=== PATIENT | male | born 1950 | race Caucasian/White ===

== ENCOUNTER 2020-04-14 12:18 | Outpatient (REF) | payer MEDICARE, SELFPAY ==
--- NOTE | 2020-04-14 12:27 | XR_ITS ---
EXAMINATION: LEFT HIP X-RAY CLINICAL INFORMATION: Pain COMPARISON: None TECHNIQUE: 2 views of the left hip FINDINGS: Bone alignment is normal. No fracture or dislocation is seen. There is mild arthritis with small osteophytes at the left hip joint. There are surgical clips that project over the left femoral neck/intertrochanteric region. There is soft tissue arterial calcification. XR/XR hip LT 1V IMPRESSION: Mild left hip arthritis. EXAMINATION: Lumbar spine x-ray CLINICAL INFORMATION: Low back pain COMPARISON: None. TECHNIQUE: 3 views of the lumbar spine FINDINGS: Bone alignment is normal. No fracture or dislocation is seen. There is multilevel degenerative disc disease and spondylosis. There is ankylosis at the L4-L5 disc space level. There is multilevel facet arthritis. There is evidence of atherosclerotic disease. IMPRESSION: Severe degenerative changes. Secondary spinal stenosis should be considered.
--- NOTE | 2020-04-14 12:27 | XR_ITS ---
EXAMINATION: LEFT HIP X-RAY CLINICAL INFORMATION: Pain COMPARISON: None TECHNIQUE: 2 views of the left hip FINDINGS: Bone alignment is normal. No fracture or dislocation is seen. There is mild arthritis with small osteophytes at the left hip joint. There are surgical clips that project over the left femoral neck/intertrochanteric region. There is soft tissue arterial calcification. XR/XR lumbar spine 2-3V IMPRESSION: Mild left hip arthritis. EXAMINATION: Lumbar spine x-ray CLINICAL INFORMATION: Low back pain COMPARISON: None. TECHNIQUE: 3 views of the lumbar spine FINDINGS: Bone alignment is normal. No fracture or dislocation is seen. There is multilevel degenerative disc disease and spondylosis. There is ankylosis at the L4-L5 disc space level. There is multilevel facet arthritis. There is evidence of atherosclerotic disease. IMPRESSION: Severe degenerative changes. Secondary spinal stenosis should be considered.
== END 2020-04-14 12:19 | disposition home or self-care (01) ==
LOC: HO.XRAY 12:18
DX: M54.5 Low back pain (principal); M25.552 Pain in left hip
CPT/HCPCS: 72100; 73501

== ENCOUNTER 2021-01-31 07:44 | Outpatient (RCR) | payer MEDICARE, SELFPAY | END 2021-02-27 14:00 | disposition home or self-care (01) | LOC: HO.WCC 07:44 | PROVIDERS: PCP Nurse Practitioner Family; Visit Provider Surgery | DX: E11.621 Type 2 diabetes mellitus with foot ulcer (principal); L97.522 Non-pressure chronic ulcer of other part of left foot with fat layer exposed; E11.40 Type 2 diabetes mellitus with diabetic neuropathy, unspecified; I10 Essential (primary) hypertension; Z79.4 Long term (current) use of insulin; Z79.899 Other long term (current) drug therapy | CPT/HCPCS: 11042 ==

== ENCOUNTER 2021-04-17 07:58 | Outpatient (RCR) | payer MEDICARE, SELFPAY ==
--- NOTE | ~2021-04-17 | XR_ITS ---
EXAMINATION: XR FOOT, LEFT CLINICAL INFORMATION: Nonhealing left great toe COMPARISON: None TECHNIQUE: AP, lateral, and oblique views of the left foot. FINDINGS: Osteopenia. Amputations of the third ray at the proximal phalanx and fifth ray at the metatarsal. Soft tissue swelling and dressing along the hallux. No underlying radiographic changes of osteomyelitis. XR/XR foot LT min 3V IMPRESSION: No radiographic evidence of osteomyelitis involving the great toe.
[2021-06-07 07:19] LABS: MANUAL DIFF FLAG NO
[2021-06-07 07:39] LABS: Estimated Average Glucose 160 mg/dL; Hemoglobin A1c % 7.2 %
[2021-06-07 07:49] LABS: Anion Gap 12 (12-20); Blood Urea Nitrogen 38 mg/dL (9-16); Calcium 9.5 mg/dL (8.4-10.2); Carbon Dioxide 21 mmol/L (22-29); Chloride 111 mmol/L (96-108); Estimated Glomerular Filt Rate 48; Glucose Random 172 mg/dL (60-115); Potassium 4.2 mmol/L (3.3-5.1); Sodium 140 mmol/L (135-145)
[2021-06-07 08:18] LABS: Erythrocyte Sedimentation Rate 11 MM/HR (0-15)
[2021-06-07 09:01] LABS: Hematocrit 44.2 % (42.0-52.0); Hemoglobin 15.1 g/dl (14.0-18.0); Imm Gran Abs Auto 0.02 X10*3/uL (0.00-0.03); Imm Gran Pct Auto 0.2 % (0.0-0.4); Lymphocytes Absolute Auto 1.4 X10*3/uL (1.2-4.9); Lymphocytes Percent Auto 16.7 % (20-40); Mean Corpuscular HGB Conc 34.2 g/dl (31.0-36.0); Mean Corpuscular Hemoglobin 30.5 pg (27.0-33.0); Mean Corpuscular Volume 89.3 fL (80.0-98.0); Mean Platelet Volume 10.4 fL (9.4-12.4); Monocytes Absolute Auto 0.6 X10*3/uL (0.1-1.2); Monocytes Percent Auto 7.2 % (2-11); Neutrophils Absolute Auto 6.1 x10*3/uL (2.0-8.3); Neutrophils Percent Auto 75.9 % (45-73); Platelet Count 141 X10*3/uL (160-400); Red Blood Count 4.95 X10*6/uL (4.60-5.80); Red Cell Distribution Width 14.4 % (11.0-16.0); White Blood Count 8.1 X10*3/uL (4.8-10.8)
== END 2021-07-04 15:10 | disposition home or self-care (01) ==
LOC: HO.WCC 07:58
PROVIDERS: PCP Nurse Practitioner Family; Visit Provider Physician Assistant
DX: E11.621 Type 2 diabetes mellitus with foot ulcer (principal); L97.522 Non-pressure chronic ulcer of other part of left foot with fat layer exposed; E11.40 Type 2 diabetes mellitus with diabetic neuropathy, unspecified; I10 Essential (primary) hypertension; I25.84 Coronary atherosclerosis due to calcified coronary lesion; I25.2 Old myocardial infarction; Z87.891 Personal history of nicotine dependence; Z86.718 Personal history of other venous thrombosis and embolism; Z95.1 Presence of aortocoronary bypass graft
CPT/HCPCS: 11042; 15275; 36415; 73630; 80048; 83036; 85025; 85652; 86140; 99212; Q4187

== ENCOUNTER 2021-10-04 07:55 | Outpatient (RCR) | payer MEDICARE, SELFPAY ==
--- NOTE | ~2021-10-04 | XR_ITS ---
EXAMINATION: XR FOOT, LEFT CLINICAL INFORMATION: Evaluate for osteomyelitis of the great toe COMPARISON: 06/07/2021 TECHNIQUE: AP, lateral, and oblique views of the left foot. FINDINGS: No cortical erosion or periosteal reaction to suggest osteomyelitis. Postsurgical changes of the 3rd toe and 5th metatarsal. Chronic deformity at the 2nd PIP joint. No acute osseous abnormality demonstrated. XR/XR foot LT min 3V IMPRESSION: No acute osseous abnormality.
--- NOTE | ~2021-10-04 | XR_ITS ---
EXAMINATION: XR FOOT, LEFT CLINICAL INFORMATION: Pain great toe. Assess for osteomyelitis. COMPARISON: Radiographs left foot 02/02/2022, 06/07/2021. TECHNIQUE: The left foot is imaged in 4 views. FINDINGS: The foot is similar to prior studies. There is no acute or healing fracture or destructive process. No periostitis. No gas tracking in soft tissues. Again, there are degenerative changes first MTP and second toe PIP joints. No erosive change. There has been prior amputation at distal shaft third toe proximal phalanx and mid shaft fifth metatarsal. There are posterior and plantar calcaneal spurs. Atherosclerotic calcifications vasculature. XR/XR foot LT min 3V IMPRESSION: 1. No acute or healing fracture or destructive process. No gas tracking in soft tissues. 2. Degenerative changes first MTP and second toe PIP joint. 3. Calcaneal spurs.
[2022-02-23 08:07] LABS: MANUAL DIFF FLAG NO
[2022-02-23 08:40] LABS: Basophils Percent Auto 0.4 % (0-2); Eosinophils Absolute Auto 0.1 X10*3/uL (0.0-0.4); Eosinophils Percent Auto 2.8 % (0-4); Hematocrit 44.4 % (42.0-52.0); Hemoglobin 14.8 g/dl (14.0-18.0); Imm Gran Abs Auto 0.02 X10*3/uL (0.00-0.03); Imm Gran Pct Auto 0.4 % (0.0-0.4); Lymphocytes Absolute Auto 1.3 X10*3/uL (1.2-4.9); Lymphocytes Percent Auto 26.4 % (20-40); Mean Corpuscular HGB Conc 33.3 g/dl (31.0-36.0); Mean Corpuscular Volume 92.9 fL (80.0-98.0); Mean Platelet Volume 10.6 fL (9.4-12.4); Monocytes Absolute Auto 0.6 X10*3/uL (0.1-1.2); Monocytes Percent Auto 11.7 % (2-11); Neutrophils Absolute Auto 2.9 x10*3/uL (2.0-8.3); Neutrophils Percent Auto 58.3 % (45-73); Platelet Count 126 X10*3/uL (160-400); Red Blood Count 4.78 X10*6/uL (4.60-5.80); Red Cell Distribution Width 13.4 % (11.0-16.0)
[2022-02-23 09:09] LABS: Estimated Average Glucose 166 mg/dL; Hemoglobin A1c % 7.4 %
[2022-02-23 09:13] LABS: Anion Gap 15 (12-20); Blood Urea Nitrogen 29 mg/dL (9-16); C Reactive Protein 0.28 mg/dL (< or = 0.50); Carbon Dioxide 27 mmol/L (22-29); Chloride 103 mmol/L (96-108); Estimated Glomerular Filt Rate 59; Glucose Random 185 mg/dL (60-115); Potassium 4.2 mmol/L (3.3-5.1); Sodium 141 mmol/L (135-145)
[2022-02-23 09:32] LABS: Erythrocyte Sedimentation Rate 7 MM/HR (0-15)
[2022-05-20 10:55] LABS: Blood Urea Nitrogen 31 mg/dL (9-16); Estimated Glomerular Filt Rate 58
== END 2022-08-01 16:00 | disposition home or self-care (01) ==
LOC: HO.WCC 07:55
PROVIDERS: Surgery; Visit Provider Physician Assistant
DX: E11.621 Type 2 diabetes mellitus with foot ulcer (principal); L97.522 Non-pressure chronic ulcer of other part of left foot with fat layer exposed; Z79.2 Long term (current) use of antibiotics; Z79.4 Long term (current) use of insulin; Z79.82 Long term (current) use of aspirin; Z79.899 Other long term (current) drug therapy
CPT/HCPCS: 11042; 15275; 29445; 36415; 73630; 80048; 82565; 83036; 84134; 84520; 85025; 85652; 86140; 87071; 87077; 87186; 87205; 97597; 99212; 99213; Q4187

== ENCOUNTER 2022-05-20 09:47 | Outpatient (REF) | payer MEDICARE, SELFPAY ==
--- NOTE | ~2022-05-20 | CT_ITS ---
EXAMINATION: CT LEFT FOOT WITH CONTRAST. CLINICAL INFORMATION: Diabetes with foot ulcer. Clinical history provided for the prior x-ray, pain great toe, assess for osteomyelitis COMPARISON: X-ray 04/20/2022 TECHNIQUE: Axial imaging. Sagittal coronal reconstructions. 85 cc Omnipaque [id number]. FINDINGS: There is soft tissue swelling of the first toe, with findings suggestive of subcutaneous edema, more prominently in the plantar/medial aspect of the toe. There appears be subtle skin irregularity in the distal toe, suggestive of ulceration. No loculated or drainable fluid collection is seen. No definite erosive or destructive process is identified in the first toe. No periostitis is evident. Chronic appearing ossification medial to the first IP joint. Mild first MTP and IP joint arthritis. There is hallux sesamoid arthritis. Prior amputation at the level of the distal shaft of the third proximal phalanx and the mid shaft fifth metatarsal. No osteolysis or destructive process otherwise identified. There is subcutaneous edema in the ankle and dorsal aspect of the foot.. Limited evaluation of the tendons. No appreciable significant tenosynovitis is seen. Achilles tendon grossly appears intact. CT/CT foot LT w IV con IMPRESSION: 1. Soft tissue swelling and subcutaneous edema of the first toe. No loculated drainable fluid collections evident by CT. 2. No erosive changes or destructive process is identified in the first toe. Early changes of osteomyelitis may not be evident by CT. MRI evaluation is more sensitive, and can be obtained as clinically warranted. 3. Postsurgical changes and arthritis as detailed above. 4. Additional findings and details as above.
[2022-05-20] MEDS: iohexoL 350 MG/ML 100 ML INFUS..BTL IV (12:10)
== END 2022-05-20 09:48 | disposition home or self-care (01) ==
LOC: HO.CT 09:47
PROVIDERS: PCP Nurse Practitioner Family; Visit Provider Physician Assistant
DX: E11.621 Type 2 diabetes mellitus with foot ulcer (principal); L97.522 Non-pressure chronic ulcer of other part of left foot with fat layer exposed
CPT/HCPCS: 73701; Q9967

== ENCOUNTER 2022-06-19 11:49 | Outpatient (REF) | payer MEDICARE, SELFPAY ==
[2022-06-19 13:45] LABS: Hematocrit 44.6 % (42.0-52.0); Hemoglobin 14.7 g/dl (14.0-18.0); Mean Corpuscular Hemoglobin 30.1 pg (27.0-33.0); Mean Corpuscular Volume 91.4 fL (80.0-98.0); Mean Platelet Volume 10.7 fL (9.4-12.4); Platelet Count 145 X10*3/uL (160-400); Red Blood Count 4.88 X10*6/uL (4.60-5.80); Red Cell Distribution Width 12.9 % (11.0-16.0); White Blood Count 5.2 X10*3/uL (4.8-10.8)
[2022-06-19 14:40] LABS: Anion Gap 14 (12-20); Blood Urea Nitrogen 33 mg/dL (9-16); Carbon Dioxide 26 mmol/L (22-29); Chloride 105 mmol/L (96-108); Estimated Glomerular Filt Rate 56; Potassium 4.5 mmol/L (3.3-5.1); Sodium 140 mmol/L (135-145)
== END 2022-06-19 11:50 | disposition home or self-care (01) ==
LOC: HO.LAB 11:49
PROVIDERS: PCP Nurse Practitioner Family; Visit Provider Nurse Practitioner Adult Health
DX: I73.9 Peripheral vascular disease, unspecified (principal)
CPT/HCPCS: 36415; 80051; 82565; 84520; 85027; 85610

== ENCOUNTER 2022-09-18 07:48 | Outpatient (RCR) | payer MEDICARE, SELFPAY | END 2023-05-12 17:00 | disposition home or self-care (01) | LOC: HO.WCC 07:48 | PROVIDERS: PCP Nurse Practitioner Family; Visit Provider Surgery | DX: E11.621 Type 2 diabetes mellitus with foot ulcer (principal); L97.412 Non-pressure chronic ulcer of right heel and midfoot with fat layer exposed; E11.51 Type 2 diabetes mellitus with diabetic peripheral angiopathy without gangrene; E11.40 Type 2 diabetes mellitus with diabetic neuropathy, unspecified; E11.620 Type 2 diabetes mellitus with diabetic dermatitis; I25.2 Old myocardial infarction; I12.9 Hypertensive chronic kidney disease with stage 1 through stage 4 chronic kidney disease, or unspecified chronic kidney disease; N18.9 Chronic kidney disease, unspecified; Z95.1 Presence of aortocoronary bypass graft; Z86.718 Personal history of other venous thrombosis and embolism; Z87.891 Personal history of nicotine dependence; Z89.422 Acquired absence of other left toe(s) | CPT/HCPCS: 11042; 87070; 87073; 87077; 87186; 87205; 97597; 99212; 99213 ==

== ENCOUNTER → 2022-11-25 09:25 | Outpatient (BNVA) | payer MEDICARE, SELFPAY | PROVIDERS: PCP Nurse Practitioner Family; Visit Provider Internal Medicine | DX: M48.00 Spinal stenosis, site unspecified (principal) | CPT/HCPCS: 99202 ==

== ENCOUNTER 2023-08-04 09:36 | Outpatient (RCR) | payer MEDICARE, SELFPAY | END 2023-09-08 11:59 | disposition home or self-care (01) | LOC: HO.WCC 09:36 | PROVIDERS: PCP Nurse Practitioner Family; Visit Provider Physician Assistant | DX: E11.621 Type 2 diabetes mellitus with foot ulcer (principal); L97.522 Non-pressure chronic ulcer of other part of left foot with fat layer exposed; E11.51 Type 2 diabetes mellitus with diabetic peripheral angiopathy without gangrene; E11.40 Type 2 diabetes mellitus with diabetic neuropathy, unspecified; L84 Corns and callosities; I10 Essential (primary) hypertension; I25.2 Old myocardial infarction; Z95.1 Presence of aortocoronary bypass graft; Z89.422 Acquired absence of other left toe(s); Z87.891 Personal history of nicotine dependence; Z86.718 Personal history of other venous thrombosis and embolism | CPT/HCPCS: 11042; 99212 ==

== ENCOUNTER 2024-03-08 06:37 | Outpatient (REF) | payer SELFPAY ==
[2024-03-08 06:14] LABS: MANUAL DIFF FLAG NO
[2024-03-08 07:02] LABS: Basophils Percent Auto 0.4 % (0-2); Eosinophils Absolute Auto 0.3 X10*3/uL (0.0-0.4); Hematocrit 32.7 % (42.0-52.0); Hemoglobin 10.2 g/dl (14.0-18.0); Imm Gran Abs Auto 0.03 X10*3/uL (0.00-0.03); Imm Gran Pct Auto 0.4 % (0.0-0.4); Lymphocytes Percent Auto 28.8 % (20-40); Mean Corpuscular HGB Conc 31.2 g/dl (31.0-36.0); Mean Corpuscular Hemoglobin 28.6 pg (27.0-33.0); Mean Corpuscular Volume 91.6 fL (80.0-98.0); Mean Platelet Volume 9.8 fL (9.4-12.4); Monocytes Absolute Auto 0.6 X10*3/uL (0.1-1.2); Monocytes Percent Auto 9.4 % (2-11); Neutrophils Absolute Auto 3.8 x10*3/uL (2.0-8.3); Platelet Count 210 X10*3/uL (160-400); Red Blood Count 3.57 X10*6/uL (4.60-5.80); Red Cell Distribution Width 15.1 % (11.0-16.0); White Blood Count 6.8 X10*3/uL (4.8-10.8)
[2024-03-08 07:34] LABS: Anion Gap 9 (12-20); Blood Urea Nitrogen 29 mg/dL (9-16); Calcium 8.5 mg/dL (8.4-10.2); Carbon Dioxide 28 mmol/L (22-29); Chloride 107 mmol/L (96-108); Estimated Glomerular Filt Rate > 60; Glucose Random 131 mg/dL (60-115); Potassium 4.3 mmol/L (3.3-5.1); Sodium 140 mmol/L (135-145)
== END 2024-03-08 06:38 | disposition home or self-care (01) ==
LOC: HO.MMNH2L 06:37
PROVIDERS: Visit Provider Hospitalist
DX: M62.59 Muscle wasting and atrophy, not elsewhere classified, multiple sites (principal)
CPT/HCPCS: 36415; 80048; 80197; 85025

== ENCOUNTER 2024-03-18 05:49 | Outpatient (REF) | payer MEDICARE, SELFPAY ==
[2024-03-19 21:44] LABS: Tacrolimus Prograf 3.8 mcg/L
== END 2024-03-18 05:50 | disposition home or self-care (01) ==
LOC: HO.MMNH2L 05:49
PROVIDERS: Visit Provider Hospitalist
DX: M62.59 Muscle wasting and atrophy, not elsewhere classified, multiple sites (principal); E11.40 Type 2 diabetes mellitus with diabetic neuropathy, unspecified; Z79.899 Other long term (current) drug therapy
CPT/HCPCS: 36415; 80197

== ENCOUNTER 2024-03-22 06:21 | Outpatient (REF) | payer MEDICARE, SELFPAY ==
[2024-03-22 06:03] LABS: MANUAL DIFF FLAG NO
[2024-03-22 07:00] LABS: Basophils Percent Auto 0.3 % (0-2); Eosinophils Absolute Auto 0.3 X10*3/uL (0.0-0.4); Eosinophils Percent Auto 5.5 % (0-4); Hematocrit 32.7 % (42.0-52.0); Imm Gran Abs Auto 0.02 X10*3/uL (0.00-0.03); Imm Gran Pct Auto 0.3 % (0.0-0.4); Lymphocytes Absolute Auto 1.6 X10*3/uL (1.2-4.9); Lymphocytes Percent Auto 25.3 % (20-40); Mean Corpuscular HGB Conc 30.6 g/dl (31.0-36.0); Mean Corpuscular Hemoglobin 28.2 pg (27.0-33.0); Mean Corpuscular Volume 92.1 fL (80.0-98.0); Mean Platelet Volume 10.3 fL (9.4-12.4); Monocytes Absolute Auto 0.7 X10*3/uL (0.1-1.2); Monocytes Percent Auto 10.6 % (2-11); Neutrophils Absolute Auto 3.6 x10*3/uL (2.0-8.3); Platelet Count 175 X10*3/uL (160-400); Red Blood Count 3.55 X10*6/uL (4.60-5.80); Red Cell Distribution Width 15.5 % (11.0-16.0); White Blood Count 6.2 X10*3/uL (4.8-10.8)
[2024-03-22 07:21] LABS: Anion Gap 11 (12-20); Blood Urea Nitrogen 32 mg/dL (9-16); Calcium 8.3 mg/dL (8.4-10.2); Carbon Dioxide 24 mmol/L (22-29); Chloride 109 mmol/L (96-108); Estimated Glomerular Filt Rate > 60; Glucose Random 127 mg/dL (60-115); Potassium 3.8 mmol/L (3.3-5.1); Sodium 140 mmol/L (135-145)
== END 2024-03-22 06:22 | disposition home or self-care (01) ==
LOC: HO.MMNH2L 06:21
PROVIDERS: Visit Provider Hospitalist
DX: M62.59 Muscle wasting and atrophy, not elsewhere classified, multiple sites (principal)
CPT/HCPCS: 36415; 80048; 80197; 85025

== ENCOUNTER 2024-03-29 06:19 | Outpatient (REF) | payer MEDICARE, SELFPAY ==
[2024-03-29 06:04] LABS: MANUAL DIFF FLAG NO
[2024-03-29 07:03] LABS: Basophils Percent Auto 0.4 % (0-2); Eosinophils Absolute Auto 0.4 X10*3/uL (0.0-0.4); Eosinophils Percent Auto 7.6 % (0-4); Hematocrit 32.9 % (42.0-52.0); Hemoglobin 10.3 g/dl (14.0-18.0); Imm Gran Abs Auto 0.01 X10*3/uL (0.00-0.03); Imm Gran Pct Auto 0.2 % (0.0-0.4); Lymphocytes Absolute Auto 1.5 X10*3/uL (1.2-4.9); Lymphocytes Percent Auto 25.5 % (20-40); Mean Corpuscular HGB Conc 31.3 g/dl (31.0-36.0); Mean Corpuscular Hemoglobin 28.2 pg (27.0-33.0); Mean Corpuscular Volume 90.1 fL (80.0-98.0); Mean Platelet Volume 10.2 fL (9.4-12.4); Monocytes Absolute Auto 0.6 X10*3/uL (0.1-1.2); Neutrophils Absolute Auto 3.2 x10*3/uL (2.0-8.3); Neutrophils Percent Auto 56.3 % (45-73); Platelet Count 173 X10*3/uL (160-400); Red Blood Count 3.65 X10*6/uL (4.60-5.80); Red Cell Distribution Width 15.4 % (11.0-16.0); White Blood Count 5.7 X10*3/uL (4.8-10.8)
[2024-03-29 07:17] LABS: Anion Gap 11 (12-20); Blood Urea Nitrogen 30 mg/dL (9-16); Calcium 8.4 mg/dL (8.4-10.2); Carbon Dioxide 24 mmol/L (22-29); Chloride 106 mmol/L (96-108); Estimated Glomerular Filt Rate > 60; Glucose Random 116 mg/dL (60-115); Potassium 3.8 mmol/L (3.3-5.1); Sodium 137 mmol/L (135-145)
[2024-03-30 17:59] LABS: Tacrolimus Prograf 3.5 mcg/L
== END 2024-03-29 06:20 | disposition home or self-care (01) ==
LOC: HO.MMNH2L 06:19
PROVIDERS: Visit Provider Hospitalist
DX: M62.59 Muscle wasting and atrophy, not elsewhere classified, multiple sites (principal)
CPT/HCPCS: 36415; 80048; 80197; 85025

== ENCOUNTER 2024-04-05 06:18 | Outpatient (REF) | payer MEDICARE, SELFPAY ==
[2024-04-05 06:02] LABS: MANUAL DIFF FLAG NO
[2024-04-05 07:01] LABS: Estimated Average Glucose 137 mg/dL; Hemoglobin A1C 127.4639 umol/L; Hemoglobin A1c % 6.4 % (<6.0); Total Hemoglobin (HGBA1C) 2722.9203 umol/L
[2024-04-05 07:11] LABS: Basophils Percent Auto 0.5 % (0-2); Eosinophils Absolute Auto 0.4 X10*3/uL (0.0-0.4); Eosinophils Percent Auto 7.4 % (0-4); Hematocrit 33.6 % (42.0-52.0); Hemoglobin 10.7 g/dl (14.0-18.0); Imm Gran Abs Auto 0.02 X10*3/uL (0.00-0.03); Imm Gran Pct Auto 0.4 % (0.0-0.4); Lymphocytes Absolute Auto 1.6 X10*3/uL (1.2-4.9); Lymphocytes Percent Auto 28.4 % (20-40); Mean Corpuscular HGB Conc 31.8 g/dl (31.0-36.0); Mean Corpuscular Hemoglobin 28.5 pg (27.0-33.0); Mean Corpuscular Volume 89.4 fL (80.0-98.0); Mean Platelet Volume 10.2 fL (9.4-12.4); Monocytes Absolute Auto 0.7 X10*3/uL (0.1-1.2); Monocytes Percent Auto 11.6 % (2-11); Neutrophils Percent Auto 51.7 % (45-73); Platelet Count 170 X10*3/uL (160-400); Red Blood Count 3.76 X10*6/uL (4.60-5.80); Red Cell Distribution Width 15.5 % (11.0-16.0); White Blood Count 5.7 X10*3/uL (4.8-10.8)
[2024-04-05 08:14] LABS: Anion Gap 11 (12-20); Blood Urea Nitrogen 30 mg/dL (9-16); Calcium 8.4 mg/dL (8.4-10.2); Carbon Dioxide 26 mmol/L (22-29); Chloride 104 mmol/L (96-108); Estimated Glomerular Filt Rate > 60; Glucose Random 165 mg/dL (60-115); Potassium 4.1 mmol/L (3.3-5.1); Sodium 137 mmol/L (135-145)
[2024-04-06 16:48] LABS: Tacrolimus Prograf 4.4 mcg/L
== END 2024-04-05 06:19 | disposition home or self-care (01) ==
LOC: HO.MMNH2L 06:18
PROVIDERS: Nurse Practitioner; Visit Provider Hospitalist
DX: M62.59 Muscle wasting and atrophy, not elsewhere classified, multiple sites (principal); E11.9 Type 2 diabetes mellitus without complications
CPT/HCPCS: 36415; 80048; 80197; 83036; 85025

== ENCOUNTER 2024-04-12 06:10 | Outpatient (REF) | payer MEDICARE, SELFPAY ==
[2024-04-12 05:50] LABS: MANUAL DIFF FLAG NO
[2024-04-12 06:35] LABS: Basophils Percent Auto 0.3 % (0-2); Eosinophils Absolute Auto 0.4 X10*3/uL (0.0-0.4); Eosinophils Percent Auto 6.3 % (0-4); Hematocrit 33.9 % (42.0-52.0); Hemoglobin 10.9 g/dl (14.0-18.0); Imm Gran Abs Auto 0.02 X10*3/uL (0.00-0.03); Imm Gran Pct Auto 0.3 % (0.0-0.4); Lymphocytes Absolute Auto 1.8 X10*3/uL (1.2-4.9); Mean Corpuscular HGB Conc 32.2 g/dl (31.0-36.0); Mean Corpuscular Hemoglobin 28.7 pg (27.0-33.0); Mean Corpuscular Volume 89.2 fL (80.0-98.0); Mean Platelet Volume 9.9 fL (9.4-12.4); Monocytes Absolute Auto 0.7 X10*3/uL (0.1-1.2); Monocytes Percent Auto 11.6 % (2-11); Neutrophils Absolute Auto 3.2 x10*3/uL (2.0-8.3); Neutrophils Percent Auto 52.5 % (45-73); Platelet Count 162 X10*3/uL (160-400); Red Cell Distribution Width 15.6 % (11.0-16.0); White Blood Count 6.1 X10*3/uL (4.8-10.8)
[2024-04-12 07:00] LABS: Anion Gap 11 (12-20); Blood Urea Nitrogen 29 mg/dL (9-16); Calcium 8.4 mg/dL (8.4-10.2); Carbon Dioxide 26 mmol/L (22-29); Chloride 106 mmol/L (96-108); Estimated Glomerular Filt Rate > 60; Glucose Random 123 mg/dL (60-115); Potassium 3.9 mmol/L (3.3-5.1); Sodium 139 mmol/L (135-145)
== END 2024-04-12 06:11 | disposition home or self-care (01) ==
LOC: HO.MMNH2L 06:10
DX: E11.40 Type 2 diabetes mellitus with diabetic neuropathy, unspecified (principal); Z94.0 Kidney transplant status; I10 Essential (primary) hypertension
CPT/HCPCS: 36415; 80048; 85025

== ENCOUNTER 2024-04-19 05:47 | Outpatient (REF) | payer MEDICARE, SELFPAY ==
[2024-04-19 05:39] LABS: MANUAL DIFF FLAG NO
[2024-04-19 06:27] LABS: Anion Gap 14 (12-20); Blood Urea Nitrogen 35 mg/dL (9-16); Calcium 8.5 mg/dL (8.4-10.2); Carbon Dioxide 23 mmol/L (22-29); Chloride 106 mmol/L (96-108); Estimated Glomerular Filt Rate > 60; Glucose Random 201 mg/dL (60-115); Potassium 3.9 mmol/L (3.3-5.1); Sodium 139 mmol/L (135-145)
[2024-04-19 07:02] LABS: Basophils Percent Auto 0.2 % (0-2); Eosinophils Absolute Auto 0.3 X10*3/uL (0.0-0.4); Eosinophils Percent Auto 4.6 % (0-4); Hematocrit 33.3 % (42.0-52.0); Hemoglobin 10.4 g/dl (14.0-18.0); Imm Gran Abs Auto 0.01 X10*3/uL (0.00-0.03); Imm Gran Pct Auto 0.2 % (0.0-0.4); Lymphocytes Absolute Auto 1.4 X10*3/uL (1.2-4.9); Mean Corpuscular HGB Conc 31.2 g/dl (31.0-36.0); Mean Corpuscular Hemoglobin 28.2 pg (27.0-33.0); Mean Corpuscular Volume 90.2 fL (80.0-98.0); Mean Platelet Volume 10.6 fL (9.4-12.4); Monocytes Absolute Auto 0.6 X10*3/uL (0.1-1.2); Monocytes Percent Auto 11.2 % (2-11); Neutrophils Absolute Auto 3.4 x10*3/uL (2.0-8.3); Neutrophils Percent Auto 59.8 % (45-73); Platelet Count 150 X10*3/uL (160-400); Red Blood Count 3.69 X10*6/uL (4.60-5.80); Red Cell Distribution Width 15.7 % (11.0-16.0); White Blood Count 5.7 X10*3/uL (4.8-10.8)
[2024-04-20 21:43] LABS: Tacrolimus Prograf 3.3 mcg/L
== END 2024-04-19 05:48 | disposition home or self-care (01) ==
LOC: HO.MMNH2L 05:47
PROVIDERS: Visit Provider Nurse Practitioner
DX: E11.40 Type 2 diabetes mellitus with diabetic neuropathy, unspecified (principal); Z79.4 Long term (current) use of insulin; I10 Essential (primary) hypertension
CPT/HCPCS: 36415; 80048; 80197; 85025

== ENCOUNTER 2024-04-26 05:45 | Outpatient (REF) | payer MEDICARE, SELFPAY ==
[2024-04-26 05:42] LABS: MANUAL DIFF FLAG NO
[2024-04-26 06:15] LABS: Basophils Percent Auto 0.4 % (0-2); Eosinophils Absolute Auto 0.4 X10*3/uL (0.0-0.4); Eosinophils Percent Auto 6.7 % (0-4); Hematocrit 32.9 % (42.0-52.0); Hemoglobin 10.4 g/dl (14.0-18.0); Imm Gran Abs Auto 0.02 X10*3/uL (0.00-0.03); Imm Gran Pct Auto 0.4 % (0.0-0.4); Lymphocytes Absolute Auto 1.5 X10*3/uL (1.2-4.9); Lymphocytes Percent Auto 27.1 % (20-40); Mean Corpuscular HGB Conc 31.6 g/dl (31.0-36.0); Mean Corpuscular Hemoglobin 27.8 pg (27.0-33.0); Mean Platelet Volume 10.5 fL (9.4-12.4); Monocytes Absolute Auto 0.5 X10*3/uL (0.1-1.2); Monocytes Percent Auto 8.3 % (2-11); Neutrophils Absolute Auto 3.2 x10*3/uL (2.0-8.3); Neutrophils Percent Auto 57.1 % (45-73); Platelet Count 159 X10*3/uL (160-400); Red Blood Count 3.74 X10*6/uL (4.60-5.80); Red Cell Distribution Width 15.9 % (11.0-16.0); White Blood Count 5.5 X10*3/uL (4.8-10.8)
[2024-04-26 06:53] LABS: Anion Gap 13 (12-20); Blood Urea Nitrogen 38 mg/dL (9-16); Calcium 8.2 mg/dL (8.4-10.2); Carbon Dioxide 24 mmol/L (22-29); Chloride 103 mmol/L (96-108); Estimated Glomerular Filt Rate > 60; Glucose Random 169 mg/dL (60-115); Sodium 136 mmol/L (135-145)
[2024-05-10 08:57] LABS: Tacrolimus Prograf 2.0 (L)
== END 2024-04-26 05:46 | disposition home or self-care (01) ==
LOC: HO.MMNH2L 05:45
DX: E11.40 Type 2 diabetes mellitus with diabetic neuropathy, unspecified (principal); Z94.0 Kidney transplant status; I10 Essential (primary) hypertension
CPT/HCPCS: 36415; 80048; 80197; 85025

== ENCOUNTER 2024-05-03 06:29 | Outpatient (REF) | payer MEDICARE, SELFPAY ==
[2024-05-03 06:19] LABS: MANUAL DIFF FLAG NO
[2024-05-03 06:32] LABS: Basophils Percent Auto 0.2 % (0-2); Eosinophils Absolute Auto 0.3 X10*3/uL (0.0-0.4); Eosinophils Percent Auto 5.6 % (0-4); Hematocrit 32.4 % (42.0-52.0); Hemoglobin 10.4 g/dl (14.0-18.0); Imm Gran Abs Auto 0.02 X10*3/uL (0.00-0.03); Imm Gran Pct Auto 0.4 % (0.0-0.4); Lymphocytes Absolute Auto 1.2 X10*3/uL (1.2-4.9); Lymphocytes Percent Auto 22.3 % (20-40); Mean Corpuscular HGB Conc 32.1 g/dl (31.0-36.0); Mean Corpuscular Hemoglobin 28.2 pg (27.0-33.0); Mean Corpuscular Volume 87.8 fL (80.0-98.0); Mean Platelet Volume 10.3 fL (9.4-12.4); Monocytes Absolute Auto 0.5 X10*3/uL (0.1-1.2); Monocytes Percent Auto 8.3 % (2-11); Neutrophils Absolute Auto 3.5 x10*3/uL (2.0-8.3); Neutrophils Percent Auto 63.2 % (45-73); Platelet Count 152 X10*3/uL (160-400); Red Blood Count 3.69 X10*6/uL (4.60-5.80); Red Cell Distribution Width 16.1 % (11.0-16.0); White Blood Count 5.6 X10*3/uL (4.8-10.8)
[2024-05-03 06:46] LABS: Anion Gap 11 (12-20); Blood Urea Nitrogen 34 mg/dL (9-16); Calcium 8.2 mg/dL (8.4-10.2); Carbon Dioxide 25 mmol/L (22-29); Chloride 105 mmol/L (96-108); Estimated Glomerular Filt Rate > 60; Glucose Random 205 mg/dL (60-115); Potassium 3.9 mmol/L (3.3-5.1); Sodium 137 mmol/L (135-145)
[2024-05-04 20:48] LABS: Tacrolimus Prograf 2.2 mcg/L
== END 2024-05-03 06:30 | disposition home or self-care (01) ==
LOC: HO.MMNH2L 06:29
PROVIDERS: Visit Provider Nurse Practitioner
DX: E11.40 Type 2 diabetes mellitus with diabetic neuropathy, unspecified (principal); Z94.0 Kidney transplant status; I10 Essential (primary) hypertension
CPT/HCPCS: 36415; 80048; 80197; 85025

== ENCOUNTER 2024-05-10 05:57 | Outpatient (REF) | payer MEDICARE, SELFPAY ==
[2024-05-10 05:46] LABS: MANUAL DIFF FLAG NO
[2024-05-10 06:14] LABS: Basophils Percent Auto 0.4 % (0-2); Eosinophils Absolute Auto 0.4 X10*3/uL (0.0-0.4); Eosinophils Percent Auto 7.8 % (0-4); Hematocrit 35.6 % (42.0-52.0); Hemoglobin 11.3 g/dl (14.0-18.0); Imm Gran Abs Auto 0.02 X10*3/uL (0.00-0.03); Imm Gran Pct Auto 0.4 % (0.0-0.4); Lymphocytes Absolute Auto 1.5 X10*3/uL (1.2-4.9); Lymphocytes Percent Auto 26.7 % (20-40); Mean Corpuscular HGB Conc 31.7 g/dl (31.0-36.0); Mean Corpuscular Hemoglobin 28.1 pg (27.0-33.0); Mean Corpuscular Volume 88.6 fL (80.0-98.0); Monocytes Absolute Auto 0.6 X10*3/uL (0.1-1.2); Monocytes Percent Auto 10.4 % (2-11); Neutrophils Percent Auto 54.3 % (45-73); Platelet Count 145 X10*3/uL (160-400); Red Blood Count 4.02 X10*6/uL (4.60-5.80); Red Cell Distribution Width 15.9 % (11.0-16.0); White Blood Count 5.5 X10*3/uL (4.8-10.8)
[2024-05-10 06:51] LABS: Anion Gap 13 (12-20); Blood Urea Nitrogen 36 mg/dL (9-16); Calcium 8.6 mg/dL (8.4-10.2); Carbon Dioxide 24 mmol/L (22-29); Chloride 105 mmol/L (96-108); Estimated Glomerular Filt Rate > 60; Glucose Random 144 mg/dL (60-115); Potassium 3.7 mmol/L (3.3-5.1); Sodium 138 mmol/L (135-145)
[2024-05-12 01:18] LABS: Tacrolimus Prograf 3.6 mcg/L
--- OUTSIDE RECORDS SUMMARY | 2024-05-12 12:20 | XMS_ITS ---
[facility] Organization [facility] Address [address] [place] [address] Care Team Providers Care Lead Manufacturing Engineer Name Role Phone Brittney Tiffanie HAWKINS Primary Care Provider Unavail able George Chopra Unavailable [phone] Allergies No Known Allergies REASON FOR VISIT Painful nail(s) aggrevated by shoes and causing difficulty standing/walking., Open sore, Ulcer(s) Medications Medication SIG (Take, Route, Frequency, Duration) Notes Start Date End Date Status Extra Depth Diabetic Shoes with 3 Pair Custom heat-molded multi-density innersoles for 1 year Dx: 09/01/2023 Active Omeprazole 20 MG as directed Orally Once a day Not-Taking Night Splint AFO - L1930 as directed Active Eliquis twice a day Active Aspir-81 Active Furosemide 40 MG 1 tablet Orally Once a day for 30 day(s) Not-Taking Losartan Potassium 50 MG 1 tablet Orally Once a day for 30 day(s) Not-Taking NIFEdipine Not-Takin g Amiodarone HCl Not-T aking Xarelto Not-Taking Lantus 100 UNIT/ML as directed Subcutaneous once a day 26 Units at bed time Active Tacrolimus 1 MG as directed Orally Twice a day 1.5 in AM 1 in PM Active Extra Depth Orthopedic Shoes (1 Pair) with Customized Heat Molded Multidensity Innersoles (3 Pair) as directed Dx: IDDM/Polyneuropathy (E10.42), Hammertoe Foot Deformity (M20.41,M20.42), Preulcerative Skin Lesion(s) (L85.1) Active Cipro 750 MG 1 tablet Orally qd for 30 days Not-Taking Jardiance 25 MG 1 tablet Orally Once a day Not-Taking Atorvastatin Calcium 80 MG 1 tablet Orally Once a day Active Carvedilol 6.25 MG 1 tablet with food Orally Twice a day for 30 day(s) Active Gabapentin 300 MG 1 capsule Orally Three a day Active HumaLOG 100 UNIT/ML as directed Subcutaneous three time daily Active Problems Problem Type SNOMED Code ICD Code Onset Dates Problem Status W/U Status Risk Notes Problem Non-pressure chronic ulcer of other part of left foot limited to breakdown of skin (L97.521) Active confirmed Vital Signs Height 5ft 11in in 09/01/2023 Weight 244 lbs 09/01/2023 BMI 34.03 kg/m2 09/01/2023 Blood pressure systolic 120 mm Hg 09/01/19 24 Blood pressure diastolic 80 mm Hg 024 Encounters Encounter Location Date Provider Diagnosis [facility] [address] [address] 09/01/2023 George Chopra Type 1 diabetes mellitus with diabetic polyneuropathy E10.42 ; Pain in right toe(s) M79.674 ; Tinea unguium B35.1 ; Pain in left toe(s) M79.675 ; Non-pressure chronic ulcer of other part of left foot with fat layer exposed L97.522 ; Other hammer toe(s) (acquired), left foot M20.42 ; Other hammer toe(s) (acquired), right foot M20.41 ; Primary osteoarthritis, left ankle and foot M19.072 ; Hallux valgus (acquired), left foot M20.12 ; Hallux rigidus, right foot M20.21 ; Hallux rigidus, left foot M20.22 and Non-pressure chronic ulcer of other part of left foot limited to breakdown of skin L97.521 Assessments Encounter Date Diagnosis (ICD Code) Assessment Notes Treatment Notes Treatment Clinical Notes Section Notes 09/01/2023 Type 1 diabetes mellitus with diabetic polyneuropathy (ICD-10 - E10.42) 09/01/2023 Pain in right toe(s) (ICD-10 - M79.674) 09/01/2023 Tinea unguium (ICD-10 - B35.1) 09/01/2023 Pain in left toe(s) (ICD-10 - M79.675) 09/01/2023 Non-pressure chronic ulcer of other part of left foot with fat layer exposed (ICD-10 - L97.522) 09/01/2023 Other hammer toe(s) (acquired), left foot (ICD-10 - M20.42) 09/01/2023 Other hammer toe(s) (acquired), right foot (ICD-10 - M20.41) 09/01/2023 Primary osteoarthritis, left ankle and foot (ICD-10 - M19.072) 09/01/2023 Hallux valgus (acquired), left foot (ICD-10 - M20.12) 09/01/2023 Hallux rigidus, right foot (ICD-10 - M20.21) 09/01/2023 Hallux rigidus, left foot (ICD-10 - M20.22) 09/01/2023 Non-pressure chronic ulcer of other part of left foot limited to breakdown of skin (ICD-10 - L97.521) Plan Of Treatment Medication Medication Name Sig Start Date Stop Date Notes Extra Depth Diabetic Shoes w ith 3 Pair Custom heat-molded multi-density innersoles for 1 year Dx: 09/01/2023 Night Splint AFO - L1930 as directed Next Appt Details Follow Up: 6 Months, Reason: Procedure Notes * Category Sub-Category Detail Notes Debride Nail 6-10 Nail debridement Nail debridem ent performed extensively to reduce/remove overall nail length and girth, subungual debris, and necrotic tissue, by manual and electrical means with use of a nail nipper and/or dremel, to more viable healthy nail plate or bed tissue 6-10. Silver nitrate used for any petechial bleeding as necessary. Patient chooses, no pharmaceutical tx (85080) Debride skin< 25 sq cm Open wound Open woun d selective debridement of fibrin, devitilized epidermis and/or dermis, exudate, using sterile sharp dissection, without use of anesthesia, with/without topical applications, wound assessment and instructions for ongoing care, Wound Care, The patient was instructed on importance of proper wound care consisting of pressure reduction, maintainance of moist wound environment, and regular debridement of devitilized tissue , The patient is to cleanse the wound with warm soapy water/peroxide/saline or betadine BID based on product availability , The patient is to apply Antibiotic Oint. to the wound and cover with a DSD , The patient was instructed to change dressings according to orders or PRN saturation, leaks, The patient was instructed to monitor and report any signs or symptoms of infection or any untoward reactions (05514) Keratoma Treatment Parring or Cutting o f Benign Hyperkeratotic Lesion(s) 85587 (2-4 Lesions) - The Benign hyperkeratotic lesions, as described above were pared, and/or cut utilizing a sterile #15 blade, tissue nippers, and/or dremel Progress Notes * JOHANNA Aries EDOB:[birth year] (72 yo M)Acc No.[id number]:09/01/2023 Progress Note Patient:?Aries Rosario Provider:?George Chopra DPM :1950???Age:72 Y???Sex:Male Suresh e:09/01/2023 Address:[address] [place], [place] [id number] Pcp:SHRUTHI Vicente Subjective: * Chief Complaints: * ???Painful nail(s) aggrevate d by shoes and causing difficulty standing/walking.Open soreUlcer(s) * HPI: ???Skin problems:?Nature:?Ulcer.?Location:?Bottom, Forefoot, Left , 1st.?Duration:?several weeks--six.?Course:?improved.?Aggravated by:?standing, walking.?Treatments:?pt tx at [facility] every other week and dressing changes qod with ; pt going to pending sale to [facility].?Heel pain:?Location:?Proximal plantar aspect of Heel, RIGHT.?Onset/Cause:?unknown, denies trauma.?Course:?resolved.?At Risk footcare:?Pt States Last PCP Visit:?Date?07/03/2023 ???Painful Nails:?Pt States Last PCP Visit:?Date:?06/04/2021 * ROS:?General/Constitutional:?Nausea?denies.?Vomiting?denies.?Hunger Thirst?denies.?Loss appetite?denies.?Chills?denies.?Fatigue?denies.?Fever?denies.?Night Sweats?denies.?Unexplained weight loss?denies.?Unexplained weight gain?denies.?HEENTM:?Dentures?admits.?Dizziness?denies.?Glasses/contacts?denies.?Retinopathy?de nies.?Blurred/double vision?denies.?TMJ?denies.?Discharge/drainage?denies.?Implants?denies.?Sore throat?denies.?Dental implants?denies.?Hard of hearing ?denies.?Difficulty chewing/swallowing/speaking?denies.?Nose bleeds?denies.?Sore mouth?denies.?Respiratory:?On Oxygen?denies.?Pneumonia/pleurisy?denies.?Bronchitis?denies.?Emphysema?denies.?C oughing?denies.?Cough blood?denies.?Shortness of breath?denies.?Wheezing?denies.?Cardiovascular:?Pacemaker?denies.?MVP?denies.?WPW?denies.?CHF?denies.?Heart attack?denies.?Septal defect?denies.?Rapid beat?denies.?Chest pain ?denies.?Atrial Fib.?denies.?Murmur/Palpitations?denies.?Gastrointestinal:?Hemorrhoids?denies.?Stomach/Abdominal pain?denies.?Dark blood stool?denies.?Irritable bowel ?denies.?Constipation?denies.?Diarrhea?denies.?Hematology:?Swelling?denies.?Clots?denies.?Varicose Veins?denies.?Bruising?denies.?Bleeding problem?denies.?Genitourinary:?Blood urine?denies.?Frequent/Painfu/urination/bladder control?denies.?Kidney stones?denies.?Infection (UTI)?denies.?Nephropathy?admits.?sex trans dis (STD)?denies.?Prostate?denies.?Musculoskeletal:?Hammertoes?admits.?Bunions?denies.?Back Pain?denies.?Muscle Cramps/ Resting?denies.?Muscle cramps / walking?denies.?Generalized aches and pains?admits.?Weakness?denies.?Integ.:?Jose?denies.?Scars?denies.?Corns/calluses?denies.?Ingrown nails?denies.?Painful nails?denies.?Open Sores?denies.?Rashes?denies.?Neurologic:?Difficulty sleeping?denies.?Brain disorder?denies.?Numbness?denies.?Balance trouble?denies.?Confusion?denies.?Fainting/blackouts?denies.?Tingling?denies.?Tr emors?denies.? * Medical History:? * Surgical History:?kidney tra nsplant 05/02/17mputation Quadrupal Bipass Surgery 02/16/21 * Hospitalization/Major Diagno stic Procedure:?[facility]-Quadrupal Bipass Surgery blood clolt 03/16/21[facility]- blood clot 01/2023 Back infection 01/2023 * Medications:?TakingNight Spl int AFO - L1930 as directed Eliquis , Notes: twice a dayAspir-81 Atorvastatin Calcium 80 MG Tablet 1 tablet Orally Once a dayCarvedilol 6.25 MG Tablet 1 tablet with food Orally Twice a dayGabapentin 300 MG Capsule 1 capsule Orally Three a dayHumaLOG 100 UNIT/ML Solution as directed Subcutaneous three time dailyLantus 100 UNIT/ML Solution as directed Subcutaneous once a day, Notes: 26 Units at bed timeTacrolimus 1 MG Capsule as directed Orally Twice a day, Notes: 1.5 in AM 1 in PMExtra Depth Orthopedic Shoes (1 Pair) with Customized Heat Molded Multidensity Innersoles (3 Pair) as directed Dx: IDDM/Polyneuropathy (E10.42), Hammertoe Foot Deformity (M20.41,M20.42), Preulcerative Skin Lesion(s) (L85.1)Taking Night Splint AFO - L1930 as directed Taking Eliquis , Notes: twice a dayTaking Aspir-81 Taking Atorvastatin Calcium 80 MG Tablet 1 tablet Orally Once a dayTaking Carvedilol 6.25 MG Tablet 1 tablet with food Orally Twice a dayTaking Gabapentin 300 MG Capsule 1 capsule Orally Three a dayTaking HumaLOG 100 UNIT/ML Solution as directed Subcutaneous three time dailyTaking Lantus 100 UNIT/ML Solution as directed Subcutaneous once a day, Notes: 26 Units at bed timeTaking Tacrolimus 1 MG Capsule as directed Orally Twice a day, Notes: 1.5 in AM 1 in PMTaking Extra Depth Orthopedic Shoes (1 Pair) with Customized Heat Molded Multidensity Innersoles (3 Pair) as directed Dx: IDDM/Polyneuropathy (E10.42), Hammertoe Foot Deformity (M20.41,M20.42), Preulcerative Skin Lesion(s) (L85.1)Not-Taking/PRNCipro 750 MG Tablet 1 tablet Orally qdJardiance 25 MG Tablet 1 tablet Orally Once a dayAmiodarone HCl Xarelto Furosemide 40 MG Tablet 1 tablet Orally Once a dayLosartan Potassium 50 MG Tablet 1 tablet Orally Once a dayNIFEdipine Omeprazole 20 MG Capsule Delayed Release as directed Orally Once a dayMedication List reviewed and reconciled with the patientNot-Taking/PRN Cipro 750 MG Tablet 1 tablet Orally qdNot-Taking/PRN Jardiance 25 MG Tablet 1 tablet Orally Once a dayNot-Taking/PRN Amiodarone HCl Not- Taking/PRN Xarelto Not-Taking/PRN Furosemide 40 MG Tablet 1 tablet Orally Once a dayNot-Taking/PRN Losartan Potassium 50 MG Tablet 1 tablet Orally Once a dayNot-Taking/PRN NIFEdipine Not-Taking/PRN Omeprazole 20 MG Capsule Delayed Release as directed Orally Once a dayMedication List reviewed and reconciled with the patient * Allergies:?N.K.D.A.yes[Aller gies Verified] Objective: * Vitals:?Ht: 5ft 11in, Wt:244 , BMI:34.03, Shoe size:11-12, BP:120/80 mm Hg, BS:152. * ???Past Orders: ???Lab:HEMOGLOBIN A1C (GLYCO HEMOGLOBIN) (Order Date - 09/01/2023) (Collection Date - 07/30/2023) ? Value Reference Range ?HEMOGLOBIN A1C (HH) 7.1 * Examination: ???Ophthalmology Referral: ?DIABETES EYE EXAM?Neurological: ?SENSORY:? Neurological exam demonstrates, reduced vibration sensation.?Vascular: ?DP PULSES:?0/4. B/L.?PT PULSES:?0/4. B/L.?EDEMA:? 1/4, B/L, Feet, Ankle(s), Leg(s).?Nails: ?NAILS are:?Elongated, overgrown, dystrophic, lytic, greater than 3mm thick, discolored and friable with crumbly malodorous subungual debris, with dull to no pain on palpation due to neuropathy, 1-5 Right foot, TA, T1, T3.?Dermatologic: ?SKIN FINDINGS:?Skin exam reveals keratotic lesion(s) located at, Plantar, IPJ, TA, T5, SUB MTH (s), 1, B/L , Heel(s), B/L , SUB MTH (s), 5, Left .?ULCER:? LOCATION--plantar ta ipj, SIZE, 1mm X 1mm X 1mm, BASE, fibrogranular, RIM, hyperkeratotic, UNDERMINING, absent, TRACKING, Full thickness breakdown of skin,NECROTIC TISSUE, loosely-adherent,yellow slough DRAINAGE, serous, mild, MALODOR, absent, CALOR, absent, ERYTHEMA, absent, PAIN ON PALPATION, absent.?General Examination: ?GENERAL APPEARANCE:?Reveals a pleasant, alert, well nourished, well developed, well hydrated individual, who demonstrates proper attention to hygene/body habitus, and is in no acute distress.?ORIENTED:?person, place, and time.?FOOT EXAM:?Orthopedic: ?MUSCLE STRENGTH:?5/5 all groups in a symmetrical fashion , B/L.?BUNION:? Limited 1st MPJ Dorsal ROM, Limited 1st MPJ Plantar ROM, B/L--left more limited rom than rt.?DIGITAL DEFORMITIES:? Digital contracture, PIPJ, 2-5 right and t1, t3, incompl-reducable with WB, or to push-up test, no over, nor underlapping, Amputation T2, t3 and t4 .? Assessment: * Assessment: 1.?Type 1 diabetes mellitus with diabetic polyneuropathy - E10.42?2.?Pain in right toe(s) - M79.674?3.?Pain in left toe(s) - M79.675?4.?Tinea unguium - B35.1 (Primary)?5.?Non-pressure chronic ulcer of other part of left foot with fat layer exposed - L97.522?6.?Other hammer toe(s) (acquired), left foot - M20.42?7.?Other hammer toe(s) (acquired), right foot - M20.41?8.?Primary osteoarthritis, left ankle and foot - M19.072?9.?Hallux valgus (acquired), left foot - M20.12?10.?Hallux rigidus, right foot - M20.21?11.?Hallux rigidus, left foot - M20.22?12.?Non- pressure chronic ulcer of other part of left foot limited to breakdown of skin - L97.521? Plan: * Treatment: 2.?Others? Start Night Splint AFO - L1930, as directed, Dx Plantar Fasciitis.?? * Procedures:?Debride Nail 6-10:?Nail debridement?Nail debridement performed extensively to reduce/remove overall nail length and girth, subungual debris, and necrotic tissue, by manual and electrical means with use of a nail nipper and/or dremel, to more viable healthy nail plate or bed tissue 6-10. Silver nitrate used for any petechial bleeding as necessary. Patient chooses, no pharmaceutical tx (86184).?Debride skin< 25 sq cm:?Open wound?Open wound selective debridement of fibrin, devitilized epidermis and/or dermis, exudate, using sterile sharp dissection, without use of anesthesia, with/without topical applications, wound assessment and instructions for ongoing care, Wound Care, The patient was instructed on importance of proper wound care consisting of pressure reduction, maintainance of moist wound environment, and regular debridement of devitilized tissue , The patient is to cleanse the wound with warm soapy water/peroxide/saline or betadine BID based on product availability , The patient is to apply Antibiotic Oint. to the wound and cover with a DSD , The patient was instructed to change dressings according to orders or PRN saturation, leaks, The patient was instructed to monitor and report any signs or symptoms of infection or any untoward reactions (74185).?Keratoma Treatment:?Parring or Cutting of Benign Hyperkeratotic Lesion(s)?22345 (2-4 Lesions) - The Benign hyperkeratotic lesions, as described above were pared, and/or cut utilizing a sterile #15 blade, tissue nippers, and/or dremel.? * Procedure Codes:?13887 DEBRI DE NAIL, 6 OR MORE, Modifiers: XS 55384 ACTIVE WOUND CARE/20 CM OR <60661 TRIM SKIN LESIONS, 2 TO 4, Modifiers: XS * Preventive Medicine:? ??Counseling:?Discussion:?-13: Office or other outpatient visit for the evaluation and management of an established patient, which required a medically appropriate history and/or examination and LOW level of DECISION MAKING for: 1 STABLE ACUTE UNCOMPLICATED PROBLEM, 2 OR MORE MINOR PROBLEMS, OR 1 STABLE CHRONIC PROBLEM, THAT POSE(S) A LOW RISK FOR MORBIDITY/MORTALITY. The visit on the day of the encounter encompassed interpreting the data and educating the patient as to the nature of their condition, treatment options available according to their individual PMH, meds, allergies, and overall health/living conditions, as well as any potential risks or complications that may occur from a failure to adhere to, and participate in, the recommended course of therapy. The discussion included a complete verbal, and/or written explanation of the examination results, any x-rays taken, the proposed diagnosis, and outline of the treatment plan. A schedule for future care needs was also explained. The patient verbalized an understanding of the instructions at this time and agreed to be an active participant in their treatment. If the patient should think of any questions or concerns after the visit, I have encouraged the patient to call the office.?Shoe Gear Counseling:?SHOE Rx - The patient was counseled in great detail on their muscoloskeletal foot and toe deformities which coincided with the dermatological presentations visualized on exam. We discussed how their deformities put the integrity of their feet at risk for potential pedal complications which makes the accomidative diabetic shoes and cutomizable inserts medically necessary. We discussed the different shoe and insert treatment types and options, as well as the important advantages for adhering to regularly wearing these accomidative devices daily. The patient was made aware of the fact that a failure to abide by these recommedations may be deleterious to their foot health as they are able to prevent many pedal complications such as skin irritation, skin ulceration, infection, and even loss of toe/foot/leg/or life. Time was also spent with the patient dispensing and discussing proper diabetic footcare techniques including daily skin moisturization, daily foot inspection for any interruption in skin integrity including open lesions, or sign of infection such as redness/malodor/drainage/swelling. Also discussed and recommended were procedures regarding daily shoe inspection for the presence of internal foreign bodies as well as any visualized irregular shoe or insert wear. Patient questions re: shoes, inserts, and self foot inspections were answered to their satisfaction as the patient verbally confirmed a full understanding of the above information. A Rx for Extra Depth Orthopedic Shoes with 3 pair of custom heat-molded inserts was dispensed.? * Follow Up:?6 Months * Images: * Sign off status: Completed true * Provider:Missy Chopra DPM Date:? 024 Generated for Jennifer calderón/Dia/Marquise on:?05/12/2024 12:20 PM EST History and Physical Notes * HPI (History of Present Illness) Category Sub-Category Detail Notes Category Not es Heel pain Location: Proximal plantar aspect of H eel, RIGHT Onset/Cause: unknown, denies trastorm francis Course: resolved Painful Nails Pt States Last PCP Visit: Date:: 06/04/2021 Skin problems Nature: Ulcer Location: Bottom, Forefoot, Le ft , 1st Duration: several weeks--six Course: improved Aggravated by: standing, walking Treatments: pt tx at [facility] every other week and dressing changes qod with ; pt going to pending sale to [facility] At Risk footcare Pt States Last PCP Visit: Date: 4 Examination Category Sub-Category Detail Notes Category Not es Neurological SENSORY: Neurological exa m demonstrates, reduced vibration sensation Dermatologic SKIN FINDINGS: Skin exam reveal s keratotic lesion(s) located at, Plantar, IPJ, TA, T5, SUB MTH (s), 1, B/L , Heel(s), B/L , SUB MTH (s), 5, Left ULCER: LOCATION--plantar ta ipj, SIZE, 1mm X 1mm X 1mm, BASE, fibrogranular, RIM, hyperkeratotic, UNDERMINING, absent, TRACKING, Full thickness breakdown of skin,NECROTIC TISSUE, loosely- adherent,yellow slough DRAINAGE, serous, mild, MALODOR, absent, CALOR, absent, ERYTHEMA, absent, PAIN ON PALPATION, absent Orthopedic BUNION: Limited 1st MPJ Dorsal ROM, Limited 1st MPJ Plantar ROM, B/L--left more limited rom than rt DIGITAL DEFORMITIES: Digital contracture , PIPJ, 2-5 right and t1, t3, incompl- reducable with WB, or to push-up test, no over, nor underlapping, Amputation T2, t3 and t4 MUSCLE STRENGTH: 5/5 all groups in a symmetrical fashion , B/L General Examination GENERAL APPEARANCE: Reveals a pleasant, alert, well nourished, well developed, well hydrated individual, who demonstrates proper attention to hygene/body habitus, and is in no acute distress FOOT EXAM: Lower Extremity Neurological Exa m performed:: Yes Visual exam of foot performed:: Yes Date: 09/01/2023 Sensory testing performed:: sensations d iminished Pedal pulse taking performed:: absent ORIENTED: person, place, and t arpita Ophthalmology Referral DIABETES EYE EXAM Diabetic Reti nopathy Screening:: No 2018 Vascular DP PULSES(B): 0/4. B/L PT PULSES(B): 0/4. B/L EDEMA(C): 1/4, B/L, Feet, Ankl e(s), Leg(s) Nails NAILS are: Elongated, overg rown, dystrophic, lytic, greater than 3mm thick, discolored and friable with crumbly malodorous subungual debris, with dull to no pain on palpation due to neuropathy, 1-5 Right foot, TA, T1, T3
--- OUTSIDE RECORDS SUMMARY | 2024-05-12 12:20 | XMS_ITS ---
Author Organization [facility] Address [address] [place] [address] Care Team Providers Care Medical Practitioners Name Role Phone Brittney Tiffanie HAWKINS Primary Care Provider Unavail George Thrasher Unavailable [phone] REASON FOR VISIT cx appt 03/03 Encounters Encounter Location Date Provider Diagnosis [facility] [address] [place] [address] 02/27/2024 George Chopra Plan Of Treatment No Information Progress Notes * Aries ROSARIO EDOB:[birth year] (73 yo M)Acc No.[id number]:02/27/2024 Patient:?Aries Rosario :1950???Age:73 Y???Sex:Male [address] [place], [address] * true * Date:? Generated for Printi ng/Famoniqueg/eTransmitting on:?05/12/2024 12:20 PM EST
--- OUTSIDE RECORDS SUMMARY | 2024-05-12 12:20 | XMS_ITS | Patient Health Record ---
[facility] Address [address] [place] [address] Care Team Providers Care [employer] Jointer Name Role Phone Brittney Tiffanie HAWKINS Primary Care Provider Unavail able Nav George Unavailable [phone] Allergies No Known Allergies Results Component Value Reference Range Notes HEMOGLOBIN A1C (GLYCOHEMOGLO BIN) Reviewed date:09/01/2023 01:52:49 PM Interpretation: Performing Lab: Notes/Report: HEMOGLOBIN A1C (HH) 7.1 Reason For Referral No Information Medications Medication SIG (Take, Route, Frequency, Duration) Notes Start Date End Date Status Atorvastatin Calcium 80 MG 1 tablet Orally Once a day Active Furosemide 40 MG 1 tablet Orally Once a day for 30 day(s) Not-Taking Carvedilol 6.25 MG 1 tablet with food Orally Twice a day for 30 day(s) Active Losartan Potassium 50 MG 1 tablet Orally Once a day for 30 day(s) Not-Taking Gabapentin 300 MG 1 capsule Orally Three a day Active NIFEdipine Not-Takin g HumaLOG 100 UNIT/ML as directed Subcutaneous three time daily Active Omeprazole 20 MG as directed Orally Once a day Not-Taking Night Splint AFO - L1930 as directed Active Lantus 100 UNIT/ML as directed Subcutaneous once a day 26 Units at bed time Active Extra Depth Diabetic Shoes with 3 Pair Custom heat-molded multi-density innersoles for 1 year Dx: Active Tacrolimus 1 MG as directed Orally Twice a day 1.5 in AM 1 in PM Active Extra Depth Orthopedic Shoes (1 Pair) with Customized Heat Molded Multidensity Innersoles (3 Pair) as directed Dx: IDDM/Polyneuropathy (E10.42), Natashae Foot Deformity (M20.41,M20.42), Preulcerative Skin Lesion(s) (L85.1) Active Cipro 750 MG 1 tablet Orally qd for 30 days Not-Taking Jardiance 25 MG 1 tablet Orally Once a day Not-Taking Eliquis twice a day Active Amiodarone HCl Not-T aking Aspir-81 Active Xarelto Not-Taking Immunizations Vaccine Route Administration Date Status Comme nts COVID-19 Pfizer BioNTech Vaccine Unknown 03/15/2021 Administered 1st 08/16/2020 2nd 09/03/2020 Influenza Unknown 01/31/2021 Administered Social History Tobacco Use: Social History Observation Description Date Details (start date - stop date) Former Smoker NA - NA Tobacco Use/Smoking Question Answer Notes Are you a: former smoker Additional Findings: Tobacco Non-User Current no n-smoker Alcohol Screen Question Answer Notes Did you have a drink containing alcohol in the p ast year? Yes Points 0 Interpretation Negative Tobacco use other than smoking: Question Answer Notes Are you an other tobacco user? No Problems Problem Type SNOMED Code ICD Code Onset Dates Problem Status W/U Status Risk Notes Problem Chronic ulcer of foot (351516083) Non-pressure chronic ulcer of other part of left foot with fat layer exposed (L97.522) Active confirmed Problem Localized, primary osteoarthritis of the ankle and/or foot (027875732) Primary osteoarthritis, left ankle and foot (M19.072) Active confirmed Problem Acquired hallux rigidus (2153108) Hallux rigidus, left foot (M20.22) Active confirmed Problem Non-pressure chronic ulcer of other part of left foot limited to breakdown of skin (L97.521) Active confirmed Problem Acquired hallux valgus (12754142) Hallux valgus (acquired), left foot (M20.12) Active confirmed Problem Acquired hammer toe of right foot (3830257656398048 ) Other hammer toe(s) (acquired), right foot (M20.41) Active confirmed Problem Acquired hammer toe of left foot (9679039189135869 ) Other hammer toe(s) (acquired), left foot (M20.42) Active confirmed Problem Polyneuropathy due to type 2 diabetes mellitus (679821834) Type 2 diabetes mellitus with diabetic polyneuropathy (E11.42) Active confirmed Problem Polyneuropathy due to diabetes mellitus type I (033750321) Type 1 diabetes mellitus with diabetic polyneuropathy (E10.42) Active confirmed Problem Acquired hallux rigidus (5948715) Hallux rigidus, right foot (M20.21) Active confirmed Vital Signs Blood pressure diastolic 80 mm Hg 09/01/2023 Height 5ft 11in in 09/01/2023 Blood pressure systolic 120 mm Hg 09/01/2023 Weight 244 lbs 09/01/2023 BMI 34.03 kg/m2 09/01/2023 Encounters Encounter Location Date Provider Diagnosis [address] [address] 09/01/2023 George Chopra Type 1 diabetes mellitus [...] foot limited to breakdown of skin L97.[address] [address] 02/27/2024 George Chopra Assessments Encounter Date Diagnosis (ICD Code) Assessment Notes Treatment Notes Treatment Clinical Notes Section Notes 09/01/2023 Type 1 diabetes mellitus with diabetic polyneuropathy (ICD-10 - E10.42) 09/01/2023 Pain in right toe(s) (ICD-10 - M79.674) 09/01/2023 Pain in left toe(s) (ICD-10 - M79.675) 09/01/2023 Tinea unguium (ICD-10 - B35.1) 09/01/2023 Non-pressure chronic ulcer of other part [...] skin (ICD-10 - L97.521) Plan Of Treatment Pending Test Test Name Order Date X ray : Foot, left 3V 01/25/2021 X ray : Foot, left 3V 09/20/2021 59346-[id number] SKIN/TISSUE 09/20/2021 97663-FBSFLVF SKIN/TISSUE 03/29/2021 54712-WEXSSWI SKIN/TISSUE 10/01/2021 45961-YZDRUMH SKIN/TISSUE 12/10/2021 73481-BOFPDXJ SKIN/TISSUE 09/09/2022 71653-SHSNMSZ SKIN/TISSUE 01/25/2021 27592-YRQN SKIN LESIONS, OVER 4 03/29/20 21 84365-CGNJ SKIN LESIONS, OVER 4 09/21/19 22 85523-EVMZ SKIN LESIONS, 2 TO 4 09/10/19 23 Insurance Providers Payer Name Payer Address Payer Phone Subscriber Number Group Number Insured Name Patient Relationship to Insured Coverage Start Date Coverage End Date Medicare National [employer] [address] [place] [address] [id number] Aries Rosario Self - patient is the insured [employer] [address] [place] [address] [id number] Aries Rosario Self - patient is the insured Medical (General) History Medical History History ICD Code High blood pressure Kidney disease Neuropathy Measles Mumps Chicken pox Transfusions type II diabetes Surgical History Surgery Date(Month/Year) kidney transplant 05/02/17 amputation Quadrupal Bipass Surgery 02/16/21 Hospitalization History Reason Date(Month/Year) [facility]-Quadrupal Bipass Surgery blood clolt 03/16/21 [facility]- blood clot 01/2023 Back infection 01/2023
--- OUTSIDE RECORDS SUMMARY | 2024-05-12 12:20 | XMS_ITS ---
Author Organization [facility] Address [address] [place] [address] Care Team Providers Care [employer] Hand Name Role Phone Brittney Tiffanie HAWKINS Primary Care Provider Unavail George Thrasher Unavailable [phone] REASON FOR VISIT Painful nail(s) aggrevated by shoes and causing difficulty standing/walking., Open sore, Ulcer(s) Medications Medication SIG (Take, Route, Frequency, Duration) Notes Start Date End Date Status Night Splint AFO - L1930 as directed Active Extra Depth Diabetic Shoes with 3 Pair Custom heat-molded multi-density innersoles for 1 year Dx: Active Encounters Encounter Location Date Provider Diagnosis [facility] [address] [place] [address] 03/03/2024 George Chopra Type 1 diabetes mellitus with [...] Treatment Notes Treatment Clinical Notes Section Notes 03/03/2024 Type 1 diabetes mellitus with diabetic polyneuropathy (ICD-10 - E10.42) 03/03/2024 Pain in right toe(s) (ICD-10 - M79.674) 03/03/2024 Tinea unguium (ICD-10 - B35.1) 03/03/2024 Pain in left toe(s) (ICD-10 - M79.675) 03/03/2024 Non-pressure chronic ulcer of other part of left foot with fat layer exposed (ICD-10 - L97.522) 03/03/2024 Other hammer toe(s) (acquired), left foot (ICD-10 - M20.42) 03/03/2024 Other hammer toe(s) (acquired), right foot (ICD-10 - M20.41) 03/03/2024 Primary osteoarthritis, left ankle and foot (ICD-10 - M19.072) 03/03/2024 Hallux valgus (acquired), left foot (ICD-10 - M20.12) 03/03/2024 Hallux rigidus, right foot (ICD-10 - M20.21) 03/03/2024 Hallux rigidus, left foot (ICD-10 - M20.22) 03/03/2024 Non-pressure chronic ulcer of other part of left foot limited to breakdown of skin (ICD-10 - L97.521) Plan Of Treatment Medication Medication Name Sig Start Date Stop Date Notes Night Splint AFO - L1930 as directed Extra Depth Diabetic Shoes w ith 3 Pair Custom heat-molded multi-density innersoles for 1 year Dx: Next Appt Details Follow Up: 6 Months, [...] as necessary. Patient chooses, no pharmaceutical tx (49944) Debride skin< 25 sq cm Open wound [...] symptoms of infection or any untoward reactions (23455) Keratoma Treatment Parring or Cutting o f Benign Hyperkeratotic Lesion(s) 51631 (2-4 Lesions) - The Benign hyperkeratotic lesions, as described above were pared, and/or cut utilizing a sterile #15 blade, tissue nippers, and/or dremel Progress Notes * Aries ROSARIO EDOB:[birth year] (73 yo M)Acc No.[id number]:03/03/2024 Progress Note Patient:?SENAITAries HECK E Provider:?George Chopra DPM :1950???Age:73 Y???Sex:Male Suresh e:03/03/2024 Address:[address] [place], [place] [id number] Pcp:SHRUTHI Vicente Subjective: * Chief Complaints: * ???1. Painful nail(s) aggrev ated by shoes and causing difficulty standing/walking.. 2. Open sore. 3. Ulcer(s). * HPI: ???Skin problems:?Nature:?Ulcer.?Location:?Bottom, Forefoot, Left , 1st.?Duration:?several weeks--six.?Course:?improved.?Aggravated by:?standing, walking.?Treatments:?pt tx at [facility] wd ctr every other week and dressing changes qod with ; pt going to [facility].?Heel pain:?Location:?Proximal plantar aspect of Heel, RIGHT.?Onset/Cause:?unknown, denies [...] sleeping?denies.?Brain disorder?denies.?Numbness?denies.?Balance trouble?denies.?Confusion?denies.?Fainting/blackouts?denies.?Tingling?denies.?Tr emors?denies.? * Medical History:? Objective: * Vitals:? * Examination: ???Ophthalmology Referral: ?DIABETES EYE EXAM?Neurological: ?SENSORY:? Neurological exam demonstrates, reduced vibration sensation.?Vascular: ?DP PULSES(B):?0/4. B/L.?PT PULSES(B):?0/4. B/L.?EDEMA(C):? 1/4, B/L, Feet, Ankle(s), Leg(s).?Nails: ?NAILS are:?Elongated, [...] 1 diabetes mellitus with diabetic polyneuropathy - E10.42???2.?Pain in right toe(s) - M79.674???3.?Tinea unguium - B35.1 (Primary)???4.?Pain in left toe(s) - M79.675???5.?Non-pressure chronic ulcer of other part of left foot with fat layer exposed - L97.522???6.?Other hammer toe(s) (acquired), left foot - M20.42???7.?Other hammer toe(s) (acquired), right foot - M20.41???8.?Primary osteoarthritis, left ankle and foot - M19.072???9.?Hallux valgus (acquired), left foot - M20.12???10.?Hallux rigidus, right foot - M20.21???11.?Hallux rigidus, left foot - M20.22???12.?Non-pressure chronic ulcer of other part of left foot limited to breakdown of skin - L97.521??? Plan: * Treatment: 2.?Others? Start Night Splint [...] as necessary. Patient chooses, no pharmaceutical tx (61379).?Debride skin< 25 sq cm:?Open wound?Open wound selective [...] symptoms of infection or any untoward reactions (78762).?Keratoma Treatment:?Parring or Cutting of Benign Hyperkeratotic Lesion(s)?72769 (2-4 Lesions) - The Benign hyperkeratotic lesions, as described above were pared, and/or cut utilizing a sterile #15 blade, tissue nippers, and/or dremel.? * Procedure Codes:?84121 DEBRI DE NAIL, 6 OR MORE, Modifiers: XS , 88536 ACTIVE WOUND CARE/20 CM OR <, 59211 TRIM SKIN LESIONS, 2 TO 4, Modifiers: XS * Follow Up:?6 Months * Images: * The named appointment provid er may or may not be the originator of this progress note, and it is not deemed complete until electronically signed by the appointment provider. Sign off status: Pending * Provider:Missy Chopra DPM Date:? 024 Generated for Jennifer calderón/Dia/Savannahitting on:?05/12/2024 12:19 PM EST History and Physical Notes * HPI (History of Present Illness) Category Sub-Category Detail Notes Category Not es Heel pain Location: Proximal plantar aspect of H eel, RIGHT Onset/Cause: unknown, denies aspen francis Course: resolved Painful Nails Pt States Last PCP Visit: Date:: 06/04/2021 Skin problems Nature: Ulcer Location: Bottom, Forefoot, Le ft , 1st Duration: several weeks--six Course: improved Aggravated by: standing, walking Treatments: pt tx at [facility] wd ctr every other week and dressing changes qod with ; pt going to [facility] Pt States Last PCP [...]
--- OUTSIDE RECORDS SUMMARY | 2024-05-12 12:21 | XMS_ITS | Continuity of Care Document ---
Author Organization [facility] Address [address] [place] [id number]- Support Name Relationship Address Phone CECILIA SPENCER Personal Relationship Unknown Lola vailable SAVARD, RODGER Personal Relationship Unknown Unav ailable SAVARD, CECILIA Personal Relationship Unknown Lola vailable SAVARD, CECILIA Personal Relationship Unknown Lola vailable SAVARD, CECILIA Personal Relationship Unknown Lola vailable SAVARD, CECILIA Personal Relationship Unknown Lola vailable SAVARD, CECILIA Personal Relationship Unknown Lola vailable SAVARD, CECILIA Personal Relationship Unknown Lola vailable SAVARD, CECILIA Personal Relationship Unknown Lola vailable SAVARD, CECILIA spouse Unknown Unavailable SAVARD, CECILIA Personal Relationship Unknown Lola vailable SAVARD, CECILIA Personal Relationship Unknown Lola vailable SAVARD, CECILIA Personal Relationship Unknown Lola vailable SAVARD, RODGER Personal Relationship Unknown Unav ailable SAVARD, CECILIA Personal Relationship Unknown Lola vailable SAVARD, CECILIA Personal Relationship Unknown Lola vailable SAVARD, CECILIA Personal Relationship Unknown Lola vailable SAVARD, CECILIA Personal Relationship Unknown Lola vailable SAVARD, CECILIA Personal Relationship Unknown Lola vailable SAVARD, CECILIA Personal Relationship Unknown Lola vailable SAVARD, RODGER Personal Relationship Unknown Unav ailable SAVARD, RODGER Personal Relationship Unknown Unav ailable SAVARD, CECILIA Personal Relationship Unknown Lola vailable SAVARD, CECILIA Personal Relationship Unknown Lola vailable SAVARD, MARIA GUADALUPE child Unknown Unavailable SAVARD, CECILIA Personal Relationship Unknown Lola vailable SAVARD, CECILIA Personal Relationship Unknown Lola vailable SAVARD, CECILIA Personal Relationship Unknown Lola vailable SAVARD, CECILIA Personal Relationship Unknown Lola vailable Care Team Providers Care Film Composer Name Role Phone Brittney Tiffanie ESCAMILLA Primary Care Physician [phone] Encounter [facility] [id number] Date(s): 03/26/24 - 05/01/24 Wound Care [address] [place], [place] [address] Attending Physician: Jose Krause MD Admitting Physician: Jose Krause MD Referring Physician: Tiffanie Lugo NP Encounter Type: Pre-OutPatient One Time Allergies, Adverse Reactions, Alerts No Known Allergies Immunizations Given and Recorded Vaccine Date Status Refusal Reason influenza virus vaccine, inactivated 1 03/24/23 Gi naheed influenza virus vaccine, inactivated 05/01/22 Give n influenza virus vaccine, inactivated 05/18/21 Give n influenza virus vaccine, inactivated 04/09/19 Give n influenza virus vaccine, inactivated 2 01/14/14 Gi naheed tetanus-diphtheria toxoids (Td) 02/14/23 Given pneumococcal 20-valent conjugate vaccine 3 12/10/22 Given [id number] 12y+ bivalent booster vax 05/01/22 Given pneumococcal 13-valent vaccine 01/30/22 Given SARS-CoV-2 (COVID-19) mRNA BNT-162b2 vac 03/14/21 Given SARS-CoV-2 (COVID-19) mRNA BNT-162b2 vac 09/06/20 Recorded SARS-CoV-2 (COVID-19) mRNA BNT-162b2 vac 08/16/20 Recorded pneumococcal 23-valent vaccine 4 01/14/14 Given 1Result Comment: [id number] 2Admin Note: Dialysis 3Result Comment: [id number] 4Admin Note: Dialysis Medications acetaminophen 325 mg oral tablet 650 mg, 2, tablet, By Mouth, Every 8 hours, PRN, NTE 3G/24hrs, Refills 0, Maintenance, as needed for pain, 12/09/23 9:55:00 AM EDT, Partial fill upon patient request if the prescription is for a schedule II opioid drug. Start Date: 12/09/23 Status: Ordered Repeat number: 1 albuterol 0.083% inhalation solution 3 mL = 2.5 mg, Neb, Every 6 hours, PRN Wheezing/Shortness of Breath, 0 Refills, Maintenance, 01/14/24 7:34:00 AM EDT, Partial fill upon patient request if the prescription is for a schedule II opioid drug. Start Date: 01/14/24 Status: Ordered Repeat number: 1 amitriptyline 25 mg oral tablet 25 mg, 1, tablet, By Mouth, Daily at bedtime, # 90 tablet, Refills 1, Tot. Refills 1, Maintenance, 09/20/23 7:37:00 AM EDT, Route to Pharmacy Electronically, [id number], 180, cm, 07/30/23 9:29:00 EST, Height, 111, kg, 03/04/23 6:09:00 EDT, Dry Weight Start Date: 09/20/23 Stop Date: 03/18/24 Status: Ordered Quantity: 90.0 Unit: tablet Repeat number: 2 atorvastatin 80 mg oral tablet 1 tablet = 80 mg, By Mouth, Daily at bedtime, # 90 tablet, 1 Refills, Maintenance, 07/30/23 9:48:00 AM EST, Tablet, [facility] #[id number], 180, cm, 07/30/23 9:29:00 EST, Height, 111, kg, 03/04/23 6:09:00 EDT, Dry Weight Start Date: 07/30/23 Status: Ordered Quantity: 90.0 Unit: tablet Repeat number: 2 cefalexin cefalexin, 500 mg, By Mouth, 4 times a day, # 12 each, Refills 0, Tot. Refills 0, Maintenance, 01/16/24 10:54:00 AM EDT, Supply Start Date: 01/16/24 Stop Date: 01/19/24 Status: Ordered Quantity: 12.0 Unit: each Repeat number: 1 Fleet Enema Rectally, Once, 0 Refills, Maintenance, 01/14/24 7:29:00 AM EDT, Partial fill upon patient request if the prescription is for a schedule II opioid drug. Start Date: 01/14/24 Status: Ordered Repeat number: 1 Fleet Enema 133 mL, Rectally, Daily, PRN as needed for constipation, 0 Refills, Maintenance, 01/14/24 7:29:00 AMEDT, Partial fill upon patient request if the prescription is for a schedule II opioid drug. Start Date: 01/14/24 Status: Ordered Repeat number: 1 gabapentin 300 mg oral capsule 300 mg, 1, capsule, By Mouth, Every 12 hours, Refills 0, Maintenance, 12/09/23 10:02:00 AM EDT, Partial fill upon patient request if the prescription is for a schedule II opioid drug. Start Date: 12/09/23 Status: Ordered Repeat number: 1 insulin lispro 100 u/ml subcutaneous injection = 5 units, Subcutaneous Injection, 3 times a day before meals, 0 Refills, Maintenance, 12/09/23 10:05:00 AM EDT, Solution, Partial fill upon patient request if the prescription is for a schedule II opioid drug. Start Date: 12/09/23 Status: Ordered Repeat number: 1 lactobacillus acidophilus oral capsule 1 capsule, By Mouth, 2 times a day, 0 Refills, Maintenance, 12/09/23 10:07:00 AM EDT, Partial fill upon patient request if the prescription is for a schedule II opioid drug. Start Date: 12/09/23 Status: Ordered Repeat number: 1 Lantus Solostar Pen 100 units/mL subcutaneous solution = 42 units, Subcutaneous Injection, Daily at bedtime, 0 Refills, Maintenance, 12/09/23 10:04:00 AM EDT, Solution, Partial fill upon patient request if the prescription is for a schedule II opioid drug. Start Date: 12/09/23 Status: Ordered Repeat number: 1 lidocaine 4% patch apply, Topically, Daily, do not leave patch on for more than 12 hours at a time, 0 Refills, Maintenance, 12/09/23 10:06:00 AM EDT, Partial fill upon patient request if the prescription is for a schedule II opioid drug. Start Date: 12/09/23 Status: Ordered Repeat number: 1 meclizine 25 mg oral tablet 1 tablet = 25 mg, By Mouth, Every 12 hours, PRN as needed for dizziness, 0 Refills, Maintenance, 01/14/24 7:38:00 AM EDT, Partial fill upon patient request if the prescription is for a schedule II opioid drug. Start Date: 01/14/24 Status: Ordered Repeat number: 1 melatonin 3 mg oral tablet 1 tablet = 3 mg, By Mouth, Daily at bedtime, 0 Refills, Maintenance, 12/09/23 10:07:00 AM EDT, Partial fill upon patient request if the prescription is for a schedule II opioid drug. Start Date: 12/09/23 Status: Ordered Repeat number: 1 midodrine 2.5 mg oral tablet 2.5 mg, 1, tablet, By Mouth, Daily, if SBP >110 hold medication, Refills 0, Maintenance, :38:00 AM EDT, Partial fill upon patient request if the prescription is for a schedule II opioid drug. Start Date: 01/14/24 Status: Ordered Repeat number: 1 Mucinex 600 mg oral tablet, extended release 1 tablet = 600 mg, By Mouth, Every 12 hours, PRN Cough and Congestion, 0 Refills, Maintenance, 01/14/24 7:39:00 AM EDT, Partial fill upon patient request if the prescription is for a schedule II opioid drug. Start Date: 01/14/24 Status: Ordered Repeat number: 1 Multivitamin With Minerals 1 tablet, By Mouth, Daily, 0 Refills, Maintenance, 12/09/23 10:09:00 AM EDT, Partial fill upon patient request if the prescription is for a schedule II opioid drug. Start Date: 12/09/23 Status: Ordered Repeat number: 1 tacrolimus 1 mg oral capsule 1 capsule = 1 mg, By Mouth, Daily, start from tomorrow, # 180 capsule, 0 Refills, Maintenance, 08/16/21 1:34:00 PM EDT, Capsule, Partial fill upon patient request if the prescription is for a scheduleII opioid drug. Start Date: 08/16/21 Status: Ordered Quantity: 180.0 Unit: capsule Repeat number: 1 tiZANidine 4 mg oral capsule 2 capsule = 8 mg, By Mouth, Daily at bedtime, PRN muscle spasm, 0 Refills, Maintenance, 01/14/24 7:40:00 AM EDT, Partial fill upon patient request if the prescription is for a schedule II opioid drug. Start Date: 01/14/24 Status: Ordered Repeat number: 1 Vitamin C 500 mg oral tablet 1 tablet = 500 mg, By Mouth, Daily, 0 Refills, Maintenance, 12/09/23 9:56:00 AM EDT, Tablet, Partial fill upon patient request if the prescription is for a schedule II opioid drug. Start Date: 12/09/23 Status: Ordered Repeat number: 1 Problem List Condition Confirmation Course Effective Dates Status Health Status Informant Anemia of chronic disease Confirmed Active Anemia of chronic kidney failure Confirmed Active Arteriovenous fistula of left upper extremity Confirmed Active Carpal tunnel syndrome, left Confirmed Active Cervical myelopathy Confirmed Active Chronic kidney disease, stage 3a 1 Confirmed Active C. difficile colitis Confirmed Active Coronary artery disease Confirmed Active CAD (coronary artery disease) Confirmed Active Deep vein thrombosis (DVT) of distal vein of left lower extremity Confirmed Active Dermoid cyst of neck Confirmed Active ESRD (end stage renal disease) Confirmed Active Chronic GERD Confirmed Active S/P CABG (coronary artery bypass graft) Confirmed Active History of DVT of lower extremity Confirmed Active Status post -donor kidney transplantation Confirmed Active Hyperlipidemia Confirmed Active HLD (hyperlipidemia) Confirmed Active Secondary hyperparathyroidism of renal origin Confirmed Active Hypertension Confirmed Active HTN (hypertension) Confirmed Active Immunosuppression Confirmed Active 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 Active Lumbar back pain with radiculopathy affecting left lower extremity Confirmed Active Other microscopic hematuria Confirmed Active Obstructive sleep apnea Confirmed Active MARIANA (obstructive sleep apnea) Confirmed Active Peripheral neuropathy Confirmed Active Elevated ferritin Confirmed Active Urinary retention Confirmed Active Severe obesity (BMI 35.0-39.9) with comorbidity Confirmed Active Spinal stenosis of lumbar region Confirmed Active Hepatic steatosis Confirmed Active Left trigger finger Confirmed Active Diabetes mellitus type 2, controlled Confirmed Active Hernandez catheter in place Confirmed Active Chronic indwelling Hernandez catheter Confirmed Active 1Per chart review meeting GFR criteria Social History Social History Type Response Smoking Status Former smoker; Tobac co user in household: No; Number of years: 10; Stopped at age: 44; entered on: 02/07/17 Sex Sex Representation Male (finding) Implantable Device List Procedure Provider Procedure Date Device Type Site Discectomy and Fusion Anterior Cervical Armani Crespo MD 11/04/23 Unknown Cervical Sp ine Device Identifier Serial Number Lot or Batch Number Manufacturing Date Expiration Date Distinct Identification Code MRI Safety Implantable Status Assigning Authority Unknown [id number] Unknown Unknown 08/10/26 Unknown Unknown Active Unknown Patient Care team information Care Team Personnel Name: Orly Rose RN Position: [facility] RN Member Role: Primary Care Nurse Name: Elif Ravi RN Position: [facility] AMB Nurse Member Role: Primary Care Nurse Name: Lata GREGG, Willam Salcido Position: [facility] Renal MD Member Role: Lifetime Consulting Physician Address: [address] [place] [address] [address] [facility] [place] [address]- Telecom: Name: Francisca Zee Position: [facility] Outreach Member Role: Lifetime Consulting Physician Name: Michelle Hutchinson RN Position: [facility] RN Member Role: Primary Care Nurse Name: Shirley Cope RN Position: [facility] RN Member Role: Primary Care Nurse Name: Abigail Snowden RN Position: [facility] RN Member Role: Primary Care Nurse Name: Nely Nolan RN Position: [facility] RN Supv Member Role: Primary Care Nurse Name: Claire Hernandez Position: [facility] RN Member Role: Primary Care Nurse Name: Tiffanie Lugo NP Position: [facility] PCO Associate Professional Member Role: PCP Address: [address] [place] [address]- [place] Telecom: Name: Dorothea Krishna NP Position: [facility] Associate Professional Member Role: Primary Care Nurse Name: Valerie Harrison RN Position: [facility] RN Member Role: Primary Care Nurse Name: Jake Yates MD Position: [facility] Renal MD Member Role: Lifetime Consulting Physician Address: [address] [place] [address] [address] [facility] [place] [address]- [place] Telecom: Name: Letty Benavidez RN Position: [facility] RN Member Role: Primary Care Nurse Name: May Doss RN Position: [facility] Parcel Post Officer Member Role: Primary Care Nurse Name: Reny Oliva RN Position: [facility] AMB Nurse Member Role: Primary Care Nurse Name: Joshua Li MD Position: [facility] Renal MD Member Role: Lifetime Consulting Physician Address: [address] [facility] [address] [facility] [place] [address]- [place] Telecom: Name: Domingo Prince RN Position: [facility] RN Member Role: Primary Care Nurse Name: Karla Chairez RN Position: [facility] SN RN Member Role: Primary Care Nurse Name: Lee Sifuentes RN Position: [facility] RN Member Role: Primary Care Nurse Name: Kira Garces NP Position: [facility] Associate Professional Member Role: Lifetime Consulting Provider Address: [address] [facility] [address] [facility] [place] [address]- [place] Telecom: Name: Lilliam Marquez RN Position: [facility] ED RN W/OE and Tasks Member Role: Primary Care Nurse Name: Laurita Dos Santos RN Position: [facility] RN Member Role: Primary Care Nurse Name: Milan Hammond DO Position: [facility] Renal MD Member Role: Lifetime Consulting Physician Address: [address] [facility] [place] [address]- Telecom: Name: Heydi Childress RN Position: [facility] RN Member Role: Primary Care Nurse Name: Emerita Fuentes RN Position: [facility] RN Member Role: Primary Care Nurse Name: Claire Augustine LPN Position: [facility] RN Member Role: Primary Care Nurse Name: Chloé Davalos RN Position: [facility] RN Member Role: Primary Care Nurse Name: Julienne Pino Position: [facility] RN Member Role: Primary Care Nurse Name: Cecy Smalls RN Position: [facility] RN Member Role: Primary Care Nurse Name: Mejia Trotter MD Position: [facility] Renal MD Member Role: Lifetime Consulting Physician Address: [address] [facility] [address] [facility] [place], [place] [address] Telecom: Name: Yuan Sung MD Position: [facility] Renal MD Member Role: Lifetime Consulting Physician Address: [address] [facility] [place], [place] [address] Telecom: Name: Micheal Wharton RN Position: [facility] RN Member Role: Primary Care Nurse Name: Loli Lincoln RN Position: [facility] RN Member Role: Primary Care Nurse Name: Norma Azevedo Position: [facility] AMB [place] Member Role: Primary Care Nurse Name: Harman Medina MD Position: [facility] Renal MD Member Role: Lifetime Consulting Physician Address: [address] [facility] [place], [place] [address] Telecom: Name: Henna Brandon RN Position: [facility] Hospital Parcel Post Officer Member Role: Primary Care Nurse Name: Alexandrea Simpson RN Position: [facility] RN Member Role: Primary Care Nurse Name: Lilliam Cortes RN Position: [facility] RN Member Role: Primary Care Nurse Name: Radha Negron RN Position: [facility] RN Member Role: Primary Care Nurse Name: Floresita Soto RN Position: [facility] Onco RN Member Role: Primary Care Nurse Care Team Related Persons Name: MARIA GUADALUPE SPENCER Name: CECILIA SPENCER Insurance Providers Guarantor name: RODGER SAPPUMANG [email or web address] Plan Information #: 1 Payer: MEDICARE PART B OUTPT Member Number: [id number] Policy Number: NA Group Number: NA Health Plan Information #: 2 Payer: MEDEX Member Number: [id number] Policy Number: NA Group Number: NA
--- OUTSIDE RECORDS SUMMARY | 2024-05-12 12:21 | XMS_ITS ---
Author Name [facility] Organization Unknown Problems Problem Status Onset Date Problem Type Date of Resoluti on Source Complication of transplanted kidney, unspecified complication active [facility]
--- OUTSIDE RECORDS SUMMARY | 2024-05-12 12:21 | XMS_ITS | Data Portability ---
Author Organization [facility], Main Office Address [address] [place] [address] Care Team Providers Care Sales And Marketing Representative Name Role Phone MELISSA ROWLAND 2ND FLOOR OTHER [phone] PRABHAKAR DAMICO Primary Care Provider Assessment No assessment recorded. Plan of Treatment Reminders Order Date Submit Date Provider Last Modified By Organization Details Last Modified Time Details Appointments None record ed. Lab None record ed. Referral None record ed. Procedures None record ed. Surgeries None record ed. Imaging None record ed. Medication Orders None record ed. Patient TargetsNo targets recorded. Patient InstructionsNo instructions recorded. Reason for Referral None Reported. Problems Name Problem SNOMED Code Status Onset Date Resolution Date Notes Provider Name and Address Organization Details Recorded Time Osteomyelitis 30347620 Active 2022 IRENE SKINNER NP [address] , [address], [place], [address], [facility] 3 12:54:43 Type 2 diabetes mellitus 00781780 Active 2022 IRENE SKINNER NP [address], [address], [place], [address], [facility] [address] 3 13:02:35 Essential hypertension 78475116 Active 2022 IRENE SKINNER NP [address], [address], [place], [address], [facility] [address] 3 13:03:00 Hyperlipidemia 53852406 Active 2022 IRENE SKINNER NP [address], [address], [place], [address], [facility] [address] 3 13:03:12 History of renal transplant 093624178 Active 2022 IRENE SKINNER NP [address], [address], [place], [address], [facility] 3 13:03:24 Asthenia 90650628 Active 2022 IRENE SKINNER NP [address], [address], [place], [address], [facility] 3 13:03:41 Insomnia 643686914 Active 2022 IRENE SKINNER NP [address], [address], [place], [address], [facility] 3 13:21:26 Spinal stenosis of lumbar region 98705955 Active 2022 Yanique Verdin MD [address], [address], [place], [address], [facility] 3 15:00:42 Chronic constipation 453757988 Active 2022 Yanique Verdin MD [address] [facility], [address], [place], [address], [facility] 3 15:14:15 Coronary arterioscleros is 12240733 Active 2022 Yanique Verdin MD [address] [facility], [address], [place], [address], [facility] 3 15:14:18 Deep venous thrombosis 242341786 Active 2022 IRENE SKINNER NP [address] [facility], [address], [place], [address], [facility] 3 14:34:30 Acute urticaria 861888435 Active 2022 IRENE SKINNER NP [address] [facility], [address], [place], [address], [facility] 3 14:05:35 Problem Notes None recorded. Medical Equipment None Reported. Allergies No known drug allergies Medications Name Sig Start Date Stop Date Status Note LastModified by Organization Details LastModified Time tramadol 50 mg tablet Take 2 tablets every 8 hours by oral route. 023 active Not Available Not Available Not Avai lable oxycodone 5 mg tablet Take 2 tablets every 6 hours by oral route as needed. 023 active Not Available Not Available Not Avai lable oxycodone 10 mg tablet Take 1 tablet every 4 hours by oral route. 023 active Not Available Not Available Not Avai lable Vitals Date Recorded Body height Heart rate Respiratory rate Body temperature Oxygen saturation Oxygen saturation in Arterial blood by Pulse oximetry Systolic blood pressure Diastolic blood pressure Provider Name and Address Organization Details Last Updated DateTime 3 180.34 cm 78 /min 16 /min 97.2 [degF] 98 % 98 % 130 mm[Hg] 72 mm[Hg] IRENE SKINNER NP [address] [facility], [address], [place], [address], [facility] 3 14:03:34 Date Recorded Body height Heart rate Respiratory rate Body temperature Oxygen saturation Oxygen saturation in Arterial blood by Pulse oximetry Systolic blood pressure Diastolic blood pressure Provider Name and Address Organization Details Last Updated DateTime 3 180.34 cm 75 /min 16 /min 97.3 [degF] 96 % 96 % 132 mm[Hg] 76 mm[Hg] IRENE SKINNER NP [address] [facility], [address], [place], [address], [facility] 3 12:50:47 Date Recorded Body height Heart rate Respiratory rate Body temperature Oxygen saturation Oxygen saturation in Arterial blood by Pulse oximetry Systolic blood pressure Diastolic blood pressure Provider Name and Address Organization Details Last Updated DateTime 3 180.34 cm 77 /min 16 /min 97.8 [degF] 96 % 96 % 130 mm[Hg] 74 mm[Hg] IRENE SKINNER NP [address] , [address], [place], [address], [facility] 3 12:16:34 Date Recorded Body height Heart rate Respiratory rate Body temperature Oxygen saturation Oxygen saturation in Arterial blood by Pulse oximetry Systolic blood pressure Diastolic blood pressure Provider Name and Address Organization Details Last Updated DateTime 3 180.34 cm 67 /min 16 /min 97.6 [degF] 98 % 98 % 135 mm[Hg] 74 mm[Hg] IRENE SKINNER NP [address] , [address], [place], [address], [facility] 3 11:38:28 Date Recorded Body height Heart rate Respiratory rate Body temperature Oxygen saturation Oxygen saturation in Arterial blood by Pulse oximetry Systolic blood pressure Diastolic blood pressure Provider Name and Address Organization Details Last Updated DateTime 3 180.34 cm 72 /min 16 /min 98 [degF] 97 % 97 % 132 mm[Hg] 68 mm[Hg] IRENE SKINNER NP [address] [facility], [address], [place], [address], [facility] [address] 3 11:00:29 Social History Question Answer Notes LastModified by Organizat ion Details LastModified Time Tobacco Smoking Status Former Smoker IRENE SKINNER NP [address] [facility], [address], [place], [address], [facility] [address] 01/08/2023 12:57:22 Do You Have An Advance Directive? Yes Information not available 01/08/2023 What Is Your Level Of Alcohol Consumption? None Information not available 01/08/2023 What Is Your Code Status? DNR Information not available 01/08/2023 Where Do You Live? SingleLevelHouse Lives At Home With With 5 Entry Steps Information not available 01/09/2023 Legal Guardian? No Informati on not available 01/09/2023 Do You Have A Medical Power Of Superintendent Construction? Yes Not Invoked Information not available 01/09/2023 What Was The Date Of Your Most Recent Tobacco Screening? 01/09/2023 Information not available 01/09/2023 Do You Have An Out Of Hospital DNR? Yes Information not available 01/09/2023 What Is Your Relationship Status? Information not available 01/09/2023 Do You Use Any Illicit Or Recreational Drugs? No Information not available 01/08/2023 Has Tobacco Cessation Counseling Been Provided? No N/a As Pt No Longer Smokes Information not available 01/09/2023 Do You Or Have You Ever Used Any Other Forms Of Tobacco Or Nicotine? No Information not available 01/09/2023 Sex: Unknown Functional Status None recorded. Mental Status None recorded. Family History Nothing Reported Notes:Mother (): Kaylyn chinchilla mellitus type 2; Skin cancer Father (): Stroke Sister: Hyperthyroidism Sister: Hyperthyroidism Daughter: Pseudotumor cerebri Medical History No medical history recorded. Immunizations Vaccine Type Date Status Note Provider Nam e and Address Organization Details Recorded Time Pneumococcal conjugate PCV20, polysaccharide [id number] conjugate, adjuvant, PF 3 completed Tisha Lopez [facility] 01/14/2023 12:34:16 SARS-COV-2 (COVID-19) vaccine, UNSPECIFIED 2 completed Tisha [facility] 01/14/2023 12:34:40 SARS-COV-2 (COVID-19) vaccine, UNSPECIFIED 1 completed Tisha [facility] 01/14/2023 12:34:55 SARS-COV-2 (COVID-19) vaccine, UNSPECIFIED 1 completed Tisha [facility] 01/14/2023 12:35:06 SARS-COV-2 (COVID-19) vaccine, UNSPECIFIED 1 completed Tisha [facility] 01/14/2023 12:35:15 influenza, unspecified formulation 2 completed Tisha [facility] 01/14/2023 12:35:39 pneumococcal polysaccharide PPV23 4 completed Tisha [facility] 01/14/2023 12:36:12 Influenza, adjuvanted, quadrivalent, PF 3 completed Conchita Arias [facility] 10/17/2023 10:37:00 Td (adult), 5 Lf tetanus toxoid, preservative free, adsorbed 3 completed Conchita Arias [facility] 10/17/2023 10:37:17 Past Encounters Encounter ID Performer Location Encounter Start Date Encounter Closed Date Diagnosis/Indication Diagnosis SNOMED-CT Code Diagnosis ICD10 Code [id number] FRANCINE HOPKINS [address] [place] [address] 01/08/2023 11:23:17 01/14/2023 15:37:27 Osteomyelitis 03704934 M86.9 Type 2 kaylyn betes mellitus 77208008 E11.22 Hyperlipidemia 97886402 E78.5 Essential hypertension 67877327 I10 History of renal transplant 814602696 Z48.22 Asthenia 57826466 R53.1 Insomnia 320246004 G47.0 0 [id number] Yanique Verdin MD [address] [address] 01/09/2023 13:16:08 01/14/2023 15:47:55 Osteomyelitis 90304914 M46.26 M46.46 Type 2 kaylyn betes mellitus 95561757 E11.22 Hyperlipidemia 08154863 E78.49 Essential hypertension 66768312 I10 History of renal transplant 851550452 Z48.22 Asthenia 07406248 R53.1 Insomnia 627355964 G47.0 0 Anemia 014250489 D64.89 Spinal iraida nosis of lumbar region 05180509 M48.061 Coronary arteriosclerosis 33048885 I25.10 Chronic constipation 236 014222 K59.09 Pain of left thigh 72407 15565 32085 M79.652 [id number] IRENE SKINNER NP [address] [address] 01/10/2023 13:37:56 01/14/2023 15:59:12 Osteomyelitis 77378502 M46.26 M46.46 Spinal iraida nosis of lumbar region 93182987 M48.061 [id number] IRENE SKINNER NP [address] [address] 01/13/2023 14:27:28 01/16/2023 11:46:26 Deep venous thrombosis 266673032 I82.409 Osteomyelitis 60334740 M 46.26 M46.46 [id number] IRENE SKINNER NP [address] [address] 01/15/2023 13:41:20 01/22/2023 08:29:11 Deep venous thrombosis 305275213 I82.409 Osteomyelitis 05824261 M 46.26 M46.46 Spinal iraida nosis of lumbar region 81950168 M48.061 [id number] IRENE SKINNER NP [address] [address] 01/17/2023 13:29:33 01/22/2023 13:29:10 Osteomyelitis 07875946 M46.26 M46.46 Acute urticaria 36677089 9 L50.9 [id number] [facility] [address] [place] [address] [place] [address] 01/27/2023 12:42:15 01/29/2023 14:03:06 Osteomyelitis 31572249 M46.26 M46.46 Spinal iraida nosis of lumbar region 49812335 M48.061 Acute urticaria 38103504 9 L50.9 [id number] IRENE SKINNER, FRANCINE [address] [place] [address] 01/29/2023 10:04:40 01/31/2023 16:01:18 Osteomyelitis 37683632 M46.26 M46.46 [id number] IRENE SKINNER, FRANCINE [address] [address] 02/05/2023 11:24:24 02/07/2023 16:01:50 Spinal stenosis of lumbar region 23266465 M48.061 Osteomyelitis 85538704 M 46.26 M46.46 [id number] IRENE SKINNER, FRANCINE [address] [address] 02/12/2023 10:06:53 02/14/2023 11:50:02 Osteomyelitis 92177196 M46.26 M46.46 Type 2 kaylyn betes mellitus 15555512 E11.22 Hyperlipidemia 03527347 E78.5 Essential hypertension 44001123 I10 History of renal transplant 606099750 Z48.22 Asthenia 97902787 R53.1 Insomnia 094880883 G47.0 0 Health Concerns Section Related Observation LastModified by Organization Detai ls LastModified Time None Recorded Concern Status LastModified by Organization Details LastModified Time None Recorded Advance Directives Directive Y: Payers Encounter Date Sequence Insurance Name Policy Number Policy Garcia Covered Member ID Garcia Member ID Guarantor Name 01/17/2023 1 [place] [employer] Aries Rosario [id number] 7 Aries Rosario 01/17/2023 2 [place] [id number] Aries Rosario [id number] Aries Savard 01/27/2023 1 [place] [employer] [place] Ariesfatmata Reidard [id number] 7 Aries Savard 01/27/2023 2 [place] [id number] Aries Savard [id number] Aries Savard 01/29/2023 1 [place] [employer] Aries E Savard [id number] 7 Aries Savard 01/29/2023 2 [place] [id number] Aries Savard [id number] Aries Savard 02/05/2023 1 [place] [employer] Ariesfatmata Reidard [id number] 7 Aries Savard 02/05/2023 2 [place] [id number] Aries Reidard [id number] Aries Savard 02/12/2023 1 [place] [employer] Aries Reidard [id number] 7 Aries Savard 02/12/2023 2 [place] [id number] Aries Rosario [id number] Aries Rosario Notes Date Note Type Note Provider Name and Address Organization Details Recorded Time 01/17/2023 text/html seen today for acute rounding visit, CAOx3 lying in bed, lungs clear, vanco trough 29.8 will hold today, decrease dose to 500 mg for the weekend and recheck trough friday, pt asymptomatic of vanco tox.Of note he has a rash on his back, ordered prednisone burst and benedryl IRENE SKINNER, FRANCINE [address] [facility], [address], [place], [address], [facility] [address] 01/17/2023 14:08:35 01/27/2023 text/html seen today for acute rounding visit- CAOx3 oob independent in room, lungs clear, rash resolved, tolerating his abx tx IRENE SKINNER NP [address] [facility], [address], [place], [address], [facility] 01/27/2023 12:53:30 01/29/2023 text/html seen today for 3 0 day routine rounding visit-72 yom admitted to for rehab and iv abx therapy, after presenting to the hospital 12/30 with lower back pain about 2 months ago. CAOx3 ambulating with PT and walker, tolerating the increased activity, trough 20.2 rec'd wrong dose of vanco yesterday, ordered another trough for 01/30 and holding todays dose, asymptomatic IRENE SKINNER, TEXTILE SCRAP SALVAGER [address] [facility], [address], [place], [address], [facility] [address] 01/29/2023 12:20:39 02/05/2023 text/html seen today for acute rounding visit, CAOx3 sitting up in wheelchair, ambulates with walker, tolerating abx therapy, schwartz right chest ok IRENE SKINNER, TEXTILE SCRAP SALVAGER [address] [facility], [address], [place], [address], [facility] [address] 02/05/2023 11:41:11 02/12/2023 text/html seen today for discharge summary-72 yom admitted to for rehab and iv abx therapy, after presenting to the hospital 12/30 with lower back pain about 2 months ago. CAOx3 ambulating with PT and walker, tolerating the increased activity, and abx treatment, schwartz intact, eating and drinking well, will decrease the oxycodone again and start his tramadol, nursing to arrange the removal of the schwartz IRENE SKINNER, TEXTILE SCRAP SALVAGER [address] [facility], [address], [place], [address], [facility] [address] 02/12/2023 11:05:55
--- OUTSIDE RECORDS SUMMARY | 2024-05-12 12:21 | XMS_ITS | Continuity of Care Document ---
Author Organization [facility] Address [address] [place] [address]- Support Name Relationship Address Phone JOHANNA, CECILIA Personal Relationship Unknown Lola vailable SAVARD, [...] Unknown Lola vailable Care Team Providers Care Geek Squad Agent Name Role Phone Tiffanie Lugo NP Primary Care Physician Encounter [facility] [id number] Date(s): 03/31/24 - 04/30/24 [facility] [address] [place] [address] [place] Attending Physician: Krishna Alexander Admitting Physician: Krishna Alexander Referring Physician: Krishna Alexander Encounter Type: Triage Allergies, Adverse Reactions, Alerts No Known Allergies [...] pneumococcal 20-valent conjugate vaccine 3 12/10/22 Given [id number] 12y+ bivalent booster vax 05/01/22 Given pneumococcal 13-valent vaccine 01/30/22 Given SARS-CoV-2 (COVID-19) mRNA BNT-162b2 vac 03/14/21 Given SARS-CoV-2 (COVID-19) mRNA BNT-162b2 vac 09/06/20 Recorded SARS-CoV-2 (COVID-19) mRNA BNT-162b2 vac 08/16/20 Recorded pneumococcal 23-valent vaccine 4 01/14/14 Given 1Result Comment: [id number] 2Admin Note: Dialysis 3Result Comment: [id number] 4Admin Note: Dialysis Medications acetaminophen 325 mg [...] 7:37:00 AM EDT, Route to Pharmacy Electronically, [id number], 180, cm, 07/30/23 9:29:00 EST, Height, 111, kg, 03/04/23 6:09:00 EDT, Dry Weight Start Date: 09/20/23 Stop Date: 03/18/24 Status: Ordered Quantity: 90.0 Unit: tablet Repeat number: 2 atorvastatin 80 mg oral tablet 1 tablet = 80 mg, By Mouth, Daily at bedtime, # 90 tablet, 1 Refills, Maintenance, 07/30/23 9:48:00 AM EST, Tablet, [id number], 180, cm, 07/30/23 9:29:00 EST, Height, 111, [...] MRI Safety Implantable Status Assigning Authority Unknown [id number] Unknown Unknown 08/10/26 Unknown Unknown Active Unknown Patient Care team information Care Team Personnel Name: Orly Rose RN Position: [facility] RN Member Role: Primary Care Nurse Name: Elif Ravi RN Position: [facility] AMB Nurse Member Role: Primary Care Nurse Name: Willam Guido MD Position: [facility] Renal MD Member Role: Lifetime Consulting Physician Address: [address] [place] [address] [address] [facility] [address]- Telecom: Name: Francisca Zee Position: [facility] Outreach Member Role: Lifetime Consulting Physician Name: Michelle Hutchinson RN Position: [facility] RN Member Role: Primary Care Nurse Name: Shirley Cope RN Position: [facility] RN Member Role: Primary Care Nurse Name: Abigail Snowden RN Position: [facility] RN Member Role: Primary Care Nurse Name: Nely Nolan RN Position: [facility] RN Supv Member Role: Primary Care Nurse Name: Claire Hernandez Position: [facility] RN Member Role: Primary Care Nurse Name: Tiffanie Lugo NP Position: [facility] PCO Associate Professional Member Role: PCP Address: [address] [place] [address]- [place] Telecom: Name: Dorothea Krishna NP Position: [facility] Associate Professional Member Role: Primary Care Nurse Name: Valerie Harrison RN Position: [facility] RN Member Role: Primary Care Nurse Name: Jake Yates MD Position: [facility] Renal MD Member Role: Lifetime Consulting Physician Address: [address] [place] [address] [address] [facility] [address]- [place] Telecom: Name: Letty Benavidez RN Position: [facility] RN Member Role: Primary Care Nurse Name: May Doss RN Position: [facility] Screw Machine Operator Member Role: Primary Care Nurse Name: Reny Oliva RN Position: [facility] AMB Nurse Member Role: Primary Care Nurse Name: Joshua Li MD Position: [facility] Renal MD Member Role: Lifetime Consulting Physician Address: [address] [facility] [address] [facility] [address] [facility] [place] [address]- [place] Telecom: Name: Domingo Prince RN Position: [facility] RN Member Role: Primary Care Nurse Name: Karla Chairez RN Position: [facility] SN RN Member Role: Primary Care Nurse Name: Lee Sifuentes RN Position: [facility] RN Member Role: Primary Care Nurse Name: Kira Garces NP Position: [facility] Associate Professional Member Role: Lifetime Consulting Provider Address: [address] [facility] [place] [address]- [place] Telecom: Name: Lilliam Marquez RN Position: [facility] ED RN W/OE and Tasks Member Role: Primary Care Nurse Name: Laurita Dso Santos RN Position: [facility] RN Member Role: Primary Care Nurse Name: Milan Hammond DO Position: [facility] Renal MD Member Role: Lifetime Consulting Physician Address: [address] [facility] [place], [place] [address] Telecom: Name: Heydi Childress RN Position: [facility] RN Member Role: Primary Care Nurse Name: Emerita Fuentes RN Position: [facility] RN Member Role: Primary Care Nurse Name: Claire Augustine LPN Position: [facility] RN Member Role: Primary Care Nurse Name: Chloé Davalos RN Position: [facility] RN Member Role: Primary Care Nurse Name: Julienne Pino Position: [facility] RN Member Role: Primary Care Nurse Name: Cecy Smalls RN Position: [facility] RN Member Role: Primary Care Nurse Name: Mejia Trotter MD Position: [facility] Renal MD Member Role: Lifetime Consulting Physician Address: [address] [facility] [place], [place] [address] Telecom: Name: Yuan Sung MD Position: [facility] Renal MD Member Role: Lifetime Consulting Physician Address: [address] [facility] [place], [place] [address] Telecom: Name: Micheal Wharton RN Position: [facility] RN Member Role: Primary Care Nurse Name: Loli Lincoln RN Position: [facility] RN Member Role: Primary Care Nurse Name: Norma Azevedo Position: [facility] AMB [place] Member Role: Primary Care Nurse Name: Harman Medina MD Position: [facility] Renal MD Member Role: Lifetime Consulting Physician Address: [address] [facility] [address] Telecom: Name: Henna Brandon RN Position: [facility] Hospital Screw Machine Operator Member Role: Primary Care Nurse Name: Alexandrea Simpson RN Position: [facility] RN Member Role: Primary Care Nurse Name: Lilliam Cortes RN Position: [facility] RN Member Role: Primary Care Nurse Name: Radha Negron RN Position: [facility] RN Member Role: Primary Care Nurse Name: Floresita Soto RN Position: [facility] Onco RN Member Role: Primary Care Nurse Care Team Related Persons Name: MARIA GUADALUPE SPENCER Name: CECILIA SPENCER Insurance Providers Guarantor name: RODGER SPENCER [employer] Plan Information #: 1 Payer: MEDICARE PART B OUTPT Member Number: NA Policy Number: NA Group Number: NA Health Plan Information #: 2 Payer: MEDEX Member Number: NA Policy Number: NA Group Number: NA
--- OUTSIDE RECORDS SUMMARY | 2024-05-12 12:21 | XMS_ITS | Continuity of Care Document ---
Author Organization [facility] Address [address] [place] [address]- Support Name Relationship Address Phone JOHANNA, CECILIA [...] Unknown Lola vailable Care Team Providers Care Locker Operator Name Role Phone Tiffanie Lugo NP Primary Care Physician [phone] [facility] [id number] Date(s): 09/20/23 - 04/30/24 [facility] [address] [place] [address]- [place] Attending Physician: Kevin Sanchez MD Admitting Physician: Kevin Sanchez MD Referring Physician: Tiffanie Lugo NP Encounter [...] pneumococcal 20-valent conjugate vaccine 3 12/10/22 Given [id number] 12y+ bivalent booster vax 05/01/22 Given pneumococcal 13-valent vaccine 01/30/22 Given SARS-CoV-2 (COVID-19) mRNA BNT-162b2 vac 03/14/21 Given SARS-CoV-2 (COVID-19) mRNA BNT-162b2 vac 09/06/20 Recorded SARS-CoV-2 (COVID-19) mRNA BNT-162b2 vac 08/16/20 Recorded pneumococcal 23-valent vaccine 4 01/14/14 Given 1Result Comment: [id number] 2Admin Note: Dialysis 3Result Comment: [id number] 4Admin Note: Dialysis Medications acetaminophen 325 mg [...] 7:37:00 AM EDT, Route to Pharmacy Electronically, [id number], 180, cm, 07/30/23 9:29:00 EST, Height, 111, kg, 03/04/23 6:09:00 EDT, Dry Weight Start Date: 09/20/23 Stop Date: 03/18/24 Status: Ordered Quantity: 90.0 Unit: tablet Repeat number: 2 atorvastatin 80 mg oral tablet 1 tablet = 80 mg, By Mouth, Daily at bedtime, # 90 tablet, 1 Refills, Maintenance, 07/30/23 9:48:00 AM EST, Tablet, [facility] #[id number], 180, cm, 07/30/23 9:29:00 EST, Height, 111, [...] MRI Safety Implantable Status Assigning Authority Unknown [id number] Unknown Unknown 08/10/26 Unknown Unknown Active Unknown Patient Care team information Care Team Personnel Name: Orly Rose RN Position: [facility] RN Member Role: Primary Care Nurse Name: Elif Ravi RN Position: [facility] AMB Nurse Member Role: Primary Care Nurse Name: Willam Guido MD Position: [facility] Renal MD Member Role: Lifetime Consulting Physician Address: [address] [place] [address] [address] [facility] [address]- Telecom: Name: Francisca Zee Position: [facility] Outreach Member Role: Lifetime Consulting Physician Name: Michelle Hutchinson RN Position: [facility] RN Member Role: Primary Care Nurse Name: Shirley Cope RN Position: [facility] RN Member Role: Primary Care Nurse Name: Abigail Snowden RN Position: [facility] RN Member Role: Primary Care Nurse Name: Nely Nolan RN Position: [facility] RN Supv Member Role: Primary Care Nurse Name: Claire Hernandez Position: [facility] RN Member Role: Primary Care Nurse Name: Tiffanie Lugo NP Position: [facility] PCO Associate Professional Member Role: PCP Address: [address] [place] [address]- [place] Telecom: Name: Dorothea Krishna NP Position: [facility] Associate Professional Member Role: Primary Care Nurse Name: Valerie Harrison RN Position: [facility] RN Member Role: Primary Care Nurse Name: Jake Yates MD Position: [facility] Renal MD Member Role: Lifetime Consulting Physician Address: [address] [place] [address] [address] [place] [address]- [place] Telecom: Name: Letty Benavidez RN Position: [facility] RN Member Role: Primary Care Nurse Name: May Doss RN Position: [facility] Lawn Specialist Member Role: Primary Care Nurse Name: Reny Oliva RN Position: [facility] AMB Nurse Member Role: Primary Care Nurse Name: Joshua Li MD Position: [facility] Renal MD Member Role: Lifetime Consulting Physician Address: [address] [facility] [address] [facility] [address]- [place] Telecom: Name: Domingo Prince RN Position: [facility] RN Member Role: Primary Care Nurse Name: Karla Chairez RN Position: [facility] SN RN Member Role: Primary Care Nurse Name: Lee Sifuentes RN Position: [facility] RN Member Role: Primary Care Nurse Name: Kira Garces NP Position: [facility] Associate Professional Member Role: Lifetime Consulting Provider Address: [address] [facility] [place] [place] [address]- [place] Telecom: Name: Lilliam Marquez RN Position: [facility] ED RN W/OE and Tasks Member Role: Primary Care Nurse Name: Laurita Dos Santos RN Position: [facility] RN Member Role: Primary Care Nurse Name: Milan Hammond DO Position: [facility] Renal MD Member Role: Lifetime Consulting Physician Address: [address] [facility] [place] [address]- Telecom: Name: Heydi Childress RN Position: [facility] RN Member Role: Primary Care Nurse Name: Emerita Fuentes RN Position: S RN Member Role: Primary Care Nurse Name: Claire Augustine LPN Position: S RN Member Role: Primary Care Nurse Name: Chloé Davalos RN Position: [facility] RN Member Role: Primary Care Nurse Name: Julienne Pino Position: [facility] RN Member Role: Primary Care Nurse Name: Cecy Smalls RN Position: [facility] RN Member Role: Primary Care Nurse Name: Mejia Trotter MD Position: [facility] Renal MD Member Role: Lifetime Consulting Physician Address: [address] [facility] [address] [facility] [place], [place] [address] Telecom: Name: Yuan Sung MD Position: [facility] Renal MD Member Role: Lifetime Consulting Physician Address: [address] [facility] [address] [facility] [place], [place] [address] Telecom: Name: Micheal Wharton RN Position: [facility] RN Member Role: Primary Care Nurse Name: Loli Lincoln RN Position: [facility] RN Member Role: Primary Care Nurse Name: Norma Azevedo Position: [facility] AMB [place] Member Role: Primary Care Nurse Name: Harman Medina MD Position: [facility] Renal MD Member Role: Lifetime Consulting Physician Address: [address] [facility] [address] [facility] [address] Telecom: Name: Henna Brandon RN Position: [facility] Hospital Lawn Specialist Member Role: Primary Care Nurse Name: Alexandrea Simpson RN Position: [facility] RN Member Role: Primary Care Nurse Name: Lilliam Cortes RN Position: [facility] RN Member Role: Primary Care Nurse Name: Radha Negron RN Position: [facility] RN Member Role: Primary Care Nurse Name: Floresita Soto RN Position: [facility] Onco RN Member Role: Primary Care Nurse Care Team Related Persons Name: MARIA GUADALUPE SPENCER Name: CECILIA SPENCER Insurance Providers Guarantor name: RODGER JOHANNA Health Plan Information #: 2 Payer: MEDEX Member Number: [id number] Policy Number: NA Group Number: CARLOS Health Plan Information #: 1 Payer: MEDICARE PART B OUTPT Member Number: [id number] Policy Number: NA Group Number: NA
--- OUTSIDE RECORDS SUMMARY | 2024-05-12 12:21 | XMS_ITS | Continuity of Care Document ---
Author Organization [facility] Address [address] [place] [address]- Support Name Relationship Address Phone CECILIA SPENCER [...] Unknown Lola vailable Care Team Providers Care Screen Cleaner Name Role Phone Brittney Tiffanie ESCAMILLA Primary Care Physician [id number] Date(s): 01/14/24 - 05/01/24 [facility] [place] [id number] Attending Physician: Armani Bello DO Admitting Physician: Armani Bello DO Referring Physician: Goldie Lugo NP Encounter Type: Pre-OutPatient One Time [...] pneumococcal 20-valent conjugate vaccine 3 12/10/22 Given [id number] 12y+ bivalent booster vax 05/01/22 Given pneumococcal 13-valent vaccine 01/30/22 Given SARS-CoV-2 (COVID-19) mRNA BNT-162b2 vac 03/14/21 Given SARS-CoV-2 (COVID-19) mRNA BNT-162b2 vac 09/06/20 Recorded SARS-CoV-2 (COVID-19) mRNA BNT-162b2 vac 08/16/20 Recorded pneumococcal 23-valent vaccine 4 01/14/14 Given 1Result Comment: [id number] 2Admin Note: Dialysis 3Result Comment: [id number] 4Admin Note: Dialysis Medications acetaminophen 325 mg [...] 7:37:00 AM EDT, Route to Pharmacy Electronically, [id number], 180, cm, 07/30/23 9:29:00 EST, Height, 111, kg, 03/04/23 6:09:00 EDT, Dry Weight Start Date: 09/20/23 Stop Date: 03/18/24 Status: Ordered Quantity: 90.0 Unit: tablet Repeat number: 2 atorvastatin 80 mg oral tablet 1 tablet = 80 mg, By Mouth, Daily at bedtime, # 90 tablet, 1 Refills, Maintenance, 07/30/23 9:48:00 AM EST, Tablet, [facility][id number], 180, cm, 07/30/23 9:29:00 EST, Height, 111, [...] MRI Safety Implantable Status Assigning Authority Unknown [id number] Unknown Unknown 08/10/26 Unknown Unknown Active Unknown Patient Care team information Care Team Personnel Name: Orly Rose RN Position: [facility] RN Member Role: Primary Care Nurse Name: Elif Ravi RN Position: [facility] AMB Nurse Member Role: Primary Care Nurse Name: Lata GREGG, Willam Salcido Position: [facility] Renal MD Member Role: Lifetime Consulting Physician Address: [address] [place] [address] [address] [place] [address]- Telecom: Name: Francisca Zee Position: [facility] Outreach Member Role: Lifetime Consulting Physician Name: Michelle Hutchinson RN Position: [facility] RN Member Role: Primary Care Nurse Name: Shirley Cope RN Position: [facility] RN Member Role: Primary Care Nurse Name: Abigail Snowden RN Position: [facility] RN Member Role: Primary Care Nurse Name: Nely Nolan RN Position: [facility] RN Supv Member Role: Primary Care Nurse Name: Claire Hernandez Position: [facility] RN Member Role: Primary Care Nurse Name: Tiffanie Lugo NP Position: [facility] PCO Associate Professional Member Role: PCP Address: [address] [place] [address]- [place] Telecom: Name: Tomi ESCAMILLA, Dorothea Smith Position: [facility] Associate Professional Member Role: Primary Care Nurse Name: Valerie Harrison RN Position: [facility] RN Member Role: Primary Care Nurse Name: Jake Yates MD Position: [facility] Renal MD Member Role: Lifetime Consulting Physician Address: [address] [place] [address] [address] [place] [address]- [place] Telecom: Name: Letty Benavidez RN Position: [facility] RN Member Role: Primary Care Nurse Name: May Doss RN Position: [facility] Hospital Parasitologist Member Role: Primary Care Nurse Name: Reny Oliva RN Position: [facility] AMB Nurse Member Role: Primary Care Nurse Name: Joshua Li MD Position: [facility] Renal MD Member Role: Lifetime Consulting Physician Address: [address] [facility] [address] [facility] [place] [address]- [place] Telecom: Name: Domingo Prince RN Position: [facility] RN Member Role: Primary Care Nurse Name: Karla Chairez RN Position: [facility] SN RN Member Role: Primary Care Nurse Name: Lee Sifuentes RN Position: [facility] RN Member Role: Primary Care Nurse Name: Kira Garces NP Position: [facility] Associate Professional Member Role: Lifetime Consulting Provider Address: [address] [facility] [address] [facility] [place] [address]- [place] Telecom: Name: Lilliam Marquez RN Position: [facility] ED RN W/OE and Tasks Member Role: Primary Care Nurse Name: Laurita Dos Santos RN Position: [facility] RN Member Role: Primary Care Nurse Name: Milan Hammond DO Position: [facility] Renal MD Member Role: Lifetime Consulting Physician Address: [address] [facility] [place] [address]- [place] Telecom: Name: Heydi Childress RN Position: [facility] RN Member Role: Primary Care Nurse Name: Emerita Fuentes RN Position: [facility] RN Member Role: Primary Care Nurse Name: Claire Augustine LPN Position: [facility] RN Member Role: Primary Care Nurse Name: Chloé Davalos RN Position: [facility] RN Member Role: Primary Care Nurse Name: Julienne Pino Position: [facility] RN Member Role: Primary Care Nurse Name: Cecy Smalls RN Position: [facility] RN Member Role: Primary Care Nurse Name: Mejia Trotter MD Position: [facility] Renal MD Member Role: Lifetime Consulting Physician Address: [address] [facility] [place], [place] [address] Telecom: Name: Yuan Sung MD Position: [facility] Renal MD Member Role: Lifetime Consulting Physician Address: [address] [facility] [place], [place] [address] Telecom: Name: Micheal Wharton RN Position: [facility] RN Member Role: Primary Care Nurse Name: Loli Lincoln RN Position: [facility] RN Member Role: Primary Care Nurse Name: Norma Azevedo Position: [facility] AMB [place] Member Role: Primary Care Nurse Name: Harman Medina MD Position: [facility] Renal MD Member Role: Lifetime Consulting Physician Address: [address] [facility] [place] [address]- Telecom: Name: Henna Brandon RN Position: [facility] Hospital Parasitologist Member Role: Primary Care Nurse Name: Alexandrea Simpson RN Position: [facility] RN Member Role: Primary Care Nurse Name: Lilliam Cortes RN Position: [facility] RN Member Role: Primary Care Nurse Name: Radha Negron RN Position: [facility] RN Member Role: Primary Care Nurse Name: Floresita Soto RN Position: [facility] Onco RN Member Role: Primary Care Nurse Care Team Related Persons Name: MARIA GUADALUPE SPENCER Name: CECILIA SPENCER Insurance Providers Guarantor name: RODGER [email or web address] Plan Information #: 2 Payer: MEDEX Member Number: [id number] Policy Number: NA Group Number: NA Health Plan Information #: 1 Payer: MEDICARE PART B OUTPT Member Number: [id number] Policy Number: NA Group Number: NA
== END 2024-05-10 05:58 | disposition home or self-care (01) ==
LOC: HO.MMNH2L 05:57
PROVIDERS: Visit Provider Nurse Practitioner
DX: E11.40 Type 2 diabetes mellitus with diabetic neuropathy, unspecified (principal); Z94.0 Kidney transplant status; I10 Essential (primary) hypertension
CPT/HCPCS: 36415; 80048; 80197; 85025

== ENCOUNTER 2024-05-17 06:19 | Outpatient (REF) | payer MEDICARE, SELFPAY ==
[2024-05-17 05:42] LABS: MANUAL DIFF FLAG NO
[2024-05-17 06:19] LABS: Basophils Percent Auto 0.3 % (0-2); Eosinophils Absolute Auto 0.4 X10*3/uL (0.0-0.4); Eosinophils Percent Auto 5.8 % (0-4); Hematocrit 33.8 % (42.0-52.0); Hemoglobin 10.7 g/dl (14.0-18.0); Imm Gran Abs Auto 0.01 X10*3/uL (0.00-0.03); Imm Gran Pct Auto 0.2 % (0.0-0.4); Lymphocytes Absolute Auto 1.7 X10*3/uL (1.2-4.9); Lymphocytes Percent Auto 26.4 % (20-40); Mean Corpuscular HGB Conc 31.7 g/dl (31.0-36.0); Mean Corpuscular Volume 88.5 fL (80.0-98.0); Monocytes Absolute Auto 0.6 X10*3/uL (0.1-1.2); Monocytes Percent Auto 9.1 % (2-11); Neutrophils Absolute Auto 3.6 x10*3/uL (2.0-8.3); Neutrophils Percent Auto 58.2 % (45-73); Platelet Count 145 X10*3/uL (160-400); Red Blood Count 3.82 X10*6/uL (4.60-5.80); Red Cell Distribution Width 16.4 % (11.0-16.0); White Blood Count 6.2 X10*3/uL (4.8-10.8)
[2024-05-17 06:30] LABS: Anion Gap 13 (12-20); Blood Urea Nitrogen 29 mg/dL (9-16); Carbon Dioxide 24 mmol/L (22-29); Chloride 107 mmol/L (96-108); Estimated Glomerular Filt Rate > 60; Glucose Random 120 mg/dL (60-115); Potassium 3.7 mmol/L (3.3-5.1); Sodium 140 mmol/L (135-145)
[2024-05-18 19:38] LABS: Tacrolimus Prograf 2.3 mcg/L
== END 2024-05-17 06:20 | disposition home or self-care (01) ==
LOC: HO.MMNH2L 06:19
PROVIDERS: Visit Provider Nurse Practitioner
DX: E11.40 Type 2 diabetes mellitus with diabetic neuropathy, unspecified (principal); Z94.0 Kidney transplant status; I10 Essential (primary) hypertension
CPT/HCPCS: 36415; 80048; 80197; 85025

== ENCOUNTER 2024-05-24 07:03 | Outpatient (REF) | payer MEDICARE, SELFPAY ==
[2024-05-24 06:17] LABS: MANUAL DIFF FLAG NO
[2024-05-24 06:49] LABS: Basophils Percent Auto 0.4 % (0-2); Eosinophils Absolute Auto 0.5 X10*3/uL (0.0-0.4); Eosinophils Percent Auto 7.2 % (0-4); Hematocrit 38.4 % (42.0-52.0); Hemoglobin 11.9 g/dl (14.0-18.0); Imm Gran Abs Auto 0.02 X10*3/uL (0.00-0.03); Imm Gran Pct Auto 0.3 % (0.0-0.4); Lymphocytes Absolute Auto 1.9 X10*3/uL (1.2-4.9); Lymphocytes Percent Auto 27.8 % (20-40); Mean Corpuscular Hemoglobin 27.8 pg (27.0-33.0); Mean Corpuscular Volume 89.7 fL (80.0-98.0); Mean Platelet Volume 10.3 fL (9.4-12.4); Monocytes Absolute Auto 0.7 X10*3/uL (0.1-1.2); Monocytes Percent Auto 9.4 % (2-11); Neutrophils Absolute Auto 3.8 x10*3/uL (2.0-8.3); Neutrophils Percent Auto 54.9 % (45-73); Platelet Count 167 X10*3/uL (160-400); Red Blood Count 4.28 X10*6/uL (4.60-5.80); Red Cell Distribution Width 16.4 % (11.0-16.0)
--- OUTSIDE RECORDS SUMMARY | 2024-05-24 07:05 | XMS_ITS | Data Portability ---
Author Organization [facility], Main Office Address [address], [address] [place] [address] Care Team Providers Care Press Cutter Name Role Phone MELISSA ROWLAND 2ND FLOOR OTHER [phone] PRABHAKAR DAMICO Primary Care Provider [phone] Assessment No assessment recorded. Plan of Treatment [...] and Address Organization Details Recorded Time Osteomyelitis 36347195 Active 2022 IRENE SKINNER NP [address] , [address], [place], [address], [facility] 3 12:54:43 Type 2 diabetes mellitus 94195566 Active 2022 IRENE SKINNER NP [address], [address], [place], [address], [facility] [employer] 3 13:02:35 Essential hypertension 24154676 Active 2022 IRENE SKINNER NP [address], [address], [place], [address], [facility] [facility] 3 13:03:00 Hyperlipidemia 93699254 Active 2022 IRENE SKINNER NP [address], [address], [place], [address], [facility] [facility] 3 13:03:12 History of renal transplant 291228006 Active 2022 IRENE SKINNER NP [address], [address], [place], [address], [facility] 3 13:03:24 Asthenia 02202749 Active 2022 IRENE SKINNER NP [address], [address], [place], [address], [facility] 3 13:03:41 Insomnia 620018370 Active 2022 IRENE SKINNER NP [address], [address], [place], [address], [facility] 3 13:21:26 Spinal stenosis of lumbar region 18838714 Active 2022 Yanique Verdin MD [address], [address], [place], [address], [facility] 3 15:00:42 Chronic constipation 541673137 Active 2022 Yanique Verdin MD [address] [facility], [address], [place], [address], [facility] 3 15:14:15 Coronary arterioscleros is 84823680 Active 2022 Yanique Verdin MD [address] [facility], [address], [place], [address], [facility] 3 15:14:18 Deep venous thrombosis 332845605 Active 2022 IRENE SKINNER NP [address] [facility], [address], [place], [address], [facility] 3 14:34:30 Acute urticaria 342524143 Active 2022 IRENE SKINNER NP [address] [facility], [address], [place], [address], [facility] 3 14:05:35 Problem Notes None recorded. Medical [...] mm[Hg] 72 mm[Hg] IRENE SKINNER NP [address] [facility], [address], [place], [address], [facility] 3 14:03:34 Date Recorded Body height Heart rate Respiratory rate Body temperature Oxygen saturation Oxygen saturation in Arterial blood by Pulse oximetry Systolic blood pressure Diastolic blood pressure Provider Name and Address Organization Details Last Updated DateTime 3 180.34 cm 75 /min 16 /min 97.3 [degF] 96 % 96 % 132 mm[Hg] 76 mm[Hg] IRENE SKINNER NP [address] [facility], [address], [place], [address], [facility] 3 12:50:47 Date Recorded Body height Heart rate Respiratory rate Body temperature Oxygen saturation Oxygen saturation in Arterial blood by Pulse oximetry Systolic blood pressure Diastolic blood pressure Provider Name and Address Organization Details Last Updated DateTime 3 180.34 cm 77 /min 16 /min 97.8 [degF] 96 % 96 % 130 mm[Hg] 74 mm[Hg] IRENE SKINNER NP [address] , [address], [place], [address], [facility] 3 12:16:34 Date Recorded Body height Heart rate Respiratory rate Body temperature Oxygen saturation Oxygen saturation in Arterial blood by Pulse oximetry Systolic blood pressure Diastolic blood pressure Provider Name and Address Organization Details Last Updated DateTime 3 180.34 cm 67 /min 16 /min 97.6 [degF] 98 % 98 % 135 mm[Hg] 74 mm[Hg] IRENE SKINNER NP [address] , [address], [place], [address], [facility] 3 11:38:28 Date Recorded Body height Heart rate Respiratory rate Body temperature Oxygen saturation Oxygen saturation in Arterial blood by Pulse oximetry Systolic blood pressure Diastolic blood pressure Provider Name and Address Organization Details Last Updated DateTime 3 180.34 cm 72 /min 16 /min 98 [degF] 97 % 97 % 132 mm[Hg] 68 mm[Hg] IRENE SKINNER NP [address] [facility], [address], [place], [address], [facility] 3 11:00:29 Social History Question Answer Notes LastModified by Organizat ion Details LastModified Time Tobacco Smoking Status Former Smoker IRENE SKINNER NP [address] [facility], [address], [place], [address], [facility] [employer] 01/08/2023 12:57:22 Do You Have An Advance [...] Do You Have A Medical Power Of [employer] Dashboard Developer? Yes Not Invoked Information not available 01/09/2023 [...] Details Recorded Time Pneumococcal conjugate PCV20, polysaccharide NBM528 conjugate, adjuvant, PF 3 completed Tisha Lopez [facility] 01/14/2023 12:34:16 SARS-COV-2 (COVID-19) vaccine, UNSPECIFIED 2 completed Tisha [facility] 01/14/2023 12:34:40 SARS-COV-2 (COVID-19) vaccine, UNSPECIFIED 1 completed Tisha [facility] 01/14/2023 12:34:55 SARS-COV-2 (COVID-19) vaccine, UNSPECIFIED 1 completed Tisha [facility] 01/14/2023 12:35:06 SARS-COV-2 (COVID-19) vaccine, UNSPECIFIED 1 completed Tisha [facility] 01/14/2023 12:35:15 influenza, unspecified formulation 2 completed Tisha [facility] 01/14/2023 12:35:39 pneumococcal polysaccharide PPV23 4 completed Tisha [facility] 01/14/2023 12:36:12 Influenza, adjuvanted, quadrivalent, PF 3 completed Conchita Arias [facility] 10/17/2023 10:37:00 Td (adult), 5 Lf tetanus toxoid, preservative free, adsorbed 3 completed Conchita Arias [facility] 10/17/2023 10:37:17 Past Encounters Encounter ID Performer Location Encounter Start Date Encounter Closed Date Diagnosis/Indication Diagnosis SNOMED-CT Code Diagnosis ICD10 Code [id number] FRANCINE HOPKINS [address] [place] [address] 01/08/2023 11:23:17 01/14/2023 15:37:27 Osteomyelitis 67175215 M86.9 Type 2 kaylyn betes mellitus 65476211 E11.22 Hyperlipidemia 20035658 E78.5 Essential hypertension 54808169 I10 History of renal transplant 372836321 Z48.22 Asthenia 67885567 R53.1 Insomnia 470452077 G47.0 0 [id number] Yanique Verdin MD [address] [address] 01/09/2023 13:16:08 01/14/2023 15:47:55 Osteomyelitis 91202936 M46.26 M46.46 Type 2 kaylyn betes mellitus 35213651 E11.22 Hyperlipidemia 26182634 E78.49 Essential hypertension 49611550 I10 History of renal transplant 256636369 Z48.22 Asthenia 87034894 R53.1 Insomnia 864061593 G47.0 0 Anemia 128522738 D64.89 Spinal iraida nosis of lumbar region 48482260 M48.061 Coronary arteriosclerosis 08282816 I25.10 Chronic constipation 236 752942 K59.09 Pain of left thigh 98725 57166 29282 M79.652 [id number] IRENE SKINNER NP [address] [address] 01/10/2023 13:37:56 01/14/2023 15:59:12 Osteomyelitis 38482751 M46.26 M46.46 Spinal iraida nosis of lumbar region 83309158 M48.061 [id number] IRENE SKINNER NP [address] [address] 01/13/2023 14:27:28 01/16/2023 11:46:26 Deep venous thrombosis 153039314 I82.409 Osteomyelitis 35197718 M 46.26 M46.46 [id number] IRENE SKINNER NP [address] [address] 01/15/2023 13:41:20 01/22/2023 08:29:11 Deep venous thrombosis 437626195 I82.409 Osteomyelitis 87459262 M 46.26 M46.46 Spinal iraida nosis of lumbar region 67275370 M48.061 [id number] IRENE SKINNER NP [address] [address] 01/17/2023 13:29:33 01/22/2023 13:29:10 Osteomyelitis 80648704 M46.26 M46.46 Acute urticaria 40679006 9 L50.9 [id number] IRENE SKINNER, FRANCINE [facility] [address] [place] [address] [place] [address] 01/27/2023 12:42:15 01/29/2023 14:03:06 Osteomyelitis 86366582 M46.26 M46.46 Spinal iraida nosis of lumbar region 90215595 M48.061 Acute urticaria 76705548 9 L50.9 [id number] IRENE SKINNER, FRANCINE [address] [place] [address] 01/29/2023 10:04:40 01/31/2023 16:01:18 Osteomyelitis 92622909 M46.26 M46.46 [id number] IRENE SKINNER, FRANCINE [address] [address] 02/05/2023 11:24:24 02/07/2023 16:01:50 Spinal stenosis of lumbar region 33272360 M48.061 Osteomyelitis 97341506 M 46.26 M46.46 [id number] IRENE SKINNER, FRANCINE [address] [address] 02/12/2023 10:06:53 02/14/2023 11:50:02 Osteomyelitis 66729095 M46.26 M46.46 Type 2 kaylyn betes mellitus 34997420 E11.22 Hyperlipidemia 94799485 E78.5 Essential hypertension 19874017 I10 History of renal transplant 479348077 Z48.22 Asthenia 28676243 R53.1 Insomnia 814040622 G47.0 0 Health Concerns Section Related Observation LastModified by Organization Detai ls LastModified Time None Recorded Concern Status LastModified by Organization Details LastModified Time None Recorded Advance Directives Directive Y: Payers Encounter Date Sequence Insurance Name Policy Number Policy Garcia Covered Member ID Garcia Member ID Guarantor Name 01/17/2023 1 [place] [employer] Aries Rosario [id number] Aries Rosario 01/17/2023 2 [place] [id number] Aries Rosario [id number] Aries Savard 01/27/2023 1 [place] [place] Ariesfatmata Reidard [id number] Aries Savard 01/27/2023 2 [place] [id number] Aries Savard [id number] Aries Savard 01/29/2023 1 [place] [employer] [place] Aries E Savard [id number] Aries Savard 01/29/2023 2 [place] [id number] Aries Savard [id number] Aries Savard 02/05/2023 1 [place] [employer] [place] Ariesfatmata Reidard [id number] Aries Savard 02/05/2023 2 [place] [id number] Aries Reidard [id number] Aries Savard 02/12/2023 1 [place] [place] Aries Reidard [id number] Aries Savard 02/12/2023 2 [place] [id number] Aries Rosario [id number] Aries Rosario Notes Date Note Type [...] burst and benedryl IRENE SKINNER, FRANCINE [address] [facility], [address], [place], [address], [facility] [employer] 01/17/2023 14:08:35 01/27/2023 text/html seen today for acute rounding visit- CAOx3 oob independent in room, lungs clear, rash resolved, tolerating his abx tx IRENE SKINNER NP [address] [facility], [address], [place], [address], [facility] 01/27/2023 12:53:30 01/29/2023 text/html seen today [...] and holding todays dose, asymptomatic IRENE SKINNER, RESPIRATORY TECHNICIAN [address] [facility], [address], [place], [address], [facility] [employer] 01/29/2023 12:20:39 02/05/2023 text/html seen today for acute rounding visit, CAOx3 sitting up in wheelchair, ambulates with walker, tolerating abx therapy, schwartz right chest ok IRENE SKINNER, RESPIRATORY TECHNICIAN [address] [facility], [address], [place], [address], [facility] [employer] 02/05/2023 11:41:11 02/12/2023 text/html seen today for [...] the removal of the schwartz IRENE SKINNER, RESPIRATORY TECHNICIAN [address] [facility], [address], [place], [address], [facility] [employer] 02/12/2023 11:05:55
[2024-05-24 07:18] LABS: Anion Gap 12 (12-20); Blood Urea Nitrogen 33 mg/dL (9-16); Calcium 8.5 mg/dL (8.4-10.2); Carbon Dioxide 25 mmol/L (22-29); Chloride 107 mmol/L (96-108); Estimated Glomerular Filt Rate > 60; Glucose Random 83 mg/dL (60-115); Potassium 4.2 mmol/L (3.3-5.1); Sodium 140 mmol/L (135-145)
[2024-05-25 08:49] LABS: Tacrolimus Prograf 3.2 mcg/L
== END 2024-05-24 07:04 | disposition home or self-care (01) ==
LOC: HO.MMNH2L 07:03
PROVIDERS: Visit Provider Nurse Practitioner
DX: E11.40 Type 2 diabetes mellitus with diabetic neuropathy, unspecified (principal); I10 Essential (primary) hypertension; Z94.0 Kidney transplant status; Z79.899 Other long term (current) drug therapy
CPT/HCPCS: 36415; 80048; 80197; 85025

== ENCOUNTER 2024-05-31 06:41 | Outpatient (REF) | payer MEDICARE, SELFPAY ==
[2024-05-31 06:04] LABS: MANUAL DIFF FLAG NO
[2024-05-31 06:16] LABS: Basophils Percent Auto 0.3 % (0-2); Eosinophils Absolute Auto 0.4 X10*3/uL (0.0-0.4); Eosinophils Percent Auto 5.5 % (0-4); Hematocrit 35.7 % (42.0-52.0); Hemoglobin 11.6 g/dl (14.0-18.0); Imm Gran Abs Auto 0.01 X10*3/uL (0.00-0.03); Imm Gran Pct Auto 0.2 % (0.0-0.4); Lymphocytes Absolute Auto 1.8 X10*3/uL (1.2-4.9); Lymphocytes Percent Auto 28.5 % (20-40); Mean Corpuscular HGB Conc 32.5 g/dl (31.0-36.0); Mean Corpuscular Hemoglobin 28.7 pg (27.0-33.0); Mean Corpuscular Volume 88.4 fL (80.0-98.0); Mean Platelet Volume 10.1 fL (9.4-12.4); Monocytes Absolute Auto 0.6 X10*3/uL (0.1-1.2); Monocytes Percent Auto 9.8 % (2-11); Neutrophils Absolute Auto 3.5 x10*3/uL (2.0-8.3); Neutrophils Percent Auto 55.7 % (45-73); Platelet Count 140 X10*3/uL (160-400); Red Blood Count 4.04 X10*6/uL (4.60-5.80); Red Cell Distribution Width 16.5 % (11.0-16.0); White Blood Count 6.3 X10*3/uL (4.8-10.8)
[2024-05-31 06:28] LABS: Anion Gap 11 (12-20); Blood Urea Nitrogen 35 mg/dL (9-16); Calcium 8.4 mg/dL (8.4-10.2); Carbon Dioxide 24 mmol/L (22-29); Chloride 110 mmol/L (96-108); Estimated Glomerular Filt Rate > 60; Glucose Random 119 mg/dL (60-115); Potassium 3.8 mmol/L (3.3-5.1); Sodium 141 mmol/L (135-145)
[2024-06-01 13:18] LABS: Tacrolimus Prograf 3.5 mcg/L
== END 2024-05-31 06:42 | disposition home or self-care (01) ==
LOC: HO.MMNH2L 06:41
PROVIDERS: Visit Provider Nurse Practitioner
DX: E11.40 Type 2 diabetes mellitus with diabetic neuropathy, unspecified (principal); I10 Essential (primary) hypertension; Z94.0 Kidney transplant status; Z79.899 Other long term (current) drug therapy
CPT/HCPCS: 36415; 80048; 80197; 85025

== ENCOUNTER 2024-06-07 06:08 | Outpatient (REF) | payer MEDICARE, SELFPAY ==
[2024-06-07 06:06] LABS: MANUAL DIFF FLAG NO
--- OUTSIDE RECORDS SUMMARY | 2024-06-07 06:13 | XMS_ITS ---
Author Organization [facility] Address [address] [place] [address] Care Team Providers Care Stack Matcher Name Role Phone Brittney Tiffanie HAWKINS Primary Care Provider Unavail George Thrasher Unavailable [phone] REASON FOR VISIT cx appt 03/03 Encounters Encounter Location Date Provider Diagnosis [facility] [address] [place] [address] 02/27/2024 George Chopra Plan Of Treatment No Information Progress Notes * Aries ROSARIO EDOB:[birth year] (73 yo M)Acc No.[id number]:02/27/2024 Patient:?Aries Rosario :1950???Age:73 Y???Sex:Male [address] [facility] [facility] [place], [address] * true * Date:? Generated for Printi ng/Famoniqueg/eTransmitting on:?06/07/2024 06:12 AM EST
--- OUTSIDE RECORDS SUMMARY | 2024-06-07 06:13 | XMS_ITS | Data Portability ---
Author Organization [facility], Main Office Address [address] [place] [address] Care Team Providers Care Ice Cream Freezer Helper Name Role Phone MELISSA ROWLAND 2ND FLOOR OTHER PRABHAKAR DAMICO Primary Care Provider [phone] Assessment No assessment recorded. Plan of Treatment [...] and Address Organization Details Recorded Time Osteomyelitis 57185027 Active 2022 IRENE SKINNER NP [address] , [address], [place], [address], [facility] 3 12:54:43 Type 2 diabetes mellitus 58154244 Active 2022 IRENE SKINNER NP [address], [address], [place], [address], [facility] 3 13:02:35 Essential hypertension 52574213 Active 2022 IRENE SKINNER NP [address], [address], [place], [address], [facility] [employer] [facility] 3 13:03:00 Hyperlipidemia 94712934 Active 2022 IRENE SKINNER NP [address], [address], [place], [address], [facility] [employer] [facility] 3 13:03:12 History of renal transplant 726753736 Active 2022 IRENE SKINNER NP [address], [address], [place], [address], [facility] 3 13:03:24 Asthenia 90552073 Active 2022 IRENE SKINNER NP [address], [address], [place], [address], [facility] 3 13:03:41 Insomnia 695575593 Active 2022 IRENE SKINNER NP [address], [address], [place], [address], [facility] 3 13:21:26 Spinal stenosis of lumbar region 34952293 Active 2022 Yanique Verdin MD [address], [address], [place], [address], [facility] 3 15:00:42 Chronic constipation 395717374 Active 2022 Yanique Verdin MD [address] [facility], [address], [place], [address], [facility] 3 15:14:15 Coronary arterioscleros is 91218158 Active 2022 Yanique Verdin MD [address] [facility] [address], [address], [place], [address], [facility] 3 15:14:18 Deep venous thrombosis 332730208 Active 2022 IRENE SKINNER NP [address] [facility], [address], [place], [address], [facility] 3 14:34:30 Acute urticaria 866833351 Active 2022 IRENE SKINNER NP [address] [facility] [address], [address], [place], [address], [facility] 3 14:05:35 Problem Notes None recorded. Medical [...] mm[Hg] 72 mm[Hg] IRENE SKINNER NP [address] [facility], [address], [place], [address], [facility] 3 14:03:34 Date Recorded Body height Heart rate Respiratory rate Body temperature Oxygen saturation Oxygen saturation in Arterial blood by Pulse oximetry Systolic blood pressure Diastolic blood pressure Provider Name and Address Organization Details Last Updated DateTime 3 180.34 cm 75 /min 16 /min 97.3 [degF] 96 % 96 % 132 mm[Hg] 76 mm[Hg] IRENE SKINNER NP [address] [facility], [address], [place], [address], [facility] 3 12:50:47 Date Recorded Body height Heart rate Respiratory rate Body temperature Oxygen saturation Oxygen saturation in Arterial blood by Pulse oximetry Systolic blood pressure Diastolic blood pressure Provider Name and Address Organization Details Last Updated DateTime 3 180.34 cm 77 /min 16 /min 97.8 [degF] 96 % 96 % 130 mm[Hg] 74 mm[Hg] IRENE SKINNER NP [address] , [address], [place], [address], [facility] 3 12:16:34 Date Recorded Body height Heart rate Respiratory rate Body temperature Oxygen saturation Oxygen saturation in Arterial blood by Pulse oximetry Systolic blood pressure Diastolic blood pressure Provider Name and Address Organization Details Last Updated DateTime 3 180.34 cm 67 /min 16 /min 97.6 [degF] 98 % 98 % 135 mm[Hg] 74 mm[Hg] IRENE SKINNER NP [address] , [address], [place], [address], [facility] 3 11:38:28 Date Recorded Body height Heart rate Respiratory rate Body temperature Oxygen saturation Oxygen saturation in Arterial blood by Pulse oximetry Systolic blood pressure Diastolic blood pressure Provider Name and Address Organization Details Last Updated DateTime 3 180.34 cm 72 /min 16 /min 98 [degF] 97 % 97 % 132 mm[Hg] 68 mm[Hg] IRENE SKINNER NP [address] [facility], [address], [place], [address], [facility] 3 11:00:29 Social History Question Answer Notes LastModified by Organizat ion Details LastModified Time Tobacco Smoking Status Former Smoker IRENE SKINNER NP [address] [facility], [address], [place], [address], [facility] 01/08/2023 12:57:22 Do You Have An Advance [...] 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 Not Invoked Information not available 01/09/2023 [...] Details Recorded Time Pneumococcal conjugate PCV20, polysaccharide BLU116 conjugate, adjuvant, PF 3 completed Tisha Lopez [facility] 01/14/2023 12:34:16 SARS-COV-2 (COVID-19) vaccine, UNSPECIFIED 2 completed Tishaisidra Lopez [facility] 01/14/2023 12:34:40 SARS-COV-2 (COVID-19) vaccine, UNSPECIFIED 1 completed [facility] 01/14/2023 12:34:55 SARS-COV-2 (COVID-19) vaccine, UNSPECIFIED 1 completed [facility] 01/14/2023 12:35:06 SARS-COV-2 (COVID-19) vaccine, UNSPECIFIED 1 completed [facility] 01/14/2023 12:35:15 influenza, unspecified formulation 2 completed [facility] 01/14/2023 12:35:39 pneumococcal polysaccharide PPV23 4 completed Tisha Lopez [facility] 01/14/2023 12:36:12 Influenza, adjuvanted, quadrivalent, PF 3 completed Conchita Arias [facility] 10/17/2023 10:37:00 Td (adult), 5 Lf tetanus toxoid, preservative free, adsorbed 3 completed Conchita Arias [facility] 10/17/2023 10:37:17 Past Encounters Encounter ID Performer Location Encounter Start Date Encounter Closed Date Diagnosis/Indication Diagnosis SNOMED-CT Code Diagnosis ICD10 Code Diagnosis Note [id number] FRANCINE HOPKINS [address] [facility] VANNA SEGOVIA [address] 01/08/2023 11:23:17 01/14/2023 15:37:27 Osteomyelitis 28065128 M86.9 oxycodone 10 mg q4hr prnvanco 1000 mg increased to 1250 mg iv daily to 02/12roceph in 2 gm iv daily to 02/12gabape ntin 300 mg tidf/u with ID 02/07 Type 2 kaylyn betes mellitus 48786221 E11.22 glargine 28 units hslispro sliding scale tidmonitor glucose Hyperlipidemia 24808256 E78.5 atorvastat in 80 mg daily Essential hypertension 48960161 I10 coreg 6.25 mg bidmonitor bp History of renal transplant 898253558 Z48.22 tacrolimus 1gm bidmonitor labs Asthenia 20074934 R53.1 PT OT eval and treatfall precaution sfrequent safety checks Insomnia 926404345 G47.0 0 amitriptyl ine 25 mg [id number] MD MELISSA Mondragon [address] [place] [address] 01/09/2023 13:16:08 01/14/2023 15:47:55 Osteomyelitis 81209070 M46.26 M46.46 Continue ceftriaxon e 2 gms IV qd and vanco titrated to troughs of 10-15, until ontin ue gabapentin 300 mg TID, lidoderm patch qd, oxycodone 10 mg q 4 hrs prn.Monito r CBC, CMP, ESR and CRP weekly with labs to ID (Dr. Rasmussen, fax # [phone])F/U with ID on 02/07 as planned. Type 2 kaylyn betes mellitus 42478256 E11.22 Fair control since here. Last HgA1C 7.0 in 07/2022.Con tinue Lantus 28 units qhs and SSIMonitor fingerstic ks TID and HgA1C as outpt. Hyperlipidemia 60347440 E78.49 Good in ont inue atorvastat in 80 mg qd and ASA 81 mg qd.Monitor labs as outpt. Essential hypertension 09392760 I10 SBP high or borderline since here, likely due to pain, won't make any changes for now.Contin ue carvedilol 6.25 mg BID.Monito r BP and labs. History of renal transplant 156623786 Z48.22 With good renal function.C ontinue tacrolimus 1 gm BIDMonitor labsF/U with renal as planned. Asthenia 81242477 R53.1 Very deconditio tasneem.Needs PT/OT for strengthen ing, balance, gait training, safety and function.C ontinue fall precaution s.Monitor for safety. Insomnia 552572437 G47.0 0 Continue amitriptyl ine 25 mg qhsMonitor sleep patterns Anemia 746813063 D64.89 Multifacto rial, stable.Mon itor labs Spinal iraida nosis of lumbar region 65000462 M48.061 Long standing issue, not surgical candidate per neurosurg. Continue PT/OT as above.Pain management as above for now.Transi tion back to tramadol as acute pain from discitis improves. Coronary arteriosclerosis 84824720 I25.10 No recent sxs.Contin ue meds as above.Caroline tor sxs and f/u with cardio as planned. Chronic constipation 236 493484 K59.09 Continue miralax 17 gmd TID.Monito r bowel function. Pain of left thigh 61724 [address]348 54061 M79.652 No clear etiology, could be c/w dermatomal distributi on of L2-3, but should r/o DVT as pt has been immobile.W ill get doppler U/S [id number] FRANCINE HOPKINS [address] [place] [address] [place] [address] 01/10/2023 13:37:56 01/14/2023 15:59:12 Osteomyelitis 30028561 M46.26 M46.46 Continue ceftriaxon e 2 gms IV qdvanco titrated to troughs of 10-15, until 02/12gabape ntin 300 mg TID,lidode rm patch qd,oxycodo ne 10 mg q 4 hrs prn.Monito r CBC, CMP, ESR and CRP weekly with labs to ID (Dr. Rasmussen, fax # [phone]) F/U with ID on 02/07 as planned. Spinal iraida nosis of lumbar region 23729957 M48.061 Long standing issue, not surgical candidate per neurosurg. Continue PT/OT as above. Pain management as above for now. Transition back to tramadol as acute pain from discitis improves. [id number] IRENE GRIPPIN, JEWEL OLIVING MACHINE OPERATOR [address] [address] 01/13/2023 14:27:28 01/16/2023 11:46:26 Deep venous thrombosis 320801974 I82.409 eliquis 10 mg bid to 01/20 then 5 mg bidmonitor cms to left leg Osteomyelitis 89830424 M 46.26 M46.46 Continue ceftriaxon e 2 gms IV qdvanco titrated to troughs of 10-15, until 02/12gabape ntin 300 mg TID,lidode rm patch qd,oxycodo ne 10 mg q 4 hrs prn.Monito r CBC, CMP, ESR and CRP weekly with labs to ID (Dr. Rasmussen, fax # ) F/U with ID on 02/07 as planned. [id number] IRENE SKINNER NP [address] [address] 01/15/2023 13:41:20 01/22/2023 08:29:11 Deep venous thrombosis 492299624 I82.409 eliquis 10 mg bid to 01/20 then 5 mg bidmonitor cms to left leg Osteomyelitis 09321924 M 46.26 M46.46 Continue ceftriaxon e 2 gms IV qdvanco titrated to troughs of 10-15, until 02/12gabape ntin 300 mg TID,lidode rm patch qd,oxycodo ne 10 mg q 4 hrs scheduledM onitor CBC, CMP, ESR and CRP weekly with labs to ID (Dr. Rasmussen, fax # ) F/U with ID on 02/07 as planned. Spinal iraida nosis of lumbar region 50544146 M48.061 Long standing issue, not surgical candidate per neurosurg. Continue PT/OT as above. Pain management as above for now. Transition back to tramadol as acute pain from discitis improves. [id number] IRENE SKINNER NP [address] [place] [address] 01/17/2023 13:29:33 01/22/2023 13:29:10 Osteomyelitis 06078740 M46.26 M46.46 Continue ceftriaxon e 2 gms IV qdvanco titrated to troughs of 10-15, until 02/12vanco decreased to 500 mggabapent in 300 mg TID,lidode rm patch qd,oxycodo ne 10 mg q 4 hrs scheduledM onitor CBC, CMP, ESR and CRP weekly with labs to ID (Dr. Rasmussen, fax # ) F/U with ID on 02/07 as planned. Acute urticaria 34413405 9 L50.9 benedryl 25 mg q6hr prnprednis one burst with taper [id number] IRENE SKINNER NP [address] [address] 01/27/2023 12:42:15 01/29/2023 14:03:06 Osteomyelitis 61305837 M46.26 M46.46 Continue ceftriaxon e 2 gms IV qdvanco titrated to troughs of 10-15, until 02/12vanco decreased to 500 mggabapent in 300 mg TID,lidode rm patch qd,oxycodo ne 10 mg q 4 hrs scheduledM onitor CBC, CMP, ESR and CRP weekly with labs to ID (Dr. Rasmussen, fax # ) F/U with ID on 02/07 as planned. Spinal iraida nosis of lumbar region 71838477 M48.061 Long standing issue, not surgical candidate per neurosurg. Continue PT/OT as above. Pain management as above for now. Transition back to tramadol as acute pain from discitis improves. Acute urticaria 79039340 9 L50.9 resolvedbe nedryl 25 mg q6hr prnprednis one burst with taper [id number] IRENE SKINNER NP [address] [address] 01/29/2023 10:04:40 01/31/2023 16:01:18 Osteomyelitis 78897920 M46.26 M46.46 Continue ceftriaxon e 2 gms IV qdvanco titrated to troughs of 10-15, until 02/12vanco decreased to 500 mgtrough 01/30gabape ntin 300 mg TID,lidode rm patch qd,oxycodo ne 10 mg q 4 hrs scheduledM onitor CBC, CMP, ESR and CRP weekly with labs to ID (Dr. Rasmussen, fax # [phone]) F/U with ID on 02/07 as planned. [id number] IRENE SKINNER NP [address] [address] 02/05/2023 11:24:24 02/07/2023 16:01:50 Spinal stenosis of lumbar region 49692424 M48.061 Long standing issue, not surgical candidate per neurosurg. Continue PT/OT as above.Pain management as above for now.Transi tion back to tramadol as acute pain from discitis improves. Osteomyelitis 62531114 M 46.26 M46.46 Continue ceftriaxon e 2 gms IV qdvanco titrated to troughs of 10-15, until 02/12vanco decreased to 500 mgtrough 01/30gabape ntin 300 mg TID,lidode rm patch qd,oxycodo ne 10 mg q 4 hrs scheduledM onitor CBC, CMP, ESR and CRP weekly with labs to ID (Dr. Rasmussen, fax # [phone]) F/U with ID on 02/07 as planned. [id number] IRENE SKINNER NP [address] [address] 02/12/2023 10:06:53 02/14/2023 11:50:02 Osteomyelitis 64188110 M46.26 M46.46 Continue ceftriaxon e 2 gms IV qd to 02/13vanco titrated to troughs of 10-15, until 02/12vanco decreased to 500 mgtrough 01/30gabape ntin 300 mg TID,lidode rm patch qd,oxycodo ne 10 mg q 4 hrs scheduled- decreased to q12 hrtramadol 100 mg tidMonitor CBC, CMP, ESR and CRP weekly with labs to ID (Dr. Rasmussen, fax # )F/U with ID on 02/07 as planned.AR RANGE TO HAVE SCHWARTZ REMOVED Type 2 kaylyn betes mellitus 40752069 E11.22 glargine 28 units hslispro sliding scale tidmonitor glucose Hyperlipidemia 25734637 E78.5 atorvastat in 80 mg daily Essential hypertension 90554320 I10 coreg 6.25 mg bidmonitor bp History of renal transplant 560727697 Z48.22 tacrolimus 1gm bidmonitor labs Asthenia 13377195 R53.1 PT OT eval and treatfall precaution sfrequent safety checks Insomnia 477493495 G47.0 0 amitriptyl ine 25 mg hs Health Concerns Section Related Observation LastModified by Organization Detai ls LastModified Time None Recorded Concern Status LastModified by Organization Details LastModified Time None Recorded Advance Directives Directive Y: Payers Encounter Date Sequence Insurance Name Policy Number Policy Garcia Covered Member ID Garcia Member ID Guarantor Name 01/17/2023 1 [place] Aries E Savard [id number] Aries Savard 01/17/2023 2 [place] [id number] Aries Savard [id number] Aries Savard 01/27/2023 1 [place] Aries E Savard [id number] Aries Savard 01/27/2023 2 [place] [id number] Aries Savard [id number] Aries Savard 01/29/2023 1 [place] Aries E Savard [id number] Aries Savard 01/29/2023 2 [place] [id number] Aries Savard [id number] Aries Savard 02/05/2023 1 [place] Aries E Savard [id number] 7 Aries Savard 02/05/2023 2 [place] [id number] Aries Savard [id number] Aries Savard 02/12/2023 1 [place] Aries E Savard [id number] 7 Aries Savard 02/12/2023 2 [place] [id number] Aries Rosario [id number] Aries Rosario Notes Date Note Type [...] burst and benedryl IRENE SKINNER, FRANCINE [address] [facility], [address], [place], [address], [facility] 01/17/2023 14:08:35 01/27/2023 text/html seen today for acute rounding visit- CAOx3 oob independent in room, lungs clear, rash resolved, tolerating his abx tx IRENE SKINNER NP [address] [facility], [address], [place], [address], [facility] 01/27/2023 12:53:30 01/29/2023 text/html seen today for [...] 01/30 and holding todays dose, asymptomatic IRENE SKINNER NP [address] [facility], [address], [place], [address], [facility] 01/29/2023 12:20:39 02/05/2023 text/html seen today for acute rounding visit, CAOx3 sitting up in wheelchair, ambulates with walker, tolerating abx therapy, schwartz right chest ok IRENE SKINNER NP [address] [facility], [address], [place], [address], [facility] 02/05/2023 11:41:11 02/12/2023 text/html seen today for [...] the removal of the schwartz IRENE SKINNER, FRANCINE [address] [facility], [address], [place], [address], [facility] 02/12/2023 11:05:55
--- OUTSIDE RECORDS SUMMARY | 2024-06-07 06:13 | XMS_ITS | Patient Health Record ---
Author Organization [facility] Address [address] [facility] [place] [address] Care Team Providers Care Home Manager Name Role Phone Brittney Tiffanie HAWKINS Primary Care Provider Unavail able Nav George Unavailable [phone] Allergies No Known Allergies Results Component Value [...] Risk Notes Problem Chronic ulcer of foot (443565131) Non-pressure chronic ulcer of other part of left foot with fat layer exposed (L97.522) Active confirmed Problem Localized, primary osteoarthritis of the ankle and/or foot (166303804) Primary osteoarthritis, left ankle and foot (M19.072) Active confirmed Problem Acquired hallux rigidus (9487835) Hallux rigidus, left foot (M20.22) Active confirmed Problem Non-pressure chronic ulcer of other part of left foot limited to breakdown of skin (L97.521) Active confirmed Problem Acquired hallux valgus (05297473) Hallux valgus (acquired), left foot (M20.12) Active confirmed Problem Acquired hammer toe of right foot (8994033499513874 ) Other hammer toe(s) (acquired), right foot (M20.41) Active confirmed Problem Acquired hammer toe of left foot (7677830001105232 ) Other hammer toe(s) (acquired), left foot (M20.42) Active confirmed Problem Polyneuropathy due to type 2 diabetes mellitus (035557872) Type 2 diabetes mellitus with diabetic polyneuropathy (E11.42) Active confirmed Problem Polyneuropathy due to diabetes mellitus type I (560767536) Type 1 diabetes mellitus with diabetic polyneuropathy (E10.42) Active confirmed Problem Acquired hallux rigidus (2473551) Hallux rigidus, right foot (M20.21) Active confirmed Vital Signs Blood pressure diastolic 80 mm Hg 09/01/2023 Height 5ft 11in in 09/01/2023 Blood pressure systolic 120 mm Hg 09/01/2023 Weight 244 lbs 09/01/2023 BMI 34.03 kg/m2 09/01/2023 Encounters Encounter Location Date Provider Diagnosis [address] [address] 09/01/2023 George Chopra Type 1 diabetes mellitus [...] limited to breakdown of skin L97.[address] [address] 02/27/2024 George Chopra Assessments Encounter Date Diagnosis [...] X ray : Foot, left 3V 09/20/2021 31823-HCRGHIE SKIN/TISSUE 09/20/2021 90683-ODCBCHQ SKIN/TISSUE 03/29/2021 [id number]-FJCAZYF SKIN/TISSUE 10/01/2021 84883-TIVSMUC SKIN/TISSUE 12/10/2021 [id number]-LPKBPSY SKIN/TISSUE 09/09/2022 [id number]-IIUSMBN SKIN/TISSUE 01/25/2021 43688-CSVQ SKIN LESIONS, OVER 4 03/29/20 21 27477-EDHO SKIN LESIONS, OVER 4 09/21/19 22 65233-YWFN SKIN LESIONS, 2 TO 4 09/10/19 23 Insurance Providers Payer Name Payer Address Payer Phone Subscriber Number Group Number Insured Name Patient Relationship to Insured Coverage Start Date Coverage End Date Medicare National Govt Sv[employer] [address] [place] [address] [id number] Aries Rosario Self - patient is the insured [employer] [address] [place] [address] [phone] [id number] Aries Rosario Self - patient is the [...]
--- OUTSIDE RECORDS SUMMARY | 2024-06-07 06:13 | XMS_ITS ---
Author Organization [facility] Address [address] [place] [address] Care Team Providers Care Sales Market Leader Name Role Phone Brittney Tiffanie HAWKINS Primary Care Provider Unavail able Nav George Unavailable [phone] Allergies No Known Allergies REASON FOR VISIT [...] 024 Encounters Encounter Location Date Provider Diagnosis [facility] [address] [address] 09/01/2023 George Chopra Type 1 diabetes mellitus [...] as necessary. Patient chooses, no pharmaceutical tx (21121) Debride skin< 25 sq cm Open wound [...] symptoms of infection or any untoward reactions (10524) Keratoma Treatment Parring or Cutting o f Benign Hyperkeratotic Lesion(s) 80687 (2-4 Lesions) - The Benign hyperkeratotic lesions, as described above were pared, and/or cut utilizing a sterile #15 blade, tissue nippers, and/or dremel Progress Notes * JOHANNA Aries EDOB:[birth year] (72 yo M)Acc No.[id number]:09/01/2023 Progress Note Patient:?Aries Rosario Provider:?George Chopra DPM :1950???Age:72 Y???Sex:Male Suresh e:09/01/2023 Address:[address] [place] [address] Pcp:SHRUTHI Vicente Subjective: * Chief Complaints: * ???Painful nail(s) aggrevate d by shoes and causing difficulty standing/walking.Open soreUlcer(s) * HPI: ???Skin problems:?Nature:?Ulcer.?Location:?Bottom, Forefoot, Left , 1st.?Duration:?several weeks--six.?Course:?improved.?Aggravated by:?standing, walking.?Treatments:?pt tx at [facility] every other week and dressing changes qod with ; pt going to [facility].?Heel pain:?Location:?Proximal plantar aspect of Heel, RIGHT.?Onset/Cause:?unknown, denies [...] as necessary. Patient chooses, no pharmaceutical tx (85674).?Debride skin< 25 sq cm:?Open wound?Open wound selective [...] symptoms of infection or any untoward reactions (09396).?Keratoma Treatment:?Parring or Cutting of Benign Hyperkeratotic Lesion(s)?03646 (2-4 Lesions) - The Benign hyperkeratotic lesions, as described above were pared, and/or cut utilizing a sterile #15 blade, tissue nippers, and/or dremel.? * Procedure Codes:?08543 DEBRI DE NAIL, 6 OR MORE, Modifiers: XS 85937 ACTIVE WOUND CARE/20 CM OR <82992 TRIM SKIN LESIONS, 2 TO 4, Modifiers: [...] DPM Date:? 024 Generated for Jennifer calderón/Dia/Marquise on:?06/07/2024 06:13 AM EST History and Physical Notes * HPI [...] by: standing, walking Treatments: pt tx at [facility] every other week and dressing changes qod with ; pt going to [facility] Pt States Last PCP [...] Reti nopathy Screening:: No 2018 Vascular DP PULSES (B): 0/4. B/L PT PULSES (B): 0/4. B/L EDEMA (C): 1/4, B/L, Feet, Ankl e(s), Leg(s) Nails NAILS are: Elongated, overg rown, dystrophic, lytic, greater than 3mm thick, discolored and friable with crumbly malodorous subungual debris, with dull to no pain on palpation due to neuropathy, 1-5 Right foot, TA, T1, T3
--- OUTSIDE RECORDS SUMMARY | 2024-06-07 06:13 | XMS_ITS ---
Author Organization [facility] Address [address] [place] [address] Care Team Providers Care Creative Guru Name Role Phone Brittney Tiffanie HAWKINS Primary Care Provider Unavail George Thrasher Unavailable [phone] REASON FOR VISIT Painful nail(s) aggrevated by shoes and causing difficulty standing/walking., Open sore, Ulcer(s) Medications Medication SIG (Take, Route, Frequency, Duration) Notes Start Date End Date Status Night Splint AFO - L1930 as directed Active Extra Depth Diabetic Shoes with 3 Pair Custom heat-molded multi-density innersoles for 1 year Dx: Active Encounters Encounter Location Date Provider Diagnosis [facility] [address] [place] [address] 03/03/2024 George Chopra Type 1 diabetes mellitus [...] as necessary. Patient chooses, no pharmaceutical tx (21816) Debride skin< 25 sq cm Open wound [...] symptoms of infection or any untoward reactions (72596) Keratoma Treatment Parring or Cutting o f Benign Hyperkeratotic Lesion(s) 07147 (2-4 Lesions) - The Benign hyperkeratotic lesions, as described above were pared, and/or cut utilizing a sterile #15 blade, tissue nippers, and/or dremel Progress Notes * Aries ROSARIO EDOB:[birth year] (73 yo M)Acc No.[id number]:03/03/2024 Progress Note Patient:?SENAITAries HECK E Provider:?George Chopra DPM :1950???Age:73 Y???Sex:Male Suresh e:03/03/2024 Address:[address] [place], [place] [id number] Pcp:SHRUTHI Vicente Subjective: * Chief Complaints: * ???1. Painful nail(s) aggrev ated by shoes and causing difficulty standing/walking.. 2. Open sore. 3. Ulcer(s). * HPI: ???Skin problems:?Nature:?Ulcer.?Location:?Bottom, Forefoot, Left , 1st.?Duration:?several weeks--six.?Course:?improved.?Aggravated by:?standing, walking.?Treatments:?pt tx at [facility] wd ctr every other week and dressing changes qod with ; pt going to [facility].?Heel pain:?Location:?Proximal plantar aspect of Heel, RIGHT.?Onset/Cause:?unknown, denies [...] Neurological exam demonstrates, reduced vibration sensation.?Vascular: ?DP PULSES (B):?0/4. B/L.?PT PULSES (B):?0/4. B/L.?EDEMA (C):? 1/4, B/L, Feet, Ankle(s), Leg(s).?Nails: ?NAILS are:?Elongated, [...] as necessary. Patient chooses, no pharmaceutical tx (05413).?Debride skin< 25 sq cm:?Open wound?Open wound selective [...] symptoms of infection or any untoward reactions (33465).?Keratoma Treatment:?Parring or Cutting of Benign Hyperkeratotic Lesion(s)?64929 (2-4 Lesions) - The Benign hyperkeratotic lesions, as described above were pared, and/or cut utilizing a sterile #15 blade, tissue nippers, and/or dremel.? * Procedure Codes:?24107 DEBRI DE NAIL, 6 OR MORE, Modifiers: XS , 38640 ACTIVE WOUND CARE/20 CM OR <, 58467 TRIM SKIN LESIONS, 2 TO 4, Modifiers: XS * Follow Up:?6 Months * Images: * The named appointment provid er may or may not be the originator of this progress note, and it is not deemed complete until electronically signed by the appointment provider. Sign off status: Pending * Provider:Missy Cohpra DPM Date:? 024 Generated for Jennifer calderón/Dia/Savannahitting on:?06/07/2024 06:12 AM EST History and Physical Notes * [...] by: standing, walking Treatments: pt tx at [facility] wd ctr every other week and dressing changes qod with ; pt going to [facility] At Risk footcare Pt States Last PCP [...]
--- OUTSIDE RECORDS SUMMARY | 2024-06-07 06:14 | XMS_ITS | Continuity of Care Document ---
Author Organization [facility] Address [address] [place] [address]- Support Name Relationship Address Phone CECILIA SPENCER [...] Unknown Lola vailable Care Team Providers Care Time Study Technician Name Role Phone Brittney Tiffanie ESCAMILLA [id number] Date[facility]/30[facility] - 06/05/24 W[facility] [address] [place], [place] [address] Attending Physician: Corey Monteiro MD Admitting Physician: Corey Monteiro MD Referring Physician: Tiffanie uLgo NP Encounter Type: Pre-OutPatient One Time Allergies, [...] pneumococcal 20-valent conjugate vaccine 3 12/10/22 Given [id number] 12y+ bivalent booster vax 05/01/22 Given pneumococcal 13-valent vaccine 01/30/22 Given SARS-CoV-2 (COVID-19) mRNA BNT-162b2 vac 03/14/21 Given SARS-CoV-2 (COVID-19) mRNA BNT-162b2 vac 09/06/20 Recorded SARS-CoV-2 (COVID-19) mRNA BNT-162b2 vac 08/16/20 Recorded pneumococcal 23-valent vaccine 4 01/14/14 Given 1Result Comment: [id number] 2Admin Note: Dialysis 3Result Comment: [id number] 4Admin Note: Dialysis Medications acetaminophen 325 mg [...] 7:37:00 AM EDT, Route to Pharmacy Electronically, [id number], 180, cm, 07/30/23 9:29:00 EST, Height, 111, kg, 03/04/23 6:09:00 EDT, Dry Weight Start Date: 09/20/23 Stop Date: 03/18/24 Status: Ordered Quantity: 90.0 Unit: tablet Repeat number: 2 atorvastatin 80 mg oral tablet 1 tablet = 80 mg, By Mouth, Daily at bedtime, # 90 tablet, 1 Refills, Maintenance, 07/30/23 9:48:00 AM EST, Tablet, [id number], 180, cm, 07/30/23 9:29:00 EST, Height, 111, [...] MRI Safety Implantable Status Assigning Authority Unknown [id number] Unknown Unknown 08/10/26 Unknown Unknown Active Unknown Patient Care team information Care Team Personnel Name: Orly Rose RN Position: [facility] RN Member Role: Primary Care Nurse Name: Radha Sanchez CNM Position: Reference Physician Member Role: Primary Care Nurse Address: [address] [place] [address]- Telecom: Name: Elif Ravi RN Position: [facility] ROBERT Nurse Member Role: Primary Care Nurse Name: Lata GREGG, Willam Salcido Position: [facility] Renal MD Member Role: Lifetime Consulting Physician Address: [address] [place] [address] [address] [place] [address]- [place] Telecom: Name: Francisca Zee Position: [facility] Outreach Member Role: Lifetime Consulting Physician Name: Michelle Hutchinson RN Position: [facility] RN Member Role: Primary Care Nurse Name: Shirley Cope RN Position: [facility] RN Member Role: Primary Care Nurse Name: Nely Nolan RN Position: [facility] RN Supv Member Role: Primary Care Nurse Name: Claire Hernandez Position: [facility] RN Member Role: Primary Care Nurse Name: Tiffanie Lugo NP Position: [facility] PCO Associate Professional Member Role: PCP Address: [address] [place] [address]- [place] Telecom: Name: Dorothea Krishna NP Position: [facility] Associate Professional Member Role: Primary Care Nurse Name: Valerie Harrison RN Position: [facility] RN Member Role: Primary Care Nurse Name: Jake Yates MD Position: [facility] Renal MD Member Role: Lifetime Consulting Physician Address: [address] [place] [address] [address] [place] [address]- [place] Telecom: Name: Letty Benavidez RN Position: [facility] RN Member Role: Primary Care Nurse Name: May Doss RN Position: [facility] Spar Machine Operator Helper Member Role: Primary Care Nurse Name: Reny Oliva RN Position: [facility] AMB Nurse Member Role: Primary Care Nurse Name: Joshua Li MD Position: [facility] Renal MD Member Role: Lifetime Consulting Physician Address: [address] [facility] [place] [address]- [place] Telecom: Name: Domingo Prince RN Position: [facility] RN Member Role: Primary Care Nurse Name: Karla Chairez RN Position: [facility] SN RN Member Role: Primary Care Nurse Name: Lee Sifuentes RN Position: [facility] RN Member Role: Primary Care Nurse Name: Kira Garces NP Position: [facility] Associate Professional Member Role: Lifetime Consulting Provider Address: [address] [facility] [place] [address]- [place] Telecom: Name: Lilliam Marquez RN Position: [facility] ED RN W/OE and Tasks Member Role: Primary Care Nurse Name: Laurita Dos Santos RN Position: [facility] RN Member Role: Primary Care Nurse Name: Milan Hammond DO Position: [facility] Renal MD Member Role: Lifetime Consulting Physician Address: [address] [facility] [place], [place] [address] Telecom: Name: Heydi Childress RN Position: [facility] RN Member Role: Primary Care Nurse Name: Emerita Fuentes RN Position: [facility] RN Member Role: Primary Care Nurse Name: Claire Augustine LPN Position: [facility] RN Member Role: Primary Care Nurse Name: Chloé Davalos RN Position: [facility] RN Member Role: Primary Care Nurse Name: Julienne Pino Position: [facility] RN Member Role: Primary Care Nurse Name: Cecy Smalls RN Position: [facility] RN Member Role: Primary Care Nurse Name: Mejia Trotter MD Position: [facility] Outreach Member Role: Lifetime Consulting Physician Address: [address] [facility] [place] [address]- Telecom: Name: Yuan Sung MD Position: [facility] Renal MD Member Role: Lifetime Consulting Physician Address: [address] [facility] [place], [place] [address] Telecom: Name: Micheal Wharton RN Position: [facility] RN Member Role: Primary Care Nurse Name: Loli Lincoln RN Position: [facility] RN Member Role: Primary Care Nurse Name: Norma Azevedo Position: [facility] AMB [place] Member Role: Primary Care Nurse Name: Harman Medina MD Position: [facility] Renal MD Member Role: Lifetime Consulting Physician Address: [address] [facility] [address] Telecom: Name: Henna Brandon RN Position: [facility] Hospital Spar Machine Operator Helper Member Role: Primary Care Nurse Name: Alexandrea Simpson RN Position: [facility] RN Member Role: Primary Care Nurse Name: Lilliam Cortes RN Position: [facility] RN Member Role: Primary Care Nurse Name: Radha Negron RN Position: [facility] RN Member Role: Primary Care Nurse Name: Brittany NGUYEN, Floresita Sosa Position: [facility] Onco RN Member Role: Primary Care Nurse Care Team Related Persons Name: MARIA GUADALUPE SPENCER Name: CECILIA SPENCER Insurance Providers Guarantor name: RODGER SAPPUMANG [employer] Information #: 1 Payer: MEDICARE PART B OUTPT Member Number: [id number] Policy Number: NA Group Number: NA Health Plan Information #: 2 Payer: MEDEX Member Number: [id number] Policy Number: NA Group Number: NA
[2024-06-07 06:33] LABS: Basophils Percent Auto 0.2 % (0-2); Eosinophils Absolute Auto 0.3 X10*3/uL (0.0-0.4); Eosinophils Percent Auto 5.6 % (0-4); Hematocrit 37.6 % (42.0-52.0); Hemoglobin 12.3 g/dl (14.0-18.0); Imm Gran Abs Auto 0.02 X10*3/uL (0.00-0.03); Imm Gran Pct Auto 0.3 % (0.0-0.4); Lymphocytes Absolute Auto 1.7 X10*3/uL (1.2-4.9); Lymphocytes Percent Auto 28.6 % (20-40); Mean Corpuscular HGB Conc 32.7 g/dl (31.0-36.0); Mean Corpuscular Hemoglobin 28.7 pg (27.0-33.0); Mean Corpuscular Volume 87.6 fL (80.0-98.0); Mean Platelet Volume 10.1 fL (9.4-12.4); Monocytes Absolute Auto 0.6 X10*3/uL (0.1-1.2); Monocytes Percent Auto 10.9 % (2-11); Neutrophils Absolute Auto 3.2 x10*3/uL (2.0-8.3); Neutrophils Percent Auto 54.4 % (45-73); Platelet Count 126 X10*3/uL (160-400); Red Blood Count 4.29 X10*6/uL (4.60-5.80); Red Cell Distribution Width 16.8 % (11.0-16.0); White Blood Count 5.9 X10*3/uL (4.8-10.8)
[2024-06-07 07:01] LABS: Anion Gap 11 (12-20); Blood Urea Nitrogen 38 mg/dL (9-16); Calcium 8.5 mg/dL (8.4-10.2); Carbon Dioxide 23 mmol/L (22-29); Chloride 111 mmol/L (96-108); Estimated Glomerular Filt Rate > 60; Glucose Random 81 mg/dL (60-115); Sodium 141 mmol/L (135-145)
[2024-06-15 09:00] LABS: Tacrolimus Prograf 3.9
== END 2024-06-07 06:09 | disposition home or self-care (01) ==
LOC: HO.MMNH2L 06:08
PROVIDERS: Visit Provider Nurse Practitioner
DX: E11.40 Type 2 diabetes mellitus with diabetic neuropathy, unspecified (principal); Z94.0 Kidney transplant status; I10 Essential (primary) hypertension
CPT/HCPCS: 36415; 80048; 80197; 85025

== ENCOUNTER 2024-06-21 05:58 | Outpatient (REF) | payer MEDICARE, SELFPAY ==
--- OUTSIDE RECORDS SUMMARY | 2024-06-21 06:02 | XMS_ITS | Data Portability ---
Author Organization [facility], Main Office Address [address] [place] [address] Care Team Providers Care Bark Tanner Name Role Phone MELISSA ROWLAND 2ND FLOOR OTHER [phone] PRABHAKAR DAMICO Primary Care Provider [phone] Assessment No assessment recorded. Plan of Treatment [...] and Address Organization Details Recorded Time Osteomyelitis 63390954 Active 2022 IRENE SKINNER NP [address] , [address], [place], [address], [facility] 3 12:54:43 Type 2 diabetes mellitus 44495785 Active 2022 IRENE SKINNER NP [address], [address], [place], [address], [facility] [employer] 3 13:02:35 Essential hypertension 72267317 Active 2022 IRENE SKINNER NP [address], [address], [place], [address], [facility] [employer] 3 13:03:00 Hyperlipidemia 01988058 Active 2022 IRENE SKINNER NP [address], [address], [place], [address], [facility] [employer] 3 13:03:12 History of renal transplant 593297545 Active 2022 IRENE SKINNER NP [address], [address], [place], [address], [facility] 3 13:03:24 Asthenia 05147417 Active 2022 IRENE SKINNER NP [address], [address], [place], [address], [facility] 3 13:03:41 Insomnia 661126869 Active 2022 IRENE SKINNER NP [address], [place], [address], [facility] 3 13:21:26 Spinal stenosis of lumbar region 81569722 Active 2022 Yanique Verdin MD [address], [address], [place], [address], [facility] 3 15:00:42 Chronic constipation 900368667 Active 2022 Yanique Verdin MD [address] [facility], [address], [place], [address], [facility] 3 15:14:15 Coronary arterioscleros is 36749218 Active 2022 Yanique Verdin MD [address] [facility], [address], [place], [address], [facility] 3 15:14:18 Deep venous thrombosis 115403110 Active 2022 IRENE SKINNER NP [address] [facility], [address], [place], [address], [facility] 3 14:34:30 Acute urticaria 425129648 Active 2022 IRENE SKINNER NP [address] [facility], [address], [place], [address], [facility] 3 14:05:35 Problem Notes None recorded. Medical [...] mm[Hg] 72 mm[Hg] IRENE SKINNER NP [address] [facility], [address], [place], [address], [facility] 3 14:03:34 Date Recorded Body height Heart rate Respiratory rate Body temperature Oxygen saturation Oxygen saturation in Arterial blood by Pulse oximetry Systolic blood pressure Diastolic blood pressure Provider Name and Address Organization Details Last Updated DateTime 3 180.34 cm 75 /min 16 /min 97.3 [degF] 96 % 96 % 132 mm[Hg] 76 mm[Hg] IRENE SKINNER NP [address] [facility], [address], [place], [address], [facility] 3 12:50:47 Date Recorded Body height Heart rate Respiratory rate Body temperature Oxygen saturation Oxygen saturation in Arterial blood by Pulse oximetry Systolic blood pressure Diastolic blood pressure Provider Name and Address Organization Details Last Updated DateTime 3 180.34 cm 77 /min 16 /min 97.8 [degF] 96 % 96 % 130 mm[Hg] 74 mm[Hg] IRENE SKINNER NP [address] , [address], [place], [address], [facility] 3 12:16:34 Date Recorded Body height Heart rate Respiratory rate Body temperature Oxygen saturation Oxygen saturation in Arterial blood by Pulse oximetry Systolic blood pressure Diastolic blood pressure Provider Name and Address Organization Details Last Updated DateTime 3 180.34 cm 67 /min 16 /min 97.6 [degF] 98 % 98 % 135 mm[Hg] 74 mm[Hg] IRENE SKINNER NP [address] , [address], [place], [address], [facility] 3 11:38:28 Date Recorded Body height Heart rate Respiratory rate Body temperature Oxygen saturation Oxygen saturation in Arterial blood by Pulse oximetry Systolic blood pressure Diastolic blood pressure Provider Name and Address Organization Details Last Updated DateTime 3 180.34 cm 72 /min 16 /min 98 [degF] 97 % 97 % 132 mm[Hg] 68 mm[Hg] IRENE SKINNER NP [address] [facility], [address], [place], [address], [employer] [facility] 3 11:00:29 Social History Question Answer Notes LastModified by Organizat ion Details LastModified Time Tobacco Smoking Status Former Smoker IRENE SKINNER NP [address] [facility], [address], [place], [address], [facility] [employer] 01/08/2023 12:57:22 Do You Have An Advance [...] Do You Have A Medical Power Of Anesthesiologist Assistant Certified? Yes Not Invoked Information not available 01/09/2023 [...] recorded. Family History Nothing Reported Notes:Mother (): Sam chinchilla mellitus type 2; Skin cancer Father (): Stroke Sister: Hyperthyroidism Sister: Hyperthyroidism Daughter: Pseudotumor cerebri Medical History No medical history recorded. Immunizations Vaccine Type Date Status Note Provider Nam e and Address Organization Details Recorded Time Pneumococcal conjugate PCV20, polysaccharide [id number] conjugate, adjuvant, PF 3 completed Tisha Lopez [facility] 01/14/2023 12:34:16 SARS-COV-2 (COVID-19) vaccine, UNSPECIFIED 2 completed Tishaisidra Lopez [facility] 01/14/2023 12:34:40 SARS-COV-2 (COVID-19) vaccine, UNSPECIFIED 1 completed Tisha [facility] [place] 01/14/2023 12:34:55 SARS-COV-2 (COVID-19) vaccine, UNSPECIFIED 1 completed Tisha [facility] 01/14/2023 12:35:06 SARS-COV-2 (COVID-19) vaccine, UNSPECIFIED 1 completed Tisha [facility] 01/14/2023 12:35:15 influenza, unspecified formulation 2 completed Tisha [facility] 01/14/2023 12:35:39 pneumococcal polysaccharide PPV23 4 completed Tisha Lopez [facility] 01/14/2023 12:36:12 Influenza, adjuvanted, quadrivalent, PF 3 completed Conchita Arias [facility] 10/17/2023 10:37:00 Td (adult), 5 Lf tetanus toxoid, preservative free, adsorbed 3 completed Conchita Arias [facility] 10/17/2023 10:37:17 Past Encounters Encounter ID Performer Location Encounter Start Date Encounter Closed Date Diagnosis/Indication Diagnosis SNOMED-CT Code Diagnosis ICD10 Code Diagnosis Note [id number] FRANCINE HOPKINS [address] [facility] [place] [address] 01/08/2023 11:23:17 01/14/2023 15:37:27 Osteomyelitis 79193331 M86.9 oxycodone 10 mg q4hr prnvanco 1000 mg increased to 1250 mg iv daily to 02/12roceph in 2 gm iv daily to 02/12gabape ntin 300 mg tidf/u with ID 02/07 Type 2 sam betes mellitus 54201657 E11.22 glargine 28 units hslispro sliding scale tidmonitor glucose Hyperlipidemia 87492222 E78.5 atorvastat in 80 mg daily Essential hypertension 33212783 I10 coreg 6.25 mg bidmonitor bp History of renal transplant 858429824 Z48.22 tacrolimus 1gm bidmonitor labs Asthenia 29206400 R53.1 PT OT eval and treatfall precaution sfrequent safety checks Insomnia 067642896 G47.0 0 amitriptyl ine 25 mg [id number] MD MELISSA Mondragon [address] [place] [address] 01/09/2023 13:16:08 01/14/2023 15:47:55 Osteomyelitis 33011359 M46.26 M46.46 Continue ceftriaxon e 2 gms IV qd and vanco titrated to troughs of 10-15, until ontin ue gabapentin 300 mg TID, lidoderm patch qd, oxycodone 10 mg q 4 hrs prn.Monito r CBC, CMP, ESR and CRP weekly with labs to ID (Dr. Rasmussen, fax # )F/U with ID on 02/07 as planned. Type 2 sam betes mellitus 20959232 E11.22 Fair control since here. Last HgA1C 7.0 in 07/2022.Con tinue Lantus 28 units qhs and SSIMonitor fingerstic ks TID and HgA1C as outpt. Hyperlipidemia 97308930 E78.49 Good in ont inue atorvastat in 80 mg qd and ASA 81 mg qd.Monitor labs as outpt. Essential hypertension 59173177 I10 SBP high or borderline since here, likely due to pain, won't make any changes for now.Contin ue carvedilol 6.25 mg BID.Monito r BP and labs. History of renal transplant 318646445 Z48.22 With good renal function.C ontinue tacrolimus 1 gm BIDMonitor labsF/U with renal as planned. Asthenia 90238248 R53.1 Very deconditio tasneem.Needs PT/OT for strengthen ing, balance, gait training, safety and function.C ontinue fall precaution s.Monitor for safety. Insomnia 616320921 G47.0 0 Continue amitriptyl ine 25 mg qhsMonitor sleep patterns Anemia 308560095 D64.89 Multifacto rial, stable.Mon itor labs Spinal iraida nosis of lumbar region 74162021 M48.061 Long standing issue, not surgical candidate per neurosurg. Continue PT/OT as above.Pain management as above for now.Transi tion back to tramadol as acute pain from discitis improves. Coronary arteriosclerosis 71594531 I25.10 No recent sxs.Contin ue meds as above.Carolnie tor sxs and f/u with cardio as planned. Chronic constipation 236 872263 K59.09 Continue miralax 17 gmd TID.Monito r bowel function. Pain of left thigh 93585 15057 80606 M79.652 No clear etiology, could be c/w dermatomal distributi on of L2-3, but should r/o DVT as pt has been immobile.W ill get doppler U/S [id number] FRANCINE HOPKINS [address] [place] [address] [place] [address] 01/10/2023 13:37:56 01/14/2023 15:59:12 Osteomyelitis 31765601 M46.26 M46.46 Continue ceftriaxon e 2 gms IV qdvanco titrated to troughs of 10-15, until 02/12gabape ntin 300 mg TID,lidode rm patch qd,oxycodo ne 10 mg q 4 hrs prn.Monito r CBC, CMP, ESR and CRP weekly with labs to ID (Dr. Rasmussen, fax # ) F/U with ID on 02/07 as planned. Spinal iraida nosis of lumbar region 48907319 M48.061 Long standing issue, not surgical candidate per neurosurg. Continue PT/OT as above. Pain management as above for now. Transition back to tramadol as acute pain from discitis improves. [id number] IRENE GRIPPIN, PACKAGING MACHINE OPERATOR [address] [address] 01/13/2023 14:27:28 01/16/2023 11:46:26 Deep venous thrombosis 513116094 I82.409 eliquis 10 mg bid to 01/20 then 5 mg bidmonitor cms to left leg Osteomyelitis 54397366 M 46.26 M46.46 Continue ceftriaxon e 2 gms IV qdvanco titrated to troughs of 10-15, until 02/12gabape ntin 300 mg TID,lidode rm patch qd,oxycodo ne 10 mg q 4 hrs prn.Monito r CBC, CMP, ESR and CRP weekly with labs to ID (Dr. Rasmussen, fax # [phone]) F/U with ID on 02/07 as planned. [id number] IRENE SKINNER NP [address] [address] 01/15/2023 13:41:20 01/22/2023 08:29:11 Deep venous thrombosis 274586279 I82.409 eliquis 10 mg bid to 01/20 then 5 mg bidmonitor cms to left leg Osteomyelitis 50519631 M 46.26 M46.46 Continue ceftriaxon e 2 gms IV qdvanco titrated to troughs of 10-15, until 02/12gabape ntin 300 mg TID,lidode rm patch qd,oxycodo ne 10 mg q 4 hrs scheduledM onitor CBC, CMP, ESR and CRP weekly with labs to ID (Dr. Rasmussen, fax # ) F/U with ID on 02/07 as planned. Spinal iraida nosis of lumbar region 54646101 M48.061 Long standing issue, not surgical candidate per neurosurg. Continue PT/OT as above. Pain management as above for now. Transition back to tramadol as acute pain from discitis improves. [id number] IREEN SKINNER NP [address] [place] [address] 01/17/2023 13:29:33 01/22/2023 13:29:10 Osteomyelitis 96618668 M46.26 M46.46 Continue ceftriaxon e 2 gms IV qdvanco titrated to troughs of 10-15, until 02/12vanco decreased to 500 mggabapent in 300 mg TID,lidode rm patch qd,oxycodo ne 10 mg q 4 hrs scheduledM onitor CBC, CMP, ESR and CRP weekly with labs to ID (Dr. Rasmussen, fax # ) F/U with ID on 02/07 as planned. Acute urticaria 05939137 9 L50.9 benedryl 25 mg q6hr prnprednis one burst with taper [id number] IRENE SKINNER NP [address] [address] 01/27/2023 12:42:15 01/29/2023 14:03:06 Osteomyelitis 47211086 M46.26 M46.46 Continue ceftriaxon e 2 gms IV qdvanco titrated to troughs of 10-15, until 02/12vanco decreased to 500 mggabapent in 300 mg TID,lidode rm patch qd,oxycodo ne 10 mg q 4 hrs scheduledM onitor CBC, CMP, ESR and CRP weekly with labs to ID (Dr. Rasmussen, fax # ) F/U with ID on 02/07 as planned. Spinal iraida nosis of lumbar region 04076328 M48.061 Long standing issue, not surgical candidate per neurosurg. Continue PT/OT as above. Pain management as above for now. Transition back to tramadol as acute pain from discitis improves. Acute urticaria 71607092 9 L50.9 resolvedbe nedryl 25 mg q6hr prnprednis one burst with taper [id number] IRENE SKINNER NP [address] [address] 01/29/2023 10:04:40 01/31/2023 16:01:18 Osteomyelitis 53218506 M46.26 M46.46 Continue ceftriaxon e 2 gms IV qdvanco titrated to troughs of 10-15, until 02/12vanco decreased to 500 mgtrough 01/30gabape ntin 300 mg TID,lidode rm patch qd,oxycodo ne 10 mg q 4 hrs scheduledM onitor CBC, CMP, ESR and CRP weekly with labs to ID (Dr. Rasmussen, fax # [phone]) F/U with ID on 02/07 as planned. [id number] IRENE SKINNER NP [address] [address] 02/05/2023 11:24:24 02/07/2023 16:01:50 Spinal stenosis of lumbar region 23278542 M48.061 Long standing issue, not surgical candidate per neurosurg. Continue PT/OT as above.Pain management as above for now.Transi tion back to tramadol as acute pain from discitis improves. Osteomyelitis 43408150 M 46.26 M46.46 Continue ceftriaxon e 2 gms IV qdvanco titrated to troughs of 10-15, until 02/12vanco decreased to 500 mgtrough 01/30gabape ntin 300 mg TID,lidode rm patch qd,oxycodo ne 10 mg q 4 hrs scheduledM onitor CBC, CMP, ESR and CRP weekly with labs to ID (Dr. Rasmussen, fax # ) F/U with ID on 02/07 as planned. [id number] IRENE SKINNER NP [address] [address] 02/12/2023 10:06:53 02/14/2023 11:50:02 Osteomyelitis 20490256 M46.26 M46.46 Continue ceftriaxon e 2 gms [...] RANGE TO HAVE SCHWARTZ REMOVED Type 2 sam betes mellitus 50052964 E11.22 glargine 28 units hslispro sliding scale tidmonitor glucose Hyperlipidemia 69682691 E78.5 atorvastat in 80 mg daily Essential hypertension 94286428 I10 coreg 6.25 mg bidmonitor bp History of renal transplant 984713558 Z48.22 tacrolimus 1gm bidmonitor labs Asthenia 13419649 R53.1 PT OT eval and treatfall precaution sfrequent safety checks Insomnia 564272240 G47.0 0 amitriptyl ine 25 mg hs Health Concerns Section Related Observation LastModified by Organization Detai ls LastModified Time None Recorded Concern Status LastModified by Organization Details LastModified Time None Recorded Advance Directives Directive Y: Payers Encounter Date Sequence Insurance Name Policy Number Policy Garcia Covered Member ID Garcia Member ID Guarantor Name 01/17/2023 1 [place] Aries E Savard [id number] Aries Savard 01/17/2023 2 [place] [id number] Aries Savard [id number] Aries Savard 01/27/2023 1 [place] Aries E Savard [id number] Aries Savard 01/27/2023 2 [place] [id number] Aries Savard [id number] Aries Savard 01/29/2023 1 [place] Aries E Savard [id number] 7 Aries Savard 01/29/2023 2 [place] [id number] Aries Savard [id number] Aries Savard 02/05/2023 1 [place] Aries E Savard [id number] 7 Aries Savard 02/05/2023 2 [place] [id number] Aries Savard [id number] Aries Savard 02/12/2023 1 [place] Aries E Savard [id number] Aries Savard 02/12/2023 2 [place] [id number] Aries Rosario [id number] Aries Rosario Notes Date Note Type [...] burst and benedryl IRENE SKINNER, FRANCINE [address] [facility], [address], [place], [address], [facility] 01/17/2023 14:08:35 01/27/2023 text/html seen today for acute rounding visit- CAOx3 oob independent in room, lungs clear, rash resolved, tolerating his abx tx IRENE SKINNER NP [address] [facility], [address], [place], [address], [facility] 01/27/2023 12:53:30 01/29/2023 text/html seen today for [...] todays dose, asymptomatic IRENE SKINNER NP [address] [facility], [address], [place], [address], [facility] 01/29/2023 12:20:39 02/05/2023 text/html seen today for acute rounding visit, CAOx3 sitting up in wheelchair, ambulates with walker, tolerating abx therapy, schwartz right chest ok IRENE SKINNER NP [address] [facility], [address], [place], [address], [facility] 02/05/2023 11:41:11 02/12/2023 text/html seen today [...] of the schwartz IRENE SKINNER, FRANCINE [address] [facility], [address], [place], [address], [facility] 02/12/2023 11:05:55
[2024-06-21 06:21] LABS: MANUAL DIFF FLAG NO
[2024-06-21 06:57] LABS: Basophils Percent Auto 0.2 % (0-2); Eosinophils Absolute Auto 0.3 X10*3/uL (0.0-0.4); Eosinophils Percent Auto 5.3 % (0-4); Hematocrit 36.8 % (42.0-52.0); Hemoglobin 11.7 g/dl (14.0-18.0); Imm Gran Abs Auto 0.01 X10*3/uL (0.00-0.03); Imm Gran Pct Auto 0.2 % (0.0-0.4); Lymphocytes Absolute Auto 1.7 X10*3/uL (1.2-4.9); Mean Corpuscular HGB Conc 31.8 g/dl (31.0-36.0); Mean Corpuscular Hemoglobin 28.7 pg (27.0-33.0); Mean Corpuscular Volume 90.2 fL (80.0-98.0); Mean Platelet Volume 10.3 fL (9.4-12.4); Monocytes Absolute Auto 0.6 X10*3/uL (0.1-1.2); Monocytes Percent Auto 10.2 % (2-11); Neutrophils Percent Auto 53.1 % (45-73); Platelet Count 125 X10*3/uL (160-400); Red Blood Count 4.08 X10*6/uL (4.60-5.80); Red Cell Distribution Width 16.3 % (11.0-16.0); White Blood Count 5.6 X10*3/uL (4.8-10.8)
[2024-06-21 07:02] LABS: Estimated Average Glucose 143 mg/dL; Hemoglobin A1C 145.9602 umol/L; Hemoglobin A1c % 6.6 % (<6.0); Total Hemoglobin (HGBA1C) 3017.8813 umol/L
[2024-06-21 07:10] LABS: Anion Gap 10 (12-20); Blood Urea Nitrogen 39 mg/dL (9-16); Calcium 8.1 mg/dL (8.4-10.2); Carbon Dioxide 24 mmol/L (22-29); Chloride 109 mmol/L (96-108); Estimated Glomerular Filt Rate > 60; Glucose Random 197 mg/dL (60-115); Potassium 4.2 mmol/L (3.3-5.1); Sodium 139 mmol/L (135-145)
[2024-06-22 10:09] LABS: Tacrolimus Prograf 2.8 mcg/L
== END 2024-06-21 05:59 | disposition home or self-care (01) ==
LOC: HO.MMNH2L 05:58
PROVIDERS: Visit Provider Nurse Practitioner
DX: E11.40 Type 2 diabetes mellitus with diabetic neuropathy, unspecified (principal); Z94.0 Kidney transplant status; I10 Essential (primary) hypertension
CPT/HCPCS: 36415; 80048; 80197; 83036; 85025

== ENCOUNTER 2024-06-28 06:19 | Outpatient (REF) | payer MEDICARE, SELFPAY ==
[2024-06-28 06:04] LABS: MANUAL DIFF FLAG NO
--- OUTSIDE RECORDS SUMMARY | 2024-06-28 06:29 | XMS_ITS | Clinical Summary ---
Author Organization [facility] Address [address] [facility] [address] [place] [address] Phone Care Team Providers Care Real Estate Agency Principal Name Role Phone Tiffanie Lugo FRANCINE Primary Care Provider Allergies No known active allergies Medications Acetaminophen (Tylenol) 325 MG capsule Take 1 capsule by mouth 3 (three) times a day Active aspirin (ST MICHELL) 81 MG EC tablet Take 1 tablet by mouth 1 (one) time each day Active carvedilol (COREG) 6.25 MG tablet Take 1 tablet by mouth 2 (two) times a day Active insulin lispro (HumaLOG) 100 UNIT/ML injection 7 Active Lantus 100 UNIT/ML injection INJECT 22 UNITS UNDER THE SKIN EVERY NIGHT 10 mL 1 Active OneTouch Delica Lancets 33G misc USE TO TEST BLOOD SUGAR TWICE DAILY 1 Active BD Pen Needle Pilar 2nd Gen 32G X 4 MM misc 1 Active B-D UF III MINI PEN NEEDLES 31G X 5 MM misc 1 Active atorvastatin (LIPITOR) 80 MG tablet Take 80 mg by mouth 1 (one) time each day Take one tab once a day. 1 Active Insulin Syringe-Needle U-100 (B-D INSULIN SYRINGE 1CC/25GX1 ) 25G X 1 1 ML misc See Instructions, # 100 each, Refills 5, Tot. Refills 5, Maintenance, use with insulin tid before meals, 08/30/20 12:55:00 EDT, Compound, 180, cm, 08/30/20 10:13:00 EDT, Height, 121, kg, 04/08/19 14:22:00 EST, Dry Weight 1 Active glucose blood test strip one touch verio test strips, See Instructions, # 200 each, Refills 11, Tot. Refills 11, Maintenance, for use w/glucometer for 3X day testing for DM Type 2 E11.9, 09/18/20 12:35:00 EDT, ICD 10- E11.65, Compound, 180, cm, 08/30/20 10:13:00 EDT, Height,... 1 Active Insulin Pen Needle (Pen [place] 1/2 ) 29G X 12MM misc See Instructions, # 200 each, Refills 11, Tot. Refills 11, Maintenance, use as instructed QID for DM 2 E11.9, 01/17/21 12:53:00 EDT, Supply, 180, cm, 01/15/21 7:03:00 EDT, Height, 121, kg, 04/08/19 14:22:00 EST, Dry Weight 1 Active gabapentin (NEURONTIN) 300 MG capsule TAKE 1 CAPSULE BY MOUTH THREE TIMES DAILY. REPLACES LYRICA 3 Active traMADol (ULTRAM) 50 MG tablet Take 50 mg by mouth in the morning and 50 mg at noon and 50 mg in the evening and 50 mg before bedtime. Pt takes it twice a day 50 mg AM 50 mg PM. Active apixaban (Eliquis) 5 MG tablet Take 5 mg by mouth in the morning and 5 mg in the evening. 3 Active tacrolimus (Prograf) 0.5 MG capsuleIndicati ons:Kidney transplant status Take 1 capsule (0.5 mg total) by mouth 1 (one) time each day in the morning Take one 0.5 mg capsule in the morning along with one 1 mg capsule for a total morning dose of 1.5 mg 90 capsule 3 4 09/09/19 25 Active tacrolimus (PROGRAF) 1 MG capsuleIndicati ons:Kidney replaced by transplant Take 1 capsule (1 mg total) by mouth in the morning and 1 capsule (1 mg total) in the evening. 180 capsule 3 4 10/03/19 25 Active Active Problems Problem Noted Date Diagnosed Date Arteriovenous fistula of left upper extremity Chronic kidney disease, stage 2 (mild) 3 Spinal stenosis 04/23/2022 Personal history of diabetic foot ulcer 04/23/20 22 Right carotid artery stenosis 01/30/2022 Patient encounter status 01/29/2022 Anemia of chronic disease 09/11/2021 Dermoid cyst of neck 09/11/2021 Gastroesophageal reflux disease 09/11/2021 Hip pain 09/11/2021 History of coronary artery bypass grafting 09/11 Insomnia 09/11/2021 Pain of knee region 09/11/2021 Lumbar radiculopathy 09/11/2021 Microscopic hematuria 09/11/2021 Numbness of finger 09/11/2021 Obese class I 09/11/2021 Protein level - finding 09/11/2021 Severe obesity 09/11/2021 Type 2 diabetes mellitus 08/15/2021 Chronic kidney disease stage 3 07/13/2020 Edema of lower extremity 07/13/2020 Hypertensive disorder 07/13/2020 Kidney replaced by transplant 07/13/2020 Poisoning by antineoplastic and immunosuppressiv e drugs 07/13/2020 Sleep apnea 07/13/2020 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 [address] [address] Yuan Sung MD from Last 3 Months Immunizations Name Administration Dates Next Due Influenza TIV (IM) 03/16/2018,04/08/2016 Influenza, Unspecified 05/01/2022,01/14/2014 PPD Test 09/01/2017,08/25/2017 Pfizer SARS-COV-2 03/14/2021,09/06/2020,08/17/19 21 Pneumococcal Conjugate 13-Valent 01/30/2022 Pneumococcal Polysaccharide 12/10/2022, 8,01/14/2014 SARS-CoV-2, Unspecified 05/01/2022 Td, Unspecified 02/14/2023 Family History Medical History Relation Comments Diabetes Father Diabetes Mother Relation Status Comments Father Mother Social History Tobacco Use Types Packs/Day Years Used Date Smoking Tobacco: Former Cigarettes Q uit: 06/02/1979 Smokeless Tobacco: Never Tobacco Cessation:Counseling Given: Not Answered Alcohol Use Standard Drinks/Week Comments Yes 0 (1 standard drink = 0.6 oz pure alcohol) Alcoholic Drinks/day: Occasional social drink Education Answer Date Recorded What is the highest level of school you have completed or the highest degree you have received? 12th grade 08/29/2020 Sex and Gender Information Value Date Recorded Sex Assigned at Not on file Legal Sex Male 5:12 PM EST Gender Identity Not on file Sexual Orientation Not on file Occupation Industry Job Start Date Job End Date retired Not on file Not on file Not on file Last Filed Vital Signs Vital Sign Reading Time Taken Comments Blood Pressure 136/62 06/16/2023 9:56 AM EST Pulse 65 06/16/2023 9:56 AM EST Temperature - - Respiratory Rate 16 05/20/2017 12:00 PM EST Oxygen Saturation 95% 06/16/2023 9:56 AM EST Inhaled Oxygen Concentration - - Weight 111 kg (244 lb) 03/19/2023 3:36 PM EDT Height 180.3 cm (5' 11 ) 03/19/2023 3:36 PM EDT Body Mass Index 34.03 03/19/2023 3:36 PM EDT Plan of Treatment Health Maintenance Due Date Last Done Comments Diabetes: Ophthalmology Exam 07/03/2020 Diabetes: Pedal Pulse Checked 07/03/2020 Diabetes: Sensory Foot Exam 07/03/2020 Diabetes: Visual Foot Exam 07/03/2020 Colonoscopy (Post-Transplant Patient) 07/13/2020 Diabetes: Hemoglobin A1C 10/31/2022 023, 04/16/2022, 04/12/2020 Influenza Vaccine (#1) 2024 3, 05/01/2022, 03/16/2018, Additional history exists Pneumococcal Vaccine: 65+ Years Completed 12/10/2022, 01/30/2022, 03/16/2018, Additional history exists Hepatitis B Vaccine Aged Out No longe r eligible based on patient's age to complete this topic Procedures Procedure Name Priority Date/Time Associated Diagnosis Comments TACROLIMUS LEVEL (EXTERNAL RESULT ENTRY) Routine 06/07/2024 HEMOGLOBIN A1C Routine 07/31/2022 8:10 AM EST Kidney replaced by transplant Hypertensive disorder Mixed hyperlipidemia Anemia of chronic disease from Last 3 Months or Most Recently Relevant to Health Maintenance Results * Tacrolimus Level (06/07/2024) Tacrolimus Lvl 3.9 Blood (Blood, Venous) 06/07/2024 [facility] Provider LAB BLOOD ORDERABLES [place] Result * (ABNORMAL) Hemoglobin A1c (07/31/2022 8:10 AM EST) Hemoglobin A1C 7.0(H) (4.0-5.6) % [facility] Comment: MONITORING: In known diabetic patients, hemoglobin A1c targets should be discussed with health care provider. DIAGNOSTIC USE: ??The [place] Diabetes Association (ADA) and the World Health Organization (WHO) recommend the use of HbA1c to diagnose diabetes using a threshold of 6.5%. Patients who have an HbA1c between 5.7% and 6.4% are considered at increased risk for developing diabetes in the future. CAUTION: Falsely low HbA1c results may be observed in patients with hemolytic anemia, homozygous forms of abnormal hemoglobin (e.g. SS, CC, SC), , recent blood loss or hemoglobin F greater than 7%. Fructosamine may be used as an alternate test in these cases. REFERENCE: ADA: Standards of Medical Care in Diabetes 2020, The Journal of Clinical and Applied Research and Education Volume 43, Supplement 1 Testing performed or reported by [facility], a Service of [facility], [address] [place] [id number] Dona Bliss MD, Supervisor Spinning [facility]# [id number] Blood (Blood, Venous) 07/31/2022 8:10 AM EST 07/31/2022 8:20 AM EST Amanda Holly MD LAB BLOOD ORDERABLES Final Resu lt [facility] from Last 3 Months or Most Recently Relevant to Health Maintenance Insurance MEDICARE [facility] MEDICARE [facility] Care Teams Real Estate Agency Principal Relationship Specialty Start Date End Date Tiffanie Lugo NP [address] [place] [phone] PCP - General Nurse Practitioner 03/19/23
--- OUTSIDE RECORDS SUMMARY | 2024-06-28 06:29 | XMS_ITS ---
Author Organization [facility] Address [address] [place] [address] Care Team Providers Care Sales Support Coordinator Name Role Phone Brittney Tiffanie HAWKINS Primary Care Provider Unavail George Thrasher Unavailable [phone] REASON FOR VISIT Painful nail(s) aggrevated by shoes and causing difficulty standing/walking., Open sore, Ulcer(s) Medications Medication SIG (Take, Route, Frequency, Duration) Notes Start Date End Date Status Night Splint AFO - L1930 as directed Active Extra Depth Diabetic Shoes with 3 Pair Custom heat-molded multi-density innersoles for 1 year Dx: Active Encounters Encounter Location Date Provider Diagnosis [facility] [address] [place] [address] 03/03/2024 George Chopra Type 1 diabetes mellitus [...] as necessary. Patient chooses, no pharmaceutical tx (75657) Debride skin< 25 sq cm Open wound [...] symptoms of infection or any untoward reactions (18032) Keratoma Treatment Parring or Cutting o f Benign Hyperkeratotic Lesion(s) 86642 (2-4 Lesions) - The Benign hyperkeratotic lesions, as described above were pared, and/or cut utilizing a sterile #15 blade, tissue nippers, and/or dremel Progress Notes * Aries ROSARIO EDOB:[birth year] (73 yo M)Acc No.[id number]:03/03/2024 Progress Note Patient:?SENAITAries HECK E Provider:?George Chopra DPM :1950???Age:73 Y???Sex:Male Suresh e:03/03/2024 Address:[address] [place], [place] [id number] Pcp:SHRUTHI Vicente Subjective: * Chief Complaints: * ???1. Painful nail(s) aggrev ated by shoes and causing difficulty standing/walking.. 2. Open sore. 3. Ulcer(s). * HPI: ???Skin problems:?Nature:?Ulcer.?Location:?Bottom, Forefoot, Left , 1st.?Duration:?several weeks--six.?Course:?improved.?Aggravated by:?standing, walking.?Treatments:?pt tx at [facility] wd ctr every other week [...] as necessary. Patient chooses, no pharmaceutical tx (16350).?Debride skin< 25 sq cm:?Open wound?Open wound selective [...] symptoms of infection or any untoward reactions (74556).?Keratoma Treatment:?Parring or Cutting of Benign Hyperkeratotic Lesion(s)?52635 (2-4 Lesions) - The Benign hyperkeratotic lesions, as described above were pared, and/or cut utilizing a sterile #15 blade, tissue nippers, and/or dremel.? * Procedure Codes:?80304 DEBRI DE NAIL, 6 OR MORE, Modifiers: XS , 99919 ACTIVE WOUND CARE/20 CM OR <, 90815 TRIM SKIN LESIONS, 2 TO 4, Modifiers: XS * Follow Up:?6 Months * Images: * The named appointment provid er may or may not be the originator of this progress note, and it is not deemed complete until electronically signed by the appointment provider. Sign off status: Pending * Provider:Missy Chopra DPM Date:? 024 Generated for Jennifer calderón/Dia/Savannahitting on:?06/28/2024 06:29 AM EST History and Physical Notes * [...] by: standing, walking Treatments: pt tx at [facility] wd ctr every other week [...]
--- OUTSIDE RECORDS SUMMARY | 2024-06-28 06:29 | XMS_ITS | Encounter Summary ---
Author Organization [facility] Address [address] [facility] [address] [place] [address] Phone Care Team Providers Care Supervisor Customer Services Name Role Phone Tiffanie Lugo SWITCHBOARD CLERK Primary Care Provider [phone] Encounter Details Date Type Department Care Team (Late st Contact Info) Description 04/22/2023 Office Communication [facility] [address] [place] [address] [place] [address] Harman Medina MD [address] [facility] [address] [place] [address] Social History Tobacco Use Types Packs/Day Years Used Date Smoking Tobacco: Former Cigarettes Q uit: 06/02/1979 Smokeless Tobacco: Never Alcohol Use Standard Drinks/Week Comments Yes 0 [...] file Not on file Not on file documented as of this encounter Miscellaneous Notes * Telephone Encounter - Anu Erazo - 04/22/2023 3:[address] Todd is our transplant fellow for the month of June. We are required to fill her schedule. I have slid the patient over to Dr. Villegas's schedule the same day and same time. * Telephone Encounter - Harman Medina MD - 04/22/2023 3:01 PM EST Why does PT have f/u with fellow Tessa Todd (DAMARIS) and not with BOZENANE doc--he can see Dr Trejo or me instead documented in this encounter Plan of Treatment Not on file documented as of this encounter Visit Diagnoses Not on filedocumented in this encounter Care Teams Supervisor Customer Services Relationship Specialty Start Date End Date Tiffanie Lugo NP [address] [place] [phone] PCP - General Nurse Practitioner 03/19/23 documented as of this encounter
--- OUTSIDE RECORDS SUMMARY | 2024-06-28 06:29 | XMS_ITS | Encounter Summary ---
Author Organization [facility] Address [address] [place] [address] Phone Care Team Providers Care Stopping Builder Name Role Phone Tiffanie Lugo NP Primary Care Provider [phone] Encounter Details Date Type Department Care Team (Late st Contact Info) Description 11/24/2023 Documentation Only [facility], [address] [place] [address] [place]mie [place], [place] [address] [place] [address] Social History Tobacco Use Types Packs/Day Years [...] on file documented as of this encounter Plan of Treatment Not on file documented as of this encounter Visit Diagnoses Not on filedocumented in this encounter Care Teams Stopping Builder Relationship Specialty Start Date End Date Tiffanie Lugo NP [address] [place] [phone] PCP - General Nurse Practitioner 03/19/23 documented as of this encounter
--- OUTSIDE RECORDS SUMMARY | 2024-06-28 06:30 | XMS_ITS ---
[facility] Address [address] [place] [address] Care Team Providers Care Hand Slitter Name Role Phone Brittney Tiffanie HAWKINS Primary Care Provider Unavail able Nav George Unavailable [phone] Allergies No Known Allergies REASON FOR VISIT [...] 024 Encounters Encounter Location Date Provider Diagnosis [facility] [address] [address] 09/01/2023 George Chopra Type 1 diabetes mellitus [...] as necessary. Patient chooses, no pharmaceutical tx (58227) Debride skin< 25 sq cm Open wound [...] symptoms of infection or any untoward reactions (51972) Keratoma Treatment Parring or Cutting o f Benign Hyperkeratotic Lesion(s) 66903 (2-4 Lesions) - The Benign hyperkeratotic lesions, as described above were pared, and/or cut utilizing a sterile #15 blade, tissue nippers, and/or dremel Progress Notes * JOHANNA Raies EDOB:[birth year] (72 yo M)Acc No.[id number]:09/01/2023 Progress Note Patient:?Aries Rosario Provider:?George Chopra DPM :1950???Age:72 Y???Sex:Male Suresh e:09/01/2023 Address:[address] [place], [place] [id number] Pcp:SHRUTHI Vicente Subjective: * Chief Complaints: * ???Painful nail(s) aggrevate d by shoes and causing difficulty standing/walking.Open soreUlcer(s) * HPI: ???Skin problems:?Nature:?Ulcer.?Location:?Bottom, Forefoot, Left , 1st.?Duration:?several weeks--six.?Course:?improved.?Aggravated by:?standing, walking.?Treatments:?pt tx at [facility] every other week and dressing changes qod with ; pt going to [facility].?Heel pain:?Location:?Proximal plantar aspect of Heel, RIGHT.?Onset/Cause:?unknown, denies [...] as necessary. Patient chooses, no pharmaceutical tx (30822).?Debride skin< 25 sq cm:?Open wound?Open wound selective [...] symptoms of infection or any untoward reactions (39311).?Keratoma Treatment:?Parring or Cutting of Benign Hyperkeratotic Lesion(s)?12587 (2-4 Lesions) - The Benign hyperkeratotic lesions, as described above were pared, and/or cut utilizing a sterile #15 blade, tissue nippers, and/or dremel.? * Procedure Codes:?20998 DEBRI DE NAIL, 6 OR MORE, Modifiers: XS 93047 ACTIVE WOUND CARE/20 CM OR <32088 TRIM SKIN LESIONS, 2 TO 4, Modifiers: [...] DPM Date:? 024 Generated for Jennifer calderón/Dia/Marquise on:?06/28/2024 06:30 AM EST History and Physical Notes * [...] by: standing, walking Treatments: pt tx at [facility] wd [facility] every other week and dressing changes qod with ; [facility] Pt States Last PCP [...]
--- OUTSIDE RECORDS SUMMARY | 2024-06-28 06:30 | XMS_ITS | Encounter Summary ---
Author Organization [facility] Address [address] [place] [address] Phone Care Team Providers Care Strip Machine Operator Name Role Phone Unavailable Primary Care Provider Unavailabl e Encounter Details Date Type Department Care Team (Late st Contact Info) Description 11/07/2016 Office Visit [facility] [address] [place] [address] ProviderHerber MD [address] [place] [address] Social History Tobacco Use Types Packs/Day Years Used Date Smoking Tobacco: Never Assessed Sex and Gender Information Value Date Recorded Sex Assigned at Not on file Gender Identity Not on file Sexual Orientation Not on file documented as of this encounter Plan of Treatment Not on file documented as of this encounter Visit Diagnoses Not on filedocumented in this encounter
--- OUTSIDE RECORDS SUMMARY | 2024-06-28 06:30 | XMS_ITS | Clinical Summary ---
Author Organization [facility] Address [address] [place] [address] Phone Care Team Providers Care Bi Developer Name Role Phone Unavailable Primary Care Provider Unavailabl e Medications Medication Sig Dispensed Refills Start Date End Date Status allopurinol (ZYLOPRIM) 100 MG tablet 1 tab(s) once a day mg 11/07/2016 Active aspirin EC 81 MG EC tablet 1 tab(s) once a day mg 11/07/2016 Active carvedilol (COREG) 3.125 MG tablet 1 tab(s) 2 times a day mg 11/07/2016 Active gabapentin (Neurontin) 100 MG capsule 2 cap(s) 2 times a day mg 11/07/2016 Active amLODIPine (Norvasc) 10 MG tablet 1 tab(s) once a day mg 11/07/2016 Active omeprazole (PriLOSEC) [address] capsule 1 cap(s) once a day mg 11/07/2016 Active sevelamer carbonate (Renvela) 800 MG tablet 1 tab(s) 3 times a day (with meals) mg 11/07/2016 Active simvastatin (ZOCOR) 40 MG tablet 1 tab(s) once a day (at bedtime) mg 11/07/2016 Active Cholecalciferol ([employer] Vitamin D3) 10 MCG (400 UNIT) capsule 1 cap(s) once a day 11/07/2016 Active atorvastatin (LIPITOR) 20 MG tablet 1 tab(s) once a day mg 11/07/2016 Active Active Problems Problem Noted Date Diagnosed Date End stage renal disease 11/07/2016 Immunizations Name Administration Dates Next Due Influenza TIV (IM) 04/08/2016 Social History Tobacco Use Types Packs/Day Years Used Date Smoking Tobacco: Never Assessed Sex and Gender Information Value Date Recorded Sex Assigned at Not on file Gender Identity Not on file Sexual Orientation Not on file Last Filed Vital Signs Vital Sign Reading Time Taken Comments Blood Pressure 148/76 11/07/2016 10:42 AM MDT Pulse 65 11/07/2016 10:42 AM MDT Temperature - - Respiratory Rate - - Oxygen Saturation - - Inhaled Oxygen Concentration - - Weight 124 kg (273 lb) 11/07/2016 10:42 AM MDT Height 195.6 cm (6' 5 ) 11/07/2016 10:42 AM MDT Body Mass Index 32.37 11/07/2016 10:42 AM MDT Plan of Treatment Not on file
--- OUTSIDE RECORDS SUMMARY | 2024-06-28 06:30 | XMS_ITS ---
Author Organization [facility] Address [address] [place] [address] Care Team Providers Care Automobile Detailer Name Role Phone Unavailable Unavailable Unavailable Allergies, Adverse Reactions, Alerts This patient has no known allergies or adverse reactions. Problems This patient has no known problems.
--- OUTSIDE RECORDS SUMMARY | 2024-06-28 06:30 | XMS_ITS | Clinical Summary ---
Author Organization [facility] Address [address] [place] [address] Care Team Providers Care Towing Pilot Name Role Phone Pcp, No Primary Care Provider Unavailabl e Social History Tobacco Use Types Packs/Day Years Used Date Smoking Tobacco: Never Assessed Sex and Gender Information Value Date Recorded Sex Assigned at Not on file Gender Identity Not on file Sexual Orientation Not on file Plan of Treatment Health Maintenance Due Date Last Done Comments Hepatitis C Virus Screening 1950 DTaP/Tdap/Td Vaccines (1 - Tdap) 1968 Colonoscopy 1994 Pneumococcal Vaccines 50+ (1 of 1 - PCV) 10/24/1999 Zoster (Shingles) Vaccine (1 of 2) 10/24/1999 RSV Vaccine 60 years and older and Patients (1 - Risk 60-74 years 1-dose series) 2009 Influenza Vaccine 01/01/2024 05/18/2021, , 03/16/2018, Additional history exists COVID-19 Vaccine (2023- season) 2024 03/14/2021, 09/06/2020, 08/16/2020 Hepatitis B Vaccines Aged Out No long er eligible based on patient's age to complete this topic Care Teams Towing Pilot Relationship Specialty Start Date End Date Pcp, No [address] [place] [address] PCP - General 02/13/22
--- OUTSIDE RECORDS SUMMARY | 2024-06-28 06:30 | XMS_ITS | Data Portability ---
Author Organization [facility], Main Office Address [address] [facility] [place] [address] Care Team Providers Care Intelligence Specialist Name Role Phone MELISSA ROWLAND 2ND FLOOR OTHER PRABHAKAR DAMICO Primary Care Provider [phone] Assessment No assessment recorded. Plan of Treatment [...] and Address Organization Details Recorded Time Osteomyelitis 12483179 Active 2022 IRENE SKINNER NP [address] , [address], [place], [address], [facility] [employer] [facility] 3 12:54:43 Type 2 diabetes mellitus 18078921 Active 2022 IRENE SKINNER NP [address], [address], [place], [address], [facility] [employer] [facility] 3 13:02:35 Essential hypertension 63595292 Active 2022 IRENE SKINNER NP [address], [address], [place], [address], [facility] [employer] [facility] 3 13:03:00 Hyperlipidemia 34108328 Active 2022 IRENE SKINNER NP [address], [address], [place], [address], [facility] [employer] [facility] 3 13:03:12 History of renal transplant 438685374 Active 2022 IRENE SKINNER NP [address], [address], [place], [address], [facility] 3 13:03:24 Asthenia 55109581 Active 2022 IRENE SKINNER NP [address], [address], [place], [address], [facility] 3 13:03:41 Insomnia 044191245 Active 2022 IRENE SKINNER NP [address], [place], [address], [facility] 3 13:21:26 Spinal stenosis of lumbar region 21040459 Active 2022 Yanique Verdin MD [address], [address], [place], [address], [facility] 3 15:00:42 Chronic constipation 452232947 Active 2022 Yanique Verdin MD [address] [facility], [address], [place], [address], [facility] 3 15:14:15 Coronary arterioscleros is 24834474 Active 2022 Yanique Verdin MD [address] [facility], [address], [place], [address], [facility] 3 15:14:18 Deep venous thrombosis 537412522 Active 2022 IRENE SKINNER NP [address] [facility], [address], [place], [address], [facility] 3 14:34:30 Acute urticaria 438055869 Active 2022 IRENE SKINNER NP [address] [facility], [address], [place], [address], [facility] 3 14:05:35 Problem Notes None recorded. Medical [...] mm[Hg] 72 mm[Hg] IRENE SKINNER NP [address] [facility], [address], [place], [address], [facility] 3 14:03:34 Date Recorded Body height Heart rate Respiratory rate Body temperature Oxygen saturation Oxygen saturation in Arterial blood by Pulse oximetry Systolic blood pressure Diastolic blood pressure Provider Name and Address Organization Details Last Updated DateTime 3 180.34 cm 75 /min 16 /min 97.3 [degF] 96 % 96 % 132 mm[Hg] 76 mm[Hg] IRENE SKINNER NP [address] [facility], [address], [place], [address], [facility] 3 12:50:47 Date Recorded Body height Heart rate Respiratory rate Body temperature Oxygen saturation Oxygen saturation in Arterial blood by Pulse oximetry Systolic blood pressure Diastolic blood pressure Provider Name and Address Organization Details Last Updated DateTime 3 180.34 cm 77 /min 16 /min 97.8 [degF] 96 % 96 % 130 mm[Hg] 74 mm[Hg] IRENE SKINNER NP [address] , [address], [place], [address], [facility] 3 12:16:34 Date Recorded Body height Heart rate Respiratory rate Body temperature Oxygen saturation Oxygen saturation in Arterial blood by Pulse oximetry Systolic blood pressure Diastolic blood pressure Provider Name and Address Organization Details Last Updated DateTime 3 180.34 cm 67 /min 16 /min 97.6 [degF] 98 % 98 % 135 mm[Hg] 74 mm[Hg] IRENE SKINNER NP [address] , [address], [place], [address], [facility] 3 11:38:28 Date Recorded Body height Heart rate Respiratory rate Body temperature Oxygen saturation Oxygen saturation in Arterial blood by Pulse oximetry Systolic blood pressure Diastolic blood pressure Provider Name and Address Organization Details Last Updated DateTime 3 180.34 cm 72 /min 16 /min 98 [degF] 97 % 97 % 132 mm[Hg] 68 mm[Hg] IRENE SKINNER NP [address] [facility], [address], [place], [address], [facility] 3 11:00:29 Social History Question Answer Notes LastModified by Organizat ion Details LastModified Time Tobacco Smoking Status Former Smoker IRENE SKINNER NP [address] [facility], [address], [place], [address], [facility] [employer] [facility] 01/08/2023 12:57:22 Do You Have An Advance [...] Do You Have A Medical Power Of Chilling Hood Operator? Yes Not Invoked Information not available 01/09/2023 [...] Details Recorded Time Pneumococcal conjugate PCV20, polysaccharide JJC825 conjugate, adjuvant, PF 3 completed Tisha [facility] 01/14/2023 12:34:16 SARS-COV-2 (COVID-19) vaccine, UNSPECIFIED 2 completed Tishaisidra [facility] 01/14/2023 12:34:40 SARS-COV-2 (COVID-19) vaccine, UNSPECIFIED 1 completed Tisha [facility] 01/14/2023 12:34:55 SARS-COV-2 (COVID-19) vaccine, UNSPECIFIED 1 completed Tisha [facility] 01/14/2023 12:35:06 SARS-COV-2 (COVID-19) vaccine, UNSPECIFIED 1 completed Tisha [facility] 01/14/2023 12:35:15 influenza, unspecified formulation 2 completed Tisha [facility] 01/14/2023 12:35:39 pneumococcal polysaccharide PPV23 4 completed Tisha [facility] 01/14/2023 12:36:12 Influenza, adjuvanted, quadrivalent, PF 3 completed Conchita [facility] 10/17/2023 10:37:00 Td (adult), 5 Lf tetanus toxoid, preservative free, adsorbed 3 completed Conchita [facility] 10/17/2023 10:37:17 Past Encounters Encounter ID Performer Location Encounter Start Date Encounter Closed Date Diagnosis/Indication Diagnosis SNOMED-CT Code Diagnosis ICD10 Code Diagnosis Note [id number] FRANCINE HOPKINS [address] [facility] [place] [address] 01/08/2023 11:23:17 01/14/2023 15:37:27 Osteomyelitis 11489923 M86.9 oxycodone 10 mg q4hr prnvanco 1000 mg increased to 1250 mg iv daily to 02/12roceph in 2 gm iv daily to 02/12gabape ntin 300 mg tidf/u with ID 02/07 Type 2 sam betes mellitus 85035115 E11.22 glargine 28 units hslispro sliding scale tidmonitor glucose Hyperlipidemia 72583815 E78.5 atorvastat in 80 mg daily Essential hypertension 35572929 I10 coreg 6.25 mg bidmonitor bp History of renal transplant 948274615 Z48.22 tacrolimus 1gm bidmonitor labs Asthenia 40097477 R53.1 PT OT eval and treatfall precaution sfrequent safety checks Insomnia 935193847 G47.0 0 amitriptyl ine 25 mg [id number] MD MELISSA Mondragon [address] [place] [address] 01/09/2023 13:16:08 01/14/2023 15:47:55 Osteomyelitis 23928457 M46.26 M46.46 Continue ceftriaxon e 2 gms IV qd and vanco titrated to troughs of 10-15, until ontin ue gabapentin 300 mg TID, lidoderm patch qd, oxycodone 10 mg q 4 hrs prn.Monito r CBC, CMP, ESR and CRP weekly with labs to ID (Dr. Rasmussen, fax # [phone])F/U with ID on 02/07 as planned. Type 2 sam betes mellitus 45709879 E11.22 Fair control since here. Last HgA1C 7.0 in 07/2022.Con tinue Lantus 28 units qhs and SSIMonitor fingerstic ks TID and HgA1C as outpt. Hyperlipidemia 37409195 E78.49 Good in ont inue atorvastat in 80 mg qd and ASA 81 mg qd.Monitor labs as outpt. Essential hypertension 10826192 I10 SBP high or borderline since here, likely due to pain, won't make any changes for now.Contin ue carvedilol 6.25 mg BID.Monito r BP and labs. History of renal transplant 939935472 Z48.22 With good renal function.C ontinue tacrolimus 1 gm BIDMonitor labsF/U with renal as planned. Asthenia 21028727 R53.1 Very deconditio tasneem.Needs PT/OT for strengthen ing, balance, gait training, safety and function.C ontinue fall precaution s.Monitor for safety. Insomnia 189208179 G47.0 0 Continue amitriptyl ine 25 mg qhsMonitor sleep patterns Anemia 350980683 D64.89 Multifacto rial, stable.Mon itor labs Spinal iraida nosis of lumbar region 89073151 M48.061 Long standing issue, not surgical candidate per neurosurg. Continue PT/OT as above.Pain management as above for now.Transi tion back to tramadol as acute pain from discitis improves. Coronary arteriosclerosis 87446189 I25.10 No recent sxs.Contin ue meds as above.Caroline tor sxs and f/u with cardio as planned. Chronic constipation 236 970873 K59.09 Continue miralax 17 gmd TID.Monito r bowel function. Pain of left thigh 71328 16726 35840 M79.652 No clear etiology, could be c/w dermatomal distributi on of L2-3, but should r/o DVT as pt has been immobile.W ill get doppler U/S [id number] FRANCINE HOPKINS [address] [place] [address] [place] [address] 01/10/2023 13:37:56 01/14/2023 15:59:12 Osteomyelitis 16104436 M46.26 M46.46 Continue ceftriaxon e 2 gms IV qdvanco titrated to troughs of 10-15, until 02/12gabape ntin 300 mg TID,lidode rm patch qd,oxycodo ne 10 mg q 4 hrs prn.Monito r CBC, CMP, ESR and CRP weekly with labs to ID (Dr. Rasmussen, fax # [phone]) F/U with ID on 02/07 as planned. Spinal iraida nosis of lumbar region 85577513 M48.061 Long standing issue, not surgical candidate per neurosurg. Continue PT/OT as above. Pain management as above for now. Transition back to tramadol as acute pain from discitis improves. [id number] IRENE GRIPPIN, SOLDERING INSPECTOR [address] [address] 01/13/2023 14:27:28 01/16/2023 11:46:26 Deep venous thrombosis 225515483 I82.409 eliquis 10 mg bid to 01/20 then 5 mg bidmonitor cms to left leg Osteomyelitis 59088432 M 46.26 M46.46 Continue ceftriaxon e 2 gms IV qdvanco titrated to troughs of 10-15, until 02/12gabape ntin 300 mg TID,lidode rm patch qd,oxycodo ne 10 mg q 4 hrs prn.Monito r CBC, CMP, ESR and CRP weekly with labs to ID (Dr. Rasmussen, fax # ) F/U with ID on 02/07 as planned. [id number] IRENE SKINNER NP [address] [address] 01/15/2023 13:41:20 01/22/2023 08:29:11 Deep venous thrombosis 341741882 I82.409 eliquis 10 mg bid to 01/20 then 5 mg bidmonitor cms to left leg Osteomyelitis 12764188 M 46.26 M46.46 Continue ceftriaxon e 2 gms IV qdvanco titrated to troughs of 10-15, until 02/12gabape ntin 300 mg TID,lidode rm patch qd,oxycodo ne 10 mg q 4 hrs scheduledM onitor CBC, CMP, ESR and CRP weekly with labs to ID (Dr. Rasmussen, fax # ) F/U with ID on 02/07 as planned. Spinal iraida nosis of lumbar region 32033435 M48.061 Long standing issue, not surgical candidate per neurosurg. Continue PT/OT as above. Pain management as above for now. Transition back to tramadol as acute pain from discitis improves. [id number] IRENE SKINNER NP [address] [place] [address] 01/17/2023 13:29:33 01/22/2023 13:29:10 Osteomyelitis 08557185 M46.26 M46.46 Continue ceftriaxon e 2 gms IV qdvanco titrated to troughs of 10-15, until 02/12vanco decreased to 500 mggabapent in 300 mg TID,lidode rm patch qd,oxycodo ne 10 mg q 4 hrs scheduledM onitor CBC, CMP, ESR and CRP weekly with labs to ID (Dr. Rasmussen, fax # ) F/U with ID on 02/07 as planned. Acute urticaria 03302510 9 L50.9 benedryl 25 mg q6hr prnprednis one burst with taper [id number] IRENE SKINNER NP [address] [address] 01/27/2023 12:42:15 01/29/2023 14:03:06 Osteomyelitis 75992941 M46.26 M46.46 Continue ceftriaxon e 2 gms IV qdvanco titrated to troughs of 10-15, until 02/12vanco decreased to 500 mggabapent in 300 mg TID,lidode rm patch qd,oxycodo ne 10 mg q 4 hrs scheduledM onitor CBC, CMP, ESR and CRP weekly with labs to ID (Dr. Rasmussen, fax # [phone]) F/U with ID on 02/07 as planned. Spinal iraida nosis of lumbar region 01468369 M48.061 Long standing issue, not surgical candidate per neurosurg. Continue PT/OT as above. Pain management as above for now. Transition back to tramadol as acute pain from discitis improves. Acute urticaria 49971366 9 L50.9 resolvedbe nedryl 25 mg q6hr prnprednis one burst with taper [id number] IRENE SKINNER NP [address] [address] 01/29/2023 10:04:40 01/31/2023 16:01:18 Osteomyelitis 62930977 M46.26 M46.46 Continue ceftriaxon e 2 gms IV qdvanco titrated to troughs of 10-15, until 02/12vanco decreased to 500 mgtrough 01/30gabape ntin 300 mg TID,lidode rm patch qd,oxycodo ne 10 mg q 4 hrs scheduledM onitor CBC, CMP, ESR and CRP weekly with labs to ID (Dr. Rasmussen, fax # ) F/U with ID on 02/07 as planned. [id number] IRENE SKINNER NP [address] [address] 02/05/2023 11:24:24 02/07/2023 16:01:50 Spinal stenosis of lumbar region 48607250 M48.061 Long standing issue, not surgical candidate per neurosurg. Continue PT/OT as above.Pain management as above for now.Transi tion back to tramadol as acute pain from discitis improves. Osteomyelitis 99440826 M 46.26 M46.46 Continue ceftriaxon e 2 gms IV qdvanco titrated to troughs of 10-15, until 02/12vanco decreased to 500 mgtrough 01/30gabape ntin 300 mg TID,lidode rm patch qd,oxycodo ne 10 mg q 4 hrs scheduledM onitor CBC, CMP, ESR and CRP weekly with labs to ID (Dr. Rasmussen, fax # [phone]) F/U with ID on 02/07 as planned. [id number] IRENE SKINNER NP [address] [address] 02/12/2023 10:06:53 02/14/2023 11:50:02 Osteomyelitis 54038861 M46.26 M46.46 Continue ceftriaxon e 2 gms IV qd to 02/13vanco titrated to troughs of 10-15, until 02/12vanco decreased to 500 mgtrough 01/30gabape ntin 300 mg TID,lidode rm patch qd,oxycodo ne 10 mg q 4 hrs scheduled- decreased to q12 hrtramadol 100 mg tidMonitor CBC, CMP, ESR and CRP weekly with labs to ID (Dr. Rasmussen, fax # [phone])F/U with ID on 02/07 as planned.AR RANGE TO HAVE SCHWARTZ REMOVED Type 2 sam betes mellitus 96831877 E11.22 glargine 28 units hslispro sliding scale tidmonitor glucose Hyperlipidemia 64644289 E78.5 atorvastat in 80 mg daily Essential hypertension 91850849 I10 coreg 6.25 mg bidmonitor bp History of renal transplant 474773828 Z48.22 tacrolimus 1gm bidmonitor labs Asthenia 37871845 R53.1 PT OT eval and treatfall precaution sfrequent safety checks Insomnia 921292852 G47.0 0 amitriptyl ine 25 mg hs Health Concerns Section Related Observation LastModified by Organization Detai ls LastModified Time None Recorded Concern Status LastModified by Organization Details LastModified Time None Recorded Advance Directives Directive Y: Payers Encounter Date Sequence Insurance Name Policy Number Policy Garcia Covered Member ID Garcia Member ID Guarantor Name 01/17/2023 1 [place] Aries E Savard [id number] Aries Savard 01/17/2023 2 [place] [id number] Aries Savard [id number] Aries Savard 01/27/2023 1 [place] Aries E Savard [id number] Aries Savard 01/27/2023 2 [place] [id number] Aries Savard [id number] Aries Savard 01/29/2023 1 [place] Aries E Savard [id number] Aries Savard 01/29/2023 2 [place] [id number] Aries Savard [id number] Aries Savard 02/05/2023 1 [place] Aries E Savard [id number] 7 Aries Savard 02/05/2023 2 [place] [id number] Aries Savard [id number] Aries Savard 02/12/2023 1 [place] Aries E Savard [id number] 7 Aries Savard 02/12/2023 2 [place] [id number] Aries Rosario [id number] Aries Rosario Notes Date Note Type [...] burst and benedryl IRENE SKINNER, FRANCINE [address] [facility], [address], [place], [address], [facility] 01/17/2023 14:08:35 01/27/2023 text/html seen today for acute rounding visit- CAOx3 oob independent in room, lungs clear, rash resolved, tolerating his abx tx IRENE SKINNER NP [address] [facility], [address], [place], [address], [facility] 01/27/2023 12:53:30 01/29/2023 text/html seen today for [...] todays dose, asymptomatic IRENE SKINNER NP [address] [facility], [address], [place], [address], [facility] 01/29/2023 12:20:39 02/05/2023 text/html seen today for acute rounding visit, CAOx3 sitting up in wheelchair, ambulates with walker, tolerating abx therapy, schwartz right chest ok IRENE SKINNER NP [address] [facility], [address], [place], [address], [facility] 02/05/2023 11:41:11 02/12/2023 text/html seen today [...] of the schwartz IRENE SKINNER, FRANCINE [address] [facility], [address], [place], [address], [facility] 02/12/2023 11:05:55
--- OUTSIDE RECORDS SUMMARY | 2024-06-28 06:31 | XMS_ITS | Patient Health Record ---
Author Organization [facility] Address [address] [facility] [place] [address] Care Team Providers Care Lpn Cma Name Role Phone Brittney Tiffanie HAWKINS Primary Care Provider Unavail able Nav George Unavailable [phone] Allergies No Known Allergies Results Component Value [...] Risk Notes Problem Chronic ulcer of foot (611122177) Non-pressure chronic ulcer of other part of left foot with fat layer exposed (L97.522) Active confirmed Problem Localized, primary osteoarthritis of the ankle and/or foot (789206365) Primary osteoarthritis, left ankle and foot (M19.072) Active confirmed Problem Acquired hallux rigidus (2429671) Hallux rigidus, left foot (M20.22) Active confirmed Problem Non-pressure chronic ulcer of other part of left foot limited to breakdown of skin (L97.521) Active confirmed Problem Acquired hallux valgus (89164663) Hallux valgus (acquired), left foot (M20.12) Active confirmed Problem Acquired hammer toe of right foot (7715184803862699 ) Other hammer toe(s) (acquired), right foot (M20.41) Active confirmed Problem Acquired hammer toe of left foot (9964293887341682 ) Other hammer toe(s) (acquired), left foot (M20.42) Active confirmed Problem Polyneuropathy due to type 2 diabetes mellitus (862836819) Type 2 diabetes mellitus with diabetic polyneuropathy (E11.42) Active confirmed Problem Polyneuropathy due to diabetes mellitus type I (709114043) Type 1 diabetes mellitus with diabetic polyneuropathy (E10.42) Active confirmed Problem Acquired hallux rigidus (3524892) Hallux rigidus, right foot (M20.21) Active confirmed Vital Signs Blood pressure diastolic 80 mm Hg 09/01/2023 Height 5ft 11in in 09/01/2023 Blood pressure systolic 120 mm Hg 09/01/2023 Weight 244 lbs 09/01/2023 BMI 34.03 kg/m2 09/01/2023 Encounters Encounter Location Date Provider Diagnosis [address] [address] 09/01/2023 George Chopra Type 1 diabetes mellitus [...] foot limited to breakdown of skin L97.[address] [address] 02/27/2024 George Chopra Assessments Encounter Date Diagnosis [...] X ray : Foot, left 3V 09/20/2021 71802-[id number] SKIN/TISSUE 09/20/2021 04378-OZSXOCR SKIN/TISSUE 03/29/2021 19198-DWAJBUO SKIN/TISSUE 10/01/2021 78731-UKTNIWC SKIN/TISSUE 12/10/2021 16379-QISWBQE SKIN/TISSUE 09/09/2022 35215-VNNNIQO SKIN/TISSUE 01/25/2021 00397-KTXR SKIN LESIONS, OVER 4 03/29/20 21 55820-PJPC SKIN LESIONS, OVER 4 09/21/19 22 34915-UIKU SKIN LESIONS, 2 TO 4 09/10/19 23 Insurance Providers Payer Name Payer Address Payer Phone Subscriber Number Group Number Insured Name Patient Relationship to Insured Coverage Start Date Coverage End Date Medicare National Govt Sv[employer] [address] [place] [address] [id number] Aries Rosario Self - patient is the insured [employer] [address] [place] [address] [id number] Aries Rosario Self - patient is the [...]
--- OUTSIDE RECORDS SUMMARY | 2024-06-28 06:31 | XMS_ITS ---
Author Organization [facility] Address [address] [place] [address] Care Team Providers Care Bead Cutter Name Role Phone Brittney Tiffanie HAWKINS Primary Care Provider Unavail George Thrasher Unavailable [phone] REASON FOR VISIT cx appt 03/03 Encounters Encounter Location Date Provider Diagnosis [facility] [address] [place] [address] 02/27/2024 George Chopra Plan Of Treatment No Information Progress Notes * Aries ROSARIO EDOB:[birth year] (73 yo M)Acc No.[id number]:02/27/2024 Patient:?Aries Rosario :1950???Age:73 Y???Sex:Male [address] [place], [address] * true * Date:? Generated for Printi ng/Famoniqueg/eTransmitting on:?06/28/2024 06:30 AM EST
[2024-06-28 07:09] LABS: Basophils Percent Auto 0.2 % (0-2); Eosinophils Absolute Auto 0.2 X10*3/uL (0.0-0.4); Eosinophils Percent Auto 3.3 % (0-4); Hematocrit 37.7 % (42.0-52.0); Imm Gran Abs Auto 0.01 X10*3/uL (0.00-0.03); Imm Gran Pct Auto 0.2 % (0.0-0.4); Lymphocytes Absolute Auto 1.8 X10*3/uL (1.2-4.9); Lymphocytes Percent Auto 30.7 % (20-40); Mean Corpuscular HGB Conc 31.8 g/dl (31.0-36.0); Mean Corpuscular Hemoglobin 28.4 pg (27.0-33.0); Mean Corpuscular Volume 89.3 fL (80.0-98.0); Mean Platelet Volume 10.2 fL (9.4-12.4); Monocytes Absolute Auto 0.6 X10*3/uL (0.1-1.2); Monocytes Percent Auto 9.7 % (2-11); Neutrophils Absolute Auto 3.3 x10*3/uL (2.0-8.3); Neutrophils Percent Auto 55.9 % (45-73); Platelet Count 128 X10*3/uL (160-400); Red Blood Count 4.22 X10*6/uL (4.60-5.80); Red Cell Distribution Width 16.2 % (11.0-16.0); White Blood Count 5.8 X10*3/uL (4.8-10.8)
[2024-06-28 07:22] LABS: Anion Gap 12 (12-20); Blood Urea Nitrogen 28 mg/dL (9-16); Calcium 8.5 mg/dL (8.4-10.2); Carbon Dioxide 24 mmol/L (22-29); Chloride 110 mmol/L (96-108); Estimated Glomerular Filt Rate > 60; Glucose Random 144 mg/dL (60-115); Potassium 3.9 mmol/L (3.3-5.1); Sodium 142 mmol/L (135-145)
[2024-06-29 08:03] LABS: Tacrolimus Prograf 3.7 mcg/L
== END 2024-06-28 06:20 | disposition home or self-care (01) ==
LOC: HO.MMNH2L 06:19
PROVIDERS: Visit Provider Nurse Practitioner
DX: E11.40 Type 2 diabetes mellitus with diabetic neuropathy, unspecified (principal); Z94.0 Kidney transplant status; I10 Essential (primary) hypertension
CPT/HCPCS: 36415; 80048; 80197; 85025

== ENCOUNTER 2024-07-08 05:29 | Outpatient (REF) | payer MEDICARE, SELFPAY ==
--- OUTSIDE RECORDS SUMMARY | 2024-07-08 05:32 | XMS_ITS | Clinical Summary ---
Author Organization [facility] Address [address] [place] [address] Phone Care Team Providers Care Electronics Teacher Name Role Phone Unavailable Primary Care Provider [...]
--- OUTSIDE RECORDS SUMMARY | 2024-07-08 05:32 | XMS_ITS | Encounter Summary ---
Author Organization [facility] Address [address] [place] [address] Phone Care Team Providers Care Tennis Director Name Role Phone Tiffanie Lugo FRANCINE Primary Care Provider [phone] Encounter Details Date Type Department Care Team (Late st Contact Info) Description 11/24/2023 Documentation Only [facility], [address] [place] [address] Kimmie [place], [place] [address] [place] [address] Social History Tobacco Use Types [...] as of this encounter Plan of Treatment Upcoming Encounters Date Type Department Care Team (Late st Contact Info) Description 08/31/2024 3:30 PM EDT Office Visit [facility] [address] [address] Harman Medina MD [address] [address] documented as of this encounter Visit Diagnoses Not on filedocumented in this encounter Care Teams Tennis Director Relationship Specialty Start Date End Date Tiffanie Lugo NP [address] [place] [address] PCP - General Nurse Practitioner 03/19/23 documented as of this encounter
--- OUTSIDE RECORDS SUMMARY | 2024-07-08 05:32 | XMS_ITS | Encounter Summary ---
Author Organization [facility] Address [address] [facility] [address] [facility] [address] [place] [address] Phone Care Team Providers Care Relationship Manager Name Role Phone Tiffanie Lugo STAFFING PROGRAM MANAGER Primary Care Provider [phone] Encounter Details Date Type Department Care Team (Late st Contact Info) Description 04/22/2023 Office Communication [facility] [address] [place] [address] Harman Medina MD [address] [facility] [address] [place] [address] Social History Tobacco Use Types [...] fellow Tessa Todd (DAMARIS) and not with RT[facility] doc--he can see Dr Trejo or me instead documented in this encounter Plan of Treatment Upcoming Encounters Date Type Department Care Team (Late st Contact Info) Description 08/31/2024 3:30 PM EDT [facility] [address] [address] Harman Medina MD [address] [address] documented as of this encounter Visit Diagnoses Not on filedocumented in this encounter Care Teams Relationship Manager Relationship Specialty Start Date End Date Tiffanie Lugo NP [address] [place] [phone] PCP - General Nurse Practitioner 03/19/23 documented as of this encounter
--- OUTSIDE RECORDS SUMMARY | 2024-07-08 05:32 | XMS_ITS | Encounter Summary ---
Author Organization [facility] Address [address] [place] [phone] Phone Care Team Providers Care Living Specialist Name Role Phone Unavailable Primary Care Provider Unavailabl e Encounter Details Date Type Department Care Team (Late st Contact Info) Description 11/07/2016 Office Visit [facility] [address] [place] [id number] ProviderHerber MD [address] [place] [id number] Social History Tobacco Use Types Packs/Day [...]
--- OUTSIDE RECORDS SUMMARY | 2024-07-08 05:32 | XMS_ITS | Clinical Summary ---
Author Organization [facility] Address [address] [place] [id number] Care Team Providers Care Chip Crusher Operator Name Role Phone Pcp, No Primary Care [...] age to complete this topic Care Teams Chip Crusher Operator Relationship Specialty Start Date End Date Pcp, No [address] [place] [address] PCP - General 02/13/22
--- OUTSIDE RECORDS SUMMARY | 2024-07-08 05:32 | XMS_ITS | Continuity of Care Document ---
Author Organization [facility] ter Address [address] [place] [address]- Support Name Relationship Address Phone JOHANNA, CECILIA [...] Unknown Lola vailable Care Team Providers Care [employer] Coordinator Name Role Phone Tiffanie Lugo NP Primary Care Physician [id number] Date(s): 07/03/24 - 07/05/[address] [address]- Encounter Diagnosis Left shoulder pain(Final) - 07/03/24 Hematuria(Final) - 07/03/24 Chronic indwelling Zimmerman catheter(Final) - 07/03/24 Discharge Disposition: A-Transfer SNF Attending Physician: Jacqui Orta MD Admitting Physician: Dylan Hall MD Referring Physician: Not on Staff, Referring MD Encounter Type: Disch IP Allergies, Adverse Reactions, Alerts No Known Allergies [...] pneumococcal 20-valent conjugate vaccine 3 12/10/22 Given [id number] 12y+ bivalent booster vax 05/01/22 Given pneumococcal 13-valent vaccine 01/30/22 Given SARS-CoV-2 (COVID-19) mRNA BNT-162b2 vac 03/14/21 Given SARS-CoV-2 (COVID-19) mRNA BNT-162b2 vac 09/06/20 Recorded SARS-CoV-2 (COVID-19) mRNA BNT-162b2 vac 08/16/20 Recorded pneumococcal 23-valent vaccine 4 01/14/14 Given 1Result Comment: [id number] 2Admin Note: Dialysis 3Result Comment: [id number] 4Admin Note: Dialysis Medications acetaminophen 325 mg oral tablet 650 mg, 2, tablet, By Mouth, Every 8 hours, PRN, NTE 3G/24hrs, Refills 0, Maintenance, as needed for pain, 12/09/23 9:55:00 AM EDT, Partial fill upon patient request if the prescription is for a schedule II opioid drug. Start Date: 12/09/23 Status: Ordered Repeat number: 1 aspirin 81 mg oral delayed release tablet 81 mg, 1, tablet, By Mouth, Daily, Refills 0, Maintenance, 07/03/24 10:59:00 AM EST, Partial fill upon patient request if the prescription is for a schedule II opioid drug. Start Date: 07/03/24 Status: Ordered Repeat number: 1 atorvastatin 80 mg oral tablet 1 tablet = 80 mg, By Mouth, Daily at bedtime, # 90 tablet, 1 Refills, Maintenance, 07/30/23 9:48:00 AM EST, Tablet, [id number], 180, cm, 07/30/23 9:29:00 EST, Height, 111, kg, 03/04/23 6:09:00 EDT, Dry Weight Start Date: 07/30/23 Status: Ordered Quantity: 90.0 Unit: tablet Repeat number: 2 Eliquis 5 mg oral tablet 1 tablet = 5 mg, By Mouth, 2 times a day, 0 Refills, Maintenance, 07/03/24 10:47:00 AM EST, Partial fill upon patient request if the prescription is for a schedule II opioid drug. Start Date: 07/03/24 Status: Ordered Repeat number: 1 Fleet Enema 133 mL, Rectally, Daily, PRN as needed for constipation, 0 Refills, Maintenance, 01/14/24 7:29:00 AMEDT, Partial fill upon patient request if the prescription is for a schedule II opioid drug. Start Date: 01/14/24 Status: Ordered Repeat number: 1 gabapentin 300 mg oral capsule 300 mg, Capsule, By Mouth, 07/05/24 7:00:00 AM EST Start Date: 07/05/24 Stop Date: 07/05/24 Status: Completed Repeat number: 1 gabapentin 300 mg oral capsule 300 mg, 1, capsule, By Mouth, Every 12 hours, Refills 0, Maintenance, 12/09/23 10:02:00 AM EDT, Partial fill upon patient request if the prescription is for a schedule II opioid drug. Start Date: 12/09/23 Status: Ordered Repeat number: 1 insulin lispro 100 u/ml subcutaneous injection 10-22 units, Subcutaneous Injection, 3 times a day before meals, sliding scale 0-149= 0 150-199= 10units 200-249= 12 units 250-299= 14 units 300-349= 16 units 350-399=18 units 400-449= 20 units 450-499= 22 units 500-999= call MD, 0 Refills, Maintenance, 12/09/23 10:05:00 AM EDT, [...] Solostar Pen 100 units/mL subcutaneous solution = 30 units, Subcutaneous Injection, Daily at bedtime, 0 Refills, Maintenance, 12/09/23 10:04:00 AM EDT, Solution, Partial fill upon patient request if the prescription is for a schedule II opioid drug. Start Date: 12/09/23 Status: Ordered Repeat number: 1 lidocaine 4% patch 1 patch, Topically, Daily, apply to neck do not leave patch on for more than 12 hours at a time, 0 Refills, Maintenance, 12/09/23 10:06:00 AM EDT, Partial fill upon patient request if the prescription is for a schedule II opioid drug. Start Date: 12/09/23 Status: Ordered Repeat number: 1 melatonin 3 mg oral tablet 2 tablet = 6 mg, By Mouth, Daily at bedtime, 0 [...] Date: 01/14/24 Status: Ordered Repeat number: 1 midodrine 5 mg oral tablet 2.5 mg, Tablet, By Mouth, Hold for: hold if sBP>110, 07/05/24 9:00:00 AM EST Start Date: 07/05/24 Stop Date: 07/05/24 Status: Completed Repeat number: 1 Mucinex 600 mg oral [...] 12/09/23 Status: Ordered Repeat number: 1 tacrolimus 0.5 mg oral capsule 2 capsule = 1 mg, By Mouth, Daily in AM, 0 Refills, Maintenance, 07/03/24 10:51:00 AM EST, Partial fill upon patient request if the prescription is for a schedule II opioid drug. Start Date: 07/03/24 Status: Ordered Repeat number: 1 tacrolimus 0.5 mg oral capsule 1 capsule = 0.5 mg, By Mouth, Daily at supper, 0 Refills, Maintenance, 07/03/24 10:53:00 AM EST, Partial fill upon patient request if the prescription is for a schedule II opioid drug. Start Date: 07/03/24 Status: Ordered Repeat number: 1 tiZANidine 4 mg oral capsule 1 capsule = 4 mg, By Mouth, 3 times a day, PRN muscle spasm, 0 Refills, Maintenance, 01/14/24 7:40:00 AM EDT, Partial fill upon patient request if the prescription is for a schedule II opioid drug. Start Date: 01/14/24 Status: Ordered Repeat number: 1 traMADol 50 mg oral tablet 1 tablet = 50 mg, By Mouth, Every 12 hours, PRN Pain , Moderate, 0 Refills, Maintenance, 07/03/24 10:50:00 AM EST, Partial fill upon patient request if the prescription is for a schedule II opioid drug. Start Date: 07/03/24 Status: Ordered Repeat number: 1 traZODone 50 mg oral tablet 50 mg, 1, tablet, By Mouth, Daily at bedtime, Refills 0, Maintenance, 07/03/24 10:49:00 AM EST, Partial fill upon patient request if the prescription is for a schedule II opioid drug. Start Date: 07/03/24 Status: Ordered Repeat number: 1 Vitamin C 500 mg oral tablet 1 tablet = 500 mg, By Mouth, Daily, 0 Refills, Maintenance, 12/09/23 9:56:00 AM EDT, Tablet, Partial fill upon patient request if the prescription is for a schedule II opioid drug. Start Date: 12/09/23 Status: Ordered Repeat number: 1 zinc (as gluconate) 50 mg oral tablet 1 tablet = 50 mg, By Mouth, Daily, 0 Refills, Maintenance, 07/03/24 10:58:00 AM EST, Partial fill upon patient request if the prescription is for a schedule II opioid drug. Start Date: 07/03/24 Status: Ordered Repeat number: 1 Problem List [...] Diabetes mellitus type 2, controlled Confirmed Active Zimmerman catheter in place Confirmed Active Chronic indwelling Zimmerman catheter Confirmed Active 1Per chart review meeting GFR criteria Procedures Procedure Date Related Diagnosis Body Site Status Primary fusion of cervical spine Completed Results Radiology Reports * Exam Date Time Procedure Performing Provider Status 07/03/24 12:[address] Angio Abdomen and Pelvis Naima Azul; Auth (Verified) Notes: (CT Angio Abdomen and Pelvis) Reason For Exam: r/o dissestion;Other: RESULT: CT Angio Abdomen and Pelvis EXAMINATION: CT Angio Chest, CT Angio Abdomen and Pelvis INDICATION: Reason: Other:; Aortic disease, nontraumatic; Clinical Question(s): Other:; Aortic Dissection TECHNIQUE: An initial noncontrast CT of the chest was performed. Spiral CTA of the chest, abdomen, and pelvis was performed after rapid IV contrast administration without cardiac gating triggered by an NBA on the aorta. Images are formatted in multiple planes using 2-D multiplanar and 3-D maximum intensity projection. Obliqued images through the aortic root were reconstructed. 100 cc of Isovue 300 was administered intravenously. This study was performed without oral contrast. Weight-based protocol using automatic tube modulation was used to optimize exposure parameters. CTDIvol Body: 7.54 mGy, DLP Body: 456 mGy*cm. COMPARISONS: 02/12/2021 ANGIOGRAPHIC FINDINGS: No thoracic aortic intramural hematoma. No aortic dissection or aneurysm. Normal three vessel arch without branch vessel stenosis. Pulmonary arteries are normal in caliber. No evidence of central pulmonary embolism on this study performed without dedicated technique. Abdominal aorta: No aortic aneurysm or dissection. Celiac axis: Patent. Superior mesenteric artery: Patent. Right renal artery: Patent. Left renal artery: Patent. Inferior mesenteric artery: Patent. Right common iliac artery: Patent. Right internal iliac artery: Patent. Right external iliac artery: Patent. Right common femoral artery: Patent. Visualized right superficial and deep femoral arteries: Patent. Left common iliac artery: Patent. Left internal iliac artery: Patent. Left external iliac artery: Patent. Left common femoral artery: Patent. Visualized left superficial and deep femoral arteries: Patent. NON-ANGIOGRAPHIC FINDINGS: Gas Dispatcher View Findings, Lines and Tubes: None. Trachea and Airways: Patent without evidence of tracheal or endobronchial lesion. Lungs and Pleura: Clear lungs. No effusion or pneumothorax. Mediastinum and davie: No mass or hematoma. No mediastinal or hilar lymphadenopathy. No esophageal abnormality. Heart: Heart is normal in size. No pericardial effusion. Severe coronary artery calcification. Chest Wall Soft Tissues: Normal. Diaphragm : No significant abnormality. Liver: Normal. Gallbladder: Layering sludge and/or stones. No wall thickening or adjacent fat stranding to suggestacute cholecystitis. Bile ducts: No biliary ductal dilation. Spleen: Normal. Pancreas: Normal. Adrenal glands: Chronic bilateral adrenal calcifications. No suspicious mass. Kidneys and ureters: Severely atrophic bilateral paimiut kidneys. Normal appearance of right lower quadrant transplant kidney. Bladder: Normal. Reproductive organs: Unremarkable. Stomach, small bowel, and large bowel: Moderate volume stool in the colon. Wall thickening of the descending and sigmoid colon. No dilated bowel loops to suggest bowel obstruction. Appendix: No evidence of acute appendicitis. Peritoneum and retroperitoneum: No ascites or pneumoperitoneum. No omental or mesenteric lesions. Lymph nodes: No enlarged lymph nodes. Abdominal and pelvic wall: Decubitus ulcer overlying the left posterior iliac bone ([id number]). Bones: No acute abnormality. Prior median sternotomy. Preliminary radiology report issued by [facility]. Agree with salient details of report. IMPRESSION: 1. No aortic aneurysm or dissection. 2. Decubitus ulcer as above. 3. Cholelithiasis without evidence of acute cholecystitis. WSN: [id number] Ordering Physician: Nely Mitchell Dictated By: Deep Montesinos MD Dictated Date/Time: 07/03/24 12:40 p Reviewed By: Deep Montesinos MD Signed By: Deep Montesinos MD Signed Date/Time: 07/03/24 12:40 pm Transcribed By: NANO Transcribed Date/Time: 07/03/24 12:35 pm * Exam Date Time Procedure Performing Provider Status 07/03/24 12:[address] Angio Chest Naima Azul; [facility] (Verified) Notes: (CT Angio Chest) Reason For Exam: Aortic disease, nontraumatic;Other: RESULT: CT Angio Chest EXAMINATION: CT Angio Chest, CT Angio Abdomen and Pelvis INDICATION: Reason: Other:; Aortic disease, nontraumatic; Clinical Question(s): Other:; Aortic Dissection TECHNIQUE: An initial noncontrast CT of the chest was performed. Spiral CTA of the chest, abdomen, and pelvis was performed after rapid IV contrast administration without cardiac gating triggered by an NBA on the aorta. Images are formatted in multiple planes using 2-D multiplanar and 3-D maximum intensity projection. Obliqued images through the aortic root were reconstructed. 100 cc of Isovue 300 was administered intravenously. This study was performed without oral contrast. Weight-based protocol using automatic tube modulation was used to optimize exposure parameters. CTDIvol Body: 7.54 mGy, DLP Body: 456 mGy*cm. COMPARISONS: 02/12/2021 ANGIOGRAPHIC FINDINGS: No thoracic aortic intramural hematoma. No aortic dissection or aneurysm. Normal three vessel arch without branch vessel stenosis. Pulmonary arteries are normal in caliber. No evidence of central pulmonary embolism on this study performed without dedicated technique. Abdominal aorta: No aortic aneurysm or dissection. Celiac axis: Patent. Superior mesenteric artery: Patent. Right renal artery: Patent. Left renal artery: Patent. Inferior mesenteric artery: Patent. Right common iliac artery: Patent. Right internal iliac artery: Patent. Right external iliac artery: Patent. Right common femoral artery: Patent. Visualized right superficial and deep femoral arteries: Patent. Left common iliac artery: Patent. Left internal iliac artery: Patent. Left external iliac artery: Patent. Left common femoral artery: Patent. Visualized left superficial and deep femoral arteries: Patent. NON-ANGIOGRAPHIC FINDINGS: Gas Dispatcher View Findings, Lines and Tubes: None. Trachea and Airways: Patent without evidence of tracheal or endobronchial lesion. Lungs and Pleura: Clear lungs. No effusion or pneumothorax. Mediastinum and davie: No mass or hematoma. No mediastinal or hilar lymphadenopathy. No esophageal abnormality. Heart: Heart is normal in size. No pericardial effusion. Severe coronary artery calcification. Chest Wall Soft Tissues: Normal. Diaphragm : No significant abnormality. Liver: Normal. Gallbladder: Layering sludge and/or stones. No wall thickening or adjacent fat stranding to suggestacute cholecystitis. Bile ducts: No biliary ductal dilation. Spleen: Normal. Pancreas: Normal. Adrenal glands: Chronic bilateral adrenal calcifications. No suspicious mass. Kidneys and ureters: Severely atrophic bilateral paimiut kidneys. Normal appearance of right lower quadrant transplant kidney. Bladder: Normal. Reproductive organs: Unremarkable. Stomach, small bowel, and large bowel: Moderate volume stool in the colon. Wall thickening of the descending and sigmoid colon. No dilated bowel loops to suggest bowel obstruction. Appendix: No evidence of acute appendicitis. Peritoneum and retroperitoneum: No ascites or pneumoperitoneum. No omental or mesenteric lesions. Lymph nodes: No enlarged lymph nodes. Abdominal and pelvic wall: Decubitus ulcer overlying the left posterior iliac bone (604:153). Bones: No acute abnormality. Prior median sternotomy. Preliminary radiology report issued by [facility]. Agree with salient details of report. IMPRESSION: 1. No aortic aneurysm or dissection. 2. Decubitus ulcer as above. 3. Cholelithiasis without evidence of acute cholecystitis. WSN: [id number] Ordering Physician: Nely Mitchell Dictated By: Deep Montesinos MD Dictated Date/Time: 07/03/24 12:40 p Reviewed By: Deep Montesinos MD Signed By: Deep Montesinos MD Signed Date/Time: 07/03/24 12:40 pm Transcribed By: NANO Transcribed Date/Time: 07/03/24 12:35 pm * Exam Date Time Procedure Performing Provider Status 07/03/24 5:52 AM Shoulder Min 2 Views Left Marylin Alexander; Auth (Verified) Notes: (Shoulder Min 2 Views Left) Reason For Exam: Pain RESULT: Shoulder Min 2 Views Left Shoulder Min 2 Views Left, 2 views Reason: Pain; Clinical Question(s): Fracture COMPARISON: Left shoulder radiographs dated 02/19/2018. FINDINGS: No fracture or dislocation. Mild glenohumeral joint space narrowing and marginal spurring. Moderate degenerative changes of the AC joint. The portion of the clavicle included on the exam is intact. No calcification of the rotator cuff. Status post median sternotomy. Fixation hardware seen in the cervical spine. IMPRESSION: 1. No acute displaced fracture. 2. Mild glenohumeral and moderate acromioclavicular degenerative change. WSN: [id number] Ordering Physician: Nely Mitchell Dictated By: Tami Myers MD Dictated Date/Time: 07/03/24 6:38 am Reviewed By: Tami Myers MD Signed By: Tami Myers MD Signed Date/Time: 07/03/24 6:38 am Transcribed By: NANO Transcribed Date/Time: 07/03/24 6:36 am * Exam Date Time Procedure Performing Provider Status 07/03/24 12:04 AM Chest Portable Radha Alexander; Auth (Verified) Notes: (Chest Portable) Reason For Exam: CHF RESULT: Chest Portable Chest Portable performed upright at 11:54 PM Reason: CHF; Clinical Question(s): Pneumonia COMPARISON: Multiple prior chest x-rays, the most recent of which is dated 11/03/2023. FINDINGS: LINES AND TUBES: None. LUNGS AND PLEURA: There are low lung volumes without focal infiltrate. No pleural effusion. No pneumothorax. HEART, MEDIASTINUM AND DAVIE: Status post median sternotomy and CABG. Cardiac and mediastinal contours appear within normal limits for the low lung volumes. Mild calcification in the aortic arch. BONES AND SOFT TISSUES: No acute abnormality. IMPRESSION: No acute abnormality. WSN: [id number] Ordering Physician: Nely Mitchell Dictated By: Tami Myers MD Dictated Date/Time: 07/03/24 4:15 am Reviewed By: Tami Myers MD Signed By: Tami Myers MD Signed Date/Time: 07/03/24 4:15 am Transcribed By: NANO Transcribed Date/Time: 07/03/24 4:14 am Vital Signs Most recent to oldest [Reference Range]: 1 2 3 4 Height 180 cm (07/05/24 6:15 PM) 180 cm (07/05/24 3:45 PM) 180 cm (07/05/24 5:09 AM) Weight 119.8 kg (07/03/24 5:24 PM) Oxygen Saturation [94-100 %] 96 % (07/05/24 3:45 PM) 96 % (07/05/24 3:03 PM) 91 % *L* (07/05/24 2:54 PM) Pulse Rate [55-90 bpm] 73 bpm (07/05/24 3:45 PM) 74 bpm (07/05/24 2:54 PM) 84 bpm (07/05/24 8:27 AM) Body Mass Index [18.5-24.99 kg/m2] 36.98 kg/m2 *>HHI* (07/03/24 5:24 PM) Blood Pressure [90-138/55-84 mm Hg] 136/52mm Hg (07/05/24 6:15 PM) 145/51mm Hg *H* (07/05/24 3:45 PM) 134/59mm Hg (07/05/24 2:54 PM) Respiratory Rate [16-30 br/min] 18 br/min (07/05/24 3:45 PM) 20 br/min (07/05/24 2:54 PM) 16 br/min (07/05/24 9:27 AM) 16 br/min (07/05/24 9:27 AM) Temperature [96.8-100.4 DegF] 98.2 DegF (07/05/24 3:45 PM) 98.2 DegF (07/05/24 2:54 PM) 97.7 DegF (07/05/24 5:09 AM) Liters per Minute 2 L/min (07/05/24 3:45 PM) 2 L/min (07/05/24 3:03 PM) 2.5 L/min (07/03/24 8:00 PM) Mode of Delivery (Oxygen) Nasal cannula (07/05/24 3:45 PM) Nasal cannula (07/05/24 3:03 PM) Room air (07/05/24 2:54 PM) Blood pressure sites Arm, left (07/05/24 6:15 PM) Arm, right (07/05/24 3:45 PM) Arm, right (07/05/24 2:54 PM) Temperature Route Oral (07/05/24 3:45 PM) Oral (07/05/24 2:54 PM) Oral (07/05/24 5:09 AM) Dry Weight 119.8 kg (07/03/24 5:24 PM) Social History Social History Type Response Smoking [...] MRI Safety Implantable Status Assigning Authority Unknown [id number] Unknown Unknown 08/10/26 Unknown Unknown Active Unknown Admission evaluation note * Shannon HAWKINS, Nely Barger: PERFORM, MODIFY Event Display: Admission Note Authored Date: Patient: ??RODGER SPENCER ? Age:??73 Years?Sex:??Male?:??1950?? Chief Complaint/Reason for Consultation Left shoulder pain and hematuria since yesterday History of Present Illness Mr. Spencer is a??73-year-old male with past medical history of CAD status post four-vessel CABG, history of hypertension currently on midodrine, ESRD status post renal transplant on tacrolimus, type 2 diabetes mellitus, chronic Zimmerman catheter for urinary retention, history of DVT on Eliquis, hyperlipidemia, chronic ulcers, who presents to the emergency department due to left shoulder pain and hematuria since yesterday.?? He denies trauma to the shoulder, reports he was lying in bed when he suddenly developed left posterior shoulder pain; range of motion was??intact??and??there are no overlying rashes.?? The pain is worse with deep breaths and radiates into his anterior left chest.?? He also noticed at that time that the urine in his Zimmerman was bright red, and he reported abdominal distention and bloating sensation.?? He additionally felt nauseous, and had 1 episode of nonbloody emesis.??He also reported lightheadedness and dizziness.?? He was brought to the hospital for evaluation.?? On arrival, vital signs are stable.?? Laboratory studies showed creatinine 1.33, BNP 1149, troponinsflat at 32, 31, 30.?? TSH was elevated 4.64, free T4 1.58.?? Imaging studies were obtained including chest x-ray which showed no acute normality, CT chest and abdomen which showed no acute abnormality, did show decubitus ulcer and cholelithiasis without evidence of acute cholecystitis, and left shoulder x- ray showed no fracture, did show moderate degenerative changes.?? EKGs were mildly abnormal with ST-T wave abnormalities.?? Patient denied chest pain.?? He was started on continuous bladder irrigation for his hematuria, and request was made for admission. At the time of my evaluation, patient continues to endorse nausea.?? His hematuria has improved on CBI.?? He continues to have left shoulder pain rated 9/10. Review of Systems General: Endorses lightheadedness, dizziness HEENT:?? Denies headache, runny nose, sore throat Cardiac:?? Denies chest pain or palpitations Respiratory:?? Denies SOB or cough Abdomen:?? Endorses nausea, vomiting x1, abdominal discomfort/distention, denies??diarrhea, or constipation :?? Endorses hematuria, denies??dysuria Skin:?? Endorses chronic wounds MSK:?? Endorses L shoulder pain Objective Measurements?? Height: 180 cm (07/03/24) Weight: 119.8 kg (07/03/24) Dry Weight: 119.8 kg (07/03/24) Body Mass Index:??36.98 kg/m2??Critical (07/03/24) ? Vital Signs?? Temperature: 97.5 DegF (07/03/24 17:24:00) Temperature Route: Oral (07/03/24 17:24:00) Pulse Rate: 68 bpm (07/03/24 17:24:00) Respiratory Rate: 18 br/min (07/03/24 18:26:00) Systolic Blood Pressure: 99 mm Hg (07/03/24 17:24:00) Diastolic Blood Pressure:??85 mm Hg??High (07/03/24 17:24:00) Blood pressure sites: Arm, right (07/03/24 17:24:00) Mean Arterial Pressure: 90 mm Hg (07/03/24 17:24:00) Pulse Pressure: 14 mm Hg (07/03/24 17:24:00) Oxygen Saturation: 100 % (07/03/24 16:55:00) Liters per Minute: 2 L/min (07/03/24 14:10:00) Mode of Delivery (Oxygen): Room air (07/03/24 16:55:00) Early Warning Score: 3 (07/03/24 18:26:38) ? Intake/Output? 07/03 04:48 07/03 07:00 07/02 07:00 07/01 07:00 06/30 07:00 ?? 07/03 19:59 07/03 19:59 07/03 06:59 07/02 06:59 07/01 06:59 Intake ? 3000 ? 3000 ?0 ?0 ?0 Output ? 4000 ? 4000 ?0 ?0 ?0 Net Total ?-1000 ?-1000 ?0 ?0 ?0 ? Precautions No Precautions documented.? Physical Exam Physical Exam: General: No apparent distress, appears stated age, awake, alert, cooperative with exam Head/Neck/Throat: Normocephalic, atraumatic, moist mucous membranes Eyes: Sclera anicteric, EOMI Thorax: Clear to auscultation bilaterally, no respiratory distress Cardiovascular: Regular rate and rhythm, faint systolic murmur noted at left mid sternal border, noperipheral edema Abdomen: Soft, diffusely tender to palpation, distended, normoactive bowel sounds Musculoskeletal: No gross bony deformities, nontender to palpation of left shoulder Skin: No rashes noted on exposed skin or overlying left shoulder; wounds covered in dressings/woundvac Neurologic: Alert and oriented x3, no focal neurological deficits, no facial droop Psychiatric: Normal affect Assessment/Plan Diagnoses 1. ??Left shoulder pain ??(M25.512) 2. ??Hematuria ??(R31.9) 3. ??Chronic indwelling Zimmerman catheter ??(Z97.8) 4. ??Status post -donor kidney transplantation ??(Z94.0) 5. ??ESRD (end stage renal disease) ??(N18.6) 6. ??CAD (coronary artery disease) ??(I25.10) 7. ??Diabetes mellitus type 2, controlled ??(E11.9) 8. ??History of DVT of lower extremity ??(Z86.718) 9. ??Hyperlipidemia ??(E78.5) 10. ??Immunosuppression ??(D84.9) ?? Assessment:??73-year-old male with past medical history of CAD status post four- vessel CABG, history of hypertension currently on midodrine, ESRD status post renal transplant on tacrolimus, type 2 diabetes mellitus, chronic Zimmerman catheter for urinary retention, history of DVT on Eliquis, hyperlipidemia, chronic ulcers, who presents to the emergency department due to left shoulder pain and hematuria since yesterday ?? Left shoulder pain (M25.512):??Patient with atraumatic posterior left shoulder pain, with x-ray negative for injury X-ray did show some degenerative changes consistent with likely arthritis There was some concern for possible ACS given history, however troponins have been flat, and patient denies chest pain Unclear etiology at this time, pain is not reproducible to palpation, patient reports that it is worse with deep inhalations Likely MSK in origin Low suspicion for shingles given no overlying rash, and skin is not tender to palpation Continue pain management with as needed Tylenol, tramadol, Dilaudid ?? Hematuria (R31.9) Chronic indwelling Zimmerman catheter (Z97.8) ? Patient with hematuria which began yesterday, he reports that he has never had this happen before He does have a chronic Zimmerman catheter due to urinary retention CBI was started in the ED, with resolution of hematuria Will wean CBI as tolerated CT angio abdomen showed normal bladder, severely atrophic bilateral paimiut kidneys, normal appearance of right lower quadrant transplant kidney Will hold off on further imaging at this time Consider urology consult in the morning if hematuria recurs Holding Eliquis and aspirin, resume when clinically appropriate ?? 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 Initially there been concern for ARNIE, however on review, it appears the patient's baseline creatinine is approximately 1.1???1.2 per renal note from last year Creatinine today is 1.33, approximately baseline He received 1 L IV fluid in the ED Avoid nephrotoxic agents Trend creatinine Will??obtain morning??tacrolimus level Continuing home tacrolimus 1 mg in the morning, 0.5 mg in the evening Consider??RTANE??consult??tomorrow, defer to daytime team ?? CAD (coronary artery disease) (I25.10):??Holding home aspirin due to hematuria Continue home atorvastatin 80 mg daily ?? Diabetes mellitus type 2, controlled (E11.9):??Continue home glargine at reduced dose, 30 units at bedtime Sliding-scale insulin ?? History of DVT of lower extremity (Z86.718):??Holding home Eliquis??given hematuria, resume when??resolved ?? Hyperlipidemia (E78.5):??Continue atorvastatin as above ?? Hypertension:?? History of hypertension now on midodrine, will continue, 2.5mg daily in the morning, hold if sBP>110 ?? VTE Prophylaxis:??MARITZA stockings, resume Eliquis when??hematuria resolves ?VTE Prophylaxis Assessment:??Graduated Compression Stockings ONLY have been ordered ?? Discharge Planning:??Pending??clinical improvement ?? Code Status:??Full CODE STATUS, confirmed with patient ?Order Code Status:??Code Status Ordered ?? Patient's was on speaker phone??during my interview and examination??per patient's request, her questions were answered and plan was discussed. ?? I personally spent a total of??75 minutes reviewing the chart, notes, images, and labs, speakingwith nurses, examining and interviewing the patient, placing orders, reconciling medications, and documenting in the medical record. ? Histories Allergies Allergies ?(Active and Proposed Allergies Only) NKA? (Severity: Unknown severity, Onset: Unknown) ? Past Medical History/Problem List Active Problems(38) Anemia of chronic disease Anemia of chronic kidney failure Arteriovenous fistula of left upper extremity C. difficile colitis Carpal tunnel syndrome, left Cervical myelopathy Chronic GERD Chronic indwelling Zimmerman catheter Chronic kidney disease, stage 3a Coronary artery disease Deep vein thrombosis (DVT) of distal vein of left lower extremity Dermoid cyst of neck Diabetes mellitus type 2, controlled Elevated ferritin ESRD (end stage renal disease) Zimmerman catheter in place Hepatic steatosis History of DVT of lower extremity Hyperlipidemia Hypertension Immunosuppression Insulin dependent type 2 diabetes mellitus Left trigger finger Lumbar back pain with radiculopathy affecting left lower extremity Obstructive sleep apnea MARIANA (obstructive sleep apnea) Other microscopic hematuria Peripheral neuropathy S/P CABG (coronary artery bypass graft) Secondary hyperparathyroidism of renal origin Severe obesity (BMI 35.0-39.9) with comorbidity Spinal stenosis of lumbar region Status post -donor kidney transplantation Tremors of nervous system Urinary retention ? Past Surgical History Angioplasty of superficial femoral artery: 07/01/22 Ultrasound scan of upper abdomen- Echogenic liver likely representing mild hepatic steatosis. Normal spleen size. Persistent small left pleural effusion.: 04/19/21 EKG finding- Sinus rhythm with 1st degree A-V block ??Septal infarct , age undetermined ??T wave abnormality, consider inferolateral ischemi: 03/15/21 US ??lower extremity- Occlusive thrombus of the paired right peroneal veins measuring greater than 5 cm in length: 03/15/21 Echocardiogram- ??Vigorous LV systolic function. EF is 65-75% There are no regional wall motion abnormalities. There is abnormal septal ??motion consistent with prior cardiac surgery. Grade II diastolic dysfunction with elevated left atrial pressure.RVis no: 02/26/21 Coronary artery bypass grafting x4: 02/16/21 Ultrasound of carotid artery- Right side: 50-69% stenosis of the Internal Carotid Artery. Left 1-49%: 02/15/21 MRI lumbar spine- Multilevel degenerative changes of the lumbar spine as detailed above, as well aspostsurgical changes at L4-5. Degenerative stenosis is greatest at L3-4, with severe central stenosis and crowding of traversing nerve roots. 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 Social History Alcohol Details:??Use: Past. ??Frequency: 3-5 times per week. ??Type: Beer. ??Alcohol use in household: No.??Average drinks per day: 1. Employment/School Details:??Status: Disabled. Exercise Details:??Self assessment: Poor condition. ??Other: Neuropathy and arthritis. ??Regular exercise: No. Home/Environment Details:??Living situation: [facility]. ??Lives with: Spouse. ??Other: currently in SNF, previously home with his . Nutrition/Health Details:??Diet: Diabetic, Renal. ??Caffeine intake amount: low. Sexual Details:??Sexually involved in last 6 months: Yes. ??Gender of partner(s): Female. Substance Abuse Details:??Use: Never. ??Substance abuse in household: No. Tobacco Details:??Former smoker, Tobacco user in household: No. ??10 Number of years:. ??Stopped at age: 44Years. Electronic Cigarette/Vaping Details:??Electronic Cigarette Use: Never. ? Family History Mother??(): Diabetes mellitus type 2; Skin cancer Father??(): Stroke Sister: Hyperthyroidism Sister: Hyperthyroidism Daughter: Pseudotumor cerebri ? Medications Home Medications Acetaminophen (acetaminophen 325 mg oral tablet)?650?Milligram?2?tablet?By Mouth?Every 8 hours?as needed?as needed for pain?NTE 3G/24hrs apixaban (Eliquis 5 mg oral tablet)?1?tab(s)?5?Milligram?By Mouth?2 times a day Ascorbic Acid (Vitamin C 500 mg oral tablet)?1?tab(s)?500?Milligram?By Mouth?Daily Aspirin (aspirin 81 mg oral delayed release tablet)?81?Milligram?1?tablet?By Mouth?Daily Atorvastatin (atorvastatin 80 mg oral tablet)?1?tab(s)?80?Milligram?By Mouth?Daily at bedtime Gabapentin (gabapentin 300 mg oral capsule)?600?Milligram?2?capsule?By Mouth?2 times a day?300?1?Every 12 hours Guaifenesin (Mucinex 600 mg oral tablet, extended release)?1?tab(s)?600?Milligram?ByMouth?Every 12 hours?as needed?Cough and Congestion Insulin Glargine (Lantus Solostar Pen 100 units/mL subcutaneous solution)?42?unit(s)?Subcutaneous Injection?Daily at bedtime?40 Insulin Lispro (insulin lispro 100 u/ml subcutaneous injection)?5?unit(s)?Subcutaneous Injection?3 times a day before meals?10-22 units?sliding scale0-149= 0150-199= 10 [id number]= 12 [id number]= 14 -440= 16 [id number]=68 [id number]= 20 [id number]= 22 [id number]= call MD Lactobacillus Acidophilus (lactobacillus acidophilus oral capsule)?1?capsule?By Mouth?2times a day Lidocaine Topical (lidocaine 4% patch)?apply?Topically?Daily?do not leave patch on for more than 12 hours at a time?1 patch?apply to neckdo not leave patch on for more than 12 hoursat a time Melatonin (melatonin 3 mg oral tablet)?1?tab(s)?3?Milligram?By Mouth?Daily at bedtime?2?6 Midodrine (midodrine 2.5 mg oral tablet)?2.5?Milligram?1?tablet?By Mouth?Daily?if SBP >110 hold medication Multivitamin With Minerals?1?tab(s)?By Mouth?Daily Sodium Biphosphate-Sodium Phosphate (Fleet Enema)?133?Milliliter?Rectally?Daily?as needed?as needed for constipation Tacrolimus (tacrolimus 0.5 mg oral capsule)?2?capsule?1?Milligram?By Mouth?Daily in AM Tacrolimus (tacrolimus 0.5 mg oral capsule)?1?capsule?0.5?Milligram?By Mouth?Daily at supper Tizanidine (tiZANidine 4 mg oral capsule)?2?capsule?8?Milligram?By Mouth?Daily atbedtime?as needed?muscle spasm?3 times a day?1?4 Tramadol (traMADol 50 mg oral tablet)?1?tab(s)?50?Milligram?By Mouth?Every 12 hours?as needed?Pain , Moderate Trazodone (traZODone 50 mg oral tablet)?50?Milligram?1?tablet?By Mouth?Daily at bedtime Zinc Gluconate (zinc (as gluconate) 50 mg oral tablet)?1?tab(s)?50?Milligram?By Mouth?Daily ? Inpatient Medications Medications (21) Active SCHEDULED: (9) Atorvastatin 80 mg Tablet (atorvastatin 80 mg oral tablet) ??80 mg, By Mouth, Daily at bedtime Gabapentin 300 mg Capsule (gabapentin 300 mg oral capsule) ??300 mg, By Mouth, Every 12 hours Insulin Glargine 100 units/mL Inj (Insulin Glargine Inj) ??30 units 0.3 mL, Subcutaneous Injection,Daily at bedtime Insulin Lispro 100 units/mL Inj (Humalog Sliding Scale) ??2-10 units, Subcutaneous Injection, 3 times a day before meals Midodrine 5 mg Tablet (midodrine 5 mg oral tablet) ??2.5 mg, By Mouth, Daily NaCl 0.9% Flush 3ml (NaCL 0.9% Flush) ??3 mL, IV Push, Every 8 hours Tacrolimus 0.5 mg Capsule (tacrolimus 0.5 mg oral capsule) ??0.5 mg, By Mouth, Daily at supper Tacrolimus 1 mg Capsule (tacrolimus 1 mg oral capsule) ??1 mg, By Mouth, Daily in AM Trazodone 50 mg Tablet (traZODone 50 mg oral tablet) ??50 mg, By Mouth, Daily at bedtime CONTINUOUS: (0) PRN: (12) Acetaminophen 325 mg Tablet (Acetaminophen Tablet) ??650 mg, By Mouth, Every 4 hours Dextromethorphan-Guaifenesin 20 mg-200 mg/10 mL Liqu UD (Robitussin DM Liquid) ??10 mL, By Mouth, Every 4 hours Docusate Sodium 100 mg Capsule (Docusate Sodium Capsule) ??100 mg 1 capsule, By Mouth, 2 times a day HYDROmorphone 1 mg/mL Inj Syringe (Dilaudid Inj) ??1 mg 1 mL, IV Push Slowly, Every 4 hours Melatonin 3 mg Tablet (Melatonin Tablet) ??3 mg, By Mouth, Daily at bedtime NaCl 0.9% Flush 3ml (NaCL 0.9% Flush) ??3 mL, IV Push, Every 8 hours Ondansetron 2mg/mL Inj (2mL Vial) (Ondansetron Inj) ??4 mg, IV Push Slowly, Every 30 minutes Polyethylene Glycol 17 Gm Powder (MiraLax Powder) ??17 Gm 1 pack/packet, By Mouth, Daily Senna Tablet ??8.6 mg 1 tablet, By Mouth, 2 times a day Simethicone 80 mg Chewable Tablet (Simethicone Tablet) ??80 mg, Chew, 3 times a day Tizanidine 4 mg Tablet (tiZANidine 4 mg oral tablet) ??4 mg, By Mouth, 3 times a day TraMADOL 50 mg Tablet (traMADol 50 mg oral tablet) ??50 mg, By Mouth, Every 12 hours ? Results Recent Labs BLOOD COUNT & DIFF WBC 7.0 k/mm3 ()?? 07/02/2024 23:26 RBC 5.14 m/mm3 ()?? 07/02/2024 23:26 Hgb 14.8 Gm/dL ()?? 07/02/2024 23:26 Hct 45.2 % ()?? 07/02/2024 23:26 MCV 87.9 femtoliters ()?? 07/02/2024 23:26 MCH 28.8 pg ()?? 07/02/2024 23:26 MCHC 32.7 Gm/dL (Low)?? 07/02/2024 23:26 Platelet Count 203 k/mm3 ()?? 07/02/2024 23:26 RDW-SD 52.4 femtoliters (High)?? 07/02/2024 23:26 MPV 10.1 femtoliters ()?? 07/02/2024 23:26 Nucleated RBC (Automated) 0.0 #/100 WBC'S ()?? 07/02/2024 23:26 Abs. NRBC 0.0 k/mm3 ()?? 07/02/2024 23:26 Abs. Neut 5.0 k/mm3 ()?? 07/02/2024 23:26 Abs. Lymph 1.5 k/mm3 ()?? 07/02/2024 23:26 Abs. Nolan 0.4 k/mm3 ()?? 07/02/2024 23:26 Abs. Eo 0.1 k/mm3 ()?? 07/02/2024 23:26 Abs. Baso 0.0 k/mm3 ()?? 07/02/2024 23:26 Neut % 71.1 % ()?? 07/02/2024 23:26 Lymph % 21.8 % ()?? 07/02/2024 23:26 Nolan % 5.7 % ()?? 07/02/2024 23:26 Eos % 0.9 % ()?? 07/02/2024 23:26 Baso % 0.1 % ()?? 07/02/2024 23:26 Imm Gran 0.4 % ()?? 07/02/2024 23:26 Abs. Imm Gran 0.0 k/mm3 ()?? 07/02/2024 23:26 ?? CARDIAC Nt-Probnp 1149 pg/mL (High)?? 07/02/2024 23:26 High Sensitivity Troponin (HSTnT) 30 ng/L (High)?? 07/03/2024 03:16 ?? CHEM GENERAL Sodium 138 mmol/L ()?? 07/02/2024 23:26 Potassium 4.0 mmol/L ()?? 07/02/2024 23:26 Chloride 98 mmol/L ()?? 07/02/2024 23:26 Bicarbonate Level 24 mmol/L ()?? 07/02/2024 23:26 Anion Gap 16 mmol/L ()?? 07/02/2024 23:26 Glucose Level 198 mg/dL (High)?? 07/02/2024 23:26 Glucose, POC 200 mg/dL (High)?? 07/03/2024 17:17 BUN 47 mg/dL (High)?? 07/02/2024 23:26 Creatinine-Blood 1.33 mg/dL (High)?? 07/02/2024 23:26 Estimated GFR Creatinine 56 ML/MIN/1.73 M2 ()?? 07/02/2024 23:26 Calcium 9.1 mg/dL ()?? 07/02/2024 23:26 Calcium, Ionized pH Corrected 1.12 mmol/L (Low)?? 07/02/2024 23:26 Magnesium 1.8 mg/dL ()?? 07/02/2024 23:26 Protein, Total 8.0 Gm/dL ()?? 07/02/2024 23:26 Albumin 3.9 Gm/dL ()?? 07/02/2024 23:26 AG Ratio 1.0 ()?? 07/02/2024 23:26 Alkaline Phosphatase 122 units/L ()?? 07/02/2024 23:26 Lipase, Serum/Plasma 42 units/L ()?? 07/02/2024 23:26 AST (SGOT) <5 units/L ()?? 07/02/2024 23:26 ALT (SGPT) 5 units/L ()?? 07/02/2024 23:26 Bilirubin, Total 0.8 mg/dL ()?? 07/02/2024 23:26 ?? COAG INR 1.1 ()?? 07/02/2024 23:26 Protime (PT) 11.9 seconds (High)?? 07/02/2024 23:26 D-Dimer 0.80 mg/L FEU ()?? 07/02/2024 23:26 ?? ENDOCRINE/TUMOR MARKER TSH 4.64 uIU/mL (High)?? 07/02/2024 23:26 Free T4 1.58 ng/dL ()?? 07/02/2024 23:26 ?? HEME OTHER Hold Blue Top SPECIMEN DISCARDED AFTER 4 HOURS. ()?? 07/02/2024 23:26 ?? UA/URINALYSIS Hold Urine Culture Testing available 48 hours from time of collection. ()?? 07/03/2024 02:45 ?? URINE OTHER Est Creatinine Clearance 51.69 mL/min ()?? 07/03/2024 17:37 ? Image ?XR Chest Portable??07/03/2024 00:04 by Radha Alexander ?IMPRESSION: No acute abnormality. ?CT Angio Chest??07/03/2024 00:13 by Naima Azul ?IMPRESSION: 1. No aortic aneurysm or dissection. 2. Decubitus ulcer as above. 3. Cholelithiasis without evidence of acute cholecystitis. ?CT Angio Abdomen and Pelvis??07/03/2024 00:13 by Naima Azul ?IMPRESSION: 1. No aortic aneurysm or dissection. 2. Decubitus ulcer as above. 3. Cholelithiasis without evidence of acute cholecystitis. ?XR Shoulder Min 2 Views Left??07/03/2024 05:52 by Radha Alexander ?IMPRESSION: 1. No acute displaced fracture. 2. Mild glenohumeral and moderate acromioclavicular degenerative change. ?12 Lead ECG??07/03/2024 05:00 by Semaj Nichole MD T ? EKG study * Event Display: ECG 12-Lead Authored Date: Please click on pdf link to open report * Event Display: ECG 12-Lead Authored Date: Ventricular Rate: 72 BPM Atrial Rate: 72 BPM P-R Interval: 290 ms QRS Duration: 88 ms Q-T Interval: 372 ms QTC Calculation(Bazett): 407 ms P Purvis: 19 degrees R Purvis: -5 degrees T Purvis: 144 degrees Sinus rhythm with 1st degree A-V block Anteroseptal infarct , age undetermined ST and T wave abnormality, consider lateral ischemia Abnormal ECG When compared with ECG of 02-Jul-2024 23:45, Lateral ischemia is now Present Confirmed by SEMAJ NICHOLE MD ([id number]) on 07/03/2024 11:53:05 AM [place]: SEMAJ NICHOLE MD * Event Display: ECG 12-Lead Authored Date: Please click on pdf link to open report * Event Display: ECG 12-Lead Authored Date: Ventricular Rate: 85 BPM Atrial Rate: 85 BPM P-R Interval: 238 ms QRS Duration: 88 ms Q-T Interval: 388 ms QTC Calculation(Bazett): 461 ms P Purvis: 20 degrees R Purvis: 24 degrees T Purvis: 67 degrees Sinus rhythm with 1st degree A-V block Anteroseptal infarct Abnormal ECG When compared with ECG of 02-Jul-2024 23:28, No significant change was found Confirmed by SEMAJ NICHOLE MD ([id number]) on 07/04/2024 8:53:38 AM [place]: SEMAJ NICHOLE MD * Event Display: ECG 12-Lead Authored Date: Please click on pdf link to open report * Event Display: ECG 12-Lead Authored Date: Ventricular Rate: 74 BPM Atrial Rate: 74 BPM P-R Interval: 264 ms QRS Duration: 88 ms Q-T Interval: 394 ms QTC Calculation(Bazett): 437 ms P Purvis: 2 degrees R Purvis: 27 degrees T Purvis: 69 degrees Sinus rhythm with 1st degree A-V block with occasional Premature ventricular complexes Anteroseptal infarct (cited on or before 06-Apr-2019) Abnormal ECG When compared with ECG of 13-Jan-2024 16:06, Premature ventricular complexes are now Present Nonspecific T wave abnormality no longer evident in Lateral leads Confirmed by SEMAJ NICHOLE MD ([id number]) on 07/04/2024 8:53:19 AM [place] * Hilda Moctezuma RN: PERFORM, SIGN, VERIFY Event Display: [facility] Authored Date: Patient: RODGER SPENCER Age: 73 years Sex: Male : 1950 Associated Diagnoses: None Author: Hilda Moctezuma RN Findings Problem Related to Alteration in Genitourinary : Alteration in Genitourinary Function/new 07/04/2024 8:00 EST Alteration in Status Related to Other: Hematuria Goals & Outcomes, Genitourinary Pt will achieve normal/improved fluid balance, Pt will maintainadequate function appropriate for pt, Pt will maintain normal fluid balance, Pt will resume normal pattern of elimination Interventions, Assess/monitor/maintain Genitourinary status, Assist & encourage pt with meticulous jimmie care, Encourage PO fluid intake as allowed by diet BH Goals/Interventions, Genitourinary Yes Genitourinary, Problem Start 07/03/2024 17:43 Reviewed Plan with, Genitourinary Patient Patient Progression, Genitourinary Patient progressing according to plan Genitourinary, Problem Ongoing Yes . Evaluation Pt A/Ox4;c/o left shoulder pain, moderate effect with IV dilaudid and warm packs,Wound vac to sacrum intact/not draining any drainage, pt agree to have wound vac change by hospital team elsa, he was denying having wound vac change on admission, Chronic Zimmerman draining clear/yellow urine,CBI stop at 11:00am, urine cont to be clear yellow, pending PT eval, wound consult placed for chronic ulcers.. Discharge Information Case Management Discharge Plan : Case Management Discharge Plan Data 07/03/2024 11:21 EST Discharge Nursing Homes/Rehab Facilities [facility] * You GREGG, Jacqui: PERFORM Event Display: Progress Note Hospital Authored Date: [id number] Patient: ??RODGER SPENCER ? Age:??73 Years?Sex:??Male?:??1950?? Subjective No acute overnight events. CIWA has been slowed down, clear urine in the Zimmerman's. No abdominal pain. Will be stopping CBI. A.m. labs with mild uptrend in renal function.? Expressing he is feeling much closer to baseline Review of Systems Negative except as above Objective Vital Signs?? Temperature: 97.8 DegF (07/04/24 13:28:00) Temperature Route: Oral (07/04/24 13:28:00) Pulse Rate: 78 bpm (07/04/24 13:28:00) Respiratory Rate: 17 br/min (07/04/24 13:28:00) Systolic Blood Pressure: 119 mm Hg (07/04/24 13:28:00) Diastolic Blood Pressure:??51 mm Hg??Low (07/04/24 13:28:00) Blood pressure sites: Arm, right (07/04/24 13:28:00) Mean Arterial Pressure: 74 mm Hg (07/04/24 13:28:00) Pulse Pressure: 68 mm Hg (07/04/24 13:28:00) Oxygen Saturation:??91 %??Low (07/04/24 13:28:00) Liters per Minute: 2.5 L/min (07/03/24 20:00:00) Mode of Delivery (Oxygen): Room air (07/04/24 13:28:00) Early Warning Score: 7 (07/04/24 13:31:57) ? Physical Exam Constitutional:??Patient in mild laying in bed, in no acute distress.?? Chronic Zimmerman catheter in place Neck: Supple. No JVD. Respiratory: Clear to auscultation. No wheezing or crackles. No use of accessory muscles. Cardiovascular: S1S2 regular. No murmurs, rubs or gallops. Gastrointestinal: Abdomen soft, non-tender, non-distended. Normal bowel sounds. Extremities:??Multiple lower extremity wounds???not infected??appearing Neurologic: AAOx3, Speech normal. No focal neurological deficits. _ Home Medications Acetaminophen (acetaminophen 325 mg oral tablet)?650?Milligram?2?tablet?By Mouth?Every 8 hours?as needed?as needed for pain?NTE 3G/24hrs apixaban (Eliquis 5 mg oral tablet)?1?tab(s)?5?Milligram?By Mouth?2 times a day Ascorbic Acid (Vitamin C 500 mg oral tablet)?1?tab(s)?500?Milligram?By Mouth?Daily Aspirin (aspirin 81 mg oral delayed release tablet)?81?Milligram?1?tablet?By Mouth?Daily Atorvastatin (atorvastatin 80 mg oral tablet)?1?tab(s)?80?Milligram?By Mouth?Daily at bedtime Gabapentin (gabapentin 300 mg oral capsule)?capsule?600?Milligram?2?By Mouth?2 times a day?300?1?Every 12 hours Guaifenesin (Mucinex 600 mg oral tablet, extended release)?1?tab(s)?600?Milligram?ByMouth?Every 12 hours?as needed?Cough and Congestion Insulin Glargine (Lantus Solostar Pen 100 units/mL subcutaneous solution)?42?unit(s)?Subcutaneous Injection?Daily at bedtime?40 Insulin Lispro (insulin lispro 100 u/ml subcutaneous injection)?5?unit(s)?Subcutaneous Injection?3 times a day before meals?10-22 units?sliding scale0-149= 0150-199= 10 [id number]= 12 [id number]= 14 [id number]= 16 -968=64 -572= 20 -105= 22 [id number]= call MD Lactobacillus Acidophilus (lactobacillus acidophilus oral capsule)?1?capsule?By Mouth?2times a day Lidocaine Topical (lidocaine 4% patch)?apply?Topically?Daily?do not leave patch on for more than 12 hours at a time?1 patch?apply to neckdo not leave patch on for more than 12 hoursat a time Melatonin (melatonin 3 mg oral tablet)?Milligram?1?tab(s)?3?By Mouth?Daily at bedtime?2?6 Midodrine (midodrine 2.5 mg oral tablet)?tablet?2.5?Milligram?1?By Mouth?Daily?if SBP >110 hold medication Multivitamin With Minerals?Daily?1?tab(s)?By Mouth Sodium Biphosphate-Sodium Phosphate (Fleet Enema)?133?Milliliter?Rectally?Daily?as needed?as needed for constipation Tacrolimus (tacrolimus 0.5 mg oral capsule)?2?capsule?1?Milligram?By Mouth?Daily in AM Tacrolimus (tacrolimus 0.5 mg oral capsule)?1?capsule?0.5?Milligram?By Mouth?Daily at supper Tizanidine (tiZANidine 4 mg oral capsule)?2?By Mouth?capsule?8?Milligram?Daily atbedtime?as needed?muscle spasm?3 times a day?4?1 Tramadol (traMADol 50 mg oral tablet)?1?tab(s)?50?Milligram?By Mouth?Every 12 hours?as needed?Pain , Moderate Trazodone (traZODone 50 mg oral tablet)?50?Milligram?1?tablet?By Mouth?Daily at bedtime Zinc Gluconate (zinc (as gluconate) 50 mg oral tablet)?1?tab(s)?50?Milligram?By Mouth?Daily ? Inpatient Medications Medications (21) Active SCHEDULED: (9) Atorvastatin 80 mg Tablet (atorvastatin 80 mg oral tablet) ??80 mg, By Mouth, Daily at bedtime Gabapentin 300 mg Capsule (gabapentin 300 mg oral capsule) ??300 mg, By Mouth, Every 12 hours Insulin Glargine 100 units/mL Inj (Insulin Glargine Inj) ??30 units 0.3 mL, Subcutaneous Injection,Daily at bedtime Insulin Lispro 100 units/mL Inj (Humalog Sliding Scale) ??2-10 units, Subcutaneous Injection, 3 times a day before meals Midodrine 5 mg Tablet (midodrine 5 mg oral tablet) ??2.5 mg, By Mouth, Daily NaCl 0.9% Flush 3ml (NaCL 0.9% Flush) ??3 mL, IV Push, Every 8 hours Tacrolimus 0.5 mg Capsule (tacrolimus 0.5 mg oral capsule) ??0.5 mg, By Mouth, Daily at supper Tacrolimus 1 mg Capsule (tacrolimus 1 mg oral capsule) ??1 mg, By Mouth, Daily in AM Trazodone 50 mg Tablet (traZODone 50 mg oral tablet) ??50 mg, By Mouth, Daily at bedtime CONTINUOUS: (0) PRN: (12) Acetaminophen 325 mg Tablet (Acetaminophen Tablet) ??650 mg, By Mouth, Every 4 hours Dextromethorphan-Guaifenesin 20 mg-200 mg/10 mL Liqu UD (Robitussin DM Liquid) ??10 mL, By Mouth, Every 4 hours Docusate Sodium 100 mg Capsule (Docusate Sodium Capsule) ??100 mg 1 capsule, By Mouth, 2 times a day HYDROmorphone 1 mg/mL Inj Syringe (Dilaudid Inj) ??1 mg 1 mL, IV Push Slowly, Every 4 hours Melatonin 3 mg Tablet (Melatonin Tablet) ??3 mg, By Mouth, Daily at bedtime NaCl 0.9% Flush 3ml (NaCL 0.9% Flush) ??3 mL, IV Push, Every 8 hours Ondansetron 2mg/mL Inj (2mL Vial) (Ondansetron Inj) ??4 mg, IV Push Slowly, Every 30 minutes Polyethylene Glycol 17 Gm Powder (MiraLax Powder) ??17 Gm 1 pack/packet, By Mouth, Daily Senna Tablet ??8.6 mg 1 tablet, By Mouth, 2 times a day Simethicone 80 mg Chewable Tablet (Simethicone Tablet) ??80 mg, Chew, 3 times a day Tizanidine 4 mg Tablet (tiZANidine 4 mg oral tablet) ??4 mg, By Mouth, 3 times a day TraMADOL 50 mg Tablet (traMADol 50 mg oral tablet) ??50 mg, By Mouth, Every 12 hours ? Results Recent Labs BLOOD COUNT & DIFF WBC 6.7 k/mm3 ()?? 07/04/2024 05:00 RBC 3.91 m/mm3 (Low)?? 07/04/2024 05:00 Hgb 11.3 Gm/dL (Low)?? 07/04/2024 05:00 Hct 34.6 % (Low)?? 07/04/2024 05:00 MCV 88.5 femtoliters ()?? 07/04/2024 05:00 MCH 28.9 pg ()?? 07/04/2024 05:00 MCHC 32.7 Gm/dL (Low)?? 07/04/2024 05:00 Platelet Count 120 k/mm3 (Low)?? 07/04/2024 05:00 RDW-SD 54.1 femtoliters (High)?? 07/04/2024 05:00 MPV 10.0 femtoliters ()?? 07/04/2024 05:00 Nucleated RBC (Automated) 0.0 #/100 WBC'S ()?? 07/04/2024 05:00 Abs. NRBC 0.0 k/mm3 ()?? 07/04/2024 05:00 Abs. Neut 5.0 k/mm3 ()?? 07/02/2024 23:26 Abs. Lymph 1.5 k/mm3 ()?? 07/02/2024 23:26 Abs. Nolan 0.4 k/mm3 ()?? 07/02/2024 23:26 Abs. Eo 0.1 k/mm3 ()?? 07/02/2024 23:26 Abs. Baso 0.0 k/mm3 ()?? 07/02/2024 23:26 Neut % 71.1 % ()?? 07/02/2024 23:26 Lymph % 21.8 % ()?? 07/02/2024 23:26 Nolan % 5.7 % ()?? 07/02/2024 23:26 Eos % 0.9 % ()?? 07/02/2024 23:26 Baso % 0.1 % ()?? 07/02/2024 23:26 Imm Gran 0.4 % ()?? 07/02/2024 23:26 Abs. Imm Gran 0.0 k/mm3 ()?? 07/02/2024 23:26 ?? CARDIAC Nt-Probnp 1149 pg/mL (High)?? 07/02/2024 23:26 High Sensitivity Troponin (HSTnT) 37 ng/L (High)?? 07/04/2024 05:00 ?? CHEM GENERAL Sodium 136 mmol/L ()?? 07/04/2024 05:00 Potassium 4.4 mmol/L ()?? 07/04/2024 05:00 Chloride 100 mmol/L ()?? 07/04/2024 05:00 Bicarbonate Level 24 mmol/L ()?? 07/04/2024 05:00 Anion Gap 12 mmol/L ()?? 07/04/2024 05:00 Glucose Level 134 mg/dL (High)?? 07/04/2024 05:00 Glucose, POC 175 mg/dL (High)?? 07/04/2024 12:13 BUN 52 mg/dL (High)?? 07/04/2024 05:00 Creatinine-Blood 1.41 mg/dL (High)?? 07/04/2024 05:00 Estimated GFR Creatinine 52 ML/MIN/1.73 M2 ()?? 07/04/2024 05:00 Calcium 8.3 mg/dL (Low)?? 07/04/2024 05:00 Calcium, Ionized pH Corrected 1.12 mmol/L (Low)?? 07/02/2024 23:26 Magnesium 1.9 mg/dL ()?? 07/04/2024 05:00 Protein, Total 8.0 Gm/dL ()?? 07/02/2024 23:26 Albumin 3.9 Gm/dL ()?? 07/02/2024 23:26 AG Ratio 1.0 ()?? 07/02/2024 23:26 Alkaline Phosphatase 122 units/L ()?? 07/02/2024 23:26 Lipase, Serum/Plasma 42 units/L ()?? 07/02/2024 23:26 AST (SGOT) <5 units/L ()?? 07/02/2024 23:26 ALT (SGPT) 5 units/L ()?? 07/02/2024 23:26 Bilirubin, Total 0.8 mg/dL ()?? 07/02/2024 23:26 ?? COAG INR 1.1 ()?? 07/02/2024 23:26 Protime (PT) 11.9 seconds (High)?? 07/02/2024 23:26 D-Dimer 0.80 mg/L FEU ()?? 07/02/2024 23:26 ?? ENDOCRINE/TUMOR MARKER TSH 4.64 uIU/mL (High)?? 07/02/2024 23:26 Free T4 1.58 ng/dL ()?? 07/02/2024 23:26 ?? TOXICOLOGY/TDM Tacrolimus Level 2.9 ng/mL (Low)?? 07/04/2024 05:00 ?? UA/URINALYSIS Hold Urine Culture Testing available 48 hours from time of collection. ()?? 07/03/2024 02:45 ?? URINE OTHER Est Creatinine Clearance 48.75 mL/min ()?? 07/04/2024 05:45 ? Assessment/Plan Chief Complaint: Left shoulder pain and hematuria since yesterday ?? Diagnoses 1. ??Left shoulder pain ??(M25.512) 2. ??Hematuria ??(R31.9) 3. ??Chronic indwelling Zimmerman catheter ??(Z97.8) 4. ??Status post -donor kidney transplantation ??(Z94.0) 5. ??ESRD (end stage renal disease) ??(N18.6) 6. ??CAD (coronary artery disease) ??(I25.10) 7. ??Diabetes mellitus type 2, controlled ??(E11.9) 8. ??History of DVT of lower extremity ??(Z86.718) 9. ??Hyperlipidemia ??(E78.5) 10. ??Immunosuppression ??(D84.9) ?? 73-year-old male with past medical history of CAD status post four-vessel CABG, history of hypertension currently on midodrine, ESRD status post renal transplant on tacrolimus, type 2 diabetes mellitus, chronic Zimmerman catheter for urinary retention, history of DVT on Eliquis, hyperlipidemia, chroniculcers, who presents to the emergency department due to left shoulder pain and hematuria since yesterday ? Hematuria (R31.9) Chronic indwelling Zimmerman catheter (Z97.8) ? Patient with hematuria which began yesterday, he reports that he has never had this happen before Most likely traumatic??as patient explained??the Zimmerman catheter was being intact when the tubing was placed into the leg. Change in the ED Status post CBI, draining clear urine: -Stop CBI -If no further bleeding, resume Eliquis/aspirin ? Left shoulder pain (M25.512):??Patient with atraumatic posterior left shoulder pain, with x-ray negative for injury X-ray did show some degenerative changes consistent with likely arthritis There was some concern for possible ACS given history, however troponin have been flat, and patientdenies chest pain Likely musculoskeletal -Continue pain management with as needed Tylenol, tramadol, Dilaudid ? 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 Initially there been concern for ARNIE, however on review, it appears the patient's baseline creatinine is approximately 1.1???1.2 per renal note from last year Creatinine today is 1.33, approximately baseline He received 1 L IV fluid in the ED Avoid nephrotoxic agents -Tacrolimus levels -Continuing home tacrolimus 1 mg in the morning, 0.5 mg in the evening -RTANE??consult given mild renal insufficiency ?? CAD (coronary artery disease) (I25.10):??Holding home aspirin due to hematuria Continue home atorvastatin 80 mg daily ?? Diabetes mellitus type 2, controlled (E11.9):??Continue home glargine at reduced dose, 30 units at bedtime Sliding-scale insulin ?? History of DVT of lower extremity (Z86.718):??Holding home Eliquis??given hematuria, resume when??resolved ?? Hyperlipidemia (E78.5):??Continue atorvastatin as above ?? Hypertension:?? History of hypertension now on midodrine, will continue, 2.5mg daily in the morning, hold if sBP>110 ?? VTE Prophylaxis:??MARITZA stockings, resume Eliquis when??hematuria resolves ?VTE Prophylaxis Assessment:??Graduated Compression Stockings ONLY have been ordered ?? Discharge Planning:??Pending??clinical improvement ?? Code Status:??Full CODE STATUS, confirmed with patient ?Order Code Status:??Code Status Ordered ?? Discharge planning:??PT evaluation requested,??likely 2/3. * Paola Menard RN: MODIFY, SIGN, PERFORM, SIGN, VERIFY Event Display: Progress Note Hospital Authored Date: Patient: RODGER SPENCER Age: 73 years Sex: Male : 1950 Associated Diagnoses: None Author: Paola Menard RN Findings Evaluation E- Patient is alert and oreinted x4, bed in lowest position with call moses within reach, vss and +bs. Patient denies pain and maintained on CBI with clear and yellow urine output. Patient came with wound vac on his sacral region intact and patent at 125mmhg and no output noted; as per [facility] protocol patient was informed that the wound vac has to be replaced with that of [facility]. Patient refused to do so stating that the wound vac was just placed on 07/01 , provider was made aware and stated that she will infer it to day team as to what can be done about it. Will endorse to incoming RN to follow-up; all medications administered without any adverse reactions noted, hourly roundings being co mpleted and all due care is being rendered. Will continue to monitor and notify provider of any changes.. Discharge Information Case Management Discharge Plan : Case Management Discharge Plan Data 07/03/2024 11:21 EST Discharge Nursing Homes/Rehab Facilities [facility] Consult note * Pineda GREGG, Yuan: PERFORM, MODIFY Event Display: Consultation Note Authored Date: Patient: ??RODGER SPENCER ? Age:??73 Years?Sex:??Male?:??1950?? Chief Complaint/Reason for Consultation Left shoulder pain and hematuria since yesterday History of Present Illness 73-year-old male with a past medical history of ESRD s/p DDKT in 2017 on tacrolimus, T2DM,??historyof lumbar discitis osteomyelitis s/p IR guided aspiration (01/2023), cervical fracture s/p C3-C4 ACDF (11/2023), urinary retention with chronic Zimmerman, and recent admission in November for bacteremia and C- diff who presented to [facility] from SNF on with hematuria? He has since cleared the hematuria- thought to be traumatic, voiding clear urine in zimmerman. ARNIE improving towards baseline ? Objective Measurements?? Height: 180 cm (07/05/24) Weight: 119.8 kg (07/03/24) Dry Weight: 119.8 kg (07/03/24) Body Mass Index:??36.98 kg/m2??Critical (07/03/24) ? Vital Signs?? Temperature: 97.7 DegF (07/05/24 05:09:00) Temperature Route: Oral (07/05/24 05:09:00) Pulse Rate: 84 bpm (07/05/24 08:27:00) Respiratory Rate: 18 br/min (07/05/24 08:27:00) Systolic Blood Pressure: 107 mm Hg (07/05/24 08:27:00) Diastolic Blood Pressure: 56 mm Hg (07/05/24 08:27:00) Blood pressure sites: Arm, right (07/05/24 05:09:00) Mean Arterial Pressure: 78 mm Hg (07/05/24 05:09:00) Pulse Pressure: 62 mm Hg (07/05/24 05:09:00) Oxygen Saturation: 95 % (07/05/24 05:09:00) Mode of Delivery (Oxygen): Room air (07/05/24 05:09:00) Early Warning Score: 7 (07/05/24 10:15:58) ? Physical Exam ?General :??No apparent distress?Respiratory??: Bilateral air entry fair. No wheeze or crackles. ?Cardiac??: Regular rate and rhythm, S1S2+ ?Abdomen/GI??: soft, non-tender, non-distended, bowel sounds present. ?Neurologic??: Alert & oriented x 3 ?? Extremities??: No edema.?zimmerman insitu - draiing clear urine Assessment/Plan 73-year-old male with a past medical history of ESRD s/p DDKT in 2017 on tacrolimus, T2DM,??historyof lumbar discitis osteomyelitis s/p IR guided aspiration (01/2023), cervical fracture s/p C3-C4 ACDF (11/2023), urinary retention with chronic Zimmerman, and recent admission in November for bacteremia and C- diff who presented to [facility] from SNF??with hematuria??now resolved ?? 1. Graft function DDKT in 2017 with BL Cr 1.1-1.2 Cr peaked at??1.4 ??on admission likely in the setting of hematuria Cr is already downtrending ? 2. Immunosuppression Currently on tacrolimus 1 mg BID with goal trough 5-8 ? 3. Infection H/o osteomyelitis of spine and more recently E coli bacteremia w/ C-diff ? 4. Electrolytes Mild hyperkalemia in the setting of obstruction in the past ,??though at??times can be a chronic issue ?? 5. HTN On carvedilol 6.25 mg BID? Recommendations: - Keep Zimmerman, - Continue tacrolimus 1 mg BID with goal trough 5-8 -??Lokelma PRN K > 5.2, low K diet - Continue carvedilol? Thank you for the courtesy of this consult, RTANE ??will continue monitoring the patient along with you please do not hesitate to call us with any further questions ?? Yuan Sung M.D. [facility] [address], [address]. [place]?? Histories Past Medical History/Problem List Active Problems(38) Anemia of chronic disease Anemia of chronic kidney failure Arteriovenous fistula of left upper extremity C. difficile colitis CAD (coronary artery disease) Carpal tunnel syndrome, left Cervical myelopathy Chronic GERD Chronic indwelling Zimmerman catheter Chronic kidney disease, stage 3a Coronary artery disease Deep vein thrombosis (DVT) of distal vein of left lower extremity Dermoid cyst of neck Diabetes mellitus type 2, controlled Elevated ferritin ESRD (end stage renal disease) Zimmerman catheter in place Hepatic steatosis History of DVT of lower extremity HLD (hyperlipidemia) HTN (hypertension) Hyperlipidemia Hypertension Immunosuppression Insulin dependent type 2 diabetes mellitus Left trigger finger Lumbar back pain with radiculopathy affecting left lower extremity Obstructive sleep apnea MARIANA (obstructive sleep apnea) Other microscopic hematuria Peripheral neuropathy S/P CABG (coronary artery bypass graft) Secondary hyperparathyroidism of renal origin Severe obesity (BMI 35.0-39.9) with comorbidity Spinal stenosis of lumbar region Status post -donor kidney transplantation Tremors of nervous system Urinary retention ? Past Surgical History Angioplasty of superficial femoral artery: 07/01/22 Ultrasound scan of upper abdomen- Echogenic liver likely representing mild hepatic steatosis. Normal spleen size. Persistent small left pleural effusion.: 04/19/21 US ??lower extremity- Occlusive thrombus of the paired right peroneal veins measuring greater than 5 cm in length: 03/15/21 EKG finding- Sinus rhythm with 1st degree A-V block ??Septal infarct , age undetermined ??T wave abnormality, consider inferolateral ischemi: 03/15/21 Echocardiogram- ??Vigorous LV systolic function. EF is 65-75% There are no regional wall motion abnormalities. There is abnormal septal ??motion consistent with prior cardiac surgery. Grade II diastolic dysfunction with elevated left atrial pressure.RVis no: 02/26/21 Coronary artery bypass grafting x4: 02/16/21 Ultrasound of carotid artery- Right side: 50-69% stenosis of the Internal Carotid Artery. Left 1-49%: 02/15/21 MRI lumbar spine- Multilevel degenerative changes of the lumbar spine as detailed above, as well aspostsurgical changes at L4-5. Degenerative stenosis is greatest at L3-4, with severe central stenosis and crowding of traversing nerve roots. 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 Social History Alcohol Details:??Use: Past. ??Frequency: 3-5 times per week. ??Type: Beer. ??Alcohol use in household: No.??Average drinks per day: 1. Employment/School Details:??Status: Disabled. Exercise Details:??Self assessment: Poor condition. ??Other: Neuropathy and arthritis. ??Regular exercise: No. Home/Environment Details:??Living situation: [facility]. ??Lives with: Spouse. ??Other: currently in SNF, previously home with his . Nutrition/Health Details:??Diet: Diabetic, Renal. ??Caffeine intake amount: low. Sexual Details:??Sexually involved in last 6 months: Yes. ??Gender of partner(s): Female. Substance Abuse Details:??Use: Never. ??Substance abuse in household: No. Tobacco Details:??Former smoker, Tobacco user in household: No. ??10 Number of years:. ??Stopped at age: 44Years. Electronic Cigarette/Vaping Details:??Electronic Cigarette Use: Never. ? Family History Mother??(): Diabetes mellitus type 2; Skin cancer Father??(): Stroke Sister: Hyperthyroidism Sister: Hyperthyroidism Daughter: Pseudotumor cerebri ? Medications Home Medications Acetaminophen (acetaminophen 325 mg oral tablet)?650?Milligram?2?tablet?By Mouth?Every 8 hours?as needed?as needed for pain?NTE 3G/24hrs apixaban (Eliquis 5 mg oral tablet)?1?tab(s)?5?Milligram?By Mouth?2 times a day Ascorbic Acid (Vitamin C 500 mg oral tablet)?1?tab(s)?500?Milligram?By Mouth?Daily Aspirin (aspirin 81 mg oral delayed release tablet)?81?Milligram?1?tablet?By Mouth?Daily Atorvastatin (atorvastatin 80 mg oral tablet)?1?tab(s)?80?Milligram?By Mouth?Daily at bedtime Gabapentin (gabapentin 300 mg oral capsule)?600?Milligram?2?capsule?By Mouth?2 times a day?300?1?Every 12 hours Guaifenesin (Mucinex 600 mg oral tablet, extended release)?1?tab(s)?600?Milligram?ByMouth?Every 12 hours?as needed?Cough and Congestion Insulin Glargine (Lantus Solostar Pen 100 units/mL subcutaneous solution)?42?unit(s)?Subcutaneous Injection?Daily at bedtime?40 Insulin Lispro (insulin lispro 100 u/ml subcutaneous injection)?5?unit(s)?Subcutaneous Injection?3 times a day before meals?10-22 units?sliding scale0-149= 0150-199= 10 -756= 12 [id number]= 14 addcz891-870= 16 [id number]=42 ecgmb480-458= 20 -698= 22 -430= call MD Lactobacillus Acidophilus (lactobacillus acidophilus oral capsule)?1?capsule?By Mouth?2times a day Lidocaine Topical (lidocaine 4% patch)?apply?Topically?Daily?do not leave patch on for more than 12 hours at a time?1 patch?apply to neckdo not leave patch on for more than 12 hoursat a time Melatonin (melatonin 3 mg oral tablet)?1?tab(s)?3?Milligram?By Mouth?Daily at bedtime?2?6 Midodrine (midodrine 2.5 mg oral tablet)?2.5?Milligram?1?tablet?By Mouth?Daily?if SBP >110 hold medication Multivitamin With Minerals?1?tab(s)?By Mouth?Daily Sodium Biphosphate-Sodium Phosphate (Fleet Enema)?133?Milliliter?Rectally?Daily?as needed?as needed for constipation Tacrolimus (tacrolimus 0.5 mg oral capsule)?2?capsule?1?Milligram?By Mouth?Daily in AM Tacrolimus (tacrolimus 0.5 mg oral capsule)?1?capsule?0.5?Milligram?By Mouth?Daily at supper Tizanidine (tiZANidine 4 mg oral capsule)?2?capsule?8?Milligram?By Mouth?Daily atbedtime?as needed?muscle spasm?3 times a day?1?4 Tramadol (traMADol 50 mg oral tablet)?1?tab(s)?50?Milligram?By Mouth?Every 12 hours?as needed?Pain , Moderate Trazodone (traZODone 50 mg oral tablet)?50?Milligram?1?tablet?By Mouth?Daily at bedtime Zinc Gluconate (zinc (as gluconate) 50 mg oral tablet)?1?tab(s)?50?Milligram?By Mouth?Daily ? Inpatient Medications Medications (22) Active SCHEDULED: (11) Apixaban 5 mg Tablet (Eliquis) ??5 mg, By Mouth, 2 times a day Aspirin 81 mg EC Tablet (aspirin 81 mg oral delayed release tablet) ??81 mg, By Mouth, Daily Atorvastatin 80 mg Tablet (atorvastatin 80 mg oral tablet) ??80 mg, By Mouth, Daily at bedtime Gabapentin 300 mg Capsule (gabapentin 300 mg oral capsule) ??300 mg, By Mouth, Every 12 hours Insulin Glargine 100 units/mL Inj (Insulin Glargine Inj) ??30 units 0.3 mL, Subcutaneous Injection,Daily at bedtime Insulin Lispro 100 units/mL Inj (Humalog Sliding Scale) ??2-10 units, Subcutaneous Injection, 3 times a day before meals Midodrine 5 mg Tablet (midodrine 5 mg oral tablet) ??2.5 mg, By Mouth, Daily NaCl 0.9% Flush 3ml (NaCL 0.9% Flush) ??3 mL, IV Push, Every 8 hours Tacrolimus 0.5 mg Capsule (tacrolimus 0.5 mg oral capsule) ??0.5 mg, By Mouth, Daily at supper Tacrolimus 1 mg Capsule (tacrolimus 1 mg oral capsule) ??1 mg, By Mouth, Daily in AM Trazodone 50 mg Tablet (traZODone 50 mg oral tablet) ??50 mg, By Mouth, Daily at bedtime CONTINUOUS: (0) PRN: (11) Acetaminophen 325 mg Tablet (Acetaminophen Tablet) ??650 mg, By Mouth, Every 4 hours Dextromethorphan-Guaifenesin 20 mg-200 mg/10 mL Liqu UD (Robitussin DM Liquid) ??10 mL, By Mouth, Every 4 hours Docusate Sodium 100 mg Capsule (Docusate Sodium Capsule) ??100 mg 1 capsule, By Mouth, 2 times a day Melatonin 3 mg Tablet (Melatonin Tablet) ??3 mg, By Mouth, Daily at bedtime NaCl 0.9% Flush 3ml (NaCL 0.9% Flush) ??3 mL, IV Push, Every 8 hours Ondansetron 2mg/mL Inj (2mL Vial) (Ondansetron Inj) ??4 mg, IV Push Slowly, Every 30 minutes Polyethylene Glycol 17 Gm Powder (MiraLax Powder) ??17 Gm 1 pack/packet, By Mouth, Daily Senna Tablet ??8.6 mg 1 tablet, By Mouth, 2 times a day Simethicone 80 mg Chewable Tablet (Simethicone Tablet) ??80 mg, Chew, 3 times a day Tizanidine 4 mg Tablet (tiZANidine 4 mg oral tablet) ??4 mg, By Mouth, 3 times a day TraMADOL 50 mg Tablet (traMADol 50 mg oral tablet) ??50 mg, By Mouth, Every 12 hours ? Results Recent Labs BLOOD COUNT & DIFF WBC 8.1 k/mm3 ()?? 07/05/2024 09:01 RBC 4.09 m/mm3 (Low)?? 07/05/2024 09:01 Hgb 11.8 Gm/dL (Low)?? 07/05/2024 09:01 Hct 36.8 % (Low)?? 07/05/2024 09:01 MCV 90.0 femtoliters ()?? 07/05/2024 09:01 MCH 28.9 pg ()?? 07/05/2024 09:01 MCHC 32.1 Gm/dL (Low)?? 07/05/2024 09:01 Platelet Count 134 k/mm3 (Low)?? 07/05/2024 09:01 RDW-SD 54.6 femtoliters (High)?? 07/05/2024 09:01 MPV 10.4 femtoliters ()?? 07/05/2024 09:01 Nucleated RBC (Automated) 0.0 #/100 WBC'S ()?? 07/05/2024 09:01 Abs. NRBC 0.0 k/mm3 ()?? 07/05/2024 09:01 ?? CARDIAC High Sensitivity Troponin (HSTnT) 37 ng/L (High)?? 07/04/2024 05:00 ?? CHEM GENERAL Sodium 139 mmol/L ()?? 07/05/2024 09:03 Potassium 4.4 mmol/L ()?? 07/05/2024 09:03 Chloride 103 mmol/L ()?? 07/05/2024 09:03 Bicarbonate Level 25 mmol/L ()?? 07/05/2024 09:03 Anion Gap 11 mmol/L ()?? 07/05/2024 09:03 Glucose Level 168 mg/dL (High)?? 07/05/2024 09:03 Glucose, POC 180 mg/dL (High)?? 07/05/2024 07:53 BUN 46 mg/dL (High)?? 07/05/2024 09:03 Creatinine-Blood 1.25 mg/dL (High)?? 07/05/2024 09:03 Estimated GFR Creatinine 60 ML/MIN/1.73 M2 ()?? 07/05/2024 09:03 Calcium 8.7 mg/dL ()?? 07/05/2024 09:03 Magnesium 1.9 mg/dL ()?? 07/04/2024 05:00 ?? TOXICOLOGY/TDM Tacrolimus Level 2.9 ng/mL (Low)?? 07/04/2024 05:00 ?? URINE OTHER Est Creatinine Clearance 54.99 mL/min ()?? 07/05/2024 10:15 ? * Pineda GREGG, Yuan: PERFORM, SIGN, VERIFY Event Display: Consultation Note Authored Date: Patient: RODGER SPENCER Age: 73 years Sex: Male : 1950 Associated Diagnoses: None Author: Yuan Sung MD ??[facility] Inpatient Nephrology Note ??Interval History Consult for ARNIE , renal txp Urine labs ordered. Full consult to follow Thank you for the courtesy of this consult, RTANE ??will continue monitoring the patient along withyou please do not hesitate to call us with any further questions Yuan Sung M.D. [facility] [address], [address] Note * Lynn Aguilera RN: PERFORM Event Display: Discharge/Transfer Note Hospital Authored Date: Nursing Discharge Note Entered On: 07/05/2024 18:31 EST Performed On: 07/05/2024 18:40 EST by Lynn Aguilera RN Nursing Discharge Note 2 Discharge Time : 07/05/2024 18:40 EST Lynn Aguilera RN - 07/05/2024 18:40 EST Discharge Level of Care at Discharge : long-term facility Discharge Nursing Homes/Rehab Facilities : [facility] Patient Left Unit Via : Ambulance Patient Accompanied Off Unit with : Ambulance/Chair Van Personnel Handover Given to Transport Personnel : Yes DC Instructions Provided & Signed by Pt : Yes Patient Understands D/C Instructions : Yes Patient Instructions Discharge Signed : No Did Pt have Specialty Bed or Wound Vac : No Willy NGUYEN, Lynn - 07/05/2024 18:31 EST * You GREGG, Jacqui: PERFORM Event Display: Discharge/Transfer Note Hospital Authored Date: [id number] Patient: ??RODGER SPENCER ? Age:??73 Years?Sex:??Male?:??1950?? Patient Information Discharge Location: S15 Primary Care Physician: Tiffanie Lugo NP Admit Date/Time: 07/03/2024 04:48 Discharge Disposition Discharge Disposition: [facility] Facility/Rehab Discharge Diagnosis Left shoulder pain (M25.512) Hematuria (R31.9) Chronic indwelling Zimmerman catheter (Z97.8) Status post -donor kidney transplantation (Z94.0) ESRD (end stage renal disease) (N18.6) CAD (coronary artery disease) (I25.10) Diabetes mellitus type 2, controlled (E11.9) History of DVT of lower extremity (Z86.718) Hyperlipidemia (E78.5) Immunosuppression (D84.9) _ Discharge Medications Acetaminophen (acetaminophen 325 mg oral tablet)??650 Milligram 2 tablet By Mouth Every 8 hours as needed NTE 3G/24hrs as needed for pain apixaban (Eliquis 5 mg oral tablet)??1 tab(s) 5 Milligram By Mouth 2 times a day Ascorbic Acid (Vitamin C 500 mg oral tablet)??1 tab(s) 500 Milligram By Mouth Daily Aspirin (aspirin 81 mg oral delayed release tablet)??81 Milligram 1 tablet By Mouth Daily Atorvastatin (atorvastatin 80 mg oral tablet)??1 tab(s) 80 Milligram By Mouth Daily at bedtime Gabapentin (gabapentin 300 mg oral capsule)??300 Milligram 1 capsule By Mouth Every 12 hours Guaifenesin (Mucinex 600 mg oral tablet, extended release)??1 tab(s) 600 Milligram By Mouth Every 12 hours as needed Cough and Congestion Insulin Glargine (Lantus Solostar Pen 100 units/mL subcutaneous solution)??30 unit(s) Subcutaneous Injection Daily at bedtime Insulin Lispro (insulin lispro 100 u/ml subcutaneous injection)??10-22 units Subcutaneous Injection3 times a day before meals sliding scale0-149= 0150-199= 10 mobig256-752= 12 jnbur464-753= 14 -959= 16 -550=06 - 449= 20 vxhih334-685= 22 [id number]= call MD Lactobacillus Acidophilus (lactobacillus acidophilus oral capsule)??1 capsule By Mouth 2 times a day Lidocaine Topical (lidocaine 4% patch)??1 patch Topically Daily apply to neckdo not leave patch on for more than 12 hours at a time Melatonin (melatonin 3 mg oral tablet)??2 tab(s) 6 Milligram By Mouth Daily at bedtime Midodrine (midodrine 2.5 mg oral tablet)??2.5 Milligram 1 tablet By Mouth Daily if SBP >110 holdmedication Multivitamin With Minerals??1 tab(s) By Mouth Daily Sodium Biphosphate-Sodium Phosphate (Fleet Enema)??133 Milliliter Rectally Daily as needed as needed for constipation Tacrolimus (tacrolimus 0.5 mg oral capsule)??2 capsule 1 Milligram By Mouth Daily in AM Tacrolimus (tacrolimus 0.5 mg oral capsule)??1 capsule 0.5 Milligram By Mouth Daily at supper Tizanidine (tiZANidine 4 mg oral capsule)??1 capsule 4 Milligram By Mouth 3 times a day as needed muscle spasm Tramadol (traMADol 50 mg oral tablet)??1 tab(s) 50 Milligram By Mouth Every 12 hours as needed Pain, Moderate Trazodone (traZODone 50 mg oral tablet)??50 Milligram 1 tablet By Mouth Daily at bedtime Zinc Gluconate (zinc (as gluconate) 50 mg oral tablet)??1 tab(s) 50 Milligram By Mouth Daily ? Medications Started None Medications Discontinued None Doses Changed Lantus PCP Follow-Up/Heads-Up - Repeat blood work - Follow-up on discharge. - Please review list of medications. Hospital Course ?? 73-year-old male with past medical history of CAD status post four-vessel CABG, history of hypertension currently on midodrine, ESRD status post renal transplant on tacrolimus, type 2 diabetes mellitus, chronic Zimmerman catheter for urinary retention, history of DVT on Eliquis, hyperlipidemia, chroniculcers, who presents to the emergency department due to left shoulder pain and hematuria since yesterday ? Hematuria (R31.9) Chronic indwelling Zimmerman catheter (Z97.8) ? Patient with hematuria which began yesterday, he reports that he has never had this happen before Most likely traumatic??as patient explained??the Zimmerman catheter was being intact when the tubing was placed into the leg. Change in the ED Status post CBI, draining clear urine: -Stop CBI -If no further bleeding, resume Eliquis/aspirin ? Left shoulder pain (M25.512):??Patient with atraumatic posterior left shoulder pain, with x-ray negative for injury X-ray did show some degenerative changes consistent with likely arthritis There was some concern for possible ACS given history, however troponin have been flat, and patientdenies chest pain Likely musculoskeletal -Continue pain management with as needed Tylenol, tramadol- to be followed up as an outpt ? 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 Initially there been concern for ARNIE, however on review, it appears the patient's baseline creatinine is approximately 1.1???1.2 per renal note from last year Creatinine today is 1.33, approximately baseline He received 1 L IV fluid in the ED Avoid nephrotoxic agents -Tacrolimus levels -Continuing home tacrolimus 1 mg in the morning, 0.5 mg in the evening -RTANE??consult given mild renal insufficiency: renal function is improving, can continue outpt follow up ?? CAD (coronary artery disease) (I25.10):??Holding home aspirin due to hematuria Continue home atorvastatin 80 mg daily ?? Diabetes mellitus type 2, controlled (E11.9):??Continue home glargine at reduced dose, 30 units at bedtime Sliding-scale insulin ?? History of DVT of lower extremity (Z86.718):??Holding home Eliquis??given hematuria, resume when??resolved ?? Hyperlipidemia (E78.5):??Continue atorvastatin as above ?? Hypertension:?? History of hypertension now on midodrine, will continue, 2.5mg daily in the morning, hold if sBP>110 ?? VTE Prophylaxis:??MARITZA stockings, resume Eliquis when??hematuria resolves ?VTE Prophylaxis Assessment:??Graduated Compression Stockings ONLY have been ordered ?? Discharge Planning:??Pending??clinical improvement ?? Code Status:??Full CODE STATUS, confirmed with patient ?Order Code Status:??Code Status Ordered Objective . Physical Exam Constitutional:??Patient in mild laying in bed, in no acute distress.?? Chronic Zimmerman catheter in place Neck: Supple. No JVD. Respiratory: Clear to auscultation. No wheezing or crackles. No use of accessory muscles. Cardiovascular: S1S2 regular. No murmurs, rubs or gallops. Gastrointestinal: Abdomen soft, non-tender, non-distended. Normal bowel sounds. Extremities:??Multiple lower extremity wounds???not infected??appearing Neurologic: AAOx3, Speech normal. No focal neurological deficits. _ Pending Results Chloride Urine ordered on 07/05/2024 Complete Urinalysis ordered on 07/05/2024 Creatinine Urine ordered on 07/05/2024 Hold Lavender Tube (BB) ordered on 07/02/2024 Protein/Creatinine Ratio Urine ordered on 07/05/2024 Sodium Urine ordered on 07/05/2024 Tacrolimus Level ordered on 07/05/2024 Urea Nitrogen Urine ordered on 07/05/2024 Patient Education Titles [employer] Patient Education - Discharge Instructions: Caring for Your Indwelling Urinary Catheter?? [employer] Patient Education - Zimmerman Catheter Care?? [employer] Patient Education - Blood in Urine (Hematuria)?? Follow-Up Appointments Added Follow Up ?Time Frame ?Comments Brittney ESCAMILLA, Tiffanie Felix Patient Instructions -Please follow-up with primary care physician for reviewing hospitalization course, reviewing list of medications and repeating a set of blood work in 1 week's time follows follow-up for arthritis. -Please follow-up with a education program coordinator for continued management of CKD and medications -Present to the emergency department if you experience any of the following symptoms including but not limited to to recurrence of bleeding in urine, decreased urine output, new fevers or any other issues. -You are on a decreased dose of Lantus while in the hospital, please make adjustments as needed. ithas been decreased to 30 units daily. Post Discharge Care Discharge ?07/05/24 16:26:00 EST ?Order Comment:?? Home Health Face to Face ^HomeHealthFTF Results Discharge Labs BLOOD COUNT & DIFF WBC 8.1 k/mm3 ()?? 07/05/2024 09:01 RBC 4.09 m/mm3 (Low)?? 07/05/2024 09:01 Hgb 11.8 Gm/dL (Low)?? 07/05/2024 09:01 Hct 36.8 % (Low)?? 07/05/2024 09:01 MCV 90.0 femtoliters ()?? 07/05/2024 09:01 MCH 28.9 pg ()?? 07/05/2024 09:01 MCHC 32.1 Gm/dL (Low)?? 07/05/2024 09:01 Platelet Count 134 k/mm3 (Low)?? 07/05/2024 09:01 RDW-SD 54.6 femtoliters (High)?? 07/05/2024 09:01 MPV 10.4 femtoliters ()?? 07/05/2024 09:01 Nucleated RBC (Automated) 0.0 #/100 WBC'S ()?? 07/05/2024 09:01 Abs. NRBC 0.0 k/mm3 ()?? 07/05/2024 09:01 Abs. Neut 5.0 k/mm3 ()?? 07/02/2024 23:26 Abs. Lymph 1.5 k/mm3 ()?? 07/02/2024 23:26 Abs. Nolan 0.4 k/mm3 ()?? 07/02/2024 23:26 Abs. Eo 0.1 k/mm3 ()?? 07/02/2024 23:26 Abs. Baso 0.0 k/mm3 ()?? 07/02/2024 23:26 Neut % 71.1 % ()?? 07/02/2024 23:26 Lymph % 21.8 % ()?? 07/02/2024 23:26 Nolan % 5.7 % ()?? 07/02/2024 23:26 Eos % 0.9 % ()?? 07/02/2024 23:26 Baso % 0.1 % ()?? 07/02/2024 23:26 Imm Gran 0.4 % ()?? 07/02/2024 23:26 Abs. Imm Gran 0.0 k/mm3 ()?? 07/02/2024 23:26 ?? CARDIAC Nt-Probnp 1149 pg/mL (High)?? 07/02/2024 23:26 High Sensitivity Troponin (HSTnT) 37 ng/L (High)?? 07/04/2024 05:00 ?? CHEM GENERAL Sodium 139 mmol/L ()?? 07/05/2024 09:03 Potassium 4.4 mmol/L ()?? 07/05/2024 09:03 Chloride 103 mmol/L ()?? 07/05/2024 09:03 Bicarbonate Level 25 mmol/L ()?? 07/05/2024 09:03 Anion Gap 11 mmol/L ()?? 07/05/2024 09:03 Glucose Level 168 mg/dL (High)?? 07/05/2024 09:03 Glucose, POC 148 mg/dL (High)?? 07/05/2024 16:01 BUN 46 mg/dL (High)?? 07/05/2024 09:03 Creatinine-Blood 1.25 mg/dL (High)?? 07/05/2024 09:03 Estimated GFR Creatinine 60 ML/MIN/1.73 M2 ()?? 07/05/2024 09:03 Calcium 8.7 mg/dL ()?? 07/05/2024 09:03 Calcium, Ionized pH Corrected 1.12 mmol/L (Low)?? 07/02/2024 23:26 Magnesium 1.9 mg/dL ()?? 07/04/2024 05:00 Protein, Total 8.0 Gm/dL ()?? 07/02/2024 23:26 Albumin 3.9 Gm/dL ()?? 07/02/2024 23:26 AG Ratio 1.0 ()?? 07/02/2024 23:26 Alkaline Phosphatase 122 units/L ()?? 07/02/2024 23:26 Lipase, Serum/Plasma 42 units/L ()?? 07/02/2024 23:26 AST (SGOT) <5 units/L ()?? 07/02/2024 23:26 ALT (SGPT) 5 units/L ()?? 07/02/2024 23:26 Bilirubin, Total 0.8 mg/dL ()?? 07/02/2024 23:26 ? COAG INR 1.1 ()?? 07/02/2024 23:26 Protime (PT) 11.9 seconds (High)?? 07/02/2024 23:26 D-Dimer 0.80 mg/L FEU ()?? 07/02/2024 23:26 ? ENDOCRINE/TUMOR MARKER TSH 4.64 uIU/mL (High)?? 07/02/2024 23:26 Free T4 1.58 ng/dL ()?? 07/02/2024 23:26 ?? HEME OTHER Hold Blue Top SPECIMEN DISCARDED AFTER 4 HOURS. ()?? 07/02/2024 23:26 ? MISC. CHEMISTRY Hold Burroughs Top SPECIMEN DISCARDED AFTER 1 WEEK ()?? 07/02/2024 23:26 ? TOXICOLOGY/TDM Tacrolimus Level 2.9 ng/mL (Low)?? 07/04/2024 05:00 ? UA/URINALYSIS Hold Urine Culture Testing available 48 hours from time of collection. ()?? 07/03/2024 02:45 ? URINE OTHER Est Creatinine Clearance 54.99 mL/min ()?? 07/05/2024 10:15 ? 31 minutes spent on discharge * Yann NGUYEN, Natalia: PERFORM, SIGN, VERIFY Event Display: Case Management Discharge Plan Authored Date: Patient: RODGER SPENCER Age: 73 years Sex: Male : 1950 Associated Diagnoses: None Author: Yann NGUYEN, Natalia Discharge Plan Case Management Discharge Plan : Case Management Discharge Plan Data 07/05/2024 13:44 EST Discharge Level of Care at Discharge long-term facility Discharge Nursing Homes/Rehab Facilities [facility] Discharge Transportation Arranged [facility] [address] [facility] [phone] Discharge Arranged Transport Date/Time 07/05/2024 15:00 Mode of Transportation Arranged Ambulance Name of Agency #1 [facility] Door Person #1 Intake * Willy NGUYEN, Lynn: PERFORM Event Display: Patient Education/Instruction Authored Date: [id number] Inpatient Adult Discharge Instructions. [address] [address] Name: RODGER SPENCER : 1950?? Visit: 07/03/2024 04:48?? Current Date: 07/05/2024 16:28 ?? Account: [id number]?? Inpatient Adult Discharge Instructions We would like to thank you for allowing us to assist you with your healthcare needs. The following includes patient education materials and information regarding your injury/illness. Our entire staffstrives to provide an excellent experience for our patients and their families. PLEASE ENSURE YOU FOLLOW-UP PER THE INSTRUCTIONS BELOW! ?? YOUR OPINION IS IMPORTANT TO US! Please complete the survey you may receive by mail or email. Your feedback will be used to make improvements to the healthcare experiences of our patients and their families. Surveys are administered by [employer] ?? If further treatment with your primary care physician or another doctor is recommended, it is important for you to keep the appointment. Call your primary care physician or return to the Emergency Department immediately if your condition worsens, fails to improve, or new symptoms develop. If you need to find a doctor, you can call [facility] for a referral at [phone] or toll free at [phone] ([phone]) or log in to [email or web address].. ?? [facility], in keeping with [facility] guidance, no longer requires face masks for staff, patientsor visitors in most situations. Similiar to time spent indoors at other locations, there is the chance that you were exposed to repiratory viruses during your time with us (such as flu or COVID-19). If you develop symptoms concerning for a viral respiratory infection, please seek testing (and treatment if indicated) from your medical provider or home test kit. ?? You can view and manage your care through the patient portal or by using a health care estuardo of your choosing. [employer] is a website that allows you to securely view your medical information including your hospital discharge summary, office visit summaries, medications and follow-up visits. You can also request appointments, renew medications, and request access to your medical information using a health care estuardo of your choosing, or just ask a question. You can enroll at [email or web address] or register during your next office visit. You have been discharged from [facility], Patient Care Unit: S15??. If you have any questions regarding these instructions, including results of studies pending, afteryou leave, please call us and we will be happy to assist you 23/12. [facility] Your Care Team Attending Physician Jacqui Orta MD?? Consulting Providers Jacqui Orta MD?? Discharging Providers Jacqui Orta MD Reason for Your Visit Left shoulder pain and hematuria since yesterday?? Your Diagnosis Status post -donor kidney transplantation ESRD (end stage renal disease) CAD (coronary artery disease) Diabetes mellitus type 2, controlled History of DVT of lower extremity Hyperlipidemia Immunosuppression Tests Performed Below is a partial list of the tests performed during your hospitalization. You may have had other tests and procedures not included in this list. Please discuss all test results with your provider. Basic Metabolic Panel Calcium Ionized CBC CBC w/ Differential Comprehensive Metabolic Panel D Dimer FREE T4 GLUCOSE POC High Sensitivity Troponin T Hold Blue Top Tube HOLD BURROUGHS TUBE INR Lipase MAGNESIUM ProBNP Troponin T, High Sensitivity TSH with T4 Reflex (Adults Only) Urinalysis w/hold for Urine Culture CT Angio Abdomen and Pelvis CT Angio Chest Portable Chest XR Shoulder Min 2 Views Left B Type Natriuretic Peptide (NT-proBNP) (ProBNP)?? Basic Metabolic Panel?? CBC?? CBC w/ Differential?? CT Angio Abdomen and Pelvis?? CT Angio Chest?? Chloride Urine?? Complete Urinalysis (UA)?? Comprehensive Metabolic Panel?? Creatinine Urine?? D Dimer?? Free T4?? Glucose POC?? High??Sensitivity??Troponin T (High Sensitivity Troponin T)?? Hold Blue Top Tube?? Hold Burroughs Top Tube (HOLD BURROUGHS TUBE)?? Hold Lavender Tube (BB)?? INR?? Ionized Calcium (Calcium Ionized)?? Lipase?? Magnesium Level (MAGNESIUM)?? Protein/Creatinine Ratio Urine (Urine Protein/Creatinine Ratio)?? Sodium Urine?? TSH with T4 Reflex (Adults Only)?? Tacrolimus Level?? Urea Nitrogen Urine (Urine Urea Nitrogen)?? Chest Portable (Portable Chest)?? Shoulder Min 2 Views Left (XR Shoulder Min 2 Views Left)?? Primary Care Provider Brittney FRANCINE, Tiffanie Felix? Advance Directive Health Care Proxy on File Yes - Health Care Proxy Yes - MOLST Discharge Vitals Temperature: 98.2 DegF Height: 180 cm Pulse Rate: 73 bpm Weight: 119.8 kg Respiratory Rate: 18 br/min Body Mass Index:??36.98 kg/m2??Critical Systolic Blood Pressure:??145 mm Hg??High Body surface area: 2.45 Diastolic Blood Pressure:??51 mm Hg??Low ?? Oxygen Saturation: 96 % ?? Studies Pending All studies ordered during this hospital stay have been completed unless listed below. Please discuss all pending results with your provider listed above in these instructions. ?? Chloride Urine?? Complete Urinalysis (UA)?? Creatinine Urine?? Hold Lavender Tube (BB)?? Protein/Creatinine Ratio Urine (Urine Protein/Creatinine Ratio)?? Sodium Urine?? Tacrolimus Level?? Urea Nitrogen Urine (Urine Urea Nitrogen)?? What to do next Instructions From Your Doctor -Please follow-up with primary care physician for reviewing hospitalization course, reviewing list of medications and repeating a set of blood work in 1 week's time follows follow-up for arthritis. -Please follow-up with a education program coordinator for continued management of CKD and medications -Present to the emergency department if you experience any of the following symptoms including but not limited to to recurrence of bleeding in urine, decreased urine output, new fevers or any other issues. -You are on a decreased dose of Lantus while in the hospital, please make adjustments as needed. ithas been decreased to 30 units daily. ?? Orders? 07/05/24 16:26:00 EST?? You Need to Schedule the Following Appointments Follow Up with??Brittney ESCAMILLA, Tiffanie Felix Where: ?? Discharge Medications RODGER SPENCER :1950 Visit Date:07/03/2024 Medications: Please continue your medications until treatment is completed or stopped by your provider. Medications not listed below should be discontinued. Discuss any questions related to medications with your provider. What How Much When Instructions Next Dose Changed Insulin Glargine (Lantus Solostar Pen 100 units/ mL subcutaneous solution) 30 unit(s) Subcutaneous Injection Daily at Bedtime 07/05/24?? bedtime Unchanged Acetaminophen (acetaminophen 325 mg oral tablet) 2 tab(s) Oral Every 8 hours as needed for as needed for pain NTE 3G/ 24hrs ?? as needed per instruction Unchanged apixaban (Eliquis 5 mg oral tablet) 1 tab(s) Oral Twice a day 07/05/24?? 9 pm ?? Unchanged Ascorbic Acid (Vitamin C 500 mg oral tablet) 1 tab(s) Oral Daily 07/06/24 Unchanged Aspirin (aspirin 81 mg oral delayed release tablet) 1 tab(s) Oral Daily 07/06/24 Unchanged Atorvastatin (atorvastatin 80 mg oral tablet) 1 tab(s) Oral Daily at Bedtime 07/05/24 bedtime Unchanged Gabapentin (gabapentin 300 mg oral capsule) 1 capsule Oral Every 12 hours 07/05/24?? 9 pm Unchanged Guaifenesin (Mucinex 600 mg oral tablet, extended release) 1 tab(s) Oral Every 12 hours as needed for Cough and Congestion as needed per instruction Unchanged Insulin Lispro (insulin lispro 100 u/ ml subcutaneous injection) 10-22 units Subcutaneous Injection 3 times a day before meals sliding scale 0-149= 0 150-199= 10 units 200-249= 12 units 250-299= 14 units 300-349= 16 units 350-399=18 units 400-449= 20 units 450-499= 22 units 500-999= call MD ?? with major meals Unchanged Lactobacillus Acidophilus (lactobacillus acidophilus oral capsule) 1 capsule Oral Twice a day 07/05/24 9 pm Unchanged Lidocaine Topical (lidocaine 4% patch) 1 patch Topically Daily apply to neck do not leave patch on for more than 12 hours at a time ?? 07/05/24 Unchanged Melatonin (melatonin 3 mg oral tablet) 2 tab(s) Oral Daily at Bedtime 07/05/24 bedtime Unchanged Midodrine (midodrine 2.5 mg oral tablet) 1 tab(s) Oral Daily if SBP >110 hold medication ?? 07/06/24 Unchanged Multivitamin With Minerals 1 tab(s) Oral Daily 07/05/23 Unchanged Sodium Biphosphate-Sodium Phosphate (Fleet Enema) 133 Milliliter Per rectum Daily as needed for as needed for constipation as needed Unchanged Tacrolimus (tacrolimus 0.5 mg oral capsule) 2 capsule Oral Daily in the morning 07/06/24 Unchanged Tacrolimus (tacrolimus 0.5 mg oral capsule) 1 capsule Oral Daily at supper 07/06/24 Unchanged Tizanidine (tiZANidine 4 mg oral capsule) 1 capsule Oral 3 times a day as needed for muscle spasm as needed per instruction Unchanged Tramadol (traMADol 50 mg oral tablet) 1 tab(s) Oral Every 12 hours as needed for Pain , Moderate as needed per instruction Unchanged Trazodone (traZODone 50 mg oral tablet) 1 tab(s) Oral Daily at Bedtime 07/05/24?? bedtime Unchanged Zinc Gluconate (zinc (as gluconate) 50 mg oral tablet) 1 tab(s) Oral Daily 07/06/24 Prescription Given During Visit No new medications prescribed at time of discharge.?? Laboratory Results Below is a partial list of the most recent Laboratory test results done prior to this discharge. You may have had other tests and procedures not included in this list. Please discuss all test resultswith your provider. Est Creatinine Clearance - 54.99 mL/min (07/05/2024) Basic Metabolic Panel (07/05/2024) ???Sodium - 139 mmol/L???Potassium - 4.4 mmol/L???Chloride - 103 mmol/L???Bicarbonate Level - 25 mmol/L???Anion Gap - 11 mmol/L???Glucose Level - 168 mg/dL???BUN - 46 mg/dL???Creatinine-Blood - 1.25 mg/dL???Estimated GFR Creatinine - 60 ML/MIN/1.73 M2???Calcium - 8.7 mg/dL Calcium Ionized (07/02/2024) ???Calcium, Ionized pH Corrected - 1.12 mmol/L CBC (07/05/2024) ???WBC - 8.1 k/mm3???RBC - 4.09 m/mm3???Hgb - 11.8 Gm/dL???Hct - 36.8 %???MCV - 90.0 femtoliters???MCH - 28.9 pg???MCHC - 32.1 Gm/dL???Platelet Count - 134 k/mm3???RDW-SD - 54.6 femtoliters???MPV - 10.4 femtoliters???Nucleated RBC (Automated) - 0.0 #/100 WBC'S???Abs. NRBC - 0.0 k/mm3 CBC w/ Differential (07/02/2024) ???WBC - 7.0 k/mm3???RBC - 5.14 m/mm3???Hgb - 14.8 Gm/dL???Hct - 45.2 %???MCV - 87.9 femtoliters???MCH - 28.8 pg???MCHC - 32.7 Gm/dL???Platelet Count - 203 k/mm3???RDW-SD - 52.4 femtoliters???MPV - 10.1 femtoliters???Nucleated RBC (Automated) - 0.0 #/100 WBC'S???Abs. NRBC - 0.0 k/mm3???Abs. Neut - 5.0 k/mm3???Abs. Lymph - 1.5 k/mm3???Abs. Nolan - 0.4 k/mm3???Abs. Eo - 0.1 k/mm3???Abs. Baso - 0.0 k/mm3???Neut % - 71.1 %???Lymph % - 21.8 %???Nolan % - 5.7 %???Eos % - 0.9 %???Baso % - 0.1 %???Imm Gran - 0.4 %???Abs. Imm Gran - 0.0 k/mm3 Comprehensive Metabolic Panel (07/02/2024) ???Sodium - 138 mmol/L???Potassium - 4.0 mmol/L???Chloride - 98 mmol/L???Bicarbonate Level - 24 mmol/L???Anion Gap - 16 mmol/L???Glucose Level - 198 mg/dL???BUN - 47 mg/dL???Creatinine-Blood - 1.33 mg/dL???Estimated GFR Creatinine - 56 ML/MIN/1.73 M2???Calcium - 9.1 mg/dL???Protein, Total - 8.0 Gm/d L? ?Albumin - 3.9 Gm/dL? ?AG Ratio - 1.0? ?Alkaline Phosphatase - 122 units/L? ?AST (SGOT) - <5 units/L???ALT (SGPT) - 5 units/L???Bilirubin, Total - 0.8 mg/dL D Dimer (07/02/2024) ???D-Dimer - 0.80 mg/L FEU FREE T4 (07/02/2024) ???Free T4 - 1.58 ng/dL GLUCOSE POC (07/05/2024) ???Glucose, POC - 148 mg/dL High Sensitivity Troponin T (07/04/2024) ???High Sensitivity Troponin (HSTnT) - 37 ng/L Hold Blue Top Tube (07/02/2024) ???Hold Blue Top - SPECIMEN DISCARDED AFTER 4 HOURS. HOLD BURROUGHS TUBE (07/02/2024) ???Hold Burroughs Top - SPECIMEN DISCARDED AFTER 1 WEEK INR (07/02/2024) ???INR - 1.1???Protime (PT) - 11.9 seconds Lipase (07/02/2024) ???Lipase, Serum/Plasma - 42 units/L MAGNESIUM (07/04/2024) ???Magnesium - 1.9 mg/dL ProBNP (07/02/2024) ???Nt-Probnp - 1149 pg/mL Troponin T, High Sensitivity (07/03/2024) ???High Sensitivity Troponin (HSTnT) - 30 ng/L TSH with T4 Reflex (Adults Only) (07/02/2024) ???TSH - 4.64 uIU/mL Urinalysis w/hold for Urine Culture (07/03/2024) ???Hold Urine Culture - Testing available 48 hours from time of collection. You will be contacted within 72 hours with your results. Allergies (NKA means No Known Allergies) NKA Problems Active Problems??(39) Anemia of chronic disease?? Anemia of chronic kidney failure?? Arteriovenous fistula of left upper extremity?? C. difficile colitis?? CAD (coronary artery disease)?? Carpal tunnel syndrome, left?? Cervical myelopathy?? Chronic GERD?? Chronic indwelling Zimmerman catheter?? Chronic kidney disease, stage 3a?? Coronary artery disease?? Deep vein thrombosis (DVT) of distal vein of left lower extremity?? Dermoid cyst of neck?? Diabetes mellitus type 2, controlled?? Elevated ferritin?? ESRD (end stage renal disease)?? Zimmerman catheter in place?? Hepatic steatosis?? History of DVT of lower extremity?? HLD (hyperlipidemia)?? HTN (hypertension)?? Hyperlipidemia?? Hypertension?? Immunosuppression?? Insulin dependent type 2 diabetes mellitus?? Left Toe Amputation?? Left trigger finger?? Lumbar back pain with radiculopathy affecting left lower extremity?? Obstructive sleep apnea?? MARIANA (obstructive sleep apnea)?? Other microscopic hematuria?? Peripheral neuropathy?? S/P CABG (coronary artery bypass graft)?? Secondary hyperparathyroidism of renal origin?? Severe obesity (BMI 35.0-39.9) with comorbidity?? Spinal stenosis of lumbar region?? Status post -donor kidney transplantation?? Tremors of nervous system?? Urinary retention?? Education Materials Below is the list of Educational Leaflet Providered with your Discharge Instructions. [employer] Patient Education - Discharge Instructions: Caring for Your Indwelling Urinary Catheter?? [employer] Patient Education - Zimmerman Catheter Care?? [employer] Patient Education - Blood in Urine (Hematuria)?? Valuables and Belongings I fully understand and agree that [facility] accepts no responsibility for all my personal property including clothing, toilet articles, radios, jewelry, dentures, hearing aids, rings, money, or any other property that is in my possession or is brought to me after admission. I understand certain valuables may be placed in a hospital safe for a short period of time. I understand that the hospital is not liable for loss or damage due to accident, fire, or other natural occurrence while said property is in the safe. I accept full responsibility for any personal property that I keep with me, and will not hold the hospital responsible in case of loss or disappearance. I acknowledge that i have been encouraged to send valuables and belongings home. ?? Review of Valuable and Belonging List: With patient Date for Pt to Sign Valuables/Belongings: 07/05/24 15:45:00 ?? Other Discharge Information ? Case Management Discharge Plan?? Discharge Plan?? Discharge Agency Information?? Discharge Level of Care at Discharge: long-term facility Name of Agency [facility] Discharge Transportation Arranged: [facility] [address] [facility] [phone] Agency Door Person #1: Intake Mode of Transportation Arranged: Ambulance ?? Discharge Arranged Transport Date/Time: 07/05/24 15:00:00 ?? Discharge Nursing Homes/Rehab Facilities: [facility] ? Pulmonary Rehab Status?? Pulmonary Rehab Discharge Status?? Respiratory Rate: 18 br/min ? Common Emergency Awareness Tips IS IT A STROKE? Act FAST and Check for these signs: FACE Does the face look uneven? ARM Does one arm drift down? SPEECH Does their speech sound strange? TIME Call at any sign of stroke ?? Heart Attack Signs Chest discomfort: Most heart attacks involve discomfort in the center of the chest and lasts more than a few minutes, or goes away and comes back. It can feel like uncomfortable pressure, squeezing, fullness or pain. Discomfort in upper body: Symptoms can include pain or discomfort in one or both arms, back, neck, jaw or stomach. Shortness of breath: With or without discomfort. Other signs: Breaking out in a cold sweat, nausea, or lightheaded. Remember, MINUTES DO MATTER. If you experience any of these heart attack warning signs, call to get immediate medical attention! ?? Smoking can increase your chances of developing chronic health problems and can cause harmful effects to other family members in your house. If you smoke, you are strongly encouraged to quit. Please call [facility] at [phone] or [phone] ([phone]) or log in to [email or web address] for referrals to smoking cessation programs. ?? 296 Suicide & Crisis Lifeline is available 23/12 if you or someone you know needs to find a reason to keep living. By calling 399 you'll be connected to a skilled, trained counselor at a crisis center in your area. INPATIENT DISCHARGE INSTRUCTIONS SIGNATURE PAGE RODGER SPENCER Location:[facility] Registration Date and Time:07/03/2024 04:48 EST Primary Care Physician: Tiffanie Lugo NP, Attending Physician: Jacqui Orta MD, I RODGER SPENCER, have received the above patient education materials/instructions and have verbalized understanding. If ambulance or transport services are being used I further acknowledge being given a choice of service. ?? If you need to contact me, please call me at this number: . Patient/Plant Equipment Engineer Name: Patient/Plant Equipment Engineer Signature: Relationship to Patient: Witness Name/Signature: Date: * Lynn Aguilera RN: PERFORM Event Display: Patient Education Leaflets Authored Date: [id number] Discharge Instructions: Caring for Your Indwelling Urinary Catheter ?? [id number] Discharge Instructions: Caring for Your Indwelling Urinary Catheter You have been discharged with an indwelling urinary catheter. It's also called a Zimmerman catheter. A catheter is a thin, flexible tube. An indwelling urinary catheter has 2 parts. The first part is a tube that drains urine from your bladder. The second part is a bag or other device that collects the urine. The most important thing to remember is that you want to prevent infection. Always wash your hands before handling your catheter bag or tubing. Draining the bedside bag ??? Wash your hands with soap and clean, running water. Or use an alcohol-based hand wood barker thatcontains at least 60% alcohol. ??? Hold the drainage tube over a toilet or measuring container. ???Unclamp the tube and let the bag drain. ??? Don???t touch the tip of the drainage tube or let it touch the toilet or container. ??? You don't need to rinse the bag or drainage tube. ?? Cleaning the drainage tube ??? When the bag is empty, clean the tip of the drainage tube with an alcohol wipe. ??? Clamp the tube. ??? Reinsert the tube into the pocket on the drainage bag. ?? Cleaning your skin and tubing ??? Clean the skin near the catheter with soap and water. ??? Wash your genital area from front to back. ??? Wash the catheter tubing. Always wash the catheter in the direction away from your body. ??? You will be told when and how to change your bag and tubing. ??? Don???t try to remove the catheter by yourself. ??? You may shower with the catheter in place. ?? Emptying a leg bag ??? Wash your hands. ??? Remove the stopper on the bag. ??? Drain the bag into the toilet or a measuring container. Don???t let the tip of the drainage tube touch anything, including your fingers. ??? Clean the tip of the drainage tube with alcohol. ??? Replace the stopper. ?? Follow-up care Make a follow-up appointment, or as directed by your healthcare provider. ?? When to call your healthcare provider Call your healthcare provider right away if you have any of the following: ??? Fever of 100.4??F ( 38??C) or higher, or as directed by your provider ??? Chills ??? Leakage around the catheter insertion site ??? Increased spasms (uncontrollable twitching)??in your??legs, belly (abdomen), or bladder. Occasional mild??spasms are normal. ??? Burning in the urinary tract, penis, or genital area ??? Nausea and vomiting ??? Aching in the lower back ??? Cloudy??or bloody (pink or red) urine, sediment or mucus in the urine, or??bad-smelling urine ?? Last Reviewed Date: 2022 ?? [employer]. All rights reserved. This information is not intended as a substitute for professional medical care. Always follow your healthcare professional's instructions. ?? * Lynn Aguilera RN: PERFORM Event Display: Patient Education Leaflets Authored Date: [id number] Zimmerman Catheter Care ?? [id number] Zimmerman Catheter Care A Zimmerman catheter, also called an indwelling urinary catheter, is a flexible plastic or rubber tube that is placed through the urethra and into the bladder. The urethra is the opening where urine comes out. The catheter helps drain urine from the bladder. There is a small balloon on the end of the tube that is inflated after the catheter is put in place. This keeps the catheter from sliding out ofthe bladder. A Zimmerman catheter is used when you are unable to pass urine (urinary retention). It's also used whenthere is loss of bladder control (incontinence). It's also used after bladder or prostate surgery. Home care ??? Take all the prescribed medicines including antibiotics as advised by your health care provider. Do not stop taking the medicines even if you feel better before the prescribed duration is over. ??? Wash your hands well with soap and water before and after handling a Zimmerman catheter andcollection bag. ??? It's important to keep bacteria from getting into the collection bag. Don't disc onnect the catheter from the collection bag. ??? Use a leg band to secure the drainage tube, so it doesn't pull on the catheter. ??? Don't try to pull or remove your catheter. This will injure your urethra. It must be removed by your provider or nurse. ??? Drain the collection bag when it becomes full using the drain spout at the bottom of the bag. ?? Follow-up care Follow up with your health care provider, or as advised. This is for repeat urine testing and for catheter removal or replacement. ?? When to get medical advice Call 911 for any dizziness or fainting. Contact your health care provider right away if: ??? You have a fever of 100.4??F (38??C) or higher, or as directed by your provider. ??? You have bladder pain or fullness. ??? You have abdominal swelling, nausea or vomiting, or back pain. ??? There is blood or urine leakage around the catheter. ??? Bloody urine is coming from the catheter (if a new symptom). ??? The catheter falls out. ??? The catheter stops draining for 6 hours. ??? You are feeling weak. ?? Last Reviewed Date: 2024 ?? [id number] [employer]. All rights reserved. This information is not intended as a substitute for professional medical care. Always follow your healthcare professional's instructions. ?? * Lynn Aguilera RN: PERFORM Event Display: Patient Education Leaflets Authored Date: [id number] Blood in Urine (Hematuria) ?? 33902 Blood in Urine (Hematuria) Blood in your urine is called hematuria.??Most of the time, the cause is not serious. But you should never ignore blood in the urine. Your healthcare provider can evaluate you to find the cause of the bleeding and treat it, if needed. Types of hematuria ??? Gross hematuria. This means that the blood can easily be seen when you look at it. The urine may look pinkish, brownish, or bright red. ??? Microscopic hematuria. This means that the urine appears clear, but blood cells can be seen when urine is looked at under a microscope or tested in a lab. Both types of hematuria can have the same causes. Neither is more serious than the other. With either type, you may not have any other symptoms at all. Or you may have symptoms, such as: ??? Pain, pressure, or burning when you urinate ??? Belly pain ??? Back pain No matter how much blood is in your urine, the cause of the bleeding needs to be diagnosed and treated. ?? What causes hematuria? Causes of hematuria vary. Some of the more common causes include : ??? Injury or trauma ??? Strenuous exercise ??? Infection or inflammation of the bladder, urethra, kidney, or prostate ??? Menstruation. In this case, blood is found in urine sample, but it's not related to urinary problems. Other reasons for blood in urine that may be more serious include: ??? Blood-clotting disorders ??? Kidney or bladder stones ??? Prostate enlargement ??? Bladder or kidney cancer ??? Sickle cell disease ??? Kidney disease of the glomeruli. This is a round cluster ofblood vessels. Many treatments are available for blood in the urine, depending on the cause. ?? Diagnosing hematuria Your healthcare provider will first confirm that blood is in your urine. They will also ask about your health history and give you a physical exam. Then you may have tests to find out where the bloodis coming from and why. Your provider will decide which tests will best find the cause of your hematuria. These are some common tests that may be done: ??? Urine tests, such as urinalysis, urine culture, or urine cytology ??? Blood tests ??? Cystoscopy ??? CT scan or CT urography ??? MRI or MR urography ??? Ultrasound of the kidney ??? Kidney biopsy ?? Last Reviewed Date: 2022 ?? [id number] [employer]. All rights reserved. This information is not intended as a substitute for professional medical care. Always follow your healthcare professional's instructions. ?? Patient Care team information Care Team Personnel Name: Orly Rose RN Position: [facility] RN Member Role: Primary Care Nurse Name: Radha Sanchez CNM Position: Reference Physician Member Role: Primary Care Nurse Address: [address] [place] [address]- [place] Telecom: Name: Elif Ravi RN Position: [facility] AMB Nurse Member Role: Primary Care Nurse Name: Lata GREGG, Willam Salcido Position: [facility] Renal MD Member Role: Lifetime Consulting Physician Address: [address] [place] [address] [address] [facility] [address]- [place] Telecom: Name: Francisca Zee Position: [facility] Outreach Member Role: Lifetime Consulting Physician Name: Mcihelle Hutchinson RN Position: [facility] RN Member Role: Primary Care Nurse Name: Shirley Cope RN Position: [facility] RN Member Role: Primary Care Nurse Name: Nely Nolan RN Position: [facility] RN Supv Member Role: Primary Care Nurse Name: Calire Hernandez Position: [facility] RN Member Role: Primary Care Nurse Name: Tiffanie Lugo NP Position: [facility] PCO Associate Professional Member Role: PCP Address: [address] [place] [address]- Telecom: Name: Dorothea Krishna NP Position: [facility] Associate Professional Member Role: Primary Care Nurse Name: Valerie Harrison RN Position: [facility] RN Member Role: Primary Care Nurse Name: Jake Yates MD Position: [facility] Renal MD Member Role: Lifetime Consulting Physician Address: [address] [place] [address] [address] [facility] [address]- [place] Telecom: Name: Letty Benavidez RN Position: [facility] RN Member Role: Primary Care Nurse Name: Lauren Becker LPN Position: [facility] RN Member Role: Primary Care Nurse Name: May Doss RN Position: [facility] Hospital Flying Teacher Member Role: Primary Care Nurse Name: Reny Oliva RN Position: [facility] AMB Nurse Member Role: Primary Care Nurse Name: Joshua Li MD Position: [facility] Renal MD Member Role: Lifetime Consulting Physician Address: [address] [facility] [place] [address]- Telecom: Name: Domingo Prince RN Position: [facility] RN Member Role: Primary Care Nurse Name: Hilda Moctezuma RN Position: [facility] RN Member Role: Primary Care Nurse Name: Karla Chairez RN Position: [facility] RN Member Role: Primary Care Nurse Name: Mya Phan RN Position: [facility] RN Supv Member Role: Primary Care Nurse Name: Lee Sifuentes RN Position: [facility] RN Member Role: Primary Care Nurse Name: Kira Garces NP Position: [facility] Associate Professional Member Role: Lifetime Consulting Provider Address: [address] [facility] [place] [address]- [place] Telecom: Name: Jimmy RNLilliam Position: [facility] ED RN W/OE and Tasks Member Role: Primary Care Nurse Name: Laurita Dos Santos RN Position: [facility] RN Member Role: Primary Care Nurse Name: Milan Hammond DO Position: [facility] Renal MD Member Role: Lifetime Consulting Physician Address: [address] [facility] [place] [address]- [place] Telecom: Name: Heydi Childress RN Position: [facility] RN Member Role: Primary Care Nurse Name: Emerita Fuentes RN Position: [facility] RN Member Role: Primary Care Nurse Name: Claire Augustine LPN Position: [facility] RN Member Role: Primary Care Nurse Name: Chloé Davalos RN Position: [facility] RN Member Role: Primary Care Nurse Name: Julienne Pino Position: [facility] RN Member Role: Primary Care Nurse Name: Cecy Smalls RN Position: [facility] RN Member Role: Primary Care Nurse Name: Paola Menard RN Position: [facility] RN Member Role: Primary Care Nurse Name: Mejia Trotter MD Position: [facility] Outreach Member Role: Lifetime Consulting Physician Address: [address] [facility] [place] [address]- [place] Telecom: Name: Yuan Sung MD Position: [facility] Renal MD Member Role: Lifetime Consulting Physician Address: [address] [facility] [place] [address]- [place] Telecom: Name: Lynn Aguilera RN Position: [facility] RN Member Role: Primary Care Nurse Name: Micheal Wharton RN Position: [facility] RN Member Role: Primary Care Nurse Name: Loli Lincoln RN Position: [facility] RN Member Role: Primary Care Nurse Name: Norma Azevedo Position: [facility] AMB [place] Member Role: Primary Care Nurse Name: Harman Medina MD Position: [facility] Renal MD Member Role: Lifetime Consulting Physician Address: [address] [facility] [address] [facility] [place] [address]- Telecom: Name: Henna Brandon RN Position: [facility] Flying Teacher Member Role: Primary Care Nurse Name: Alexandrea Simpson RN Position: [facility] RN Member Role: Primary Care Nurse Name: Lilliam Cortes RN Position: [facility] RN Member Role: Primary Care Nurse Name: Radha Negron RN Position: [facility] RN Member Role: Primary Care Nurse Name: Floresita Soto RN Position: [facility] Onco RN Member Role: Primary Care Nurse Care Team Related Persons Name: MARIA GUADALUPE SPENCER Name: CECILIA SPENCER Insurance Providers Guarantor name: RODGER SPENCER Health Plan Information #: 2 Payer: MEDICARE PART B OUTPT Member Number: [id number] Policy Number: NA Group Number: NA Health Plan Information #: 3 Payer: ED QUICK REG Member Number: [id number] Policy Number: NA Group Number: NA Health Plan Information #: 4 Payer: MEDEX Member Number: [id number] Policy Number: NA Group Number: [id number] Health Plan Information #: 5 Payer: MEDEX Member Number: [id number] Policy Number: NA Group Number: NA Health Plan Information #: 1 Payer: MEDICARE A INPT 25 Member Number: [id number] Policy Number: NA Group Number: NA
--- OUTSIDE RECORDS SUMMARY | 2024-07-08 05:32 | XMS_ITS | Data Portability ---
Author Organization [facility], Main Office Address [address] [facility] [place] [address] Care Team Providers Care Indoor Sports Centre Manager Name Role Phone MELISSA ROWLAND 2ND FLOOR OTHER PRABHAKAR DAMICO Primary Care Provider [phone] Assessment No assessment recorded. Plan of Treatment [...] and Address Organization Details Recorded Time Osteomyelitis 10671548 Active 2022 IRENE SKINNER NP [address] , [address], [place], [address], [facility] 3 12:54:43 Type 2 diabetes mellitus 63799165 Active 2022 IRENE SKINNER NP [address], [address], [place], [address], [facility] 3 13:02:35 Essential hypertension 30504876 Active 2022 IRENE SKINNER NP [address], [address], [place], [address], [facility] 3 13:03:00 Hyperlipidemia 93761038 Active 2022 IRENE SKINNER NP [address], [address], [place], [address], [facility] 3 13:03:12 History of renal transplant 702892017 Active 2022 IRENE SKINNER NP [address], [address], [place], [address], [facility] 3 13:03:24 Asthenia 65340181 Active 2022 IRENE SKINNER NP [address], [address], [place], [address], [facility] 3 13:03:41 Insomnia 181983977 Active 2022 IRENE SKINNER NP [address], [address], [place], [address], [facility] 3 13:21:26 Spinal stenosis of lumbar region 93796392 Active 2022 Yanique Verdin MD [address], [address], [place], [address], [facility] 3 15:00:42 Chronic constipation 498593076 Active 2022 Yanique Verdin MD [address] [facility], [address], [place], [address], [facility] 3 15:14:15 Coronary arterioscleros is 11046109 Active 2022 Yanique Verdin MD [address] [facility], [address], [place], [address], [facility] 3 15:14:18 Deep venous thrombosis 323040316 Active 2022 IRENE SKINNER NP [address] [facility], [address], [place], [address], [facility] 3 14:34:30 Acute urticaria 106810793 Active 2022 IRENE SKINNER NP [address] [facility], [address], [place], [address], [facility] 3 14:05:35 Problem Notes None recorded. Medical [...] mm[Hg] 72 mm[Hg] IRENE SKINNER NP [address] [facility], [address], [place], [address], [facility] 3 14:03:34 Date Recorded Body height Heart rate Respiratory rate Body temperature Oxygen saturation Oxygen saturation in Arterial blood by Pulse oximetry Systolic blood pressure Diastolic blood pressure Provider Name and Address Organization Details Last Updated DateTime 3 180.34 cm 75 /min 16 /min 97.3 [degF] 96 % 96 % 132 mm[Hg] 76 mm[Hg] IRENE SKINNER NP [address] [facility], [address], [place], [address], [facility] 3 12:50:47 Date Recorded Body height Heart rate Respiratory rate Body temperature Oxygen saturation Oxygen saturation in Arterial blood by Pulse oximetry Systolic blood pressure Diastolic blood pressure Provider Name and Address Organization Details Last Updated DateTime 3 180.34 cm 77 /min 16 /min 97.8 [degF] 96 % 96 % 130 mm[Hg] 74 mm[Hg] IRENE SIKNNER NP [address] , [address], [place], [address], [facility] 3 12:16:34 Date Recorded Body height Heart rate Respiratory rate Body temperature Oxygen saturation Oxygen saturation in Arterial blood by Pulse oximetry Systolic blood pressure Diastolic blood pressure Provider Name and Address Organization Details Last Updated DateTime 3 180.34 cm 67 /min 16 /min 97.6 [degF] 98 % 98 % 135 mm[Hg] 74 mm[Hg] IRENE SKINNER NP [address] , [address], [place], [address], [facility] 3 11:38:28 Date Recorded Body height Heart rate Respiratory rate Body temperature Oxygen saturation Oxygen saturation in Arterial blood by Pulse oximetry Systolic blood pressure Diastolic blood pressure Provider Name and Address Organization Details Last Updated DateTime 3 180.34 cm 72 /min 16 /min 98 [degF] 97 % 97 % 132 mm[Hg] 68 mm[Hg] IRENE SKINNER NP [address] [facility], [address], [place], [address], [facility] 3 11:00:29 Social History Question Answer Notes LastModified by Organizat ion Details LastModified Time Tobacco Smoking Status Former Smoker IRENE SKINNER NP [address] [facility], [address], [place], [address], [facility] 01/08/2023 12:57:22 Do You Have An Advance [...] Do You Have A Medical Power Of Automobile [employer]? Yes Not Invoked Information not available 01/09/2023 [...] Details Recorded Time Pneumococcal conjugate PCV20, polysaccharide [id number] conjugate, adjuvant, PF 3 completed Tisha Lopez [facility] 01/14/2023 12:34:16 SARS-COV-2 (COVID-19) vaccine, UNSPECIFIED 2 completed Tishaisidra Lopez [facility] 01/14/2023 12:34:40 SARS-COV-2 (COVID-19) vaccine, UNSPECIFIED 1 completed Tisha [facility] 01/14/2023 12:34:55 SARS-COV-2 (COVID-19) vaccine, UNSPECIFIED 1 completed Tisha [facility] 01/14/2023 12:35:06 SARS-COV-2 (COVID-19) vaccine, UNSPECIFIED 1 completed Tisha [facility] 01/14/2023 12:35:15 influenza, unspecified formulation 2 completed Tisha [facility] 01/14/2023 12:35:39 pneumococcal polysaccharide PPV23 4 completed Tisha Lopez [facility] 01/14/2023 12:36:12 Influenza, adjuvanted, quadrivalent, PF 3 completed Conchita Arias [facility] 10/17/2023 10:37:00 Td (adult), 5 Lf tetanus toxoid, preservative free, adsorbed 3 completed Conchita Arias [facility] 10/17/2023 10:37:17 Past Encounters Encounter ID Performer Location Encounter Start Date Encounter Closed Date Diagnosis/Indication Diagnosis SNOMED-CT Code Diagnosis ICD10 Code Diagnosis Note [id number] FRANCINE HOPKINS [address] [facility] [place] [address] 01/08/2023 11:23:17 01/14/2023 15:37:27 Osteomyelitis 98183405 M86.9 oxycodone 10 mg q4hr prnvanco 1000 mg increased to 1250 mg iv daily to 02/12roceph in 2 gm iv daily to 02/12gabape ntin 300 mg tidf/u with ID 02/07 Type 2 sam betes mellitus 06677377 E11.22 glargine 28 units hslispro sliding scale tidmonitor glucose Hyperlipidemia 07884438 E78.5 atorvastat in 80 mg daily Essential hypertension 23527627 I10 coreg 6.25 mg bidmonitor bp History of renal transplant 729103344 Z48.22 tacrolimus 1gm bidmonitor labs Asthenia 19886100 R53.1 PT OT eval and treatfall precaution sfrequent safety checks Insomnia 132088840 G47.0 0 amitriptyl ine 25 mg [id number] MD MELISSA Mondragon [address] [place] [address] 01/09/2023 13:16:08 01/14/2023 15:47:55 Osteomyelitis 07455751 M46.26 M46.46 Continue ceftriaxon e 2 gms IV qd and vanco titrated to troughs of 10-15, until ontin ue gabapentin 300 mg TID, lidoderm patch qd, oxycodone 10 mg q 4 hrs prn.Monito r CBC, CMP, ESR and CRP weekly with labs to ID (Dr. Rasmussen, fax # [phone])F/U with ID on 02/07 as planned. Type 2 sam betes mellitus 17935148 E11.22 Fair control since here. Last HgA1C 7.0 in 07/2022.Con tinue Lantus 28 units qhs and SSIMonitor fingerstic ks TID and HgA1C as outpt. Hyperlipidemia 69052876 E78.49 Good in ont inue atorvastat in 80 mg qd and ASA 81 mg qd.Monitor labs as outpt. Essential hypertension 92005005 I10 SBP high or borderline since here, likely due to pain, won't make any changes for now.Contin ue carvedilol 6.25 mg BID.Monito r BP and labs. History of renal transplant 773433679 Z48.22 With good renal function.C ontinue tacrolimus 1 gm BIDMonitor labsF/U with renal as planned. Asthenia 76641659 R53.1 Very deconditio tasneem.Needs PT/OT for strengthen ing, balance, gait training, safety and function.C ontinue fall precaution s.Monitor for safety. Insomnia 696011852 G47.0 0 Continue amitriptyl ine 25 mg qhsMonitor sleep patterns Anemia 995731819 D64.89 Multifacto rial, stable.Mon itor labs Spinal iraida nosis of lumbar region 68063671 M48.061 Long standing issue, not surgical candidate per neurosurg. Continue PT/OT as above.Pain management as above for now.Transi tion back to tramadol as acute pain from discitis improves. Coronary arteriosclerosis 93428014 I25.10 No recent sxs.Contin ue meds as above.Caroline tor sxs and f/u with cardio as planned. Chronic constipation 236 273516 K59.09 Continue miralax 17 gmd TID.Monito r bowel function. Pain of left thigh 76659 68897 72827 M79.652 No clear etiology, could be c/w dermatomal distributi on of L2-3, but should r/o DVT as pt has been immobile.W ill get doppler U/S [id number] FRANCINE HOPKINS [address] [place] [address] [place] [address] 01/10/2023 13:37:56 01/14/2023 15:59:12 Osteomyelitis 28260536 M46.26 M46.46 Continue ceftriaxon e 2 gms IV qdvanco titrated to troughs of 10-15, until 02/12gabape ntin 300 mg TID,lidode rm patch qd,oxycodo ne 10 mg q 4 hrs prn.Monito r CBC, CMP, ESR and CRP weekly with labs to ID (Dr. Rasmussen, fax # ) F/U with ID on 02/07 as planned. Spinal iraida nosis of lumbar region 53790862 M48.061 Long standing issue, not surgical candidate per neurosurg. Continue PT/OT as above. Pain management as above for now. Transition back to tramadol as acute pain from discitis improves. [id number] IRENE GRIPPIN, BOOSTER PUMP OPERATOR [address] [address] 01/13/2023 14:27:28 01/16/2023 11:46:26 Deep venous thrombosis 853101783 I82.409 eliquis 10 mg bid to 01/20 then 5 mg bidmonitor cms to left leg Osteomyelitis 63793414 M 46.26 M46.46 Continue ceftriaxon e 2 gms IV qdvanco titrated to troughs of 10-15, until 02/12gabape ntin 300 mg TID,lidode rm patch qd,oxycodo ne 10 mg q 4 hrs prn.Monito r CBC, CMP, ESR and CRP weekly with labs to ID (Dr. Rasmussen, fax # ) F/U with ID on 02/07 as planned. [id number] IRENE SKINNER NP [address] [address] 01/15/2023 13:41:20 01/22/2023 08:29:11 Deep venous thrombosis 381427226 I82.409 eliquis 10 mg bid to 01/20 then 5 mg bidmonitor cms to left leg Osteomyelitis 63144430 M 46.26 M46.46 Continue ceftriaxon e 2 gms IV qdvanco titrated to troughs of 10-15, until 02/12gabape ntin 300 mg TID,lidode rm patch qd,oxycodo ne 10 mg q 4 hrs scheduledM onitor CBC, CMP, ESR and CRP weekly with labs to ID (Dr. Rasmussen, fax # [phone]) F/U with ID on 02/07 as planned. Spinal iraida nosis of lumbar region 18349152 M48.061 Long standing issue, not surgical candidate per neurosurg. Continue PT/OT as above. Pain management as above for now. Transition back to tramadol as acute pain from discitis improves. [id number] IRENE SKINNER NP [address] [place] [address] 01/17/2023 13:29:33 01/22/2023 13:29:10 Osteomyelitis 64100894 M46.26 M46.46 Continue ceftriaxon e 2 gms IV qdvanco titrated to troughs of 10-15, until 02/12vanco decreased to 500 mggabapent in 300 mg TID,lidode rm patch qd,oxycodo ne 10 mg q 4 hrs scheduledM onitor CBC, CMP, ESR and CRP weekly with labs to ID (Dr. Rasmussen, fax # ) F/U with ID on 02/07 as planned. Acute urticaria 47023500 9 L50.9 benedryl 25 mg q6hr prnprednis one burst with taper [id number] IRENE SKINNER NP [address] [address] 01/27/2023 12:42:15 01/29/2023 14:03:06 Osteomyelitis 23649179 M46.26 M46.46 Continue ceftriaxon e 2 gms IV qdvanco titrated to troughs of 10-15, until 02/12vanco decreased to 500 mggabapent in 300 mg TID,lidode rm patch qd,oxycodo ne 10 mg q 4 hrs scheduledM onitor CBC, CMP, ESR and CRP weekly with labs to ID (Dr. Rasmussen, fax # [phone]) F/U with ID on 02/07 as planned. Spinal iraida nosis of lumbar region 01116954 M48.061 Long standing issue, not surgical candidate per neurosurg. Continue PT/OT as above. Pain management as above for now. Transition back to tramadol as acute pain from discitis improves. Acute urticaria 57666929 9 L50.9 resolvedbe nedryl 25 mg q6hr prnprednis one burst with taper [id number] IRENE SKINNER NP [address] [address] 01/29/2023 10:04:40 01/31/2023 16:01:18 Osteomyelitis 45870172 M46.26 M46.46 Continue ceftriaxon e 2 gms IV qdvanco titrated to troughs of 10-15, until 02/12vanco decreased to 500 mgtrough 01/30gabape ntin 300 mg TID,lidode rm patch qd,oxycodo ne 10 mg q 4 hrs scheduledM onitor CBC, CMP, ESR and CRP weekly with labs to ID (Dr. Rasmussen, fax # ) F/U with ID on 02/07 as planned. [id number] IRENE SKINNER NP [address] [address] 02/05/2023 11:24:24 02/07/2023 16:01:50 Spinal stenosis of lumbar region 34823834 M48.061 Long standing issue, not surgical candidate per neurosurg. Continue PT/OT as above.Pain management as above for now.Transi tion back to tramadol as acute pain from discitis improves. Osteomyelitis 05760424 M 46.26 M46.46 Continue ceftriaxon e 2 gms IV qdvanco titrated to troughs of 10-15, until 02/12vanco decreased to 500 mgtrough 01/30gabape ntin 300 mg TID,lidode rm patch qd,oxycodo ne 10 mg q 4 hrs scheduledM onitor CBC, CMP, ESR and CRP weekly with labs to ID (Dr. Rasmussen, fax # ) F/U with ID on 02/07 as planned. [id number] IRENE SKINNER NP [address] [address] 02/12/2023 10:06:53 02/14/2023 11:50:02 Osteomyelitis 07232057 M46.26 M46.46 Continue ceftriaxon e 2 gms [...] SCHWARTZ REMOVED Type 2 sam betes mellitus 47376145 E11.22 glargine 28 units hslispro sliding scale tidmonitor glucose Hyperlipidemia 78367734 E78.5 atorvastat in 80 mg daily Essential hypertension 23914536 I10 coreg 6.25 mg bidmonitor bp History of renal transplant 065639326 Z48.22 tacrolimus 1gm bidmonitor labs Asthenia 18775664 R53.1 PT OT eval and treatfall precaution sfrequent safety checks Insomnia 418839271 G47.0 0 amitriptyl ine 25 mg hs Health Concerns Section Related Observation LastModified by Organization Detai ls LastModified Time None Recorded Concern Status LastModified by Organization Details LastModified Time None Recorded Advance Directives Directive Y: Payers Encounter Date Sequence Insurance Name Policy Number Policy Garcia Covered Member ID Garcia Member ID Guarantor Name 01/17/2023 1 [place] Aries E Savard [id number] Aries Savard 01/17/2023 2 [place] [id number] Aries Savard [id number] Aries Savard 01/27/2023 1 [place] Aries E Savard [id number] Aries Savard 01/27/2023 2 [place] [id number] Aries Savard [id number] Aries Savard 01/29/2023 1 [place] Aries E Savard [id number] 7 Aries Savard 01/29/2023 2 [place] [id number] Aries Savard [id number] 31 Aries Savard 02/05/2023 1 [place] Aries E Savard [id number] 7 Aries Savard 02/05/2023 2 [place] [id number] Aries Savard [id number] 31 Aries Savard 02/12/2023 1 [place] Aries E Savard [id number] 7 Aries Savard 02/12/2023 2 [place] [id number] Aries Rosario [id number] 31 Aries Rosario Notes Date Note Type [...] burst and benedryl IRENE SKINNER, FRANCINE [address] [facility], [address], [place], [address], [facility] 01/17/2023 14:08:35 01/27/2023 text/html seen today for acute rounding visit- CAOx3 oob independent in room, lungs clear, rash resolved, tolerating his abx tx IRENE SKINNER NP [address] [facility], [address], [place], [address], [facility] 01/27/2023 12:53:30 01/29/2023 text/html seen today for [...] todays dose, asymptomatic IRENE SKINNER NP [address] [facility], [address], [place], [address], [facility] 01/29/2023 12:20:39 02/05/2023 text/html seen today for acute rounding visit, CAOx3 sitting up in wheelchair, ambulates with walker, tolerating abx therapy, schwartz right chest ok IRENE SKINNER NP [address] [facility], [address], [place], [address], [facility] 02/05/2023 11:41:11 02/12/2023 text/html seen today [...] of the schwartz IRENE SKINNER, FRANCINE [address] [facility], [address], [place], [address], [facility] 02/12/2023 11:05:55
[2024-07-08 05:40] LABS: Basophils Percent Auto 0.2 % (0-2); Eosinophils Absolute Auto 0.3 X10*3/uL (0.0-0.4); Hematocrit 37.5 % (42.0-52.0); Hemoglobin 12.3 g/dl (14.0-18.0); Imm Gran Abs Auto 0.02 X10*3/uL (0.00-0.03); Imm Gran Pct Auto 0.3 % (0.0-0.4); Lymphocytes Absolute Auto 1.2 X10*3/uL (1.2-4.9); Lymphocytes Percent Auto 19.4 % (20-40); MANUAL DIFF FLAG SCAN; Mean Corpuscular HGB Conc 32.8 g/dl (31.0-36.0); Mean Corpuscular Hemoglobin 28.4 pg (27.0-33.0); Mean Corpuscular Volume 86.6 fL (80.0-98.0); Mean Platelet Volume 9.9 fL (9.4-12.4); Monocytes Absolute Auto 0.5 X10*3/uL (0.1-1.2); Neutrophils Absolute Auto 4.1 x10*3/uL (2.0-8.3); Neutrophils Percent Auto 67.1 % (45-73); Platelet Count 167 X10*3/uL (160-400); Red Blood Count 4.33 X10*6/uL (4.60-5.80); Red Cell Distribution Width 16.3 % (11.0-16.0); SCAN SMEAR FLAG 1
[2024-07-08 05:56] LABS: Alanine Aminotransferase 10 U/L (0-40); Albumin Level 2.9 g/dL (3.5-5.0); Alkaline Phosphatase 83 U/L (39-117); Anion Gap 14 (12-20); Aspartate Amino Transferase 31 U/L (5-37); Bilirubin Total 0.7 mg/dL (0.0-1.0); Blood Urea Nitrogen 30 mg/dL (9-16); Calcium 8.7 mg/dL (8.4-10.2); Carbon Dioxide 25 mmol/L (22-29); Chloride 104 mmol/L (96-108); Estimated Glomerular Filt Rate > 60; Glucose Random 126 mg/dL (60-115); Potassium 3.9 mmol/L (3.3-5.1); Sodium 139 mmol/L (135-145); Total Protein 7.5 g/dL (6.5-8.0)
[2024-07-08 06:02] LABS: SLIDE REVIEW VERIFIED
== END 2024-07-08 05:30 | disposition home or self-care (01) ==
LOC: HO.MMNH2L 05:29
PROVIDERS: Visit Provider Student in an Organized Health Care Education/Training Program
DX: L89.153 Pressure ulcer of sacral region, stage 3 (principal); E11.40 Type 2 diabetes mellitus with diabetic neuropathy, unspecified
CPT/HCPCS: 36415; 80053; 85025

== ENCOUNTER 2024-07-12 06:00 | Outpatient (REF) | payer MEDICARE, SELFPAY ==
[2024-07-12 05:42] LABS: MANUAL DIFF FLAG NO
--- OUTSIDE RECORDS SUMMARY | 2024-07-12 06:10 | XMS_ITS | Encounter Summary ---
Author Organization [facility] Address [address] [facility] [address] [place] [address] Phone Care Team Providers Care Cherry Sorter Name Role Phone Tiffanie Lugo BARROW WORKER Primary Care Provider [phone] Encounter Details Date Type Department Care Team (Late st Contact Info) Description 04/22/2023 Office Communication [facility] [address] [place] [address] Harman Medina MD [address] [facility] [address] [place] [address] Social History Tobacco Use Types [...] Office Visit [facility] [address] [address] Harman Medina MD [address] [address] documented as of this encounter Visit Diagnoses Not on filedocumented in this encounter Care Teams Cherry Sorter Relationship Specialty Start Date End Date Tiffanie Lugo NP [address] [place] [phone] PCP - General Nurse Practitioner 03/19/23 documented as of this encounter
--- OUTSIDE RECORDS SUMMARY | 2024-07-12 06:10 | XMS_ITS | Clinical Summary ---
Author Organization [facility] Address [address] [place] [address] Phone Care Team Providers Care Final Application Reviewer Name Role Phone Tiffanie Lugo FRANCINE Primary Care Provider [phone] Allergies No known active allergies Medications Acetaminophen [...] Height,... 1 Active Insulin Pen Needle (Pen Sunbright 1/2 ) 29G X 12MM misc See [...] 04/23/2022 Personal history of diabetic foot ulcer 11/22/20 22 Right carotid artery stenosis 01/30/2022 Patient [...] Telephone [facility] [address] [address] Yuan Sung MD from Last [...] 03/19/2023 3:36 PM EDT Plan of Treatment Upcoming Encounters Date Type Department Care Team (Late st Contact Info) Description 08/31/2024 3:30 PM EDT Office Visit [facility] [address] [phone] Harman Medina MD [address] [address] Health Maintenance Due Date Last Done Comments [...] Tacrolimus Lvl 3.9 Blood (Blood, Venous) 06/07/2024 us Historical Provider LAB BLOOD ORDERABLES [place] l Result * (ABNORMAL) Hemoglobin A1c (07/31/2022 8:10 AM EST) Hemoglobin A1C 7.0(H) (4.0-5.6) % [facility] Comment: MONITORING: In known diabetic patients, hemoglobin A1c targets should be discussed with health care provider. DIAGNOSTIC USE: ??The [place] Diabetes Association (ADA) and the World Health [...] Supplement 1 Testing performed or reported by [facility], a Service of [facility], [address] [place] [address] Dona Bliss MD, Forest Pathology Associate Professor [facility]# [id number] Blood (Blood, Venous) 07/31/2022 8:10 AM EST 07/31/2022 8:20 AM EST Amanda Holly MD LAB BLOOD ORDERABLES Final Resu lt [facility] from Last 3 Months or Most Recently Relevant to Health Maintenance Insurance [facility]ICARE [facility]IC[facility] Care Teams Final Application Reviewer Relationship Specialty Start Date End Date Tiffanie Lugo NP [address] [place] [phone] PCP - General Nurse Practitioner 03/19/23
--- OUTSIDE RECORDS SUMMARY | 2024-07-12 06:10 | XMS_ITS | Encounter Summary ---
Author Organization [facility] Address [address] [place] [address] Phone Care Team Providers Care Yacht Hand Name Role Phone Tiffanie Lugo FRANCINE Primary Care Provider [phone] Encounter Details Date Type Department Care Team (Late st Contact Info) Description 11/24/2023 Documentation Only [facility], [address] [place] [address] [place], [place] [address] [place] [address] Social History Tobacco Use Types [...] Visit [facility] [address] [address] Harman Medina MD [address] [address] documented as of this encounter Visit Diagnoses Not on filedocumented in this encounter Care Teams Yacht Hand Relationship Specialty Start Date End Date Tiffanie Lugo NP [address] [place] [phone] PCP - General Nurse Practitioner 03/19/23 documented as of this encounter
--- OUTSIDE RECORDS SUMMARY | 2024-07-12 06:10 | XMS_ITS | Clinical Summary ---
Author Organization [facility] Address [address] [place] [address] Phone Care Team Providers Care Plastic Molding Operator Name Role Phone Unavailable Primary Care [...]
--- OUTSIDE RECORDS SUMMARY | 2024-07-12 06:10 | XMS_ITS | Continuity of Care Document ---
Author Organization [facility] Address [address] [place] [address]- Support Name Relationship Address Phone JOHANNA, CECILIA [...] Unknown Lola vailable Care Team Providers Care Analyst Microbiology Lab Name Role Phone Tiffanie Lugo NP Primary Care Physician Encounter [facility] [id number] Date(s): 06/04/24 - 07/10/24 W[facility] Care [address] [place] [address]- Attending Physician: Jose Krause MD Admitting Physician: [...] pneumococcal 20-valent conjugate vaccine 3 12/10/22 Given [id number] 12y+ bivalent booster vax 05/01/22 Given pneumococcal 13-valent vaccine 01/30/22 Given SARS-CoV-2 (COVID-19) mRNA BNT-162b2 vac 03/14/21 Given SARS-CoV-2 (COVID-19) mRNA BNT-162b2 vac 09/06/20 Recorded SARS-CoV-2 (COVID-19) mRNA BNT-162b2 vac 08/16/20 Recorded pneumococcal 23-valent vaccine 4 01/14/14 Given 1Result Comment: [id number] 2Admin Note: Dialysis 3Result Comment: [id number] 4Admin Note: Dialysis Medications acetaminophen 325 mg [...] Refills, Maintenance, 07/30/23 9:48:00 AM EST, Tablet, [id number], 180, cm, 07/30/23 9:29:00 EST, Height, 111, [...] MRI Safety Implantable Status Assigning Authority Unknown [id number] Unknown Unknown 08/10/26 Unknown Unknown Active Unknown Patient Care team information Care Team Personnel Name: Orly Rose RN Position: [facility] RN Member Role: Primary Care Nurse Name: Radha Sanchez CNM Position: Reference Physician Member Role: Primary Care Nurse Address: [address] [place] [address] Telecom: Name: Elif Ravi RN Position: [facility] AMB Nurse Member Role: Primary Care Nurse Name: Willam Guido MD Position: [facility] Renal MD Member Role: Lifetime Consulting Physician Address: [address] [place] [address] [address] [facility] [place] [address]- [place] Telecom: Name: Francisca Zee Position: [facility] Outreach Member Role: Lifetime Consulting Physician Name: Michelle Hutchinson RN Position: [facility] RN Member Role: Primary Care Nurse Name: Shirley Cope RN Position: [facility] RN Member Role: Primary Care Nurse Name: Nely Nolan RN Position: [facility] RN Supv Member Role: Primary Care Nurse Name: Claire Hernandez Position: [facility] RN Member Role: Primary Care Nurse Name: Tiffanie Lugo NP Position: [facility] PCO Associate Professional Member Role: PCP Address: [address] [place] [address]- Telecom: Name: Dorothea Krishna NP Position: [facility] Associate Professional Member Role: Primary Care Nurse Name: Valerie Harrison RN Position: [facility] RN Member Role: Primary Care Nurse Name: Jake Yates MD Position: [facility] Renal MD Member Role: Lifetime Consulting Physician Address: [address] [place] [address] [address] [facility] [place] [address]- [place] Telecom: Name: Letty Benavidez RN Position: [facility] RN Member Role: Primary Care Nurse Name: Lauren Becker LPN Position: [facility] RN Member Role: Primary Care Nurse Name: May Doss RN Position: [facility] Hospital Seismic Plotter Member Role: Primary Care Nurse Name: Reny Oliva RN Position: [facility] AMB Nurse Member Role: Primary Care Nurse Name: Joshua Li MD Position: [facility] Renal MD Member Role: Lifetime Consulting Physician Address: [address] [place] [address] [address] [facility] [place] [address]- [place] Telecom: Name: Domingo Prince RN Position: [facility] RN Member Role: Primary Care Nurse Name: Hilda Moctezuma RN Position: [facility] RN Member Role: Primary Care Nurse Name: Karla Chairez RN Position: [facility] SN RN Member Role: Primary Care Nurse Name: Mya Phan RN Position: [facility] RN Supv Member Role: Primary Care Nurse Name: Lee Sifuentes RN Position: [facility] RN Member Role: Primary Care Nurse Name: Kira Garces NP Position: [facility] Associate Professional Member Role: Lifetime Consulting Provider Address: [address] [facility] [address] [facility] [place] [address]- Telecom: Name: Lilliam Marquez RN Position: [facility] ED RN W/OE and Tasks Member Role: Primary Care Nurse Name: Laurita Dos Santos RN Position: [facility] RN Member Role: Primary Care Nurse Name: Milan Hammond DO Position: [facility] Renal MD Member Role: Lifetime Consulting Physician Address: [address] [facility] [address] [facility] [place] [address]- Telecom: Name: Heydi Childress RN Position: [facility] RN Member Role: Primary Care Nurse Name: Emerita Fuentes RN Position: [facility] RN Member Role: Primary Care Nurse Name: Claire Augustine LPN Position: [facility] RN Member Role: Primary Care Nurse Name: Chloé Daavlos RN Position: [facility] RN Member Role: Primary Care Nurse Name: Julienne Pino Position: [facility] RN Member Role: Primary Care Nurse Name: Cecy Smalls RN Position: [facility] RN Member Role: Primary Care Nurse Name: Paola Menard RN Position: [facility] RN Member Role: Primary Care Nurse Name: Mejia Trotter MD Position: [facility] Outreach Member Role: Lifetime Consulting Physician Address: [address] [facility] [place] [address]- Telecom: Name: Yuan Sung MD Position: [facility] Renal MD Member Role: Lifetime Consulting Physician Address: [address] [facility] [place] [address]- [place] Telecom: Name: Lynn Aguilera RN Position: [facility] RN Member Role: Primary Care Nurse Name: Micheal Wharton RN Position: [facility] RN Member Role: Primary Care Nurse Name: Loli Lincoln RN Position: [facility] RN Member Role: Primary Care Nurse Name: Norma Azevedo Position: [facility] MA Member Role: Primary Care Nurse Name: Harman Medina MD Position: [facility] Renal MD Member Role: Lifetime Consulting Physician Address: [address] [facility] [address] [facility] [address] Telecom: Name: Henna Brandon RN Position: [facility] Seismic Plotter Member Role: Primary Care Nurse Name: Alexandrea Simpson RN Position: [facility] RN Member Role: Primary Care Nurse Name: Lilliam Cortes RN Position: [facility] RN Member Role: Primary Care Nurse Name: Radha Negron RN Position: [facility] RN Member Role: Primary Care Nurse Name: Floresita Soto RN Position: [facility] Onco RN Member Role: Primary Care Nurse Care Team Related Persons Name: MARIA GUADALUPE SPENCER Name: CECILIA SPENCER Insurance Providers Guarantor name: RODGER JOHANNA Health Plan Information #: 2 Payer: MEDEX Member Number: [id number] Policy Number: NA Group Number: NA Health Plan Information #: 1 Payer: MEDICARE PART B OUTPT Member Number: [id number] Policy Number: NA Group Number: NA
--- OUTSIDE RECORDS SUMMARY | 2024-07-12 06:10 | XMS_ITS ---
Author Organization [facility] Address [address] [place] [address] Care Team Providers Care Tractor Trailer Driver Name Role Phone Brittney Tiffanie HAWKINS Primary Care Provider Unavail George Thrasher Unavailable [phone] REASON FOR VISIT Painful nail(s) aggrevated by shoes and causing difficulty standing/walking., Open sore, Ulcer(s) Medications Medication SIG (Take, Route, Frequency, Duration) Notes Start Date End Date Status Night Splint AFO - L1930 as directed Active Extra Depth Diabetic Shoes with 3 Pair Custom heat-molded multi-density innersoles for 1 year Dx: Active Encounters Encounter Location Date Provider Diagnosis [facility] [address] [place] [address] 03/03/2024 George Chopra Type 1 diabetes mellitus [...] as necessary. Patient chooses, no pharmaceutical tx (81003) Debride skin< 25 sq cm Open wound [...] symptoms of infection or any untoward reactions (26187) Keratoma Treatment Parring or Cutting o f Benign Hyperkeratotic Lesion(s) 59454 (2-4 Lesions) - The Benign hyperkeratotic lesions, as described above were pared, and/or cut utilizing a sterile #15 blade, tissue nippers, and/or dremel Progress Notes * Aries ROSARIO EDOB:[birth year] (73 yo M)Acc No.[id number]:03/03/2024 Progress Note Patient:?SENAITAries HECK E Provider:?George Chopra DPM :1950???Age:73 Y???Sex:Male Suresh e:03/03/2024 Address:[address] [place], [place] [id number] Pcp:SHRUTHI Vicente Subjective: * Chief Complaints: * ???1. Painful nail(s) aggrev ated by shoes and causing difficulty standing/walking.. 2. Open sore. 3. Ulcer(s). * HPI: ???Skin problems:?Nature:?Ulcer.?Location:?Bottom, Forefoot, Left , 1st.?Duration:?several weeks--six.?Course:?improved.?Aggravated by:?standing, walking.?Treatments:?pt tx at [facility] every other week and dressing changes qod with ; pt going to [facility].?Heel pain:?Location:?Proximal plantar aspect of Heel, RIGHT.?Onset/Cause:?unknown, [...] as necessary. Patient chooses, no pharmaceutical tx (42805).?Debride skin< 25 sq cm:?Open wound?Open wound selective [...] symptoms of infection or any untoward reactions (75305).?Keratoma Treatment:?Parring or Cutting of Benign Hyperkeratotic Lesion(s)?99094 (2-4 Lesions) - The Benign hyperkeratotic lesions, as described above were pared, and/or cut utilizing a sterile #15 blade, tissue nippers, and/or dremel.? * Procedure Codes:?24812 DEBRI DE NAIL, 6 OR MORE, Modifiers: XS , 84252 ACTIVE WOUND CARE/20 CM OR <, 58169 TRIM SKIN LESIONS, 2 TO 4, Modifiers: XS * Follow Up:?6 Months * Images: * The named appointment provid er may or may not be the originator of this progress note, and it is not deemed complete until electronically signed by the appointment provider. Sign off status: Pending * Provider:Missy Chopra DPM Date:? 024 Generated for Jennifer calderón/Dia/Savannahitting on:?07/12/2024 06:10 AM EST History and Physical Notes * [...] by: standing, walking Treatments: pt tx at [facility] w[facility] every other week and dressing changes qod with ; pt going to [facility] Risk footcare Pt States Last [...]
--- OUTSIDE RECORDS SUMMARY | 2024-07-12 06:10 | XMS_ITS | Encounter Summary ---
Author Organization [facility] Address [address] [place] [phone] Phone Care Team Providers Care Edge Stainer Name Role Phone Unavailable Primary Care Provider Unavailabl e Encounter Details Date Type Department Care Team (Late st Contact Info) Description 11/07/2016 Office Visit [facility] [address] [place] [address] ProviderHerber MD [address] [place] [address] Social History Tobacco Use Types Packs/Day [...]
--- OUTSIDE RECORDS SUMMARY | 2024-07-12 06:10 | XMS_ITS | Data Portability ---
Author Organization [facility], Main Office Address [address] [facility] [place] [address] Care Team Providers Care Director Engineering Name Role Phone MELISSA ROWLAND 2ND FLOOR OTHER PRABHAKAR DAMICO Primary Care Provider Assessment No [...] and Address Organization Details Recorded Time Osteomyelitis 11723808 Active 2022 IRENE SKINNER NP [address] , [address], [place], [address], [facility] [employer] [facility] 3 12:54:43 Type 2 diabetes mellitus 82351887 Active 2022 IRENE SKINNER NP [address], [address], [place], [address], [facility] [employer] 3 13:02:35 Essential hypertension 20129518 Active 2022 IRENE SKINNER NP [address], [address], [place], [address], [facility] [employer] 3 13:03:00 Hyperlipidemia 30690546 Active 2022 IRENE SKINNER NP [address], [address], [place], [address], [facility] [employer] 3 13:03:12 History of renal transplant 066822559 Active 2022 IRENE SKINNER NP [address], [address], [place], [address], [facility] 3 13:03:24 Asthenia 64902794 Active 2022 IRENE SKINNER NP [address], [address], [place], [address], [facility] 3 13:03:41 Insomnia 005768830 Active 2022 IRENE SKINNER NP [address], [address], [place], [address], [facility] 3 13:21:26 Spinal stenosis of lumbar region 07244545 Active 2022 Yanique Verdin MD [address], [address], [place], [address], [facility] 3 15:00:42 Chronic constipation 495046062 Active 2022 Yanique Verdin MD [address] [facility], [address], [place], [address], [facility] 3 15:14:15 Coronary arterioscleros is 29835738 Active 2022 Yanique Verdin MD [address] [facility], [address], [place], [address], [facility] 3 15:14:18 Deep venous thrombosis 342045180 Active 2022 IRENE SKINNER NP [address] [facility], [address], [place], [address], [facility] 3 14:34:30 Acute urticaria 663502971 Active 2022 IRENE SKINNER NP [address] [facility], [address], [place], [address], [facility] 3 14:05:35 Problem Notes None recorded. Medical [...] mm[Hg] 72 mm[Hg] IRENE SKINNER NP [address] [facility], [address], [place], [address], [facility] 3 14:03:34 Date Recorded Body height Heart rate Respiratory rate Body temperature Oxygen saturation Oxygen saturation in Arterial blood by Pulse oximetry Systolic blood pressure Diastolic blood pressure Provider Name and Address Organization Details Last Updated DateTime 3 180.34 cm 75 /min 16 /min 97.3 [degF] 96 % 96 % 132 mm[Hg] 76 mm[Hg] IRENE SKINNER NP [address] [facility], [address], [place], [address], [facility] 3 12:50:47 Date Recorded Body height Heart rate Respiratory rate Body temperature Oxygen saturation Oxygen saturation in Arterial blood by Pulse oximetry Systolic blood pressure Diastolic blood pressure Provider Name and Address Organization Details Last Updated DateTime 3 180.34 cm 77 /min 16 /min 97.8 [degF] 96 % 96 % 130 mm[Hg] 74 mm[Hg] IRENE SKINNER NP [address] , [address], [place], [address], [facility] 3 12:16:34 Date Recorded Body height Heart rate Respiratory rate Body temperature Oxygen saturation Oxygen saturation in Arterial blood by Pulse oximetry Systolic blood pressure Diastolic blood pressure Provider Name and Address Organization Details Last Updated DateTime 3 180.34 cm 67 /min 16 /min 97.6 [degF] 98 % 98 % 135 mm[Hg] 74 mm[Hg] IRENE SKINNER NP [address] , [address], [place], [address], [facility] 3 11:38:28 Date Recorded Body height Heart rate Respiratory rate Body temperature Oxygen saturation Oxygen saturation in Arterial blood by Pulse oximetry Systolic blood pressure Diastolic blood pressure Provider Name and Address Organization Details Last Updated DateTime 3 180.34 cm 72 /min 16 /min 98 [degF] 97 % 97 % 132 mm[Hg] 68 mm[Hg] IRENE SKINNER NP [address] [facility], [address], [place], [address], [employer] [facility] 3 11:00:29 Social History Question Answer Notes LastModified by Organizat ion Details LastModified Time Tobacco Smoking Status Former Smoker IRENE SKINNER NP [address] [facility], [address], [place], [address], [facility] [employer] 01/08/2023 12:57:22 Do You Have An Advance [...] Do You Have A Medical Power Of [place] Stitcher? Yes Not Invoked Information not available 01/09/2023 [...] Details Recorded Time Pneumococcal conjugate PCV20, polysaccharide [id number] conjugate, adjuvant, PF [address] [facility] 01/14/2023 12:34:16 SARS-COV-2 (COVID-19) vaccine, UNSPECIFIED [address] [facility] 01/14/2023 12:34:40 SARS-COV-2 (COVID-19) vaccine, UNSPECIFIED 1 completed Tisha [facility] 01/14/2023 12:34:55 SARS-COV-2 (COVID-19) vaccine, UNSPECIFIED 1 completed Tisha [facility] 01/14/2023 12:35:06 SARS-COV-2 (COVID-19) vaccine, UNSPECIFIED 1 completed Tisha [facility] 01/14/2023 12:35:15 influenza, unspecified formulation 2 completed Tisha [facility] 01/14/2023 12:35:39 pneumococcal polysaccharide PPV23 [address] [facility] 01/14/2023 12:36:12 Influenza, adjuvanted, quadrivalent, PF [address] [facility] 10/17/2023 10:37:00 Td (adult), 5 Lf tetanus toxoid, preservative free, adsorbed [address] [facility] 10/17/2023 10:37:17 Past Encounters Encounter ID Performer Location Encounter Start Date Encounter Closed Date Diagnosis/Indication Diagnosis SNOMED-CT Code Diagnosis ICD10 Code Diagnosis Note [id number] FRANCINE HOPKINS [address] [facility] [place] SEGOV[place] [address] 01/08/2023 11:23:17 01/14/2023 15:37:27 Osteomyelitis 33650018 M86.9 oxycodone 10 mg q4hr prnvanco 1000 mg increased to 1250 mg iv daily to 02/12roceph in 2 gm iv daily to 02/12gabape ntin 300 mg tidf/u with ID 02/07 Type 2 sam betes mellitus 87941819 E11.22 glargine 28 units hslispro sliding scale tidmonitor glucose Hyperlipidemia 06683326 E78.5 atorvastat in 80 mg daily Essential hypertension 94180245 I10 coreg 6.25 mg bidmonitor bp History of renal transplant 953148615 Z48.22 tacrolimus 1gm bidmonitor labs Asthenia 57251067 R53.1 PT OT eval and treatfall precaution sfrequent safety checks Insomnia 368650147 G47.0 0 amitriptyl ine 25 mg [id number] MD MELISAS Mondragon [address] [place] [address] 01/09/2023 13:16:08 01/14/2023 15:47:55 Osteomyelitis 45870716 M46.26 M46.46 Continue ceftriaxon e 2 gms IV qd and vanco titrated to troughs of 10-15, until ontin ue gabapentin 300 mg TID, lidoderm patch qd, oxycodone 10 mg q 4 hrs prn.Monito r CBC, CMP, ESR and CRP weekly with labs to ID (Dr. Rasmussen, fax # [phone])F/U with ID on 02/07 as planned. Type 2 sam betes mellitus 69232208 E11.22 Fair control since here. Last HgA1C 7.0 in 07/2022.Con tinue Lantus 28 units qhs and SSIMonitor fingerstic ks TID and HgA1C as outpt. Hyperlipidemia 20554917 E78.49 Good in ont inue atorvastat in 80 mg qd and ASA 81 mg qd.Monitor labs as outpt. Essential hypertension 55114154 I10 SBP high or borderline since here, likely due to pain, won't make any changes for now.Contin ue carvedilol 6.25 mg BID.Monito r BP and labs. History of renal transplant 788246004 Z48.22 With good renal function.C ontinue tacrolimus 1 gm BIDMonitor labsF/U with renal as planned. Asthenia 20860145 R53.1 Very deconditio tasneem.Needs PT/OT for strengthen ing, balance, gait training, safety and function.C ontinue fall precaution s.Monitor for safety. Insomnia 955578917 G47.0 0 Continue amitriptyl ine 25 mg qhsMonitor sleep patterns Anemia 558553377 D64.89 Multifacto rial, stable.Mon itor labs Spinal iraida nosis of lumbar region 10605278 M48.061 Long standing issue, not surgical candidate per neurosurg. Continue PT/OT as above.Pain management as above for now.Transi tion back to tramadol as acute pain from discitis improves. Coronary arteriosclerosis 37649674 I25.10 No recent sxs.Contin ue meds as above.Caroline tor sxs and f/u with cardio as planned. Chronic constipation 236 298467 K59.09 Continue miralax 17 gmd TID.Monito r bowel function. Pain of left thigh 93714 67341 73473 M79.652 No clear etiology, could be c/w dermatomal distributi on of L2-3, but should r/o DVT as pt has been immobile.W ill get doppler U/S [id number] FRANCINE HOPKINS [address] [place] [address] [place] [address] 01/10/2023 13:37:56 01/14/2023 15:59:12 Osteomyelitis 40355133 M46.26 M46.46 Continue ceftriaxon e 2 gms IV qdvanco titrated to troughs of 10-15, until 02/12gabape ntin 300 mg TID,lidode rm patch qd,oxycodo ne 10 mg q 4 hrs prn.Monito r CBC, CMP, ESR and CRP weekly with labs to ID (Dr. Rasmussen, fax # ) F/U with ID on 02/07 as planned. Spinal iraida nosis of lumbar region 02300400 M48.061 Long standing issue, not surgical candidate per neurosurg. Continue PT/OT as above. Pain management as above for now. Transition back to tramadol as acute pain from discitis improves. [id number] IRENE GRIPPIN, SE[employer] CAPTAIN [address] [address] 01/13/2023 14:27:28 01/16/2023 11:46:26 Deep venous thrombosis 097747427 I82.409 eliquis 10 mg bid to 01/20 then 5 mg bidmonitor cms to left leg Osteomyelitis 83867312 M 46.26 M46.46 Continue ceftriaxon e 2 gms IV qdvanco titrated to troughs of 10-15, until 02/12gabape ntin 300 mg TID,lidode rm patch qd,oxycodo ne 10 mg q 4 hrs prn.Monito r CBC, CMP, ESR and CRP weekly with labs to ID (Dr. Rasmussen, fax # [phone]) F/U with ID on 02/07 as planned. [id number] IRENE SKINNER NP [address] [address] 01/15/2023 13:41:20 01/22/2023 08:29:11 Deep venous thrombosis 575480589 I82.409 eliquis 10 mg bid to 01/20 then 5 mg bidmonitor cms to left leg Osteomyelitis 85593380 M 46.26 M46.46 Continue ceftriaxon e 2 gms IV qdvanco titrated to troughs of 10-15, until 02/12gabape ntin 300 mg TID,lidode rm patch qd,oxycodo ne 10 mg q 4 hrs scheduledM onitor CBC, CMP, ESR and CRP weekly with labs to ID (Dr. Rasmussen, fax # ) F/U with ID on 02/07 as planned. Spinal iraida nosis of lumbar region 52640997 M48.061 Long standing issue, not surgical candidate per neurosurg. Continue PT/OT as above. Pain management as above for now. Transition back to tramadol as acute pain from discitis improves. [id number] IRENE SKINNER NP [address] [place] [address] 01/17/2023 13:29:33 01/22/2023 13:29:10 Osteomyelitis 35228140 M46.26 M46.46 Continue ceftriaxon e 2 gms IV qdvanco titrated to troughs of 10-15, until 02/12vanco decreased to 500 mggabapent in 300 mg TID,lidode rm patch qd,oxycodo ne 10 mg q 4 hrs scheduledM onitor CBC, CMP, ESR and CRP weekly with labs to ID (Dr. Rasmussen, fax # ) F/U with ID on 02/07 as planned. Acute urticaria 43090856 9 L50.9 benedryl 25 mg q6hr prnprednis one burst with taper [id number] IRENE SKINNER NP [address] [address] 01/27/2023 12:42:15 01/29/2023 14:03:06 Osteomyelitis 01321493 M46.26 M46.46 Continue ceftriaxon e 2 gms IV qdvanco titrated to troughs of 10-15, until 02/12vanco decreased to 500 mggabapent in 300 mg TID,lidode rm patch qd,oxycodo ne 10 mg q 4 hrs scheduledM onitor CBC, CMP, ESR and CRP weekly with labs to ID (Dr. Rasmussen, fax # [phone]) F/U with ID on 02/07 as planned. Spinal iraida nosis of lumbar region 64109483 M48.061 Long standing issue, not surgical candidate per neurosurg. Continue PT/OT as above. Pain management as above for now. Transition back to tramadol as acute pain from discitis improves. Acute urticaria 98807598 9 L50.9 resolvedbe nedryl 25 mg q6hr prnprednis one burst with taper [id number] IRENE SKINNER NP [address] [address] 01/29/2023 10:04:40 01/31/2023 16:01:18 Osteomyelitis 55705685 M46.26 M46.46 Continue ceftriaxon e 2 gms IV qdvanco titrated to troughs of 10-15, until 02/12vanco decreased to 500 mgtrough 01/30gabape ntin 300 mg TID,lidode rm patch qd,oxycodo ne 10 mg q 4 hrs scheduledM onitor CBC, CMP, ESR and CRP weekly with labs to ID (Dr. Rasmussen, fax # ) F/U with ID on 02/07 as planned. [id number] IRENE SKINNER NP [address] [address] 02/05/2023 11:24:24 02/07/2023 16:01:50 Spinal stenosis of lumbar region 09529126 M48.061 Long standing issue, not surgical candidate per neurosurg. Continue PT/OT as above.Pain management as above for now.Transi tion back to tramadol as acute pain from discitis improves. Osteomyelitis 81356413 M 46.26 M46.46 Continue ceftriaxon e 2 gms IV qdvanco titrated to troughs of 10-15, until 02/12vanco decreased to 500 mgtrough 01/30gabape ntin 300 mg TID,lidode rm patch qd,oxycodo ne 10 mg q 4 hrs scheduledM onitor CBC, CMP, ESR and CRP weekly with labs to ID (Dr. Rasmussen, fax # [phone]) F/U with ID on 02/07 as planned. [id number] IRENE SKINNER NP [address] [address] 02/12/2023 10:06:53 02/14/2023 11:50:02 Osteomyelitis 81752444 M46.26 M46.46 Continue ceftriaxon e 2 gms [...] SCHWARTZ REMOVED Type 2 sam betes mellitus 58295848 E11.22 glargine 28 units hslispro sliding scale tidmonitor glucose Hyperlipidemia 58536826 E78.5 atorvastat in 80 mg daily Essential hypertension 04269146 I10 coreg 6.25 mg bidmonitor bp History of renal transplant 873618367 Z48.22 tacrolimus 1gm bidmonitor labs Asthenia 56305609 R53.1 PT OT eval and treatfall precaution sfrequent safety checks Insomnia 730285360 G47.0 0 amitriptyl ine 25 mg hs Health Concerns Section Related Observation LastModified by Organization Detai ls LastModified Time None Recorded Concern Status LastModified by Organization Details LastModified Time None Recorded Advance Directives Directive Y: Payers Encounter Date Sequence Insurance Name Policy Number Policy Garcia Covered Member ID Garcia Member ID Guarantor Name 01/17/2023 1 [place] Aries E Savard [id number] Aries Savard 01/17/2023 2 [place] [id number] Aries Savard [id number] Aries Savard 01/27/2023 1 [place] Aries E Savard [id number] Aries Savard 01/27/2023 2 [place] [id number] Aries Savard [id number] Aries Savard 01/29/2023 1 [place] Aries E Savard [id number] 7 Aries Savard 01/29/2023 2 [place] [id number] Aries Savard [id number] Aries Savard 02/05/2023 1 [place] Aries E Savard [id number] 7 Aries Savard 02/05/2023 2 [place] [id number] Aries Savard [id number] Aries Savard 02/12/2023 1 [place] Aries E Savard [id number] 7 Aries Savard 02/12/2023 2 [place] [id number] Aries Rosario [id number] Aries Rosario Notes Date Note Type [...] burst and benedryl IRENE SKINNER, FRANCINE [address] [facility], [address], [place], [address], [facility] [employer] [facility] 01/17/2023 14:08:35 01/27/2023 text/html seen today for acute rounding visit- CAOx3 oob independent in room, lungs clear, rash resolved, tolerating his abx tx IRENE SKINNER NP [address] [facility], [address], [place], [address], [facility] 01/27/2023 12:53:30 01/29/2023 text/html seen today for [...] todays dose, asymptomatic IRENE SKINNER NP [address] [facility], [address], [place], [address], [facility] 01/29/2023 12:20:39 02/05/2023 text/html seen today for acute rounding visit, CAOx3 sitting up in wheelchair, ambulates with walker, tolerating abx therapy, schwartz right chest ok IRENE SKINNER NP [address] [facility], [address], [place], [address], [facility] 02/05/2023 11:41:11 02/12/2023 text/html seen today [...] of the schwartz IRENE SKINNER, FRANCINE [address] [facility], [address], [place], [address], [facility] 02/12/2023 11:05:55
--- OUTSIDE RECORDS SUMMARY | 2024-07-12 06:11 | XMS_ITS | Patient Health Record ---
Author Organization [facility] Address [address] [facility] [place] [address] Care Team Providers Care Continuous Dryout Operator Helper Name Role Phone Brittney Tiffanie HAWKINS Primary Care Provider Unavail able Nav George Unavailable [phone] Allergies No Known Allergies Results Component Value [...] Risk Notes Problem Chronic ulcer of foot (978860771) Non-pressure chronic ulcer of other part of left foot with fat layer exposed (L97.522) Active confirmed Problem Localized, primary osteoarthritis of the ankle and/or foot (740267743) Primary osteoarthritis, left ankle and foot (M19.072) Active confirmed Problem Acquired hallux rigidus (2011733) Hallux rigidus, left foot (M20.22) Active confirmed Problem Non-pressure chronic ulcer of other part of left foot limited to breakdown of skin (L97.521) Active confirmed Problem Acquired hallux valgus (85181728) Hallux valgus (acquired), left foot (M20.12) Active confirmed Problem Acquired hammer toe of right foot (0967815813688418 ) Other hammer toe(s) (acquired), right foot (M20.41) Active confirmed Problem Acquired hammer toe of left foot (2225399868380631 ) Other hammer toe(s) (acquired), left foot (M20.42) Active confirmed Problem Polyneuropathy due to type 2 diabetes mellitus (890181445) Type 2 diabetes mellitus with diabetic polyneuropathy (E11.42) Active confirmed Problem Polyneuropathy due to diabetes mellitus type I (466618042) Type 1 diabetes mellitus with diabetic polyneuropathy (E10.42) Active confirmed Problem Acquired hallux rigidus (4993765) Hallux rigidus, right foot (M20.21) Active confirmed Vital Signs Blood pressure diastolic 80 mm Hg 09/01/2023 Height 5ft 11in in 09/01/2023 Blood pressure systolic 120 mm Hg 09/01/2023 Weight 244 lbs 09/01/2023 BMI 34.03 kg/m2 09/01/2023 Encounters Encounter Location Date Provider Diagnosis [address] [address] 09/01/2023 George Chopra Type 1 diabetes mellitus [...] foot limited to breakdown of skin L97.[address] [address] 02/27/2024 George Chopra Assessments Encounter Date Diagnosis [...] X ray : Foot, left 3V 09/20/2021 33999-MLKRKKL SKIN/TISSUE 09/20/2021 89786-QPUJHFH SKIN/TISSUE 03/29/2021 96236-KUKQRCD SKIN/TISSUE 10/01/2021 44089-KUXKWXN SKIN/TISSUE 12/10/2021 59913-SLPXHNX SKIN/TISSUE 09/09/2022 57984-WHAXUKX SKIN/TISSUE 01/25/2021 32596-LQAW SKIN LESIONS, OVER 4 03/29/20 21 79179-KWVO SKIN LESIONS, OVER 4 09/21/19 22 18598-EADE SKIN LESIONS, 2 TO 4 09/10/19 23 Insurance Providers Payer Name Payer Address Payer Phone Subscriber Number Group Number Insured Name Patient Relationship to Insured Coverage Start Date Coverage End Date Medicare National [employer]t [employer] [address] [place] [address] [id number] Aries Rosario Self - patient is the insured [employer] [address] [place] [address] [id number] Aries Rosario Self - patient is the [...]
--- OUTSIDE RECORDS SUMMARY | 2024-07-12 06:11 | XMS_ITS | Clinical Summary ---
Author Organization [facility] Address [address] [place] [address] Care Team Providers Care Garment Presser Name Role Phone Pcp, No Primary Care [...] age to complete this topic Care Teams Garment Presser Relationship Specialty Start Date End Date Pcp, No [address] [place] [address] PCP - General 02/13/22
--- OUTSIDE RECORDS SUMMARY | 2024-07-12 06:11 | XMS_ITS ---
Author Organization [facility] Address [address] [place] [address] Care Team Providers Care Workers Compensation Coordinator Name Role Phone Brittney Tiffanie HAWKINS Primary Care Provider Unavail George Thrasher Unavailable [phone] REASON FOR VISIT cx appt 03/03 Encounters Encounter Location Date Provider Diagnosis [facility] [address] [place] [address] 02/27/2024 George Chopra Plan Of Treatment No Information Progress Notes * Aries ROSARIO EDOB:[birth year] (73 yo M)Acc No.[id number]:02/27/2024 Patient:?Aries Rosario :1950???Age:73 Y???Sex:Male [address] [facility] [facility] [facility] [place], [address] * true * Date:? Generated for Printi ng/Famoniqueg/eTransmitting on:?07/12/2024 06:11 AM EST
--- OUTSIDE RECORDS SUMMARY | 2024-07-12 06:11 | XMS_ITS ---
Author Organization [facility] Address [address] [place] [address] Care Team Providers Care Litigation Examiner Name Role Phone Brittney Tiffanie HAWKINS Primary Care Provider Unavail able George Chopra Unavailable [phone] Allergies No Known Allergies REASON FOR VISIT [...] 024 Encounters Encounter Location Date Provider Diagnosis [facility] [address] [address] 09/01/2023 George Chopra Type 1 diabetes mellitus [...] as necessary. Patient chooses, no pharmaceutical tx (88600) Debride skin< 25 sq cm Open wound [...] symptoms of infection or any untoward reactions (84757) Keratoma Treatment Parring or Cutting o f Benign Hyperkeratotic Lesion(s) 18623 (2-4 Lesions) - The Benign hyperkeratotic lesions, as described above were pared, and/or cut utilizing a sterile #15 blade, tissue nippers, and/or dremel Progress Notes * JOHANNA Aries EDOB:[birth year] (72 yo M)Acc No.[id number]:09/01/2023 Progress Note Patient:?Aries Rosario Provider:?George Chopra DPM :1950???Age:72 Y???Sex:Male Suresh e:09/01/2023 Address:[address] [place], [place] [address] Pcp:SHRUTHI Vicente Subjective: * Chief Complaints: * ???Painful nail(s) aggrevate d by shoes and causing difficulty standing/walking.Open soreUlcer(s) * HPI: ???Skin problems:?Nature:?Ulcer.?Location:?Bottom, Forefoot, Left , 1st.?Duration:?several weeks--six.?Course:?improved.?Aggravated by:?standing, walking.?Treatments:?pt tx at [facility] wd ctr every other week and dressing changes qod with ; pt going to [facility].?Heel pain:?Location:?Proximal plantar aspect of Heel, RIGHT.?Onset/Cause:?unknown, denies [...] as necessary. Patient chooses, no pharmaceutical tx (60382).?Debride skin< 25 sq cm:?Open wound?Open wound selective [...] symptoms of infection or any untoward reactions (36737).?Keratoma Treatment:?Parring or Cutting of Benign Hyperkeratotic Lesion(s)?31810 (2-4 Lesions) - The Benign hyperkeratotic lesions, as described above were pared, and/or cut utilizing a sterile #15 blade, tissue nippers, and/or dremel.? * Procedure Codes:?08723 DEBRI DE NAIL, 6 OR MORE, Modifiers: XS 68434 ACTIVE WOUND CARE/20 CM OR <13023 TRIM SKIN LESIONS, 2 TO 4, Modifiers: [...] DPM Date:? 024 Generated for Jennifer calderón/Dia/Marquise on:?07/12/2024 06:10 AM EST History and Physical [...] by: standing, walking Treatments: pt tx at [facility] wd ctr every other week and dressing changes qod with ; pt going to [facility] footcare Pt States Last PCP [...]
[2024-07-12 06:17] LABS: Basophils Percent Auto 0.3 % (0-2); Eosinophils Absolute Auto 0.2 X10*3/uL (0.0-0.4); Eosinophils Percent Auto 3.7 % (0-4); Hematocrit 37.6 % (42.0-52.0); Hemoglobin 12.2 g/dl (14.0-18.0); Imm Gran Abs Auto 0.04 X10*3/uL (0.00-0.03); Imm Gran Pct Auto 0.6 % (0.0-0.4); Lymphocytes Absolute Auto 1.3 X10*3/uL (1.2-4.9); Lymphocytes Percent Auto 21.2 % (20-40); Mean Corpuscular HGB Conc 32.4 g/dl (31.0-36.0); Mean Corpuscular Hemoglobin 28.6 pg (27.0-33.0); Mean Corpuscular Volume 88.1 fL (80.0-98.0); Mean Platelet Volume 10.4 fL (9.4-12.4); Monocytes Absolute Auto 0.5 X10*3/uL (0.1-1.2); Monocytes Percent Auto 7.3 % (2-11); Neutrophils Absolute Auto 4.2 x10*3/uL (2.0-8.3); Neutrophils Percent Auto 66.9 % (45-73); Platelet Count 187 X10*3/uL (160-400); Red Blood Count 4.27 X10*6/uL (4.60-5.80); White Blood Count 6.3 X10*3/uL (4.8-10.8)
[2024-07-12 06:34] LABS: Anion Gap 13 (12-20); Blood Urea Nitrogen 30 mg/dL (9-16); Calcium 8.4 mg/dL (8.4-10.2); Carbon Dioxide 21 mmol/L (22-29); Chloride 110 mmol/L (96-108); Estimated Glomerular Filt Rate > 60; Glucose Random 156 mg/dL (60-115); Potassium 4.1 mmol/L (3.3-5.1); Sodium 140 mmol/L (135-145)
[2024-07-13 19:09] LABS: Tacrolimus Prograf 4.1 mcg/L
== END 2024-07-12 06:01 | disposition home or self-care (01) ==
LOC: HO.MMNH2L 06:00
PROVIDERS: Visit Provider Nurse Practitioner
DX: E11.40 Type 2 diabetes mellitus with diabetic neuropathy, unspecified (principal); Z94.0 Kidney transplant status; I10 Essential (primary) hypertension
CPT/HCPCS: 36415; 80048; 80197; 85025

== ENCOUNTER 2024-07-13 05:16 | Outpatient (REF) | payer MEDICARE, SELFPAY ==
--- OUTSIDE RECORDS SUMMARY | 2024-07-13 05:18 | XMS_ITS | Encounter Summary ---
Author Organization [facility] Address [address] [facility] [facility] [address] [place] [address] Phone Care Team Providers Care Ordinary Seaman Name Role Phone Tiffanie Lugo SIGNAL SYSTEM TESTING MAINTAINER Primary Care Provider [phone] Encounter Details Date Type Department Care Team (Late st Contact Info) Description 04/22/2023 Office Communication [facility] [address] [place] [address] [place] [address] Harman Medina MD [address] [facility] [address] [place] [address] Social History Tobacco Use Types [...] Office Visit [facility] [address] [address] Harman Medina MD [address] [address] documented as of this encounter Visit Diagnoses Not on filedocumented in this encounter Care Teams Ordinary Seaman Relationship Specialty Start Date End Date Tiffanie Lugo NP [address] [place] [phone] PCP - General Nurse Practitioner 03/19/23 documented as of this encounter
--- OUTSIDE RECORDS SUMMARY | 2024-07-13 05:18 | XMS_ITS | Encounter Summary ---
Author Organization [facility] Address [address] [place] [address] Phone Care Team Providers Care Stocking Inspector Name Role Phone Tiffanie Lugo FRANCINE Primary Care Provider [phone] Encounter Details Date Type Department Care Team (Late st Contact Info) Description 11/24/2023 Documentation Only [facility] [place], [address] [place] [address] Kimmie [place], [place] [address] [place] [address] Social History Tobacco Use Types [...] Visit [facility] [address] [address] Harman Medina MD [address] [address] documented as of this encounter Visit Diagnoses Not on filedocumented in this encounter Care Teams Stocking Inspector Relationship Specialty Start Date End Date Tiffanie Lugo NP [address] [place] [phone] PCP - General Nurse Practitioner 03/19/23 documented as of this encounter
--- OUTSIDE RECORDS SUMMARY | 2024-07-13 05:19 | XMS_ITS | Clinical Summary ---
Author Organization [facility] Address [address] [place] [address] Care Team Providers Care Child Welfare Director Name Role Phone Pcp, No Primary Care [...] age to complete this topic Care Teams Child Welfare Director Relationship Specialty Start Date End Date Pcp, No [address] [place] [address] PCP - General 02/13/22
--- OUTSIDE RECORDS SUMMARY | 2024-07-13 05:19 | XMS_ITS | Encounter Summary ---
Author Organization [facility] Address [address] [place] [address] Phone Care Team Providers Care Contact And Service Clerks Supervisor Name Role Phone Unavailable Primary Care Provider Unavailabl e Encounter Details Date Type Department Care Team (Late st Contact Info) Description 11/07/2016 Office Visit [facility] [address] [place] [address] ProviderHerber MD [address] [place] [address] Social History Tobacco Use Types Packs/Day [...]
--- OUTSIDE RECORDS SUMMARY | 2024-07-13 05:19 | XMS_ITS | Clinical Summary ---
Author Organization [facility] Address [address] [place] [address] Phone Care Team Providers Care Injection Molding Supervisor Name Role Phone Unavailable Primary Care [...]
[2024-07-13 06:16] LABS: Microalbum/Creatinine Ratio Ur 51.2 ug/mg cr (<30)
== END 2024-07-13 05:17 | disposition home or self-care (01) ==
LOC: HO.MMNH2L 05:16
PROVIDERS: Visit Provider Student in an Organized Health Care Education/Training Program
DX: N17.9 Acute kidney failure, unspecified (principal); E11.40 Type 2 diabetes mellitus with diabetic neuropathy, unspecified; Z94.0 Kidney transplant status
CPT/HCPCS: 82043; 82570

== ENCOUNTER 2024-07-19 05:57 | Outpatient (REF) | payer MEDICARE, SELFPAY ==
[2024-07-19 06:00] LABS: MANUAL DIFF FLAG NO
--- OUTSIDE RECORDS SUMMARY | 2024-07-19 06:02 | XMS_ITS | Continuity of Care Document ---
Author Organization [facility] Address [address] [place] [address]- Support Name Relationship Address Phone FAISAL SPENCERA Personal Relationship Unknown Lola vailable SAVARD, RODGER [...] Unknown Lola vailable Care Team Providers Care Risk Management Professional Name Role Phone Tiffanie Lugo NP Primary Care Physician Encounter [facility] Date(s): 06/15/24 - 07/15/24 [facility] [address] [address] Attending Physician: Krishna Alexander Admitting Physician: Krishna [...] pneumococcal 20-valent conjugate vaccine 3 12/10/22 Given [id number] 12y+ bivalent booster vax 05/01/22 Given pneumococcal 13-valent vaccine 01/30/22 Given SARS-CoV-2 (COVID-19) mRNA BNT-162b2 vac 03/14/21 Given SARS-CoV-2 (COVID-19) mRNA BNT-162b2 vac 09/06/20 Recorded SARS-CoV-2 (COVID-19) mRNA BNT-162b2 vac 08/16/20 Recorded pneumococcal 23-valent vaccine 4 01/14/14 Given 1Result Comment: [id number] 2Admin Note: Dialysis 3Result Comment: [id number] 4Admin Note: Dialysis Medications acetaminophen 325 mg [...] Refills, Maintenance, 07/30/23 9:48:00 AM EST, Tablet, [id number], 180, cm, 07/30/23 9:29:00 EST, Height, 111, [...] MRI Safety Implantable Status Assigning Authority Unknown [id number] Unknown Unknown 08/10/26 Unknown Unknown Active Unknown Patient Care team information Care Team Personnel Name: Orly Rose RN Position: [facility] RN Member Role: Primary Care Nurse Name: Radha Sanchez CNM Position: Reference Physician Member Role: Primary Care Nurse Address: [address] [place] [address] Telecom: Name: Elif Ravi RN Position: [facility] AMB Nurse Member Role: Primary Care Nurse Name: Willam Guido MD Position: [facility] Renal MD Member Role: Lifetime Consulting Physician Address: [address] [place] [address] [address] [facility] [place], [place] - Telecom: Name: Yayo , Francisca Position: [facility] Outreach Member Role: Lifetime Consulting Physician Name: Michelle Hutchinson RN Position: [facility] RN Member Role: Primary Care Nurse Name: Shirley Cope RN Position: [facility] RN Member Role: Primary Care Nurse Name: Nely Nolan RN Position: [facility] RN Supv Member Role: Primary Care Nurse Name: Claire Hernandez Position: [facility] RN Member Role: Primary Care Nurse Name: Tiffanie Lugo NP Position: [facility] PCO Associate Professional Member Role: PCP Address: [address] [place] [address]- Telecom: Name: Dorothea Krishna NP Position: [facility] Associate Professional Member Role: Primary Care Nurse Name: Valerie Harrison RN Position: [facility] RN Member Role: Primary Care Nurse Name: Jake Yates MD Position: [facility] Renal MD Member Role: Lifetime Consulting Physician Address: [address] [place] [address] [address] [facility] [place], [place] - Telecom: Name: Letty Benavidez RN Position: [facility] RN Member Role: Primary Care Nurse Name: Lauren Becker LPN Position: [facility] RN Member Role: Primary Care Nurse Name: May Doss RN Position: [facility] Hospital Grain Broker And Market Operator Member Role: Primary Care Nurse Name: Reny Oliva RN Position: [facility] AMB Nurse Member Role: Primary Care Nurse Name: Joshua Li MD Position: [facility] Renal MD Member Role: Lifetime Consulting Physician Address: [address] [place] [address] [address] [facility] [place] [place] [address]- [place] Telecom: Name: Domingo Prince RN Position: [facility] RN Member Role: Primary Care Nurse Name: Hilda Moctezuma RN Position: [facility] RN Member Role: Primary Care Nurse Name: Karla Chairez RN Position: [facility] SN RN Member Role: Primary Care Nurse Name: Mya Phan RN Position: [facility] RN Supv Member Role: Primary Care Nurse Name: Lee Sifuentes RN Position: [facility] RN Member Role: Primary Care Nurse Name: Kira Garces NP Position: [facility] Associate Professional Member Role: Lifetime Consulting Provider Address: [address] [facility] [address] [facility] [place] [address] Telecom: Name: Lilliam Marquez RN Position: [facility] ED RN W/OE and Tasks Member Role: Primary Care Nurse Name: Laurita Dos Santos RN Position: [facility] RN Member Role: Primary Care Nurse Name: Milan Hammond DO Position: [facility] Renal MD Member Role: Lifetime Consulting Physician Address: [address] [place] [address] [address] [facility] [place], [place] [address] Telecom: Name: Heydi Childress RN Position: [facility] RN Member Role: Primary Care Nurse Name: Emerita Fuentes RN Position: [facility] RN Member Role: Primary Care Nurse Name: Claire Augustine LPN Position: [facility] RN Member Role: Primary Care Nurse Name: Chloé Davalos RN Position: [facility] ED RN W/OE and Tasks Member Role: Primary Care Nurse Name: Julienne Pino Position: [facility] RN Member Role: Primary Care Nurse Name: Cecy Smalls RN Position: [facility] RN Member Role: Primary Care Nurse Name: Paola Menard RN Position: [facility] RN Member Role: Primary Care Nurse Name: Mejia Trotter MD Position: S Outreach Member Role: Lifetime Consulting Physician Address: [address] [facility] [address] [facility] [address]- Telecom: Name: Yuan Sung MD Position: [facility] Renal MD Member Role: Lifetime Consulting Physician Address: [address] [facility] [address] XC Telecom: Name: Lynn Aguilera RN Position: [facility] RN Member Role: Primary Care Nurse Name: Micheal Wharton RN Position: [facility] RN Member Role: Primary Care Nurse Name: Loli Lincoln RN Position: [facility] RN Member Role: Primary Care Nurse Name: Norma Aezvedo Position: [facility] AMB [place] Member Role: Primary Care Nurse Name: Harman Medina MD Position: [facility] Renal MD Member Role: Lifetime Consulting Physician Address: [address] [facility] [address] [facility] [address] Telecom: Name: Henna Brandon RN Position: [facility] Grain Broker And Market Operator Member Role: Primary Care Nurse Name: Alexandrea Simpson RN Position: [facility] RN Member Role: Primary Care Nurse Name: Lilliam Cortes RN Position: [facility] RN Member Role: Primary Care Nurse Name: Radha Negron RN Position: [facility] RN Member Role: Primary Care Nurse Name: Floresita Soto RN Position: [facility] Onco RN Member Role: Primary Care Nurse Care Team Related Persons Name: MARIA GUADALUPE SPENCER Name: CECILIA SPENCER Insurance Providers Guarantor name: RODGER JOHANNA Health Plan Information #: 1 Payer: MEDICARE PART B OUTPT Member Number: NA Policy Number: NA Group Number: NA Health Plan Information #: 2 Payer: MEDEX Member Number: NA Policy Number: NA Group Number: NA
--- OUTSIDE RECORDS SUMMARY | 2024-07-19 06:02 | XMS_ITS ---
Author Organization [facility] Address [address] [place] [address] Care Team Providers Care Pharmacist Aide Name Role Phone Brittney Tiffanie HAWKINS Primary Care Provider Unavail George Thrasher Unavailable [phone] REASON FOR VISIT Painful nail(s) aggrevated by shoes and causing difficulty standing/walking., Open sore, Ulcer(s) Medications Medication SIG (Take, Route, Frequency, Duration) Notes Start Date End Date Status Night Splint AFO - L1930 as directed Active Extra Depth Diabetic Shoes with 3 Pair Custom heat-molded multi-density innersoles for 1 year Dx: Active Encounters Encounter Location Date Provider Diagnosis [facility] [address] [place] [address] 03/03/2024 George Chopra Type 1 diabetes mellitus [...] as necessary. Patient chooses, no pharmaceutical tx (49103) Debride skin< 25 sq cm Open wound [...] symptoms of infection or any untoward reactions (44419) Keratoma Treatment Parring or Cutting o f Benign Hyperkeratotic Lesion(s) 17901 (2-4 Lesions) - The Benign hyperkeratotic lesions, as described above were pared, and/or cut utilizing a sterile #15 blade, tissue nippers, and/or dremel Progress Notes * Aries ROSARIO EDOB:[birth year] (73 yo M)Acc No.[id number]:03/03/2024 Progress Note Patient:?SENAITAries HECK E Provider:?George Chopra DPM :1950???Age:73 Y???Sex:Male Suresh e:03/03/2024 Address:[address] [place], [place] [address] Pcp:SHRUTHI Vicente Subjective: * Chief Complaints: * ???1. Painful nail(s) aggrev ated by shoes and causing difficulty standing/walking.. 2. Open sore. 3. Ulcer(s). * HPI: ???Skin problems:?Nature:?Ulcer.?Location:?Bottom, Forefoot, Left , 1st.?Duration:?several weeks--six.?Course:?improved.?Aggravated by:?standing, walking.?Treatments:?pt tx at [facility] every other week and dressing changes qod with ; pt going to [facility].?Heel pain:?Location:?Proximal plantar aspect of Heel, RIGHT.?Onset/Cause:?unknown, [...] as necessary. Patient chooses, no pharmaceutical tx (20037).?Debride skin< 25 sq cm:?Open wound?Open wound selective [...] symptoms of infection or any untoward reactions (84625).?Keratoma Treatment:?Parring or Cutting of Benign Hyperkeratotic Lesion(s)?73068 (2-4 Lesions) - The Benign hyperkeratotic lesions, as described above were pared, and/or cut utilizing a sterile #15 blade, tissue nippers, and/or dremel.? * Procedure Codes:?00405 DEBRI DE NAIL, 6 OR MORE, Modifiers: XS , 56120 ACTIVE WOUND CARE/20 CM OR <, 21445 TRIM SKIN LESIONS, 2 TO 4, Modifiers: XS * Follow Up:?6 Months * Images: * The named appointment provid er may or may not be the originator of this progress note, and it is not deemed complete until electronically signed by the appointment provider. Sign off status: Pending * Provider:Missy Chopra DPM Date:? 024 Generated for Jennifer calderón/Dia/Savannahitting on:?07/19/2024 06:02 AM EST History and Physical Notes * [...] by: standing, walking Treatments: pt tx at [facility] every other week and dressing changes qod with ; pt going to [facility] At Risk footcare Pt States Last [...]
--- OUTSIDE RECORDS SUMMARY | 2024-07-19 06:02 | XMS_ITS | Encounter Summary ---
Author Organization [facility] Address [address] [place] [address] Phone Care Team Providers Care Manager Digital Ad Operations Name Role Phone Tiffanie Lugo RISK AND INSURANCE MANAGER Primary Care Provider [phone] Encounter Details Date Type Department Care Team (Late st Contact Info) Description 04/22/2023 Office Communication [facility] [address] [place] [address] Harman Medina MD [address] [facility] [address] [place] [address] Social History Tobacco Use Types [...] Office Visit [facility] [address] [address] Harman Medina MD [address] [address] documented as of this encounter Visit Diagnoses Not on filedocumented in this encounter Care Teams Manager Digital Ad Operations Relationship Specialty Start Date End Date Tiffanie Lugo NP [address] [place] [phone] PCP - General Nurse Practitioner 03/19/23 documented as of this encounter
--- OUTSIDE RECORDS SUMMARY | 2024-07-19 06:02 | XMS_ITS | Continuity of Care Document ---
Author Organization [facility] Address [address] [place] [address]- Support Name Relationship Address Phone JOHANNA, CECILIA [...] RODGER Personal Relationship Unknown Unav ailable SAVARD, ECCILIA Personal Relationship Unknown Lola vailable SAVARD, CECILIA Personal Relationship Unknown Lola vailable SAVARD, MARIA GUADALUPE child Unknown Unavailable SAVARD, CECILIA Personal Relationship Unknown Lola vailable SAVARD, CECILIA Personal Relationship Unknown Lola vailable SAVARD, CECILIA Personal Relationship Unknown Lola vailable SAVARD, CECILIA Personal Relationship Unknown Lola vailable Care Team Providers Care Coffee Blender Name Role Phone Tiffanie Lugo NP Primary Care Physician [phone] Encounter [facility] [id number] Date(s): 06/14/24 - 07/17/24 [facility] [address] [place] [address]- Attending Physician: Domingo Woodall MD Admitting Physician: Domingo Woodall MD Referring Physician: Tiffanie Lugo NP Encounter [...] pneumococcal 20-valent conjugate vaccine 3 12/10/22 Given [id number] 12y+ bivalent booster vax 05/01/22 Given pneumococcal 13-valent vaccine 01/30/22 Given SARS-CoV-2 (COVID-19) mRNA BNT-162b2 vac 03/14/21 Given SARS-CoV-2 (COVID-19) mRNA BNT-162b2 vac 09/06/20 Recorded SARS-CoV-2 (COVID-19) mRNA BNT-162b2 vac 08/16/20 Recorded pneumococcal 23-valent vaccine 4 01/14/14 Given 1Result Comment: [id number] 2Admin Note: Dialysis 3Result Comment: [id number] 4Admin Note: Dialysis Medications acetaminophen 325 mg [...] Refills, Maintenance, 07/30/23 9:48:00 AM EST, Tablet, [id number], 180, cm, 07/30/23 9:29:00 EST, Height, 111, [...] MRI Safety Implantable Status Assigning Authority Unknown [id number] Unknown Unknown 08/10/26 Unknown Unknown Active Unknown Patient Care team information Care Team Personnel Name: Orly Rose RN Position: [facility] RN Member Role: Primary Care Nurse Name: Radha Sanchez CNM Position: Reference Physician Member Role: Primary Care Nurse Address: [address] [place] [address] Telecom: Name: Elif Ravi RN Position: [facility] AMB Nurse Member Role: Primary Care Nurse Name: Willam Guido MD Position: [facility] Renal MD Member Role: Lifetime Consulting Physician Address: [address] [place] [address] [address] [facility] [place], [place] - Telecom: Name: Yayo , Francisca Position: [facility] Outreach Member Role: Lifetime Consulting Physician Name: Michelle Hutchinson RN Position: [facility] RN Member Role: Primary Care Nurse Name: Shirley Cope RN Position: [facility] RN Member Role: Primary Care Nurse Name: Nely Nolan RN Position: [facility] RN Supv Member Role: Primary Care Nurse Name: Claire Hernandez Position: [facility] RN Member Role: Primary Care Nurse Name: Tiffanie Lugo NP Position: [facility] PCO Associate Professional Member Role: PCP Address: [address] [place] [address]- Telecom: Name: Dorothea Krishna NP Position: [facility] Associate Professional Member Role: Primary Care Nurse Name: Valerie Harrison RN Position: [facility] RN Member Role: Primary Care Nurse Name: Jake Yates MD Position: [facility] Renal MD Member Role: Lifetime Consulting Physician Address: [address] [place] [address] [address] [facility] [place], [place] - Telecom: Name: Letty Benavidez RN Position: [facility] RN Member Role: Primary Care Nurse Name: Lauren Becker LPN Position: [facility] RN Member Role: Primary Care Nurse Name: May Doss RN Position: [facility] Hospital Curling Machine Operator Member Role: Primary Care Nurse Name: Reny Oliva RN Position: [facility] AMB Nurse Member Role: Primary Care Nurse Name: Joshua Li MD Position: [facility] Renal MD Member Role: Lifetime Consulting Physician Address: [address] [place] [address] [address] [facility] [place] [address]- [place] Telecom: Name: Domingo Prince RN Position: [facility] RN Member Role: Primary Care Nurse Name: Hilda Moctezuma RN Position: [facility] RN Member Role: Primary Care Nurse Name: Karla Chairez RN Position: [facility] SN RN Member Role: Primary Care Nurse Name: Mya Phan RN Position: [facility] RN Supv Member Role: Primary Care Nurse Name: Lee Sifuentes RN Position: [facility] RN Member Role: Primary Care Nurse Name: Kira Garces NP Position: [facility] Associate Professional Member Role: Lifetime Consulting Provider Address: [address] [facility] [place] [address] [facility] [place] [address] Telecom: Name: Lilliam Marquez RN Position: [facility] ED RN W/OE and Tasks Member Role: Primary Care Nurse Name: Laurita Dos Santos RN Position: [facility] RN Member Role: Primary Care Nurse Name: Milan Hammond DO Position: [facility] Renal MD Member Role: Lifetime Consulting Physician Address: [address] [facility] [address] [facility] [place] [address]- Telecom: Name: Heydi Childress RN Position: [facility] RN Member Role: Primary Care Nurse Name: Emerita Fuentes RN Position: [facility] RN Member Role: Primary Care Nurse Name: Claire Augustine LPN Position: [facility] RN Member Role: Primary Care Nurse Name: Chloé Davalos RN Position: [facility] RN Member Role: Primary Care Nurse Name: Julienne Pino Position: [facility] RN Member Role: Primary Care Nurse Name: Cecy Smalls RN Position: [facility] RN Member Role: Primary Care Nurse Name: Paola Menard RN Position: [facility] RN Member Role: Primary Care Nurse Name: Mejia Trotter MD Position: [facility] Outreach Member Role: Lifetime Consulting Physician Address: [address] [facility] [place] [address]- Telecom: Name: Yuan Sung MD Position: [facility] Renal MD Member Role: Lifetime Consulting Physician Address: [address] [facility] [place] [address]- [place] Telecom: Name: Lynn Aguilera RN Position: [facility] RN Member Role: Primary Care Nurse Name: Micheal Wharton RN Position: [facility] RN Member Role: Primary Care Nurse Name: Loli Lincoln RN Position: [facility] RN Member Role: Primary Care Nurse Name: Norma Azevedo Position: [facility] [place] Member Role: Primary Care Nurse Name: Harman Medina MD Position: [facility] Renal MD Member Role: Lifetime Consulting Physician Address: [address] [facility] [address] [facility] [address] Telecom: Name: Henna Brandon RN Position: [facility] Curling Machine Operator Member Role: Primary Care Nurse Name: Alexandrea Simpson RN Position: [facility] RN Member Role: Primary Care Nurse Name: Lilliam Cortes RN Position: [facility] RN Member Role: Primary Care Nurse Name: Radha Negron RN Position: [facility] RN Member Role: Primary Care Nurse Name: Floresita Soto RN Position: [facility] Onco RN Member Role: Primary Care Nurse Care Team Related Persons Name: MARIA GUADALUPE SPENCER Name: CECILIA SPENCER Insurance Providers Guarantor name: RODGER JOHANNA Health Plan Information #: 2 Payer: MEDEX Member Number: [id number] Policy Number: NA Group Number: NA Health Plan Information #: 1 Payer: MEDICARE PART B OUTPT Member Number: [id number] Policy Number: NA Group Number: NA
--- OUTSIDE RECORDS SUMMARY | 2024-07-19 06:02 | XMS_ITS | Encounter Summary ---
Author Organization [facility] Address [address] [place] [address] Phone Care Team Providers Care Embedded Software Architect Name Role Phone Tiffanie Lugo FRANCINE Primary Care Provider [phone] Encounter Details Date Type Department Care Team (Late st Contact Info) Description 11/24/2023 Documentation Only [facility], [address] [place] [address] Kimmie [place], [place] [address] [place] [address] Social History Tobacco Use Types [...] of the [facility] [address] [address] Harman Medina MD [address] [address] documented as of this encounter Visit Diagnoses Not on filedocumented in this encounter Care Teams Embedded Software Architect Relationship Specialty Start Date End Date Tiffanie Lugo NP [address] [place] [phone] PCP - General Nurse Practitioner 03/19/23 documented as of this encounter
--- OUTSIDE RECORDS SUMMARY | 2024-07-19 06:02 | XMS_ITS | Continuity of Care Document ---
Author Organization [facility] Address [address] [place] [address]- Support Name Relationship Address Phone JOHANNA, CECILIA [...] Unknown Lola vailable Care Team Providers Care Open Source Developer Name Role Phone Tiffanie Lugo NP Primary Care Physician Encounter [facility] [id number] Date(s): 06/11/24 - 07/17/24 [facility] [address] [place] [address]- Attending Physician: Jose Krause MD Admitting Physician: [...] pneumococcal 20-valent conjugate vaccine 3 12/10/22 Given [id number] 12y+ bivalent booster vax 05/01/22 Given pneumococcal 13-valent vaccine 01/30/22 Given SARS-CoV-2 (COVID-19) mRNA BNT-162b2 vac 03/14/21 Given SARS-CoV-2 (COVID-19) mRNA BNT-162b2 vac 09/06/20 Recorded SARS-CoV-2 (COVID-19) mRNA BNT-162b2 vac 08/16/20 Recorded pneumococcal 23-valent vaccine 4 01/14/14 Given 1Result Comment: [id number] 2Admin Note: Dialysis 3Result Comment: [id number] 4Admin Note: Dialysis Medications acetaminophen 325 mg [...] Refills, Maintenance, 07/30/23 9:48:00 AM EST, Tablet, [facility], 180, cm, 07/30/23 9:29:00 EST, Height, 111, [...] MRI Safety Implantable Status Assigning Authority Unknown [id number] Unknown Unknown 08/10/26 Unknown Unknown Active Unknown Patient Care team information Care Team Personnel Name: Orly Rose RN Position: [facility] RN Member Role: Primary Care Nurse Name: Radha Sanchez CNM Position: Reference Physician Member Role: Primary Care Nurse Address: [address] [place] [address] Incapcom: Name: Elif Ravi RN Position: [facility] AMB Nurse Member Role: Primary Care Nurse Name: Willam Guido MD Position: [facility] Renal MD Member Role: Lifetime Consulting Physician Address: [address] [place] [address] [address] [facility] [place], [place] - Telecom: Name: Francisca Zee Position: [facility] Outreach Member Role: Lifetime Consulting Physician Name: Michelle Hutchinson RN Position: [facility] RN Member Role: Primary Care Nurse Name: Shirley Cope RN Position: [facility] RN Member Role: Primary Care Nurse Name: Nely Nolan RN Position: [facility] RN Supv Member Role: Primary Care Nurse Name: Claire Hernandez Position: [facility] RN Member Role: Primary Care Nurse Name: Tiffanie Lugo NP Position: [facility] PCO Associate Professional Member Role: PCP Address: [address] [place] [address]- [place] Telecom: Name: Dorothea Krishna NP Position: [facility] Associate Professional Member Role: Primary Care Nurse Name: Valerie Harrison RN Position: [facility] RN Member Role: Primary Care Nurse Name: Jake Yates MD Position: [facility] Renal MD Member Role: Lifetime Consulting Physician Address: [address] [place] [address] [address] [facility] [place], [place] - Telecom: Name: Letty Benavidez RN Position: [facility] RN Member Role: Primary Care Nurse Name: Lauren Becker LPN Position: [facility] RN Member Role: Primary Care Nurse Name: May Doss RN Position: [facility] Hospital Community Ambassador Member Role: Primary Care Nurse Name: Reny Oliva RN Position: [facility] AMB Nurse Member Role: Primary Care Nurse Name: Joshua Li MD Position: [facility] Renal MD Member Role: Lifetime Consulting Physician Address: [address] [place] [address] [address] [facility] [place] [address]- [place] Telecom: Name: Domingo Prince RN Position: [facility] RN Member Role: Primary Care Nurse Name: Hilda Moctezuma RN Position: [facility] RN Member Role: Primary Care Nurse Name: Karla Chairez RN Position: [facility] SN RN Member Role: Primary Care Nurse Name: Mya Phan RN Position: [facility] RN Supv Member Role: Primary Care Nurse Name: Lee Sifuentes RN Position: [facility] RN Member Role: Primary Care Nurse Name: Kira Garces NP Position: [facility] Associate Professional Member Role: Lifetime Consulting Provider Address: [address] [facility] [address] [facility] [place] [address]- Telecom: Name: Lilliam Marquez RN Position: [facility] ED RN W/OE and Tasks Member Role: Primary Care Nurse Name: Laurita Dos Santos RN Position: [facility] RN Member Role: Primary Care Nurse Name: Milan Hammond DO Position: [facility] Renal MD Member Role: Lifetime Consulting Physician Address: [address] [facility] [address] [facility] [place] [address]- Telecom: Name: Heydi Childress RN Position: [facility] RN Member Role: Primary Care Nurse Name: Emerita Fuentes RN Position: [facility] RN Member Role: Primary Care Nurse Name: Claire Augustine LPN Position: [facility] RN Member Role: Primary Care Nurse Name: Chloé Davalos RN Position: [facility] RN Member Role: Primary Care Nurse Name: Julienne Pino Position: [facility] RN Member Role: Primary Care Nurse Name: Cecy Smalls RN Position: [facility] RN Member Role: Primary Care Nurse Name: Paola Menard RN Position: [facility] RN Member Role: Primary Care Nurse Name: Mejia Trotter MD Position: [facility] Outreach Member Role: Lifetime Consulting Physician Address: [address] [facility] [place], [place] [address]- Telecom: Name: Yuan Sung MD Position: [facility] Renal MD Member Role: Lifetime Consulting Physician Address: [address] [facility] [place] [address]- [place] Telecom: Name: Lynn Aguilera RN Position: [facility] RN Member Role: Primary Care Nurse Name: Micheal Wharton RN Position: [facility] RN Member Role: Primary Care Nurse Name: Loli Lincoln RN Position: [facility] RN Member Role: Primary Care Nurse Name: Norma Azevedo Position: [facility] [place] Member Role: Primary Care Nurse Name: Harman Medina MD Position: [facility] Renal MD Member Role: Lifetime Consulting Physician Address: [address] [facility] [address] [facility] [address] Telecom: Name: Henna Brandon RN Position: [facility] Community Ambassador Member Role: Primary Care Nurse Name: Alexandrea Simpson RN Position: [facility] RN Member Role: Primary Care Nurse Name: Lilliam Cortes RN Position: [facility] RN Member Role: Primary Care Nurse Name: Radha Negron RN Position: [facility] RN Member Role: Primary Care Nurse Name: Floresita Soto RN Position: [facility] Onco RN Member Role: Primary Care Nurse Care Team Related Persons Name: MARIA GUADALUPE SPENCER Name: CECILIA SPENCER Insurance Providers Guarantor name: RODGER JOHANNA Health Plan Information #: 2 Payer: MEDEX Member Number: [id number] Policy Number: NA Group Number: NA Health Plan Information #: 1 Payer: MEDICARE PART B OUTPT Member Number: [id number] Policy Number: NA Group Number: NA
--- OUTSIDE RECORDS SUMMARY | 2024-07-19 06:02 | XMS_ITS | Clinical Summary ---
Author Organization [facility] Address [address] [place] [address] Phone Care Team Providers Care Design Intern Name Role Phone Tiffanie Lugo FRANCINE Primary Care Provider [phone] Allergies No known active allergies Medications Acetaminophen [...] Height,... 1 Active Insulin Pen Needle (Pen Angora 1/2 ) 29G X 12MM misc See [...] Telephone [facility] [address] [address] Yuan Sung MD from Last [...] Visit [facility] [address] [phone] Harman Medina MD [address] [address] Health Maintenance Due Date Last [...] AM EST) Hemoglobin A1C 7.0(H) (4.0-5.6) % [facility] Comment: MONITORING: In known diabetic patients, hemoglobin A1c targets should be discussed with health care provider. DIAGNOSTIC USE: ??The [place] Diabetes Association (ADA) and the World Health [...] Supplement 1 Testing performed or reported by [facility], a Service of [facility], [address] [place] [address] Dona Bliss MD, Educational Aide [facility]# [id number] Blood (Blood, Venous) 07/31/2022 8:10 AM EST 07/31/2022 8:20 AM EST Amanda Holly MD LAB BLOOD ORDERABLES Final Resu lt [facility] from Last 3 Months or Most Recently Relevant to Health Maintenance Insurance MEDICARE [facility] MEDICARE [facility] Care Teams Design Intern Relationship Specialty Start Date End Date Tiffanie Lugo NP [address] [place] [phone] PCP - General Nurse Practitioner 03/19/23
--- OUTSIDE RECORDS SUMMARY | 2024-07-19 06:02 | XMS_ITS | Continuity of Care Document ---
Author Organization [facility] Address [address] [place] [address]- Support Name Relationship Address Phone FAISAL SPENCERA [...] CECILIA Personal Relationship Unknown Lola vailable SAVARD, CECLIIA Personal Relationship Unknown Lola vailable SAVARD, CECILIA Personal Relationship Unknown Lola vailable SAVARD, CECILIA Personal Relationship Unknown Lola vailable Care Team Providers Care Weatherization Specialist Name Role Phone Tiffanie Lugo NP Primary Care Physician Encounter [facility] [id number] Date(s): 03/17/24 - 07/15/[address] [facility] [address] [address] Attending Physician: Armani Bello DO Admitting Physician: Armani Bello DO Referring Physician: Tiffanie Lugo NP Encounter Type: [...] pneumococcal 20-valent conjugate vaccine 3 12/10/22 Given [id number] 12y+ bivalent booster vax 05/01/22 Given pneumococcal 13-valent vaccine 01/30/22 Given SARS-CoV-2 (COVID-19) mRNA BNT-162b2 vac 03/14/21 Given SARS-CoV-2 (COVID-19) mRNA BNT-162b2 vac 09/06/20 Recorded SARS-CoV-2 (COVID-19) mRNA BNT-162b2 vac 08/16/20 Recorded pneumococcal 23-valent vaccine 4 01/14/14 Given 1Result Comment: [id number] 2Admin Note: Dialysis 3Result Comment: [id number] 4Admin Note: Dialysis Medications acetaminophen 325 mg [...] Refills, Maintenance, 07/30/23 9:48:00 AM EST, Tablet, [facility], 180, cm, 07/30/23 9:29:00 EST, Height, 111, [...] MRI Safety Implantable Status Assigning Authority Unknown [id number] Unknown Unknown 08/10/26 Unknown Unknown Active Unknown Patient Care team information Care Team Personnel Name: Orly Rose RN Position: [facility] RN Member Role: Primary Care Nurse Name: Radha Sanchze CNM Position: Reference Physician Member Role: Primary Care Nurse Address: [address] [place] [address] Telecom: Name: Elif Ravi RN Position: [facility] AMB Nurse Member Role: Primary Care Nurse Name: Willam Guido MD Position: [facility] Renal MD Member Role: Lifetime Consulting Physician Address: [address] [place] [address] [address] [facility] [place], [place] - Telecom: Name: Yayo Francisca Position: [facility] Outreach Member Role: Lifetime Consulting Physician Name: Michelle Hutchinson RN Position: [facility] RN Member Role: Primary Care Nurse Name: Shirley Cope RN Position: [facility] RN Member Role: Primary Care Nurse Name: Nely Nolan RN Position: [facility] RN Supv Member Role: Primary Care Nurse Name: Claire Hernandez Position: [facility] RN Member Role: Primary Care Nurse Name: Tiffanie Lugo NP Position: [facility] PCO Associate Professional Member Role: PCP Address: [address] [place] [address] - Telecom: Name: Dorothea Krishna NP Position: [facility] Associate Professional Member Role: Primary Care Nurse Name: Valerie Harrison RN Position: [facility] RN Member Role: Primary Care Nurse Name: Jake Yates MD Position: [facility] Renal MD Member Role: Lifetime Consulting Physician Address: [address] [place] [address] [address] [facility] [place], [place] - Telecom: Name: Letty Benavidez RN Position: [facility] RN Member Role: Primary Care Nurse Name: Lauren Becker LPN Position: [facility] RN Member Role: Primary Care Nurse Name: May Doss RN Position: [facility] Hospital Pipe Finisher Member Role: Primary Care Nurse Name: Reny Oliva RN Position: [facility] AMB Nurse Member Role: Primary Care Nurse Name: Joshua Li MD Position: [facility] Renal MD Member Role: Lifetime Consulting Physician Address: [facility] [address] [facility] [place] [address]- [place] Telecom: Name: Domingo Prince RN Position: [facility] RN Member Role: Primary Care Nurse Name: Hilda Moctezuma RN Position: [facility] RN Member Role: Primary Care Nurse Name: Karla Chairez RN Position: [facility] SN RN Member Role: Primary Care Nurse Name: Mya Phan RN Position: [facility] RN Supv Member Role: Primary Care Nurse Name: Lee Sifuentes RN Position: [facility] RN Member Role: Primary Care Nurse Name: Kira Garces NP Position: [facility] Associate Professional Member Role: Lifetime Consulting Provider Address: [address] [facility] [address] [facility] [place], [place] [address] Telecom: Name: Lilliam Marquez RN Position: [facility] ED RN W/OE and Tasks Member Role: Primary Care Nurse Name: Laurita Dos Santos RN Position: [facility] RN Member Role: Primary Care Nurse Name: Milan Hammond DO Position: [facility] Renal MD Member Role: Lifetime Consulting Physician Address: [address] [facility] [address] [facility] [place] - Telecom: Name: Heydi Childress RN Position: [facility] RN Member Role: Primary Care Nurse Name: Emerita Fuentes RN Position: [facility] RN Member Role: Primary Care Nurse Name: Claire Augustine LPN Position: [facility] RN Member Role: Primary Care Nurse Name: Chloé Davalos RN Position: [facility] ED RN W/OE and Tasks Member Role: Primary Care Nurse Name: Julienne Pino Position: [facility] RN Member Role: Primary Care Nurse Name: Cecy Smalls RN Position: [facility] RN Member Role: Primary Care Nurse Name: Paola Menard RN Position: [facility] RN Member Role: Primary Care Nurse Name: Mejia Trotter MD Position: S Outreach Member Role: Lifetime Consulting Physician Address: [address] [facility] [address] [facility] [place] [address]- Telecom: Name: Yuan Sung MD Position: [facility] Renal MD Member Role: Lifetime Consulting Physician Address: [address] [facility] [place] [address] [place] Telecom: Name: Lynn Agiulera RN Position: [facility] RN Member Role: Primary Care Nurse Name: Micheal Wharton RN Position: [facility] RN Member Role: Primary Care Nurse Name: Loli Lincoln RN Position: [facility] RN Member Role: Primary Care Nurse Name: Norma Azevedo Position: [facility] AMB [place] Member Role: Primary Care Nurse Name: Harman Medina MD Position: [facility] Renal MD Member Role: Lifetime Consulting Physician Address: [address] [facility] [address] [facility] [place], [place] [address] Telecom: Name: Henna Brandon RN Position: [facility] Pipe Finisher Member Role: Primary Care Nurse Name: Alexandrea Simpson RN Position: [facility] RN Member Role: Primary Care Nurse Name: Lilliam Cortes RN Position: [facility] RN Member Role: Primary Care Nurse Name: Radha Negron RN Position: [facility] RN Member Role: Primary Care Nurse Name: Floresita Soto RN Position: [facility] Onco RN Member Role: Primary Care Nurse Care Team Related Persons Name: MARIA GUADALUPE SPENCER Name: CECILIA SPENCER Insurance Providers Guarantor name: RODGER SPENCER Health Plan Information #: 2 Payer: MEDEX Member Number: [id number] Policy Number: NA Group Number: NA Health Plan Information #: 1 Payer: MEDICARE PART B OUTPT Member Number: [id number] Policy Number: NA Group Number: NA
--- OUTSIDE RECORDS SUMMARY | 2024-07-19 06:03 | XMS_ITS | Encounter Summary ---
Author Organization [facility] Address [address] [place] [address] Phone Care Team Providers Care Icu Nurse Name Role Phone Unavailable Primary Care Provider Unavailabl e Encounter Details Date Type Department Care Team (Late st Contact Info) Description 11/07/2016 Office Visit [facility] [address] [place] [address] ProviderHerber MD [address] [place] [address] Social History Tobacco Use Types Packs/Day [...]
--- OUTSIDE RECORDS SUMMARY | 2024-07-19 06:03 | XMS_ITS ---
Author Organization [facility] Address [address] [place] [address] Care Team Providers Care Dry Mop Maker Name Role Phone Brittney Tiffanie HAWKINS Primary Care Provider Unavail George Thrasher Unavailable [phone] REASON FOR VISIT cx appt 03/03 Encounters Encounter Location Date Provider Diagnosis [facility] [address] [place] [address] 02/27/2024 George Chopra Plan Of Treatment No Information Progress Notes * Aries ROSARIO EDOB:[birth year] (73 yo M)Acc No.[id number]:02/27/2024 Patient:?Aries Rosario :1950???Age:73 Y???Sex:Male [address] [facility] [place], [address] * true * Date:? Generated for Printi ng/Famoniqueg/eTransmitting on:?07/19/2024 06:03 AM EST
--- OUTSIDE RECORDS SUMMARY | 2024-07-19 06:03 | XMS_ITS | Clinical Summary ---
Author Organization [facility] Address [address] [place] [address] Phone Care Team Providers Care Radioisotope Technician Name Role Phone Unavailable Primary Care Provider [...]
--- OUTSIDE RECORDS SUMMARY | 2024-07-19 06:03 | XMS_ITS ---
Author [facility] Address [address] [place] [address] Care Team Providers Care I O Psychologist Name Role Phone Brittney Tiffanie HAWKINS Primary Care Provider Unavail able George Chopra Unavailable [phone] Allergies No Known Allergies REASON FOR VISIT [...] 024 Encounters Encounter Location Date Provider Diagnosis [facility] [address] [address] 09/01/2023 George Chopra Type 1 diabetes mellitus [...] as necessary. Patient chooses, no pharmaceutical tx (89879) Debride skin< 25 sq cm Open wound [...] symptoms of infection or any untoward reactions (56831) Keratoma Treatment Parring or Cutting o f Benign Hyperkeratotic Lesion(s) 90228 (2-4 Lesions) - The Benign hyperkeratotic lesions, as described above were pared, and/or cut utilizing a sterile #15 blade, tissue nippers, and/or dremel Progress Notes * JOHANNA Aries EDOB:[birth year] (72 yo M)Acc No.[id number]:09/01/2023 Progress Note Patient:?Aries Rosario Provider:?George Chopra DPM :1950???Age:72 Y???Sex:Male Suresh e:09/01/2023 Address:[address] [place], [place] [id number] Pcp:SHRUTHI Vicente Subjective: * Chief Complaints: * ???Painful nail(s) aggrevate d by shoes and causing difficulty standing/walking.Open soreUlcer(s) * HPI: ???Skin problems:?Nature:?Ulcer.?Location:?Bottom, Forefoot, Left , 1st.?Duration:?several weeks--six.?Course:?improved.?Aggravated by:?standing, walking.?Treatments:?pt tx at [facility] wd ctr every other week and dressing changes qod with ; pt going to [facility].?Heel pain:?Location:?Proximal plantar aspect of Heel, RIGHT.?Onset/Cause:?unknown, denies [...] as necessary. Patient chooses, no pharmaceutical tx (17650).?Debride skin< 25 sq cm:?Open wound?Open wound selective [...] symptoms of infection or any untoward reactions (89962).?Keratoma Treatment:?Parring or Cutting of Benign Hyperkeratotic Lesion(s)?79570 (2-4 Lesions) - The Benign hyperkeratotic lesions, as described above were pared, and/or cut utilizing a sterile #15 blade, tissue nippers, and/or dremel.? * Procedure Codes:?28083 DEBRI DE NAIL, 6 OR MORE, Modifiers: XS 35588 ACTIVE WOUND CARE/20 CM OR <44250 TRIM SKIN LESIONS, 2 TO 4, Modifiers: [...] DPM Date:? 024 Generated for Jennifer calderón/Dia/Marquise on:?07/19/2024 06:03 AM EST History and Physical Notes * [...] by: standing, walking Treatments: pt tx at [facility] wd ctr every other week and dressing changes qod with ; pt going to [facility] At Risk footcare Pt States Last PCP [...]
--- OUTSIDE RECORDS SUMMARY | 2024-07-19 06:03 | XMS_ITS | Clinical Summary ---
Author Organization [facility] Address [address] [place] [address] Care Team Providers Care Waste Hand Name Role Phone Pcp, No Primary Care [...] age to complete this topic Care Teams Waste Hand Relationship Specialty Start Date End Date Pcp, No [address] [place] [address] PCP - General 02/13/22
--- OUTSIDE RECORDS SUMMARY | 2024-07-19 06:03 | XMS_ITS | Data Portability ---
Author Organization [facility], Main Office Address [address] [place] [address] Care Team Providers Care Gray Tender Name Role Phone MELISSA ROWLAND 2ND FLOOR [...] and Address Organization Details Recorded Time Osteomyelitis 33722437 Active 2022 IRENE SKINNER NP [address] , [address], [place], [address], [facility] [employer] [facility] 3 12:54:43 Type 2 diabetes mellitus 47534222 Active 2022 IRENE SKINNER NP [address], [address], [place], [address], [facility] 3 13:02:35 Essential hypertension 71874294 Active 2022 IRENE SKINNER NP [address], [address], [place], [address], [facility] 3 13:03:00 Hyperlipidemia 40051033 Active 2022 IRENE SKINNER NP [address], [address], [place], [address], [facility] 3 13:03:12 History of renal transplant 741438279 Active 2022 IRENE SKINNER NP [address], [address], [place], [address], [facility] 3 13:03:24 Asthenia 38014507 Active 2022 IRENE SKINNER NP [address], [address], [place], [address], [facility] 3 13:03:41 Insomnia 092419020 Active 2022 IRENE SKINNER NP [address], [address], [place], [address], [facility] 3 13:21:26 Spinal stenosis of lumbar region 48439075 Active 2022 Yanique Verdin MD [address], [address], [place], [address], [facility] 3 15:00:42 Chronic constipation 062344562 Active 2022 Yanique Verdin MD [address], [address], [place], [address], [facility] 3 15:14:15 Coronary arterioscleros is 06714517 Active 2022 Yaniuqe Verdin MD [address], [address], [place], [address], [facility] 3 15:14:18 Deep venous thrombosis 472984871 Active 2022 IRENE SKINNER NP [address], [address], [place], [address], [facility] 3 14:34:30 Acute urticaria 741550281 Active 2022 IRENE SKINNER NP [address], [address], [place], [address], [facility] 3 14:05:35 Problem Notes None recorded. Medical [...] mm[Hg] 72 mm[Hg] IRENE SKINNER NP [address], [address], [place], [address], [facility] 3 14:03:34 Date Recorded Body height Heart rate Respiratory rate Body temperature Oxygen saturation Oxygen saturation in Arterial blood by Pulse oximetry Systolic blood pressure Diastolic blood pressure Provider Name and Address Organization Details Last Updated DateTime 3 180.34 cm 75 /min 16 /min 97.3 [degF] 96 % 96 % 132 mm[Hg] 76 mm[Hg] IRENE SKINNER NP [address], [address], [place], [address], [facility] 3 12:50:47 Date Recorded Body height Heart rate Respiratory rate Body temperature Oxygen saturation Oxygen saturation in Arterial blood by Pulse oximetry Systolic blood pressure Diastolic blood pressure Provider Name and Address Organization Details Last Updated DateTime 3 180.34 cm 77 /min 16 /min 97.8 [degF] 96 % 96 % 130 mm[Hg] 74 mm[Hg] IRENE SKINNER NP [address] , [address], [place], [address], [facility] 3 12:16:34 Date Recorded Body height Heart rate Respiratory rate Body temperature Oxygen saturation Oxygen saturation in Arterial blood by Pulse oximetry Systolic blood pressure Diastolic blood pressure Provider Name and Address Organization Details Last Updated DateTime 3 180.34 cm 67 /min 16 /min 97.6 [degF] 98 % 98 % 135 mm[Hg] 74 mm[Hg] IRENE SKINNER NP [address] , [address], [place], [address], [facility] 3 11:38:28 Date Recorded Body height Heart rate Respiratory rate Body temperature Oxygen saturation Oxygen saturation in Arterial blood by Pulse oximetry Systolic blood pressure Diastolic blood pressure Provider Name and Address Organization Details Last Updated DateTime 3 180.34 cm 72 /min 16 /min 98 [degF] 97 % 97 % 132 mm[Hg] 68 mm[Hg] IRENE SKINNER NP [address], [address], [place], [address], [facility] 3 11:00:29 Social History Question Answer Notes LastModified by Organizat ion Details LastModified Time Tobacco Smoking Status Former Smoker IRENE SKINNER NP [address], [address], [place], [address], [facility] 01/08/2023 12:57:22 Do You Have An Advance [...] Do You Have A Medical Power Of Bladder Trimmer? Yes Not Invoked Information not available 01/09/2023 [...] Details Recorded Time Pneumococcal conjugate PCV20, polysaccharide [id number] conjugate, adjuvant, PF 3 completed Tisha Lopez [facility] 01/14/2023 12:34:16 SARS-COV-2 (COVID-19) vaccine, UNSPECIFIED 2 completed Tishaisidra Lopez [facility] 01/14/2023 12:34:40 SARS-COV-2 (COVID-19) vaccine, UNSPECIFIED 1 completed Tisha [facility] 01/14/2023 12:34:55 SARS-COV-2 (COVID-19) vaccine, UNSPECIFIED 1 completed Tisha [facility] 01/14/2023 12:35:06 SARS-COV-2 (COVID-19) vaccine, UNSPECIFIED 1 completed Tisha [facility] 01/14/2023 12:35:15 influenza, unspecified formulation 2 completed Tisha [facility] 01/14/2023 12:35:39 pneumococcal polysaccharide PPV23 4 completed Tisha Lopez [facility] 01/14/2023 12:36:12 Influenza, adjuvanted, quadrivalent, PF 3 completed Conchita Arias [facility] 10/17/2023 10:37:00 Td (adult), 5 Lf tetanus toxoid, preservative free, adsorbed 3 completed Conchita Arias [facility] 10/17/2023 10:37:17 Past Encounters Encounter ID Performer Location Encounter Start Date Encounter Closed Date Diagnosis/Indication Diagnosis SNOMED-CT Code Diagnosis ICD10 Code Diagnosis Note [id number] FRANCINE HOPKINS [address] [facility] [place] [address] 01/08/2023 11:23:17 01/14/2023 15:37:27 Osteomyelitis 99717173 M86.9 oxycodone 10 mg q4hr prnvanco 1000 mg increased to 1250 mg iv daily to 02/12roceph in 2 gm iv daily to 02/12gabape ntin 300 mg tidf/u with ID 02/07 Type 2 sam betes mellitus 64876240 E11.22 glargine 28 units hslispro sliding scale tidmonitor glucose Hyperlipidemia 73757699 E78.5 atorvastat in 80 mg daily Essential hypertension 98175191 I10 coreg 6.25 mg bidmonitor bp History of renal transplant 844108206 Z48.22 tacrolimus 1gm bidmonitor labs Asthenia 29798200 R53.1 PT OT eval and treatfall precaution sfrequent safety checks Insomnia 822168671 G47.0 0 amitriptyl ine 25 mg [id number] MD MELISSA Mondragon [address] [place] [address] 01/09/2023 13:16:08 01/14/2023 15:47:55 Osteomyelitis 82822656 M46.26 M46.46 Continue ceftriaxon e 2 gms IV qd and vanco titrated to troughs of 10-15, until ontin ue gabapentin 300 mg TID, lidoderm patch qd, oxycodone 10 mg q 4 hrs prn.Monito r CBC, CMP, ESR and CRP weekly with labs to ID (Dr. Rasmussen, fax # )F/U with ID on 02/07 as planned. Type 2 sam betes mellitus 92761352 E11.22 Fair control since here. Last HgA1C 7.0 in 07/2022.Con tinue Lantus 28 units qhs and SSIMonitor fingerstic ks TID and HgA1C as outpt. Hyperlipidemia 16212320 E78.49 Good in ont inue atorvastat in 80 mg qd and ASA 81 mg qd.Monitor labs as outpt. Essential hypertension 48120568 I10 SBP high or borderline since here, likely due to pain, won't make any changes for now.Contin ue carvedilol 6.25 mg BID.Monito r BP and labs. History of renal transplant 088589333 Z48.22 With good renal function.C ontinue tacrolimus 1 gm BIDMonitor labsF/U with renal as planned. Asthenia 28611361 R53.1 Very deconditio tasneem.Needs PT/OT for strengthen ing, balance, gait training, safety and function.C ontinue fall precaution s.Monitor for safety. Insomnia 321094053 G47.0 0 Continue amitriptyl ine 25 mg qhsMonitor sleep patterns Anemia 035064373 D64.89 Multifacto rial, stable.Mon itor labs Spinal iraida nosis of lumbar region 69141684 M48.061 Long standing issue, not surgical candidate per neurosurg. Continue PT/OT as above.Pain management as above for now.Transi tion back to tramadol as acute pain from discitis improves. Coronary arteriosclerosis 38590674 I25.10 No recent sxs.Contin ue meds as above.Caroline tor sxs and f/u with cardio as planned. Chronic constipation 236 453481 K59.09 Continue miralax 17 gmd TID.Monito r bowel function. Pain of left thigh 43313 40928 70333 M79.652 No clear etiology, could be c/w dermatomal distributi on of L2-3, but should r/o DVT as pt has been immobile.W ill get doppler U/S [id number] FRANCINE HOPKINS [address] [place] [address] [place] [address] 01/10/2023 13:37:56 01/14/2023 15:59:12 Osteomyelitis 64699078 M46.26 M46.46 Continue ceftriaxon e 2 gms IV qdvanco titrated to troughs of 10-15, until 02/12gabape ntin 300 mg TID,lidode rm patch qd,oxycodo ne 10 mg q 4 hrs prn.Monito r CBC, CMP, ESR and CRP weekly with labs to ID (Dr. Rasmussen, fax # ) F/U with ID on 02/07 as planned. Spinal iraida nosis of lumbar region 41030026 M48.061 Long standing issue, not surgical candidate per neurosurg. Continue PT/OT as above. Pain management as above for now. Transition back to tramadol as acute pain from discitis improves. [id number] IRENE GRIPPIN, BILL SORTER [address] [address] 01/13/2023 14:27:28 01/16/2023 11:46:26 Deep venous thrombosis 571580960 I82.409 eliquis 10 mg bid to 01/20 then 5 mg bidmonitor cms to left leg Osteomyelitis 23051703 M 46.26 M46.46 Continue ceftriaxon e 2 gms IV qdvanco titrated to troughs of 10-15, until 02/12gabape ntin 300 mg TID,lidode rm patch qd,oxycodo ne 10 mg q 4 hrs prn.Monito r CBC, CMP, ESR and CRP weekly with labs to ID (Dr. Rasmussen, fax # [phone]) F/U with ID on 02/07 as planned. [id number] IRENE SKINNER NP [address] [address] 01/15/2023 13:41:20 01/22/2023 08:29:11 Deep venous thrombosis 547592086 I82.409 eliquis 10 mg bid to 01/20 then 5 mg bidmonitor cms to left leg Osteomyelitis 44087909 M 46.26 M46.46 Continue ceftriaxon e 2 gms IV qdvanco titrated to troughs of 10-15, until 02/12gabape ntin 300 mg TID,lidode rm patch qd,oxycodo ne 10 mg q 4 hrs scheduledM onitor CBC, CMP, ESR and CRP weekly with labs to ID (Dr. Rasmussen, fax # [phone]) F/U with ID on 02/07 as planned. Spinal iraida nosis of lumbar region 00209217 M48.061 Long standing issue, not surgical candidate per neurosurg. Continue PT/OT as above. Pain management as above for now. Transition back to tramadol as acute pain from discitis improves. [id number] IRENE SKINNER NP [address] [place] [address] 01/17/2023 13:29:33 01/22/2023 13:29:10 Osteomyelitis 79672900 M46.26 M46.46 Continue ceftriaxon e 2 gms IV qdvanco titrated to troughs of 10-15, until 02/12vanco decreased to 500 mggabapent in 300 mg TID,lidode rm patch qd,oxycodo ne 10 mg q 4 hrs scheduledM onitor CBC, CMP, ESR and CRP weekly with labs to ID (Dr. Rasmussen, fax # [phone]) F/U with ID on 02/07 as planned. Acute urticaria 34952062 9 L50.9 benedryl 25 mg q6hr prnprednis one burst with taper [id number] IRENE SKINNER NP [address] [address] 01/27/2023 12:42:15 01/29/2023 14:03:06 Osteomyelitis 47698713 M46.26 M46.46 Continue ceftriaxon e 2 gms IV qdvanco titrated to troughs of 10-15, until 02/12vanco decreased to 500 mggabapent in 300 mg TID,lidode rm patch qd,oxycodo ne 10 mg q 4 hrs scheduledM onitor CBC, CMP, ESR and CRP weekly with labs to ID (Dr. Rasmussen, fax # ) F/U with ID on 02/07 as planned. Spinal iraida nosis of lumbar region 56399573 M48.061 Long standing issue, not surgical candidate per neurosurg. Continue PT/OT as above. Pain management as above for now. Transition back to tramadol as acute pain from discitis improves. Acute urticaria 30584153 9 L50.9 resolvedbe nedryl 25 mg q6hr prnprednis one burst with taper [id number] IRENE SKINNER NP [address] [address] 01/29/2023 10:04:40 01/31/2023 16:01:18 Osteomyelitis 67458390 M46.26 M46.46 Continue ceftriaxon e 2 gms IV qdvanco titrated to troughs of 10-15, until 02/12vanco decreased to 500 mgtrough 01/30gabape ntin 300 mg TID,lidode rm patch qd,oxycodo ne 10 mg q 4 hrs scheduledM onitor CBC, CMP, ESR and CRP weekly with labs to ID (Dr. Rasmussen, fax # ) F/U with ID on 02/07 as planned. [id number] IRENE SKINNER NP [address] [address] 02/05/2023 11:24:24 02/07/2023 16:01:50 Spinal stenosis of lumbar region 89673901 M48.061 Long standing issue, not surgical candidate per neurosurg. Continue PT/OT as above.Pain management as above for now.Transi tion back to tramadol as acute pain from discitis improves. Osteomyelitis 30912419 M 46.26 M46.46 Continue ceftriaxon e 2 gms IV qdvanco titrated to troughs of 10-15, until 02/12vanco decreased to 500 mgtrough 01/30gabape ntin 300 mg TID,lidode rm patch qd,oxycodo ne 10 mg q 4 hrs scheduledM onitor CBC, CMP, ESR and CRP weekly with labs to ID (Dr. Rasmussen, fax # [phone]) F/U with ID on 02/07 as planned. [id number] IRENE SKINNER NP [address] [address] 02/12/2023 10:06:53 02/14/2023 11:50:02 Osteomyelitis 31162470 M46.26 M46.46 Continue ceftriaxon e 2 gms [...] SCHWARTZ REMOVED Type 2 sam betes mellitus 90487235 E11.22 glargine 28 units hslispro sliding scale tidmonitor glucose Hyperlipidemia 87858853 E78.5 atorvastat in 80 mg daily Essential hypertension 74452859 I10 coreg 6.25 mg bidmonitor bp History of renal transplant 572780440 Z48.22 tacrolimus 1gm bidmonitor labs Asthenia 84630130 R53.1 PT OT eval and treatfall precaution sfrequent safety checks Insomnia 830191719 G47.0 0 amitriptyl ine 25 mg hs Health Concerns Section Related Observation LastModified by Organization Detai ls LastModified Time None Recorded Concern Status LastModified by Organization Details LastModified Time None Recorded Advance Directives Directive Y: Payers Encounter Date Sequence Insurance Name Policy Number Policy Garcia Covered Member ID Garcia Member ID Guarantor Name 01/17/2023 1 [place] Aries E Savard [id number] Aries Savard 01/17/2023 2 [place] [id number] Aries Savard [id number] Aries Savard 01/27/2023 1 [place] Aries E Savard [id number] 7 Aries Savard 01/27/2023 2 [place] [id number] Aries Savard [id number] Aries Savard 01/29/2023 1 [place] Aries E Savard [id number] Aries Savard 01/29/2023 2 [place] [id number] Aries Savard [id number] Aries Savard 02/05/2023 1 [place] Aries E Savard [id number] 7 Aries Savard 02/05/2023 2 [place] [id number] Aries Savard [id number] Aries Savard 02/12/2023 1 [place] Aries E Savard [id number] 7 Aries Savard 02/12/2023 2 [place] [id number] Aries Rosario [id number] Aries Rosario Notes Date Note Type [...] burst and benedryl IRENE SKINNER, FRANCINE [address], [address], [place], [address], [facility] 01/17/2023 14:08:35 01/27/2023 text/html seen today for acute rounding visit- CAOx3 oob independent in room, lungs clear, rash resolved, tolerating his abx tx IRENE SKINNER NP [address], [address], [place], [address], [facility] 01/27/2023 12:53:30 01/29/2023 text/html seen today for [...] todays dose, asymptomatic IRENE SKINNER NP [address], [address], [place], [address], [facility] 01/29/2023 12:20:39 02/05/2023 text/html seen today for acute rounding visit, CAOx3 sitting up in wheelchair, ambulates with walker, tolerating abx therapy, schwartz right chest ok IRENE SKINNER NP [address], [address], [place], [address], [facility] 02/05/2023 11:41:11 02/12/2023 text/html seen today [...] of the schwartz IRENE SKINNER, FRANCINE [address], [address], [place], [address], [facility] 02/12/2023 11:05:55
--- OUTSIDE RECORDS SUMMARY | 2024-07-19 06:03 | XMS_ITS | Patient Health Record ---
[facility] Organization [facility] Address [address] [place] [address] Care Team Providers Care Core Analyst Name Role Phone Brittney Tiffanie HAWKINS Primary Care Provider Unavail able Nav George Unavailable [phone] Allergies No Known Allergies Results Component Value [...] Risk Notes Problem Chronic ulcer of foot (020526664) Non-pressure chronic ulcer of other part of left foot with fat layer exposed (L97.522) Active confirmed Problem Localized, primary osteoarthritis of the ankle and/or foot (589863096) Primary osteoarthritis, left ankle and foot (M19.072) Active confirmed Problem Acquired hallux rigidus (7516775) Hallux rigidus, left foot (M20.22) Active confirmed Problem Non-pressure chronic ulcer of other part of left foot limited to breakdown of skin (L97.521) Active confirmed Problem Acquired hallux valgus (25275480) Hallux valgus (acquired), left foot (M20.12) Active confirmed Problem Acquired hammer toe of right foot (4848012937291482 ) Other hammer toe(s) (acquired), right foot (M20.41) Active confirmed Problem Acquired hammer toe of left foot (3917066170271040 ) Other hammer toe(s) (acquired), left foot (M20.42) Active confirmed Problem Polyneuropathy due to type 2 diabetes mellitus (292283112) Type 2 diabetes mellitus with diabetic polyneuropathy (E11.42) Active confirmed Problem Polyneuropathy due to diabetes mellitus type I (661973278) Type 1 diabetes mellitus with diabetic polyneuropathy (E10.42) Active confirmed Problem Acquired hallux rigidus (2112936) Hallux rigidus, right foot (M20.21) Active confirmed Vital Signs Blood pressure diastolic 80 mm Hg 09/01/2023 Height 5ft 11in in 09/01/2023 Blood pressure systolic 120 mm Hg 09/01/2023 Weight 244 lbs 09/01/2023 BMI 34.03 kg/m2 09/01/2023 Encounters Encounter Location Date Provider Diagnosis [address] [address] 09/01/2023 George Chopra Type 1 diabetes mellitus [...] foot limited to breakdown of skin L97.[address] [address] 02/27/2024 George Chopra Assessments Encounter Date Diagnosis [...] X ray : Foot, left 3V 09/20/2021 07902-LDFDWPX SKIN/TISSUE 09/20/2021 58809-GRJDZNL SKIN/TISSUE 03/29/2021 61432-CYPWQRC SKIN/TISSUE 10/01/2021 78217-WAAVCNH SKIN/TISSUE 12/10/2021 82363-MNHHHRJ SKIN/TISSUE 09/09/2022 16283-MMVAUQW SKIN/TISSUE 01/25/2021 13634-ANDP SKIN LESIONS, OVER 4 03/29/20 21 03485-RAZZ SKIN LESIONS, OVER 4 09/21/19 22 47504-KOEC SKIN LESIONS, 2 TO 4 09/10/19 23 Insurance Providers Payer Name Payer Address Payer Phone Subscriber Number Group Number Insured Name Patient Relationship to Insured Coverage Start Date Coverage End Date Medicare National Govt Sv[employer] [address] [place] [address] [id number] Aries Rosario Self - patient is the insured [employer] [address] [place] [address] [phone] [id number] Aries Rosario Self - patient is the [...]
[2024-07-19 06:21] LABS: Basophils Percent Auto 0.3 % (0-2); Eosinophils Absolute Auto 0.2 X10*3/uL (0.0-0.4); Eosinophils Percent Auto 2.5 % (0-4); Hematocrit 37.7 % (42.0-52.0); Hemoglobin 12.1 g/dl (14.0-18.0); Imm Gran Abs Auto 0.03 X10*3/uL (0.00-0.03); Imm Gran Pct Auto 0.4 % (0.0-0.4); Lymphocytes Absolute Auto 1.9 X10*3/uL (1.2-4.9); Lymphocytes Percent Auto 27.6 % (20-40); Mean Corpuscular HGB Conc 32.1 g/dl (31.0-36.0); Mean Corpuscular Hemoglobin 28.7 pg (27.0-33.0); Mean Corpuscular Volume 89.3 fL (80.0-98.0); Mean Platelet Volume 10.2 fL (9.4-12.4); Monocytes Absolute Auto 0.5 X10*3/uL (0.1-1.2); Monocytes Percent Auto 7.9 % (2-11); Neutrophils Absolute Auto 4.1 x10*3/uL (2.0-8.3); Neutrophils Percent Auto 61.3 % (45-73); Platelet Count 203 X10*3/uL (160-400); Red Blood Count 4.22 X10*6/uL (4.60-5.80); Red Cell Distribution Width 15.9 % (11.0-16.0); White Blood Count 6.7 X10*3/uL (4.8-10.8)
[2024-07-19 06:38] LABS: Anion Gap 13 (12-20); Blood Urea Nitrogen 29 mg/dL (9-16); Calcium 8.5 mg/dL (8.4-10.2); Carbon Dioxide 21 mmol/L (22-29); Chloride 110 mmol/L (96-108); Estimated Glomerular Filt Rate > 60; Glucose Random 149 mg/dL (60-115); Potassium 3.9 mmol/L (3.3-5.1); Sodium 140 mmol/L (135-145)
[2024-07-20 11:19] LABS: Tacrolimus Prograf 3.7 mcg/L
== END 2024-07-19 05:58 | disposition home or self-care (01) ==
LOC: HO.MMNH2L 05:57
PROVIDERS: Visit Provider Nurse Practitioner
DX: E11.40 Type 2 diabetes mellitus with diabetic neuropathy, unspecified (principal); I10 Essential (primary) hypertension; Z94.0 Kidney transplant status
CPT/HCPCS: 36415; 80048; 80197; 85025

== ENCOUNTER 2024-07-26 07:37 | Outpatient (REF) | payer MEDICARE, SELFPAY ==
[2024-07-26 06:12] LABS: MANUAL DIFF FLAG NO
[2024-07-26 07:00] LABS: Anion Gap 11 (12-20); Blood Urea Nitrogen 28 mg/dL (9-16); Calcium 8.3 mg/dL (8.4-10.2); Carbon Dioxide 23 mmol/L (22-29); Chloride 111 mmol/L (96-108); Estimated Glomerular Filt Rate > 60; Glucose Random 102 mg/dL (60-115); Potassium 3.9 mmol/L (3.3-5.1); Sodium 141 mmol/L (135-145)
[2024-07-26 07:15] LABS: Basophils Percent Auto 0.3 % (0-2); Eosinophils Absolute Auto 0.3 X10*3/uL (0.0-0.4); Eosinophils Percent Auto 4.2 % (0-4); Hemoglobin 11.9 g/dl (14.0-18.0); Imm Gran Abs Auto 0.04 X10*3/uL (0.00-0.03); Imm Gran Pct Auto 0.6 % (0.0-0.4); Lymphocytes Absolute Auto 1.8 X10*3/uL (1.2-4.9); Lymphocytes Percent Auto 27.6 % (20-40); Mean Corpuscular HGB Conc 33.1 g/dl (31.0-36.0); Mean Corpuscular Volume 87.6 fL (80.0-98.0); Mean Platelet Volume 10.6 fL (9.4-12.4); Monocytes Absolute Auto 0.6 X10*3/uL (0.1-1.2); Monocytes Percent Auto 8.8 % (2-11); Neutrophils Absolute Auto 3.8 x10*3/uL (2.0-8.3); Neutrophils Percent Auto 58.5 % (45-73); Red Blood Count 4.11 X10*6/uL (4.60-5.80); Red Cell Distribution Width 16.2 % (11.0-16.0); White Blood Count 6.5 X10*3/uL (4.8-10.8)
[2024-07-26 07:19] LABS: Platelet Count 139 X10*3/uL (160-400)
--- OUTSIDE RECORDS SUMMARY | 2024-07-26 07:43 | XMS_ITS | Encounter Summary ---
Author Organization [facility] Address [address] [facility] [address] [place] [address] Phone Care Team Providers Care Boxer Operator Name Role Phone Tiffanie Lugo CAN CUTTER Primary Care Provider [phone] Encounter Details Date Type Department Care Team (Late st Contact Info) Description 04/22/2023 Office Communication [facility] [address] [place] [address] Harman Medina MD [address] [facility] [address] [place] [address] Social History Tobacco Use Types [...] Office Visit [facility] [address] [address] Harman Medina MD [address] [address] documented as of this encounter Visit Diagnoses Not on filedocumented in this encounter Care Teams Boxer Operator Relationship Specialty Start Date End Date Tiffanie Lugo NP [address] [place] [phone] PCP - General Nurse Practitioner 03/19/23 documented as of this encounter
--- OUTSIDE RECORDS SUMMARY | 2024-07-26 07:43 | XMS_ITS ---
Author Organization [facility] Address [address] [place] [address] Care Team Providers Care Scale Expert Name Role Phone Brittney Tiffanie HAWKINS Primary Care Provider Unavail George Thrasher Unavailable [phone] REASON FOR VISIT Painful nail(s) aggrevated by shoes and causing difficulty standing/walking., Open sore, Ulcer(s) Medications Medication SIG (Take, Route, Frequency, Duration) Notes Start Date End Date Status Night Splint AFO - L1930 as directed Active Extra Depth Diabetic Shoes with 3 Pair Custom heat-molded multi-density innersoles for 1 year Dx: Active Encounters Encounter Location Date Provider Diagnosis [facility] [address] [place] [address] 03/03/2024 George Chopra Type 1 diabetes mellitus [...] as necessary. Patient chooses, no pharmaceutical tx (18718) Debride skin< 25 sq cm Open wound [...] symptoms of infection or any untoward reactions (98555) Keratoma Treatment Parring or Cutting o f Benign Hyperkeratotic Lesion(s) 90186 (2-4 Lesions) - The Benign hyperkeratotic lesions, as described above were pared, and/or cut utilizing a sterile #15 blade, tissue nippers, and/or dremel Progress Notes * Aries ROSARIO EDOB:[birth year] (73 yo M)Acc No.[id number]:03/03/2024 Progress Note Patient:?SENAITAries HECK E Provider:?George Chopra DPM :1950???Age:73 Y???Sex:Male Suresh e:03/03/2024 Address:[address] [place], [place] [phone] Pcp:SHRUTHI Vicente Subjective: * Chief Complaints: * ???1. Painful nail(s) aggrev ated by shoes and causing difficulty standing/walking.. 2. Open sore. 3. Ulcer(s). * HPI: ???Skin problems:?Nature:?Ulcer.?Location:?Bottom, Forefoot, Left , 1st.?Duration:?several weeks--six.?Course:?improved.?Aggravated by:?standing, walking.?Treatments:?pt tx at [facility] every other week and dressing changes qod with ; pt going to [facility].?Heel pain:?Location:?Proximal plantar aspect of Heel, RIGHT.?Onset/Cause:?unknown, [...] as necessary. Patient chooses, no pharmaceutical tx (39057).?Debride skin< 25 sq cm:?Open wound?Open wound selective [...] symptoms of infection or any untoward reactions (10214).?Keratoma Treatment:?Parring or Cutting of Benign Hyperkeratotic Lesion(s)?76049 (2-4 Lesions) - The Benign hyperkeratotic lesions, as described above were pared, and/or cut utilizing a sterile #15 blade, tissue nippers, and/or dremel.? * Procedure Codes:?10491 DEBRI DE NAIL, 6 OR MORE, Modifiers: XS , 11417 ACTIVE WOUND CARE/20 CM OR <, 73273 TRIM SKIN LESIONS, 2 TO 4, Modifiers: XS * Follow Up:?6 Months * Images: * The named appointment provid er may or may not be the originator of this progress note, and it is not deemed complete until electronically signed by the appointment provider. Sign off status: Pending * Provider:Missy Chopra DPM Date:? 024 Generated for Jennifer calderón/Dia/Savannahitting on:?07/26/2024 07:43 AM EST History and Physical Notes * [...] by: standing, walking Treatments: pt tx at [facility] every other week and dressing changes qod with ; pt going to [facility] Pt States Last [...]
--- OUTSIDE RECORDS SUMMARY | 2024-07-26 07:43 | XMS_ITS | Clinical Summary ---
Author Organization [facility] Address [address] [place] [phone] Phone Care Team Providers Care Drilling Foreman Name Role Phone Tiffanie Lugo FRANCINE Primary Care Provider [phone] Allergies No known active allergies Medications Acetaminophen [...] Height,... 1 Active Insulin Pen Needle (Pen Acushnet 1/2 ) 29G X 12MM misc See [...] Telephone [facility] [address] [address] Yuan Sung MD from Last [...] Visit [facility] [address] [phone] Harman Medina MD [address] [address] Health Maintenance Due Date Last [...] AM EST) Hemoglobin A1C 7.0(H) (4.0-5.6) % [facility] Comment: MONITORING: In known diabetic patients, hemoglobin A1c targets should be discussed with health care provider. DIAGNOSTIC USE: ??The [place] Diabetes Association (ADA) and the World Health [...] Supplement 1 Testing performed or reported by [facility], a Service of [facility], [address] [place] [address] Dona Bliss MD, License Registration Examiner [facility]# [id number] Blood (Blood, Venous) 07/31/2022 8:10 AM EST 07/31/2022 8:20 AM EST Amanda Holly MD LAB BLOOD ORDERABLES Final Resu lt [facility] from Last 3 Months or Most Recently Relevant to Health Maintenance Insurance MEDICARE [facility] MEDICARE [facility] Care Teams Drilling Foreman Relationship Specialty Start Date End Date Tiffanie Lugo NP [address] [place] [phone] PCP - General Nurse Practitioner 03/19/23
--- OUTSIDE RECORDS SUMMARY | 2024-07-26 07:43 | XMS_ITS | Encounter Summary ---
Author Organization [facility] Address [address] [place] [address] Phone Care Team Providers Care Tamper Operator Name Role Phone Tiffanie Lugo FRANCINE Primary Care Provider [phone] Encounter Details Date Type Department Care Team (Late st Contact Info) Description 11/24/2023 Documentation Only [facility], [address] [place] [address] Kimmie GarzaWILLIAM[place], [place] [address] [place] [address] Social History Tobacco Use Types [...] Visit [facility] [address] [address] Harman Medina MD [address] [address] documented as of this encounter Visit Diagnoses Not on filedocumented in this encounter Care Teams Tamper Operator Relationship Specialty Start Date End Date Tiffanie Lugo NP [address] [place] [phone] PCP - General Nurse Practitioner 03/19/23 documented as of this encounter
--- OUTSIDE RECORDS SUMMARY | 2024-07-26 07:43 | XMS_ITS | Encounter Summary ---
Author Organization [facility] Address [address] [place] [address] Phone Care Team Providers Care Manager Electrical Name Role Phone Unavailable Primary Care Provider Unavailabl e Encounter Details Date Type Department Care Team (Late st Contact Info) Description 11/07/2016 Office Visit [facility] [address] [place] [address] ProviderHerber MD [address] [place] [address] Social History Tobacco Use Types Packs/Day [...]
--- OUTSIDE RECORDS SUMMARY | 2024-07-26 07:43 | XMS_ITS | Clinical Summary ---
Author Organization [facility] Address [address] [place] [address] Phone Care Team Providers Care Convenience Store Manager Name Role Phone Unavailable Primary Care Provider [...]
--- OUTSIDE RECORDS SUMMARY | 2024-07-26 07:44 | XMS_ITS ---
Author Organization [facility] Address [address] [place] [address] Care Team Providers Care Manager Collection Name Role Phone Brittney Tiffanie HAWKINS Primary Care Provider Unavail able Nav George Unavailable [phone] Allergies No Known Allergies REASON FOR VISIT [...] 024 Encounters Encounter Location Date Provider Diagnosis [facility] [address] [address] 09/01/2023 George Chopra Type 1 diabetes mellitus [...] as necessary. Patient chooses, no pharmaceutical tx (80905) Debride skin< 25 sq cm Open wound [...] symptoms of infection or any untoward reactions (06580) Keratoma Treatment Parring or Cutting o f Benign Hyperkeratotic Lesion(s) 81494 (2-4 Lesions) - The Benign hyperkeratotic lesions, as described above were pared, and/or cut utilizing a sterile #15 blade, tissue nippers, and/or dremel Progress Notes * JOHANNA Aries EDOB:[birth year] (72 yo M)Acc No.[id number]:09/01/2023 Progress Note Patient:?Aries Rosario Provider:?George Chopra DPM :1950???Age:72 Y???Sex:Male Suresh e:09/01/2023 Address:[address] [place], [place] [id number] Pcp:SHRUTHI Vicente Subjective: * Chief Complaints: * ???Painful nail(s) aggrevate d by shoes and causing difficulty standing/walking.Open soreUlcer(s) * HPI: ???Skin problems:?Nature:?Ulcer.?Location:?Bottom, Forefoot, Left , 1st.?Duration:?several weeks--six.?Course:?improved.?Aggravated by:?standing, walking.?Treatments:?pt tx at [facility] every other week and dressing changes qod with ; pt going to [facility].?Heel pain:?Location:?Proximal plantar aspect of Heel, RIGHT.?Onset/Cause:?unknown, [...] as necessary. Patient chooses, no pharmaceutical tx (87396).?Debride skin< 25 sq cm:?Open wound?Open wound selective [...] symptoms of infection or any untoward reactions (00112).?Keratoma Treatment:?Parring or Cutting of Benign Hyperkeratotic Lesion(s)?86304 (2-4 Lesions) - The Benign hyperkeratotic lesions, as described above were pared, and/or cut utilizing a sterile #15 blade, tissue nippers, and/or dremel.? * Procedure Codes:?76229 DEBRI DE NAIL, 6 OR MORE, Modifiers: XS 16877 ACTIVE WOUND CARE/20 CM OR <67836 TRIM SKIN LESIONS, 2 TO 4, Modifiers: [...] DPM Date:? 024 Generated for Jennifer calderón/Dia/Marquise on:?07/26/2024 07:43 AM EST History and Physical [...] by: standing, walking Treatments: pt tx at [facility] w[facility] c[facility] every other week and dressing changes qod with ; pt going to [facility] Risk footcare Pt States Last [...]
--- OUTSIDE RECORDS SUMMARY | 2024-07-26 07:44 | XMS_ITS | Patient Health Record ---
Author Organization [facility] Address [address] [facility] [place] [address] Care Team Providers Care Gun Fitter Name Role Phone Brittney Tiffanie HAWKINS Primary Care Provider Unavail able Nav George Unavailable [phone] Allergies No Known Allergies Results Component Value [...] Risk Notes Problem Chronic ulcer of foot (361214911) Non-pressure chronic ulcer of other part of left foot with fat layer exposed (L97.522) Active confirmed Problem Localized, primary osteoarthritis of the ankle and/or foot (337909712) Primary osteoarthritis, left ankle and foot (M19.072) Active confirmed Problem Acquired hallux rigidus (9974015) Hallux rigidus, left foot (M20.22) Active confirmed Problem Non-pressure chronic ulcer of other part of left foot limited to breakdown of skin (L97.521) Active confirmed Problem Acquired hallux valgus (97078079) Hallux valgus (acquired), left foot (M20.12) Active confirmed Problem Acquired hammer toe of right foot (0199937186163042 ) Other hammer toe(s) (acquired), right foot (M20.41) Active confirmed Problem Acquired hammer toe of left foot (7733120635955506 ) Other hammer toe(s) (acquired), left foot (M20.42) Active confirmed Problem Polyneuropathy due to type 2 diabetes mellitus (416210634) Type 2 diabetes mellitus with diabetic polyneuropathy (E11.42) Active confirmed Problem Polyneuropathy due to diabetes mellitus type I (601311225) Type 1 diabetes mellitus with diabetic polyneuropathy (E10.42) Active confirmed Problem Acquired hallux rigidus (5824616) Hallux rigidus, right foot (M20.21) Active confirmed Vital Signs Blood pressure diastolic 80 mm Hg 09/01/2023 Height 5ft 11in in 09/01/2023 Blood pressure systolic 120 mm Hg 09/01/2023 Weight 244 lbs 09/01/2023 BMI 34.03 kg/m2 09/01/2023 Encounters Encounter Location Date Provider Diagnosis [address] [address] 09/01/2023 George Chopra Type 1 diabetes mellitus [...] foot limited to breakdown of skin L97.[address] [address] 02/27/2024 George Chopra Assessments Encounter Date Diagnosis [...] X ray : Foot, left 3V 09/20/2021 01709-AYIEZED SKIN/TISSUE 09/20/2021 28584-IECDSTK SKIN/TISSUE 03/29/2021 30377-DIJKHCP SKIN/TISSUE 10/01/2021 64267-ZAEURDC SKIN/TISSUE 12/10/2021 87788-FTRXALQ SKIN/TISSUE 09/09/2022 34369-HZHTINU SKIN/TISSUE 01/25/2021 77349-GVMN SKIN LESIONS, OVER 4 03/29/20 21 69578-DEWM SKIN LESIONS, OVER 4 09/21/19 22 75717-ADOO SKIN LESIONS, 2 TO 4 09/10/19 23 Insurance Providers Payer Name Payer Address Payer Phone Subscriber Number Group Number Insured Name Patient Relationship to Insured Coverage Start Date Coverage End Date Medicare National [employer] [address] [place] [address] [id number] Aries Rosario Self - patient is the insured [employer] [address] [place] [address] [phone] [id number] Aries Rosario Self - patient is the [...]
--- OUTSIDE RECORDS SUMMARY | 2024-07-26 07:44 | XMS_ITS ---
Author Organization [facility] Address [address] [place] [address] Care Team Providers Care Dry Talc Racker Name Role Phone Brittney Tiffanie HAWKINS Primary Care Provider Unavail George Thrasher Unavailable [phone] REASON FOR VISIT cx appt 03/03 Encounters Encounter Location Date Provider Diagnosis [facility] [address] [place] [address] 02/27/2024 George Chopra Plan Of Treatment No Information Progress Notes * Aries ROSARIO EDOB:[birth year] (73 yo M)Acc No.[id number]:02/27/2024 Patient:?Aries Rosario :1950???Age:73 Y???Sex:Male Address:[address] [facility] [place], [address] * true * Date:? Generated for Printi ng/Famoniqueg/eTransmitting on:?07/26/2024 07:44 AM EST
--- OUTSIDE RECORDS SUMMARY | 2024-07-26 07:44 | XMS_ITS | Clinical Summary ---
Author Organization [facility] Address [address] [place] [address] Care Team Providers Care Container Repairer Name Role Phone Pcp, No Primary Care [...] age to complete this topic Care Teams Container Repairer Relationship Specialty Start Date End Date Pcp, No [address] [place] [address] PCP - General 02/13/22
[2024-07-27 21:38] LABS: Tacrolimus Prograf 2.9 mcg/L
== END 2024-07-26 07:38 | disposition home or self-care (01) ==
LOC: HO.MMNH2L 07:37
PROVIDERS: Visit Provider Nurse Practitioner
DX: E11.40 Type 2 diabetes mellitus with diabetic neuropathy, unspecified (principal); I10 Essential (primary) hypertension; Z94.0 Kidney transplant status; Z79.899 Other long term (current) drug therapy
CPT/HCPCS: 36415; 80048; 80197; 85025

== ENCOUNTER 2024-08-02 06:20 | Outpatient (REF) | payer MEDICARE, SELFPAY ==
[2024-08-02 06:13] LABS: MANUAL DIFF FLAG NO
--- OUTSIDE RECORDS SUMMARY | 2024-08-02 06:35 | XMS_ITS | Encounter Summary ---
Author Organization [facility] Address [address] [facility] [address] [place] [address] Phone Care Team Providers Care Grading Machine Operator Name Role Phone Tiffanie Lugo BULLET SWAGING MACHINE OPERATOR Primary Care Provider [phone] Encounter Details Date Type Department Care Team (Late st Contact Info) Description 04/22/2023 Office Communication [facility] [address] [place] [address] [place] [address] Harman Medina MD [address] [facility] [address] [place] [address] Social History Tobacco Use Types [...] Office [facility] [address] [address] Harman Medina MD [address] [address] documented as of this encounter Visit Diagnoses Not on filedocumented in this encounter Care Teams Grading Machine Operator Relationship Specialty Start Date End Date Tiffanie Lugo NP [address] [place] [phone] PCP - General Nurse Practitioner 03/19/23 documented as of this encounter
--- OUTSIDE RECORDS SUMMARY | 2024-08-02 06:35 | XMS_ITS | Clinical Summary ---
Author Organization [facility] Address [address] [place] [address] Phone Care Team Providers Care College And Career Counselor Name Role Phone Unavailable Primary Care Provider [...]
--- OUTSIDE RECORDS SUMMARY | 2024-08-02 06:35 | XMS_ITS | Encounter Summary ---
Author Organization [facility] Address [address] [place] [address] Phone Care Team Providers Care Wine Steward Name Role Phone Tiffanie Lugo FRANCINE Primary Care Provider [phone] Encounter Details Date Type Department Care Team (Late st Contact Info) Description 11/24/2023 Documentation Only [facility], [address] [place] [address] Kimmie [place]LEX[place], [place] [address] [place] [address] Social History Tobacco Use Types [...] Visit [facility] [address] [address] Harman Medina MD [address] [address] documented as of this encounter Visit Diagnoses Not on filedocumented in this encounter Care Teams Wine Steward Relationship Specialty Start Date End Date Tiffanie Lugo NP [address] [place] [phone] PCP - General Nurse Practitioner 03/19/23 documented as of this encounter
--- OUTSIDE RECORDS SUMMARY | 2024-08-02 06:35 | XMS_ITS ---
Author Organization [facility] Address [address] [place] [address] Care Team Providers Care Manager Zone Name Role Phone Brittney Tiffanie HAWKINS Primary Care Provider Unavail George Thrasher Unavailable [phone] REASON FOR VISIT Painful nail(s) aggrevated by shoes and causing difficulty standing/walking., Open sore, Ulcer(s) Medications Medication SIG (Take, Route, Frequency, Duration) Notes Start Date End Date Status Night Splint AFO - L1930 as directed Active Extra Depth Diabetic Shoes with 3 Pair Custom heat-molded multi-density innersoles for 1 year Dx: Active Encounters Encounter Location Date Provider Diagnosis [facility] [address] [place] [address] 03/03/2024 George Chopra Type 1 diabetes mellitus [...] as necessary. Patient chooses, no pharmaceutical tx (76869) Debride skin< 25 sq cm Open wound [...] symptoms of infection or any untoward reactions (75883) Keratoma Treatment Parring or Cutting o f Benign Hyperkeratotic Lesion(s) 76260 (2-4 Lesions) - The Benign hyperkeratotic lesions, as described above were pared, and/or cut utilizing a sterile #15 blade, tissue nippers, and/or dremel Progress Notes * Aries ROSARIO EDOB:[birth year] (73 yo M)Acc No.[id number]:03/03/2024 Progress Note Patient:?SENAITAries HECK E Provider:?George Chopra DPM :1950???Age:73 Y???Sex:Male Suresh e:03/03/2024 Address:[address] [place], [place] [address] Pcp:SHRUTHI Vicente Subjective: * Chief Complaints: * ???1. Painful nail(s) aggrev ated by shoes and causing difficulty standing/walking.. 2. Open sore. 3. Ulcer(s). * HPI: ???Skin problems:?Nature:?Ulcer.?Location:?Bottom, Forefoot, Left , 1st.?Duration:?several weeks--six.?Course:?improved.?Aggravated by:?standing, walking.?Treatments:?pt tx at [facility] wd ctr every other week and dressing changes qod with ; pt going to [facility].?Heel pain:?Location:?Proximal plantar aspect of Heel, RIGHT.?Onset/Cause:?unknown, [...] Vitals:? * Examination: ???Ophthalmology Referral: ?DIABETES EYE EXAM?Diabetic Retinopathy Screening:?No 2019?Neurological: ?SENSORY:? Neurological exam demonstrates, reduced vibration sensation.?Vascular: [...] in no acute distress.?ORIENTED:?person, place, and time.?FOOT EXAM:?Lower Extremity Neurological Exam performed:?Yes ?Visual exam of foot performed:?Yes ?Date?09/01/2023 ?Sensory testing performed:?sensations diminished ?Pedal pulse taking performed:?absent?Orthopedic: ?MUSCLE STRENGTH:?5/5 all groups in a symmetrical [...] as necessary. Patient chooses, no pharmaceutical tx (29718).?Debride skin< 25 sq cm:?Open wound?Open wound selective [...] symptoms of infection or any untoward reactions (29128).?Keratoma Treatment:?Parring or Cutting of Benign Hyperkeratotic Lesion(s)?44290 (2-4 Lesions) - The Benign hyperkeratotic lesions, as described above were pared, and/or cut utilizing a sterile #15 blade, tissue nippers, and/or dremel.? * Procedure Codes:?31490 DEBRI DE NAIL, 6 OR MORE, Modifiers: XS , 42116 ACTIVE WOUND CARE/20 CM OR <, 23297 TRIM SKIN LESIONS, 2 TO 4, Modifiers: XS * Follow Up:?6 Months * Images: * The named appointment provid er may or may not be the originator of this progress note, and it is not deemed complete until electronically signed by the appointment provider. Sign off status: Pending * Provider:?George Chopra DPM Date:? 024 Generated for Jennifer calderón/Dia/Marqiuse on:?08/02/2024 06:34 AM EST History and Physical Notes * [...] by: standing, walking Treatments: pt tx at [facility] wd ctr every other week and dressing changes qod with ; pt going to [facility] Risk footcare Pt States Last [...]
--- OUTSIDE RECORDS SUMMARY | 2024-08-02 06:35 | XMS_ITS | Data Portability ---
Author Organization [facility], Main Office Address [address] [place] [address] Care Team Providers Care Block Feeder Name Role Phone MELISSA ROWLAND 2ND FLOOR OTHER [phone] PRABHAKAR DAMICO Primary Care Provider Assessment No [...] and Address Organization Details Recorded Time Osteomyelitis 20690922 Active 2022 IRENE SKINNER NP [address], [place], [address], [facility] [employer] [facility] 3 12:54:43 Type 2 diabetes mellitus 83798523 Active 2022 IRENE SKINNER NP [address], [address], [place], [address], [facility] [employer] 3 13:02:35 Essential hypertension 28589683 Active 2022 IRENE SKINNER NP [address], [address], [place], [address], [facility] [employer] 3 13:03:00 Hyperlipidemia 29495517 Active 2022 IRENE SKINNER NP [address], [address], [place], [address], [facility] [employer] 3 13:03:12 History of renal transplant 494654941 Active 2022 IRENE SKINNER NP [address], [address], [place], [address], [email or web address] 3 13:03:24 Asthenia 39645022 Active 2022 IRENE SKINNER NP [address], [address], [place], [address], [email or web address] 3 13:03:41 Insomnia 715693957 Active 2022 IRENE SKINNER NP [address], [place], [address], [email or web address] 3 13:21:26 Spinal stenosis of lumbar region 32010969 Active 2022 Yanique Verdin MD [address], [address], [place], [address], [email or web address] 3 15:00:42 Chronic constipation 385026468 Active 2022 Yanique Verdin MD [address] [facility], [address], [place], [address], [email or web address] 3 15:14:15 Coronary arterioscleros is 00027540 Active 2022 Yanique Verdin MD [address] [facility], [address], [place], [address], [email or web address] 3 15:14:18 Deep venous thrombosis 617889086 Active 2022 IRENE SKINNER NP [address] [facility], [address], [place], [address], [email or web address] 3 14:34:30 Acute urticaria 750184254 Active 2022 IRENE SKINNER NP [address] [facility], [address], [place], [address], [email or web address] 3 14:05:35 Problem Notes None recorded. Medical [...] mm[Hg] 72 mm[Hg] IRENE SKINNER NP [address] [facility], [address], [place], [address], [email or web address] 3 14:03:34 Date Recorded Body height Heart rate Respiratory rate Body temperature Oxygen saturation Oxygen saturation in Arterial blood by Pulse oximetry Systolic blood pressure Diastolic blood pressure Provider Name and Address Organization Details Last Updated DateTime 3 180.34 cm 75 /min 16 /min 97.3 [degF] 96 % 96 % 132 mm[Hg] 76 mm[Hg] IRENE SKINNER NP [address] [facility], [address], [place], [address], [email or web address] 3 12:50:47 Date Recorded Body height Heart rate Respiratory rate Body temperature Oxygen saturation Oxygen saturation in Arterial blood by Pulse oximetry Systolic blood pressure Diastolic blood pressure Provider Name and Address Organization Details Last Updated DateTime 3 180.34 cm 77 /min 16 /min 97.8 [degF] 96 % 96 % 130 mm[Hg] 74 mm[Hg] IRENE SKINNER NP [address], [place], [address], [email or web address] 3 12:16:34 Date Recorded Body height Heart rate Respiratory rate Body temperature Oxygen saturation Oxygen saturation in Arterial blood by Pulse oximetry Systolic blood pressure Diastolic blood pressure Provider Name and Address Organization Details Last Updated DateTime 3 180.34 cm 67 /min 16 /min 97.6 [degF] 98 % 98 % 135 mm[Hg] 74 mm[Hg] IRENE SKINNER NP [address], [place], [address], [email or web address] 3 11:38:28 Date Recorded Body height Heart rate Respiratory rate Body temperature Oxygen saturation Oxygen saturation in Arterial blood by Pulse oximetry Systolic blood pressure Diastolic blood pressure Provider Name and Address Organization Details Last Updated DateTime 3 180.34 cm 72 /min 16 /min 98 [degF] 97 % 97 % 132 mm[Hg] 68 mm[Hg] IRENE SKINNER NP [address] [facility], [address], [place], [address], [facility] [employer] 3 11:00:29 Social History Question Answer Notes LastModified by Organizat ion Details LastModified Time Tobacco Smoking Status Former Smoker IRENE SKINNER NP [address] [facility], [address], [place], [address], [facility] [employer] 01/08/2023 12:57:22 Do You Have An Advance [...] Do You Have A Medical Power Of Mattress Renovator? Yes Not Invoked Information not available 01/09/2023 [...] Details Recorded Time Pneumococcal conjugate PCV20, polysaccharide DIB151 conjugate, adjuvant, PF 3 completed Tisha Lopez [facility] 01/14/2023 12:34:16 SARS-COV-2 (COVID-19) vaccine, UNSPECIFIED 2 completed Tishaisidra Lopez [facility] 01/14/2023 12:34:40 SARS-COV-2 (COVID-19) vaccine, UNSPECIFIED 1 completed Tisha [facility] 01/14/2023 12:34:55 SARS-COV-2 (COVID-19) vaccine, UNSPECIFIED 1 completed Tisha [facility] 01/14/2023 12:35:06 SARS-COV-2 (COVID-19) vaccine, UNSPECIFIED 1 completed Tisha [facility] 01/14/2023 12:35:15 influenza, unspecified formulation 2 completed Tisha [facility] 01/14/2023 12:35:39 pneumococcal polysaccharide PPV23 4 completed Tisha Lopez [facility] 01/14/2023 12:36:12 Influenza, adjuvanted, quadrivalent, PF 3 completed Conchita Arias [facility] 10/17/2023 10:37:00 Td (adult), 5 Lf tetanus toxoid, preservative free, adsorbed 3 completed Conchita Arias [facility] 10/17/2023 10:37:17 Past Encounters Encounter ID Performer Location Encounter Start Date Encounter Closed Date Diagnosis/Indication Diagnosis SNOMED-CT Code Diagnosis ICD10 Code Diagnosis Note [id number] FRANCINE HOPKINS [address] [facility] [place] SEGOVIA [address] 01/08/2023 11:23:17 01/14/2023 15:37:27 Osteomyelitis 39830442 M86.9 oxycodone 10 mg q4hr prnvanco 1000 mg increased to 1250 mg iv daily to 02/12roceph in 2 gm iv daily to 02/12gabape ntin 300 mg tidf/u with ID 02/07 Type 2 kaylyn betes mellitus 26888119 E11.22 glargine 28 units hslispro sliding scale tidmonitor glucose Hyperlipidemia 81550685 E78.5 atorvastat in 80 mg daily Essential hypertension 42527517 I10 coreg 6.25 mg bidmonitor bp History of renal transplant 128952954 Z48.22 tacrolimus 1gm bidmonitor labs Asthenia 06976817 R53.1 PT OT eval and treatfall precaution sfrequent safety checks Insomnia 591017180 G47.0 0 amitriptyl ine 25 mg [id number] MD MELISSA Mondragon [address] [place] [address] 01/09/2023 13:16:08 01/14/2023 15:47:55 Osteomyelitis 53328957 M46.26 M46.46 Continue ceftriaxon e 2 gms IV qd and vanco titrated to troughs of 10-15, until ontin ue gabapentin 300 mg TID, lidoderm patch qd, oxycodone 10 mg q 4 hrs prn.Monito r CBC, CMP, ESR and CRP weekly with labs to ID (Dr. Rasmussen, fax # )F/U with ID on 02/07 as planned. Type 2 kaylyn betes mellitus 13932131 E11.22 Fair control since here. Last HgA1C 7.0 in 07/2022.Con tinue Lantus 28 units qhs and SSIMonitor fingerstic ks TID and HgA1C as outpt. Hyperlipidemia 92806090 E78.49 Good in ont inue atorvastat in 80 mg qd and ASA 81 mg qd.Monitor labs as outpt. Essential hypertension 83570628 I10 SBP high or borderline since here, likely due to pain, won't make any changes for now.Contin ue carvedilol 6.25 mg BID.Monito r BP and labs. History of renal transplant 375302221 Z48.22 With good renal function.C ontinue tacrolimus 1 gm BIDMonitor labsF/U with renal as planned. Asthenia 96772166 R53.1 Very deconditio tasneem.Needs PT/OT for strengthen ing, balance, gait training, safety and function.C ontinue fall precaution s.Monitor for safety. Insomnia 966085000 G47.0 0 Continue amitriptyl ine 25 mg qhsMonitor sleep patterns Anemia 927313697 D64.89 Multifacto rial, stable.Mon itor labs Spinal iraida nosis of lumbar region 76131745 M48.061 Long standing issue, not surgical candidate per neurosurg. Continue PT/OT as above.Pain management as above for now.Transi tion back to tramadol as acute pain from discitis improves. Coronary arteriosclerosis 93393480 I25.10 No recent sxs.Contin ue meds as above.Caroline tor sxs and f/u with cardio as planned. Chronic constipation 236 149702 K59.09 Continue miralax 17 gmd TID.Monito r bowel function. Pain of left thigh 66035 28173 92773 M79.652 No clear etiology, could be c/w dermatomal distributi on of L2-3, but should r/o DVT as pt has been immobile.W ill get doppler U/S [id number] FRANCINE HOPKINS [address] [place] [address] [place] [address] 01/10/2023 13:37:56 01/14/2023 15:59:12 Osteomyelitis 85646488 M46.26 M46.46 Continue ceftriaxon e 2 gms IV qdvanco titrated to troughs of 10-15, until 02/12gabape ntin 300 mg TID,lidode rm patch qd,oxycodo ne 10 mg q 4 hrs prn.Monito r CBC, CMP, ESR and CRP weekly with labs to ID (Dr. Rasmussen, fax # ) F/U with ID on 02/07 as planned. Spinal iraida nosis of lumbar region 63604451 M48.061 Long standing issue, not surgical candidate per neurosurg. Continue PT/OT as above. Pain management as above for now. Transition back to tramadol as acute pain from discitis improves. [id number] IRENE GRIPPIN, DIGITAL FORENSIC EXAMINER [address] [address] 01/13/2023 14:27:28 01/16/2023 11:46:26 Deep venous thrombosis 100230259 I82.409 eliquis 10 mg bid to 01/20 then 5 mg bidmonitor cms to left leg Osteomyelitis 04021633 M 46.26 M46.46 Continue ceftriaxon e 2 gms IV qdvanco titrated to troughs of 10-15, until 02/12gabape ntin 300 mg TID,lidode rm patch qd,oxycodo ne 10 mg q 4 hrs prn.Monito r CBC, CMP, ESR and CRP weekly with labs to ID (Dr. Rasmussen, fax # ) F/U with ID on 02/07 as planned. [id number] IRENE SKINNER NP [address] [address] 01/15/2023 13:41:20 01/22/2023 08:29:11 Deep venous thrombosis 625306993 I82.409 eliquis 10 mg bid to 01/20 then 5 mg bidmonitor cms to left leg Osteomyelitis 93917683 M 46.26 M46.46 Continue ceftriaxon e 2 gms IV qdvanco titrated to troughs of 10-15, until 02/12gabape ntin 300 mg TID,lidode rm patch qd,oxycodo ne 10 mg q 4 hrs scheduledM onitor CBC, CMP, ESR and CRP weekly with labs to ID (Dr. Rasmussen, fax # [phone]) F/U with ID on 02/07 as planned. Spinal iraida nosis of lumbar region 34540749 M48.061 Long standing issue, not surgical candidate per neurosurg. Continue PT/OT as above. Pain management as above for now. Transition back to tramadol as acute pain from discitis improves. [id number] IRENE SKINNER NP [address] [place] [address] 01/17/2023 13:29:33 01/22/2023 13:29:10 Osteomyelitis 91925365 M46.26 M46.46 Continue ceftriaxon e 2 gms IV qdvanco titrated to troughs of 10-15, until 02/12vanco decreased to 500 mggabapent in 300 mg TID,lidode rm patch qd,oxycodo ne 10 mg q 4 hrs scheduledM onitor CBC, CMP, ESR and CRP weekly with labs to ID (Dr. Rasmussen, fax # [phone]) F/U with ID on 02/07 as planned. Acute urticaria 48408416 9 L50.9 benedryl 25 mg q6hr prnprednis one burst with taper [id number] IRENE SKINNER NP [address] [address] 01/27/2023 12:42:15 01/29/2023 14:03:06 Osteomyelitis 56315637 M46.26 M46.46 Continue ceftriaxon e 2 gms IV qdvanco titrated to troughs of 10-15, until 02/12vanco decreased to 500 mggabapent in 300 mg TID,lidode rm patch qd,oxycodo ne 10 mg q 4 hrs scheduledM onitor CBC, CMP, ESR and CRP weekly with labs to ID (Dr. Rasmussen, fax # ) F/U with ID on 02/07 as planned. Spinal iraida nosis of lumbar region 61134977 M48.061 Long standing issue, not surgical candidate per neurosurg. Continue PT/OT as above. Pain management as above for now. Transition back to tramadol as acute pain from discitis improves. Acute urticaria 69952578 9 L50.9 resolvedbe nedryl 25 mg q6hr prnprednis one burst with taper [id number] IRENE SKINNER NP [address] [address] 01/29/2023 10:04:40 01/31/2023 16:01:18 Osteomyelitis 39653767 M46.26 M46.46 Continue ceftriaxon e 2 gms IV qdvanco titrated to troughs of 10-15, until 02/12vanco decreased to 500 mgtrough 01/30gabape ntin 300 mg TID,lidode rm patch qd,oxycodo ne 10 mg q 4 hrs scheduledM onitor CBC, CMP, ESR and CRP weekly with labs to ID (Dr. Rasmussen, fax # ) F/U with ID on 02/07 as planned. [id number] IRENE SKINNER NP [address] [address] 02/05/2023 11:24:24 02/07/2023 16:01:50 Spinal stenosis of lumbar region 18950192 M48.061 Long standing issue, not surgical candidate per neurosurg. Continue PT/OT as above.Pain management as above for now.Transi tion back to tramadol as acute pain from discitis improves. Osteomyelitis 31967191 M 46.26 M46.46 Continue ceftriaxon e 2 gms IV qdvanco titrated to troughs of 10-15, until 02/12vanco decreased to 500 mgtrough 01/30gabape ntin 300 mg TID,lidode rm patch qd,oxycodo ne 10 mg q 4 hrs scheduledM onitor CBC, CMP, ESR and CRP weekly with labs to ID (Dr. Rasmussen, fax # ) F/U with ID on 02/07 as planned. [id number] IRENE SKINNER NP [address] [address] 02/12/2023 10:06:53 02/14/2023 11:50:02 Osteomyelitis 42955262 M46.26 M46.46 Continue ceftriaxon e 2 gms [...] SCHWARTZ REMOVED Type 2 kaylyn betes mellitus 50291108 E11.22 glargine 28 units hslispro sliding scale tidmonitor glucose Hyperlipidemia 09304424 E78.5 atorvastat in 80 mg daily Essential hypertension 37622692 I10 coreg 6.25 mg bidmonitor bp History of renal transplant 056031557 Z48.22 tacrolimus 1gm bidmonitor labs Asthenia 35479922 R53.1 PT OT eval and treatfall precaution sfrequent safety checks Insomnia 290809114 G47.0 0 amitriptyl ine 25 mg hs Health Concerns Section Related Observation LastModified by Organization Detai ls LastModified Time None Recorded Concern Status LastModified by Organization Details LastModified Time None Recorded Advance Directives Directive Y: Payers Encounter Date Sequence Insurance Name Policy Number Policy Garcia Covered Member ID Garcia Member ID Guarantor Name 01/17/2023 1 [place] Aries E Savard [id number] Aries Savard 01/17/2023 2 [place] [id number] Aries Savard [id number] Aries Savard 01/27/2023 1 [place] Aries E Savard [id number] Aries Savard 01/27/2023 2 [place] [id number] Aries Savard [id number] Aries Savard 01/29/2023 1 [place] Aries E Savard [id number] 7 Aries Savard 01/29/2023 2 [place] [id number] Aries Savard [id number] Aries Savard 02/05/2023 1 [place] Aries E Savard [id number] 7 Aries Savard 02/05/2023 2 [place] [id number] Aries Savard [id number] Aries Savard 02/12/2023 1 [place] Aries E Savard [id number] 7 Aries Savard 02/12/2023 2 [place] [id number] Aries Rosario [id number] Aries Rosario Notes Date Note Type [...] burst and benedryl IRENE SKINNER, FRANCINE [address] [facility], [address], [place], [address], [facility] [employer] [facility] 01/17/2023 14:08:35 01/27/2023 text/html seen today for acute rounding visit- CAOx3 oob independent in room, lungs clear, rash resolved, tolerating his abx tx IRENE SKINNER NP [address] [facility], [address], [place], [address], [email or web address] 01/27/2023 12:53:30 01/29/2023 text/html seen today for [...] todays dose, asymptomatic IRENE SKINNER NP [address] [facility], [address], [place], [address], [email or web address] 01/29/2023 12:20:39 02/05/2023 text/html seen today for acute rounding visit, CAOx3 sitting up in wheelchair, ambulates with walker, tolerating abx therapy, schwartz right chest ok IRENE SKINNER NP [address] [facility], [address], [place], [address], [email or web address] 02/05/2023 11:41:11 02/12/2023 text/html seen today [...] of the schwartz IRENE SKINNER, FRANCINE [address] [facility], [address], [place], [address], [facility] 02/12/2023 11:05:55
--- OUTSIDE RECORDS SUMMARY | 2024-08-02 06:35 | XMS_ITS | Encounter Summary ---
Author Organization [facility] Address [address] [place] [address] Phone Care Team Providers Care Music Autographer Name Role Phone Unavailable Primary Care Provider Unavailabl e Encounter Details Date Type Department Care Team (Late st Contact Info) Description 11/07/2016 Office Visit [facility] [address] [place] [address] ProviderHerber MD [address] [place] [address] Social History Tobacco Use Types Packs/Day [...]
--- OUTSIDE RECORDS SUMMARY | 2024-08-02 06:35 | XMS_ITS | Clinical Summary ---
Author Organization [facility] Address [address] [place] [address] Phone Care Team Providers Care Marine Equipment Research Engineer Name Role Phone Tiffanie Lugo FRANCINE Primary Care Provider [phone] Allergies No known active allergies Medications Acetaminophen [...] Height,... 1 Active Insulin Pen Needle (Pen [place]ba 1/2 ) 29G X 12MM misc See [...] Telephone [facility] [address] [address] Yuan Sung MD from Last [...] [facility] [address] [address] Harman Medina MD [address] [address] Health Maintenance Due Date Last [...] AM EST) Hemoglobin A1C 7.0(H) (4.0-5.6) % [facility] Comment: MONITORING: In known diabetic patients, hemoglobin A1c targets should be discussed with health care provider. DIAGNOSTIC USE: ??The [place] Diabetes Association (ADA) and the World Health [...] Supplement 1 Testing performed or reported by [facility], a Service of [facility], [address] [place] [address] Dona Bliss MD, Pro Shop Attendant [facility]# [id number] Blood (Blood, Venous) 07/31/2022 8:10 AM EST 07/31/2022 8:20 AM EST Amanda Holly MD LAB BLOOD ORDERABLES Final Resu lt [facility] from Last 3 Months or Most Recently Relevant to Health Maintenance Insurance MEDICARE [facility] MEDICARE [facility] Care Teams Marine Equipment Research Engineer Relationship Specialty Start Date End Date Tiffanie Lugo NP [address] [place] [address] PCP - General Nurse Practitioner 03/19/23
--- OUTSIDE RECORDS SUMMARY | 2024-08-02 06:36 | XMS_ITS | Clinical Summary ---
Author Organization [facility] Address [address] [place] [address] Care Team Providers Care Senior Courtroom Clerk Name Role Phone Pcp, No Primary Care [...] age to complete this topic Care Teams Senior Courtroom Clerk Relationship Specialty Start Date End Date Pcp, No [address] [place] [address] PCP - General 02/13/22
--- OUTSIDE RECORDS SUMMARY | 2024-08-02 06:36 | XMS_ITS | Patient Health Record ---
Author Organization [facility] Address [address] [facility] [place] [address] Care Team Providers Care Research Affiliate Name Role Phone Brittney Tiffanie HAWKINS Primary Care Provider Unavail able Nav George Unavailable [phone] Allergies No Known Allergies Results Component Value [...] Risk Notes Problem Chronic ulcer of foot (034597169) Non-pressure chronic ulcer of other part of left foot with fat layer exposed (L97.522) Active confirmed Problem Localized, primary osteoarthritis of the ankle and/or foot (856349791) Primary osteoarthritis, left ankle and foot (M19.072) Active confirmed Problem Acquired hallux rigidus (0016429) Hallux rigidus, left foot (M20.22) Active confirmed Problem Non-pressure chronic ulcer of other part of left foot limited to breakdown of skin (L97.521) Active confirmed Problem Acquired hallux valgus (94175857) Hallux valgus (acquired), left foot (M20.12) Active confirmed Problem Acquired hammer toe of right foot (3577417273119935 ) Other hammer toe(s) (acquired), right foot (M20.41) Active confirmed Problem Acquired hammer toe of left foot (1428062582704842 ) Other hammer toe(s) (acquired), left foot (M20.42) Active confirmed Problem Polyneuropathy due to type 2 diabetes mellitus (970598912) Type 2 diabetes mellitus with diabetic polyneuropathy (E11.42) Active confirmed Problem Polyneuropathy due to diabetes mellitus type I (997433118) Type 1 diabetes mellitus with diabetic polyneuropathy (E10.42) Active confirmed Problem Acquired hallux rigidus (2724087) Hallux rigidus, right foot (M20.21) Active confirmed Vital Signs Blood pressure diastolic 80 mm Hg 09/01/2023 Height 5ft 11in in 09/01/2023 Blood pressure systolic 120 mm Hg 09/01/2023 Weight 244 lbs 09/01/2023 BMI 34.03 kg/m2 09/01/2023 Encounters Encounter Location Date Provider Diagnosis [address] [address] 09/01/2023 George Chopra Type 1 diabetes mellitus [...] foot limited to breakdown of skin L97.[address] [address] 02/27/2024 George Cohpra Assessments Encounter Date Diagnosis (ICD Code) Assessment [...] X ray : Foot, left 3V 09/20/2021 00187-[id number] SKIN/TISSUE 09/20/2021 35303-CIOKEPT SKIN/TISSUE 03/29/2021 53333-CYKKVXJ SKIN/TISSUE 10/01/2021 56476-XPEUUYX SKIN/TISSUE 12/10/2021 75904-WOWQIOY SKIN/TISSUE 09/09/2022 76223-QJELMTV SKIN/TISSUE 01/25/2021 85093-KKVK SKIN LESIONS, OVER 4 03/29/20 21 40555-EJPJ SKIN LESIONS, OVER 4 09/21/19 22 04550-ENJN SKIN LESIONS, 2 TO 4 09/10/19 23 Insurance Providers Payer Name Payer Address Payer Phone Subscriber Number Group Number Insured Name Patient Relationship to Insured Coverage Start Date Coverage End Date Medicare National Govt S[employer] [address] [facility] [address] [phone] [id number] Aries Rosario Self - patient is the insured [employer] [address] [place] [address] [phone] [id number] Aries Rosario Self - patient is the [...]
--- OUTSIDE RECORDS SUMMARY | 2024-08-02 06:36 | XMS_ITS ---
Author Organization [facility] Address [address] [place] [address] Care Team Providers Care Braille Teacher Name Role Phone Brittney Tiffanie HAWKINS Primary Care Provider Unavail George Thrasher Unavailable [phone] REASON FOR VISIT cx appt 03/03 Encounters Encounter Location Date Provider Diagnosis [facility] [address] [place] [address] 02/27/2024 George Chopra Plan Of Treatment No Information Progress Notes * Aries ROSARIO EDOB:[birth year] (73 yo M)Acc No.[id number]:02/27/2024 Patient:?Aries Rosario :1950???Age:73 Y???Sex:Male [address] [place] [place], [address] * true * Date:? Generated for Printi ng/Famoniqueg/eTransmitting on:?08/02/2024 06:35 AM EST
--- OUTSIDE RECORDS SUMMARY | 2024-08-02 06:36 | XMS_ITS ---
[facility] Organization [facility] Address [address] [place] [address] Care Team Providers Care Services Clerk Name Role Phone Brittney Tiffanie HAWKINS Primary Care Provider Unavail able George Chopra Unavailable [phone] Allergies No Known Allergies REASON FOR VISIT [...] 024 Encounters Encounter Location Date Provider Diagnosis [facility] [address] [address] 09/01/2023 George Chopra Type 1 diabetes mellitus [...] as necessary. Patient chooses, no pharmaceutical tx (22031) Debride skin< 25 sq cm Open wound [...] symptoms of infection or any untoward reactions (84781) Keratoma Treatment Parring or Cutting o f Benign Hyperkeratotic Lesion(s) 89397 (2-4 Lesions) - The Benign hyperkeratotic lesions, as described above were pared, and/or cut utilizing a sterile #15 blade, tissue nippers, and/or dremel Progress Notes * JOHANNA Aries EDOB:[birth year] (72 yo M)Acc No.[id number]:09/01/2023 Progress Note Patient:?Aries Rosario Provider:?George Chopra DPM :1950???Age:72 Y???Sex:Male Suersh e:09/01/2023 Address:[address] [place], [place] [id number] Pcp:SHRUTHI Vicente Subjective: * Chief Complaints: * ???Painful nail(s) aggrevate d by shoes and causing difficulty standing/walking.Open soreUlcer(s) * HPI: ???Skin problems:?Nature:?Ulcer.?Location:?Bottom, Forefoot, Left , 1st.?Duration:?several weeks--six.?Course:?improved.?Aggravated by:?standing, walking.?Treatments:?pt tx at [facility] wd ctr every other week and dressing changes qod with ; pt going to [facility].?Heel pain:?Location:?Proximal plantar aspect of Heel, [...] 7.1 * Examination: ???Ophthalmology Referral: ?DIABETES EYE EXAM?Diabetic [...] as necessary. Patient chooses, no pharmaceutical tx (63141).?Debride skin< 25 sq cm:?Open wound?Open wound selective [...] symptoms of infection or any untoward reactions (46909).?Keratoma Treatment:?Parring or Cutting of Benign Hyperkeratotic Lesion(s)?55614 (2-4 Lesions) - The Benign hyperkeratotic lesions, as described above were pared, and/or cut utilizing a sterile #15 blade, tissue nippers, and/or dremel.? * Procedure Codes:?87114 DEBRI DE NAIL, 6 OR MORE, Modifiers: XS 68385 ACTIVE WOUND CARE/20 CM OR <86469 TRIM SKIN LESIONS, 2 TO 4, Modifiers: [...] * Sign off status: Completed true * Provider:?George Chopra DPM Date:? 024 Generated for Jennifer calderón/Dia/Ettasmitting on:?08/02/2024 06:35 AM EST History and Physical Notes * HPI (History of Present Illness) Category Sub-Category Detail Notes Category Not es Heel pain Location: Proximal plantar aspect of H eel, RIGHT Onset/Cause: unknown, denies trastorm ma Course: resolved Painful Nails Pt States Last PCP Visit: Date:: 06/04/2021 Skin problems Nature: Ulcer Location: Bottom, Forefoot, Le ft , 1st Duration: several weeks--six Course: improved Aggravated by: standing, walking Treatments: pt tx at [facility] wd ctr every other week and dressing changes qod with ; pt going to [facility] At Risk footcare Pt States [...] EYE EXAM Diabetic Reti nopathy Screening:: No 2019 Vascular DP PULSES (B): 0/4. B/L PT PULSES (B): 0/4. B/L EDEMA (C): 1/4, B/L, Feet, Ankl e(s), Leg(s) Nails NAILS are: Elongated, overg rown, dystrophic, lytic, greater than 3mm thick, discolored and friable with crumbly malodorous subungual debris, with dull to no pain on palpation due to neuropathy, 1-5 Right foot, TA, T1, T3
[2024-08-02 06:48] LABS: Basophils Percent Auto 0.2 % (0-2); Eosinophils Absolute Auto 0.2 X10*3/uL (0.0-0.4); Eosinophils Percent Auto 3.9 % (0-4); Hematocrit 37.8 % (42.0-52.0); Imm Gran Abs Auto 0.02 X10*3/uL (0.00-0.03); Imm Gran Pct Auto 0.3 % (0.0-0.4); Lymphocytes Absolute Auto 1.9 X10*3/uL (1.2-4.9); Lymphocytes Percent Auto 31.6 % (20-40); Mean Corpuscular HGB Conc 31.7 g/dl (31.0-36.0); Mean Corpuscular Hemoglobin 29.1 pg (27.0-33.0); Mean Corpuscular Volume 91.5 fL (80.0-98.0); Mean Platelet Volume 10.6 fL (9.4-12.4); Monocytes Absolute Auto 0.6 X10*3/uL (0.1-1.2); Monocytes Percent Auto 9.1 % (2-11); Neutrophils Absolute Auto 3.4 x10*3/uL (2.0-8.3); Neutrophils Percent Auto 54.9 % (45-73); Platelet Count 125 X10*3/uL (160-400); Red Blood Count 4.13 X10*6/uL (4.60-5.80); Red Cell Distribution Width 16.5 % (11.0-16.0); White Blood Count 6.1 X10*3/uL (4.8-10.8)
[2024-08-02 07:32] LABS: Anion Gap 11 (12-20); Blood Urea Nitrogen 29 mg/dL (9-16); Calcium 8.7 mg/dL (8.4-10.2); Carbon Dioxide 25 mmol/L (22-29); Chloride 110 mmol/L (96-108); Estimated Glomerular Filt Rate > 60; Glucose Random 140 mg/dL (60-115); Sodium 142 mmol/L (135-145)
[2024-08-03 10:38] LABS: Tacrolimus Prograf 4.7 mcg/L
== END 2024-08-02 06:21 | disposition home or self-care (01) ==
LOC: HO.MMNH2L 06:20
PROVIDERS: Visit Provider Nurse Practitioner
DX: E11.40 Type 2 diabetes mellitus with diabetic neuropathy, unspecified (principal); Z94.0 Kidney transplant status; I10 Essential (primary) hypertension
CPT/HCPCS: 36415; 80048; 80197; 85025

== ENCOUNTER 2024-08-09 07:13 | Outpatient (REF) | payer MEDICARE, SELFPAY ==
[2024-08-09 06:25] LABS: MANUAL DIFF FLAG NO
[2024-08-09 07:15] LABS: Basophils Percent Auto 0.2 % (0-2); Eosinophils Percent Auto 0.2 % (0-4); Hematocrit 38.1 % (42.0-52.0); Hemoglobin 12.2 g/dl (14.0-18.0); Imm Gran Abs Auto 0.02 X10*3/uL (0.00-0.03); Imm Gran Pct Auto 0.4 % (0.0-0.4); Lymphocytes Absolute Auto 0.9 X10*3/uL (1.2-4.9); Lymphocytes Percent Auto 16.9 % (20-40); Mean Corpuscular Hemoglobin 29.1 pg (27.0-33.0); Mean Corpuscular Volume 90.9 fL (80.0-98.0); Mean Platelet Volume 10.1 fL (9.4-12.4); Monocytes Absolute Auto 0.6 X10*3/uL (0.1-1.2); Monocytes Percent Auto 11.5 % (2-11); Neutrophils Absolute Auto 3.8 x10*3/uL (2.0-8.3); Neutrophils Percent Auto 70.8 % (45-73); Platelet Count 110 X10*3/uL (160-400); Red Blood Count 4.19 X10*6/uL (4.60-5.80); Red Cell Distribution Width 16.8 % (11.0-16.0); White Blood Count 5.4 X10*3/uL (4.8-10.8)
--- OUTSIDE RECORDS SUMMARY | 2024-08-09 07:18 | XMS_ITS | Clinical Summary ---
Author Organization [facility] Address [address] [place] [phone] Phone Care Team Providers Care Supervisor Functional Testing Name Role Phone Tiffanie Lugo FRANCINE Primary Care Provider [phone] Allergies No known active allergies Medications Acetaminophen [...] Height,... 1 Active Insulin Pen Needle (Pen [place] 1/2 ) 29G X 12MM misc See [...] Telephone [facility] [address] [address] Yuan Sung MD from Last [...] Visit [facility] [address] [phone] Harman Medina MD [address] [address] Health Maintenance Due Date Last [...] AM EST) Hemoglobin A1C 7.0(H) (4.0-5.6) % [facility] Comment: MONITORING: In known diabetic patients, hemoglobin A1c targets should be discussed with health care provider. DIAGNOSTIC USE: ??The [place] Diabetes Association (ADA) and the World Health [...] Supplement 1 Testing performed or reported by [facility], a Service of [facility], [address] [place] [address] Dona Bliss MD, Stress Test Technician [facility]# [id number] Blood (Blood, Venous) 07/31/2022 8:10 AM EST 07/31/2022 8:20 AM EST Amanda Holly MD LAB BLOOD ORDERABLES Final Resu lt [facility] from Last 3 Months or Most Recently Relevant to Health Maintenance Insurance MEDICARE [facility] MEDICARE [facility] Care Teams Supervisor Functional Testing Relationship Specialty Start Date End Date Tiffanie Lugo NP [address] [place] [phone] PCP - General Nurse Practitioner 03/19/23
--- OUTSIDE RECORDS SUMMARY | 2024-08-09 07:18 | XMS_ITS | Encounter Summary ---
Author Organization [facility] Address [address] [place] [phone] Phone Care Team Providers Care Supervisor Industrial Garment Name Role Phone Unavailable Primary Care Provider Unavailabl e Encounter Details Date Type Department Care Team (Late st Contact Info) Description 11/07/2016 Office Visit [facility] [address] [place] [address] ProviderHerber MD [address] [place] [address] Social History Tobacco Use Types Packs/Day [...]
--- OUTSIDE RECORDS SUMMARY | 2024-08-09 07:18 | XMS_ITS | Encounter Summary ---
Author Organization [facility] Address [address] [place] [address] Phone Care Team Providers Care Color Tester Name Role Phone Tiffanie Lugo SOLAR INSTALLATION MANAGER Primary Care Provider [phone] Encounter Details Date Type Department Care Team (Late st Contact Info) Description 04/22/2023 Office Communication [facility] [address] [place] [address] Harman Medina MD [address] [facility] [address] [place] [address] Social History Tobacco Use Types [...] Office Visit [facility] [address] [address] Harman Medina MD [address] [address] documented as of this encounter Visit Diagnoses Not on filedocumented in this encounter Care Teams Color Tester Relationship Specialty Start Date End Date Tiffanie Lugo NP [address] [place] [phone] PCP - General Nurse Practitioner 03/19/23 documented as of this encounter
--- OUTSIDE RECORDS SUMMARY | 2024-08-09 07:18 | XMS_ITS | Encounter Summary ---
Author Organization [facility] Address [address] [place] [address] Phone Care Team Providers Care Unit Assembler Name Role Phone Tiffanie Lugo FRANCINE Primary Care Provider [phone] Encounter Details Date Type Department Care Team (Late st Contact Info) Description 11/24/2023 Documentation Only [facility], [address] [place] [address] [place], [place] [address] [place] [address] Social History Tobacco Use Types [...] [facility] [address] [address] Harman Medina MD [address] [address] documented as of this encounter Visit Diagnoses Not on filedocumented in this encounter Care Teams Unit Assembler Relationship Specialty Start Date End Date Tiffanie Lugo NP [address] [place] [phone] PCP - General Nurse Practitioner 03/19/23 documented as of this encounter
--- OUTSIDE RECORDS SUMMARY | 2024-08-09 07:18 | XMS_ITS ---
Author Organization [facility] Address [address] [place] [address] Care Team Providers Care Manager Perioperative Name Role Phone Brittney Tiffanie HAWKINS Primary Care Provider Unavail George Thrasher Unavailable [phone] REASON FOR VISIT Painful nail(s) aggrevated by shoes and causing difficulty standing/walking., Open sore, Ulcer(s) Medications Medication SIG (Take, Route, Frequency, Duration) Notes Start Date End Date Status Night Splint AFO - L1930 as directed Active Extra Depth Diabetic Shoes with 3 Pair Custom heat-molded multi-density innersoles for 1 year Dx: Active Encounters Encounter Location Date Provider Diagnosis [facility] [address] [place] [address] 03/03/2024 George Chopra Type 1 diabetes mellitus [...] as necessary. Patient chooses, no pharmaceutical tx (62468) Debride skin< 25 sq cm Open wound [...] symptoms of infection or any untoward reactions (21554) Keratoma Treatment Parring or Cutting o f Benign Hyperkeratotic Lesion(s) 50117 (2-4 Lesions) - The Benign hyperkeratotic lesions, as described above were pared, and/or cut utilizing a sterile #15 blade, tissue nippers, and/or dremel Progress Notes * Aries ROSARIO EDOB:[birth year] (73 yo M)Acc No.[id number]:03/03/2024 Progress Note Patient:?SENAITAries HECK E Provider:?George Chopra DPM :1950???Age:73 Y???Sex:Male Suresh e:03/03/2024 Address:[address] [place], [place] [phone] Pcp:SHRUTHI Vicente Subjective: * Chief Complaints: * ???1. Painful nail(s) aggrev ated by shoes and causing difficulty standing/walking.. 2. Open sore. 3. Ulcer(s). * HPI: ???Skin problems:?Nature:?Ulcer.?Location:?Bottom, Forefoot, Left , 1st.?Duration:?several weeks--six.?Course:?improved.?Aggravated by:?standing, walking.?Treatments:?pt tx at [facility] wd ctr every other week and dressing changes qod with ; pt going to [facility].?Heel pain:?Location:?Proximal plantar aspect of Heel, RIGHT.?Onset/Cause:?unknown, denies [...] as necessary. Patient chooses, no pharmaceutical tx (56199).?Debride skin< 25 sq cm:?Open wound?Open wound selective [...] symptoms of infection or any untoward reactions (47034).?Keratoma Treatment:?Parring or Cutting of Benign Hyperkeratotic Lesion(s)?63256 (2-4 Lesions) - The Benign hyperkeratotic lesions, as described above were pared, and/or cut utilizing a sterile #15 blade, tissue nippers, and/or dremel.? * Procedure Codes:?02157 DEBRI DE NAIL, 6 OR MORE, Modifiers: XS , 30043 ACTIVE WOUND CARE/20 CM OR <, 77246 TRIM SKIN LESIONS, 2 TO 4, Modifiers: XS * Follow Up:?6 Months * Images: * The named appointment provid er may or may not be the originator of this progress note, and it is not deemed complete until electronically signed by the appointment provider. Sign off status: Pending * Provider:?George Chopra DPM Date:? 024 Generated for Jennifer calderón/Dia/Marquise on:?08/09/2024 07:18 AM EDT History and Physical Notes * HPI (History [...] standing, walking Treatments: pt tx at [facility] wd ctr every other week and dressing changes qod with ; pt going to [facility] At Risk footcare Pt States Last PCP [...]
--- OUTSIDE RECORDS SUMMARY | 2024-08-09 07:18 | XMS_ITS | Clinical Summary ---
Author Organization [facility] Address [address] [place] [address] Phone Care Team Providers Care Printing Plate Clerk Name Role Phone Unavailable Primary Care Provider [...]
--- OUTSIDE RECORDS SUMMARY | 2024-08-09 07:19 | XMS_ITS | Data Portability ---
Author Organization [facility], Main Office Address [address] [address] [place] [address] Care Team Providers Care Tactical Air Control Party Manager Name Role Phone MELISSA ROWLAND 2ND FLOOR OTHER [phone] PRABHAKAR DAMICO Primary Care Provider Assessment No [...] and Address Organization Details Recorded Time Osteomyelitis 48642861 Active 2022 IRENE SKINNER NP [address], [place], [address], [facility] [employer] [facility] 3 12:54:43 Type 2 diabetes mellitus 10674353 Active 2022 IRENE SKINNER NP [address], [address], [place], [address], [facility] [employer] 3 13:02:35 Essential hypertension 66473117 Active 2022 IRENE SKINNER NP [address], [address], [place], [address], [facility] 3 13:03:00 Hyperlipidemia 89931559 Active 2022 IRENE SKINNER NP [address], [address], [place], [address], [facility] [employer] 3 13:03:12 History of renal transplant 241885634 Active 2022 IRENE SKINNER NP [address], [address], [place], [address], [email or web address] 3 13:03:24 Asthenia 54967891 Active 2022 IRENE SKINNER NP [address], [address], [place], [address], [email or web address] 3 13:03:41 Insomnia 966666231 Active 2022 IRENE SKINNER NP [address], [address], [place], [address], [email or web address] 3 13:21:26 Spinal stenosis of lumbar region 07961677 Active 2022 Yanique Verdin MD [address], [address], [place], [address], [email or web address] 3 15:00:42 Chronic constipation 282910947 Active 2022 Yanique Verdin MD [address] [facility], [address], [place], [address], [email or web address] 3 15:14:15 Coronary arterioscleros is 11706380 Active 2022 Yanique Verdin MD [address] [facility], [address], [place], [address], [email or web address] 3 15:14:18 Deep venous thrombosis 464753323 Active 2022 IRENE SKINNER NP [address] [facility], [address], [place], [address], [email or web address] 3 14:34:30 Acute urticaria 315470160 Active 2022 IRENE SKINNER NP [address] [facility], [address], [place], [address], [email or web address] 3 14:05:35 Problem Notes None recorded. Medical [...] mm[Hg] 72 mm[Hg] IRENE SKINNER NP [address] [facility], [address], [place], [address], [email or web address] 3 14:03:34 Date Recorded Body height Heart rate Respiratory rate Body temperature Oxygen saturation Oxygen saturation in Arterial blood by Pulse oximetry Systolic blood pressure Diastolic blood pressure Provider Name and Address Organization Details Last Updated DateTime 3 180.34 cm 75 /min 16 /min 97.3 [degF] 96 % 96 % 132 mm[Hg] 76 mm[Hg] IRENE SKINNER NP [address] [facility], [address], [place], [address], [email or web address] 3 12:50:47 Date Recorded Body height Heart rate Respiratory rate Body temperature Oxygen saturation Oxygen saturation in Arterial blood by Pulse oximetry Systolic blood pressure Diastolic blood pressure Provider Name and Address Organization Details Last Updated DateTime 3 180.34 cm 77 /min 16 /min 97.8 [degF] 96 % 96 % 130 mm[Hg] 74 mm[Hg] IRENE SKINNER NP [address] , [address], [place], [address], [email or web address] 3 12:16:34 Date Recorded Body height Heart rate Respiratory rate Body temperature Oxygen saturation Oxygen saturation in Arterial blood by Pulse oximetry Systolic blood pressure Diastolic blood pressure Provider Name and Address Organization Details Last Updated DateTime 3 180.34 cm 67 /min 16 /min 97.6 [degF] 98 % 98 % 135 mm[Hg] 74 mm[Hg] IRENE SKINNER NP [address], [place], [address], [email or web address] 3 11:38:28 Date Recorded Body height Heart rate Respiratory rate Body temperature Oxygen saturation Oxygen saturation in Arterial blood by Pulse oximetry Systolic blood pressure Diastolic blood pressure Provider Name and Address Organization Details Last Updated DateTime 3 180.34 cm 72 /min 16 /min 98 [degF] 97 % 97 % 132 mm[Hg] 68 mm[Hg] IRENE SKINNER NP [address] [facility], [address], [place], [address], [employer] [facility] 3 11:00:29 Social History Question Answer Notes LastModified by Organizat ion Details LastModified Time Tobacco Smoking Status Former Smoker IRENE SKINNER NP [address] [facility], [address], [place], [address], [facility] 01/08/2023 12:57:22 Do You Have An Advance [...] Do You Have A Medical Power Of Nail Expert? Yes Not Invoked Information not available 01/09/2023 [...] Details Recorded Time Pneumococcal conjugate PCV20, polysaccharide CBK350 conjugate, adjuvant, PF 3 completed Tisha [facility] 01/14/2023 12:34:16 SARS-COV-2 (COVID-19) vaccine, UNSPECIFIED 2 completed Tishaisidra [facility] 01/14/2023 12:34:40 SARS-COV-2 (COVID-19) vaccine, UNSPECIFIED 1 completed Tisha [facility] 01/14/2023 12:34:55 SARS-COV-2 (COVID-19) vaccine, UNSPECIFIED 1 completed Tisha [facility] 01/14/2023 12:35:06 SARS-COV-2 (COVID-19) vaccine, UNSPECIFIED 1 completed Tisha [facility] 01/14/2023 12:35:15 influenza, unspecified formulation 2 completed Tisha [facility] 01/14/2023 12:35:39 pneumococcal polysaccharide PPV23 4 completed Tisha [facility] 01/14/2023 12:36:12 Influenza, adjuvanted, quadrivalent, PF 3 completed Conchita Ari[facility] 10/17/2023 10:37:00 Td (adult), 5 Lf tetanus toxoid, preservative free, adsorbed 3 completed Conchita Arias [facility] 10/17/2023 10:37:17 Past Encounters Encounter ID Performer Location Encounter Start Date Encounter Closed Date Diagnosis/Indication Diagnosis SNOMED-CT Code Diagnosis ICD10 Code Diagnosis Note [id number] FRANCINE HOPKINS [address] [facility] [place]ANNA SEGOVIA [address] 01/08/2023 11:23:17 01/14/2023 15:37:27 Osteomyelitis 60836021 M86.9 oxycodone 10 mg q4hr prnvanco 1000 mg increased to 1250 mg iv daily to 02/12roceph in 2 gm iv daily to 02/12gabape ntin 300 mg tidf/u with ID 02/07 Type 2 sam betes mellitus 89626618 E11.22 glargine 28 units hslispro sliding scale tidmonitor glucose Hyperlipidemia 23190596 E78.5 atorvastat in 80 mg daily Essential hypertension 23380074 I10 coreg 6.25 mg bidmonitor bp History of renal transplant 213017167 Z48.22 tacrolimus 1gm bidmonitor labs Asthenia 12374048 R53.1 PT OT eval and treatfall precaution sfrequent safety checks Insomnia 009901426 G47.0 0 amitriptyl ine 25 mg [id number] MD MELISSA Mondragon [address] [place] [address] 01/09/2023 13:16:08 01/14/2023 15:47:55 Osteomyelitis 32380957 M46.26 M46.46 Continue ceftriaxon e 2 gms IV qd and vanco titrated to troughs of 10-15, until ontin ue gabapentin 300 mg TID, lidoderm patch qd, oxycodone 10 mg q 4 hrs prn.Monito r CBC, CMP, ESR and CRP weekly with labs to ID (Dr. aRsmussen, fax # )F/U with ID on 02/07 as planned. Type 2 sam betes mellitus 01883169 E11.22 Fair control since here. Last HgA1C 7.0 in 07/2022.Con tinue Lantus 28 units qhs and SSIMonitor fingerstic ks TID and HgA1C as outpt. Hyperlipidemia 30256738 E78.49 Good in ont inue atorvastat in 80 mg qd and ASA 81 mg qd.Monitor labs as outpt. Essential hypertension 88549037 I10 SBP high or borderline since here, likely due to pain, won't make any changes for now.Contin ue carvedilol 6.25 mg BID.Monito r BP and labs. History of renal transplant 242012153 Z48.22 With good renal function.C ontinue tacrolimus 1 gm BIDMonitor labsF/U with renal as planned. Asthenia 16854894 R53.1 Very deconditio tasneem.Needs PT/OT for strengthen ing, balance, gait training, safety and function.C ontinue fall precaution s.Monitor for safety. Insomnia 951553962 G47.0 0 Continue amitriptyl ine 25 mg qhsMonitor sleep patterns Anemia 365950069 D64.89 Multifacto rial, stable.Mon itor labs Spinal iraida nosis of lumbar region 45927244 M48.061 Long standing issue, not surgical candidate per neurosurg. Continue PT/OT as above.Pain management as above for now.Transi tion back to tramadol as acute pain from discitis improves. Coronary arteriosclerosis 82383406 I25.10 No recent sxs.Contin ue meds as above.Caroline tor sxs and f/u with cardio as planned. Chronic constipation 236 506287 K59.09 Continue miralax 17 gmd TID.Monito r bowel function. Pain of left thigh 99707 58099 14320 M79.652 No clear etiology, could be c/w dermatomal distributi on of L2-3, but should r/o DVT as pt has been immobile.W ill get doppler U/S [id number] FRANCINE HOPKINS [address] [place] [address] [place] [address] 01/10/2023 13:37:56 01/14/2023 15:59:12 Osteomyelitis 70566538 M46.26 M46.46 Continue ceftriaxon e 2 gms IV qdvanco titrated to troughs of 10-15, until 02/12gabape ntin 300 mg TID,lidode rm patch qd,oxycodo ne 10 mg q 4 hrs prn.Monito r CBC, CMP, ESR and CRP weekly with labs to ID (Dr. Rasmussen, fax # [phone]) F/U with ID on 02/07 as planned. Spinal iraida nosis of lumbar region 09631784 M48.061 Long standing issue, not surgical candidate per neurosurg. Continue PT/OT as above. Pain management as above for now. Transition back to tramadol as acute pain from discitis improves. [id number] IRENE GRIPPIN, CRIMINALIST [address] [address] 01/13/2023 14:27:28 01/16/2023 11:46:26 Deep venous thrombosis 643994688 I82.409 eliquis 10 mg bid to 01/20 then 5 mg bidmonitor cms to left leg Osteomyelitis 32589024 M 46.26 M46.46 Continue ceftriaxon e 2 gms IV qdvanco titrated to troughs of 10-15, until 02/12gabape ntin 300 mg TID,lidode rm patch qd,oxycodo ne 10 mg q 4 hrs prn.Monito r CBC, CMP, ESR and CRP weekly with labs to ID (Dr. Rasmussen, fax # ) F/U with ID on 02/07 as planned. [id number] IRENE SKINNER NP [address] [address] 01/15/2023 13:41:20 01/22/2023 08:29:11 Deep venous thrombosis 955069531 I82.409 eliquis 10 mg bid to 01/20 then 5 mg bidmonitor cms to left leg Osteomyelitis 66711237 M 46.26 M46.46 Continue ceftriaxon e 2 gms IV qdvanco titrated to troughs of 10-15, until 02/12gabape ntin 300 mg TID,lidode rm patch qd,oxycodo ne 10 mg q 4 hrs scheduledM onitor CBC, CMP, ESR and CRP weekly with labs to ID (Dr. Rasmussen, fax # ) F/U with ID on 02/07 as planned. Spinal iraida nosis of lumbar region 53342542 M48.061 Long standing issue, not surgical candidate per neurosurg. Continue PT/OT as above. Pain management as above for now. Transition back to tramadol as acute pain from discitis improves. [id number] IRENE SKINNER NP [address] [place] [address] 01/17/2023 13:29:33 01/22/2023 13:29:10 Osteomyelitis 47718000 M46.26 M46.46 Continue ceftriaxon e 2 gms IV qdvanco titrated to troughs of 10-15, until 02/12vanco decreased to 500 mggabapent in 300 mg TID,lidode rm patch qd,oxycodo ne 10 mg q 4 hrs scheduledM onitor CBC, CMP, ESR and CRP weekly with labs to ID (Dr. Rasmussen, fax # [phone]) F/U with ID on 02/07 as planned. Acute urticaria 99224121 9 L50.9 benedryl 25 mg q6hr prnprednis one burst with taper [id number] IRENE SKINNER NP [address] [address] 01/27/2023 12:42:15 01/29/2023 14:03:06 Osteomyelitis 37859972 M46.26 M46.46 Continue ceftriaxon e 2 gms IV qdvanco titrated to troughs of 10-15, until 02/12vanco decreased to 500 mggabapent in 300 mg TID,lidode rm patch qd,oxycodo ne 10 mg q 4 hrs scheduledM onitor CBC, CMP, ESR and CRP weekly with labs to ID (Dr. Rasmussen, fax # [phone]) F/U with ID on 02/07 as planned. Spinal iraida nosis of lumbar region 75736173 M48.061 Long standing issue, not surgical candidate per neurosurg. Continue PT/OT as above. Pain management as above for now. Transition back to tramadol as acute pain from discitis improves. Acute urticaria 63642265 9 L50.9 resolvedbe nedryl 25 mg q6hr prnprednis one burst with taper [id number] IRENE SKINNER NP [address] [address] 01/29/2023 10:04:40 01/31/2023 16:01:18 Osteomyelitis 53265750 M46.26 M46.46 Continue ceftriaxon e 2 gms IV qdvanco titrated to troughs of 10-15, until 02/12vanco decreased to 500 mgtrough 01/30gabape ntin 300 mg TID,lidode rm patch qd,oxycodo ne 10 mg q 4 hrs scheduledM onitor CBC, CMP, ESR and CRP weekly with labs to ID (Dr. Rasmussen, fax # ) F/U with ID on 02/07 as planned. [id number] IRENE SKINNER NP [address] [address] 02/05/2023 11:24:24 02/07/2023 16:01:50 Spinal stenosis of lumbar region 56819108 M48.061 Long standing issue, not surgical candidate per neurosurg. Continue PT/OT as above.Pain management as above for now.Transi tion back to tramadol as acute pain from discitis improves. Osteomyelitis 16473713 M 46.26 M46.46 Continue ceftriaxon e 2 gms IV qdvanco titrated to troughs of 10-15, until 02/12vanco decreased to 500 mgtrough 01/30gabape ntin 300 mg TID,lidode rm patch qd,oxycodo ne 10 mg q 4 hrs scheduledM onitor CBC, CMP, ESR and CRP weekly with labs to ID (Dr. Rasmussen, fax # [phone]) F/U with ID on 02/07 as planned. [id number] IRENE SKINNER NP [address] [address] 02/12/2023 10:06:53 02/14/2023 11:50:02 Osteomyelitis 15507912 M46.26 M46.46 Continue ceftriaxon e 2 gms IV qd to 02/13vanco titrated to troughs of 10-15, until 02/12vanco decreased to 500 mgtrough 01/30gabape ntin 300 mg TID,lidode rm patch qd,oxycodo ne 10 mg q 4 hrs scheduled- decreased to q12 hrtramadol 100 mg tidMonitor CBC, CMP, ESR and CRP weekly with labs to ID (Dr. Rasmussen, fax # [phone])F/U with ID on 02/07 as planned.AR RANGE TO HAVE SCHWARTZ REMOVED Type 2 sam betes mellitus 60503895 E11.22 glargine 28 units hslispro sliding scale tidmonitor glucose Hyperlipidemia 47570432 E78.5 atorvastat in 80 mg daily Essential hypertension 68723878 I10 coreg 6.25 mg bidmonitor bp History of renal transplant 674625136 Z48.22 tacrolimus 1gm bidmonitor labs Asthenia 96457612 R53.1 PT OT eval and treatfall precaution sfrequent safety checks Insomnia 257776214 G47.0 0 amitriptyl ine 25 mg hs Health Concerns Section Related Observation LastModified by Organization Detai ls LastModified Time None Recorded Concern Status LastModified by Organization Details LastModified Time None Recorded Advance Directives Directive Y: Payers Encounter Date Sequence Insurance Name Policy Number Policy Garcia Covered Member ID Garcia Member ID Guarantor Name 01/17/2023 1 [place] Aries E Savard [id number] Aries Savard 01/17/2023 2 [place] [id number] Aries Savard [id number] Aries Savard 01/27/2023 1 [place] Aries E Savard [id number] 7 Aries Savard 01/27/2023 2 [place] [id number] Aries Savard [id number] Aries Savard 01/29/2023 1 [place] Aries E Savard [id number] 7 Aries Savard 01/29/2023 2 [place] [id number] Aries Savard [id number] Aries Savard 02/05/2023 1 [place] Aries E Savard [id number] 7 Aries Savard 02/05/2023 2 [place] [id number] Aries Savard [id number] Aries Savard 02/12/2023 1 [place] Aries E Savard [id number] 7 Aries Savard 02/12/2023 2 [place] [id number] Aries Rosario [id number] Aries Rosario Notes Date Note Type [...] burst and benedryl IRENE SKINNER, FRANCINE [address] [facility], [address], [place], [address], [facility] 01/17/2023 14:08:35 01/27/2023 text/html seen today for acute rounding visit- CAOx3 oob independent in room, lungs clear, rash resolved, tolerating his abx tx IRENE SKINNER NP [address] [facility], [address], [place], [address], [email or web address] 01/27/2023 12:53:30 01/29/2023 text/html seen today for [...] todays dose, asymptomatic IRENE SKINNER NP [address] [facility], [address], [place], [address], [email or web address] 01/29/2023 12:20:39 02/05/2023 text/html seen today for acute rounding visit, CAOx3 sitting up in wheelchair, ambulates with walker, tolerating abx therapy, schwartz right chest ok IRENE SKINNER NP [address] [facility], [address], [place], [address], [email or web address] 02/05/2023 11:41:11 02/12/2023 text/html seen today [...] of the schwartz IRENE SKINNER, FRANCINE [address] [facility], [address], [place], [address], [facility] 02/12/2023 11:05:55
--- OUTSIDE RECORDS SUMMARY | 2024-08-09 07:19 | XMS_ITS | Patient Health Record ---
Author Organization [facility] Address [address] [facility] [place] [place] [address] Care Team Providers Care Certified Family Mediator Name Role Phone Brittney Tiffanie HAWKINS Primary Care Provider Unavail able Nav George Unavailable [phone] Allergies No Known Allergies Results Component Value [...] Risk Notes Problem Chronic ulcer of foot (764125375) Non-pressure chronic ulcer of other part of left foot with fat layer exposed (L97.522) Active confirmed Problem Localized, primary osteoarthritis of the ankle and/or foot (472505486) Primary osteoarthritis, left ankle and foot (M19.072) Active confirmed Problem Acquired hallux rigidus (9390006) Hallux rigidus, left foot (M20.22) Active confirmed Problem Non-pressure chronic ulcer of other part of left foot limited to breakdown of skin (L97.521) Active confirmed Problem Acquired hallux valgus (75379332) Hallux valgus (acquired), left foot (M20.12) Active confirmed Problem Acquired hammer toe of right foot (8609748169996929 ) Other hammer toe(s) (acquired), right foot (M20.41) Active confirmed Problem Acquired hammer toe of left foot (0228050012094156 ) Other hammer toe(s) (acquired), left foot (M20.42) Active confirmed Problem Polyneuropathy due to type 2 diabetes mellitus (030219757) Type 2 diabetes mellitus with diabetic polyneuropathy (E11.42) Active confirmed Problem Polyneuropathy due to diabetes mellitus type I (057630095) Type 1 diabetes mellitus with diabetic polyneuropathy (E10.42) Active confirmed Problem Acquired hallux rigidus (6570526) Hallux rigidus, right foot (M20.21) Active confirmed Vital Signs Blood pressure diastolic 80 mm Hg 09/01/2023 Height 5ft 11in in 09/01/2023 Blood pressure systolic 120 mm Hg 09/01/2023 Weight 244 lbs 09/01/2023 BMI 34.03 kg/m2 09/01/2023 Encounters Encounter Location Date Provider Diagnosis [address] [address] 09/01/2023 George Chopra Type 1 diabetes mellitus [...] foot limited to breakdown of skin L97.[address] [address] 02/27/2024 George Chopra Assessments Encounter Date Diagnosis [...] X ray : Foot, left 3V 09/20/2021 16998-HZQEAHD SKIN/TISSUE 09/20/2021 13126-GFWYLUW SKIN/TISSUE 03/29/2021 72570-HJNBLBA SKIN/TISSUE 10/01/2021 22183-GSVHORX SKIN/TISSUE 12/10/2021 92438-FYWIQOG SKIN/TISSUE 09/09/2022 18388-VJFTDYV SKIN/TISSUE 01/25/2021 08931-KABG SKIN LESIONS, OVER 4 03/29/20 21 74229-FJVL SKIN LESIONS, OVER 4 09/21/19 22 94430-YLID SKIN LESIONS, 2 TO 4 09/10/19 23 Insurance Providers Payer Name Payer Address Payer Phone Subscriber Number Group Number Insured Name Patient Relationship to Insured Coverage Start Date Coverage End Date Medicare National Govt [employer] [address] [place] [address] [id number] Aries Rosario Self - patient is the insured [employer] [address] [place] [address] [id number] Aries Rosario Self - patient is the [...]
--- OUTSIDE RECORDS SUMMARY | 2024-08-09 07:19 | XMS_ITS ---
Author Organization [facility] Address [address] [place] [address] Care Team Providers Care Industrial Renderer Name Role Phone Brittney Tiffanie HAWKINS Primary Care Provider Unavail able George Chopra Unavailable [phone] Allergies No Known Allergies REASON FOR VISIT [...] 024 Encounters Encounter Location Date Provider Diagnosis [facility] [address] [address] 09/01/2023 George Chopra Type 1 diabetes mellitus [...] as necessary. Patient chooses, no pharmaceutical tx (86417) Debride skin< 25 sq cm Open wound [...] symptoms of infection or any untoward reactions (63267) Keratoma Treatment Parring or Cutting o f Benign Hyperkeratotic Lesion(s) 38931 (2-4 Lesions) - The Benign hyperkeratotic lesions, as described above were pared, and/or cut utilizing a sterile #15 blade, tissue nippers, and/or dremel Progress Notes * JOHANNA Aries EDOB:[birth year] (72 yo M)Acc No.[id number]:09/01/2023 Progress Note Patient:?Aries Rosario Provider:?George Chopra DPM :1950???Age:72 Y???Sex:Male Suresh e:09/01/2023 Address:[address] [place], [place] [id number] Pcp:SHRUTHI Vicente Subjective: * Chief Complaints: * ???Painful nail(s) aggrevate d by shoes and causing difficulty standing/walking.Open soreUlcer(s) * HPI: ???Skin problems:?Nature:?Ulcer.?Location:?Bottom, Forefoot, Left , 1st.?Duration:?several weeks--six.?Course:?improved.?Aggravated by:?standing, walking.?Treatments:?pt tx at [facility] every other week and dressing changes qod with ; pt going to psychiatric hospital.?Heel pain:?Location:?Proximal plantar aspect of Heel, RIGHT.?Onset/Cause:?unknown, [...] as necessary. Patient chooses, no pharmaceutical tx (35413).?Debride skin< 25 sq cm:?Open wound?Open wound selective [...] symptoms of infection or any untoward reactions (26034).?Keratoma Treatment:?Parring or Cutting of Benign Hyperkeratotic Lesion(s)?30763 (2-4 Lesions) - The Benign hyperkeratotic lesions, as described above were pared, and/or cut utilizing a sterile #15 blade, tissue nippers, and/or dremel.? * Procedure Codes:?27367 DEBRI DE NAIL, 6 OR MORE, Modifiers: XS 61453 ACTIVE WOUND CARE/20 CM OR <93768 TRIM SKIN LESIONS, 2 TO 4, Modifiers: [...] Chopra DPM Date:? 024 Generated for Jennifer calderón/Dia/eTdimassmitting on:?08/09/2024 07:19 AM EDT History and Physical Notes * HPI (History of Present Illness) Category Sub-Category Detail Notes Category Not es Heel pain Location: Proximal plantar aspect of H eel, RIGHT Onset/Cause: unknown, denies trau ma Course: resolved Painful Nails Pt States Last PCP Visit: Date:: 06/04/2021 Skin problems Nature: Ulcer Location: Bottom, Forefoot, Le ft , 1st Duration: several weeks--six Course: improved Aggravated by: standing, walking Treatments: pt tx at [facility] every other week and dressing changes qod with ; pt [facility] Pt States Last [...]
--- OUTSIDE RECORDS SUMMARY | 2024-08-09 07:19 | XMS_ITS ---
Author Organization [facility] Address [address] [place] [address] Care Team Providers Care Chief Dispatcher Name Role Phone Brittney Tiffanie HAWKINS Primary Care Provider Unavail George Thrasher Unavailable [phone] REASON FOR VISIT cx appt 03/03 Encounters Encounter Location Date Provider Diagnosis [facility] [address] [place] [address] 02/27/2024 George Chopra Plan Of Treatment No Information Progress Notes * Aries ROSARIO EDOB:[birth year] (73 yo M)Acc No.[id number]:02/27/2024 Patient:?Aries Rosario :1950???Age:73 Y???Sex:Male [address] [facility] [place], [address] * true * Date:? Generated for Printi ng/Faxing/eTransmitting on:?08/09/2024 07:19 AM EDT
--- OUTSIDE RECORDS SUMMARY | 2024-08-09 07:19 | XMS_ITS | Clinical Summary ---
Author Organization [facility] Address [address] [place] [address] Care Team Providers Care Sales Assistant Institutional Sales Name Role Phone Pcp, No Primary Care [...] age to complete this topic Care Teams Sales Assistant Institutional Sales Relationship Specialty Start Date End Date Pcp, No [address] [place] [address] PCP - General 02/13/22
[2024-08-09 07:39] LABS: Anion Gap 13 (12-20); Blood Urea Nitrogen 28 mg/dL (9-16); Calcium 8.5 mg/dL (8.4-10.2); Carbon Dioxide 23 mmol/L (22-29); Chloride 106 mmol/L (96-108); Estimated Glomerular Filt Rate > 60; Glucose Random 120 mg/dL (60-115); Potassium 4.2 mmol/L (3.3-5.1); Sodium 138 mmol/L (135-145)
== END 2024-08-09 07:14 | disposition home or self-care (01) ==
LOC: HO.MMNH2L 07:13
PROVIDERS: Visit Provider Nurse Practitioner
DX: E11.40 Type 2 diabetes mellitus with diabetic neuropathy, unspecified (principal); Z94.0 Kidney transplant status; I10 Essential (primary) hypertension
CPT/HCPCS: 36415; 80048; 80197; 85025

== ENCOUNTER 2024-08-10 17:24 | Outpatient (REF) | payer MEDICARE, SELFPAY ==
[2024-08-10 18:19] LABS: Influenza A PCR POSITIVE (Negative); Influenza B PCR NEGATIVE (Negative); Resp Syncy Virus RNA Qual PCR NEGATIVE (Negative); SARS COV2 PCR INHOUSE NEGATIVE (Negative)
--- OUTSIDE RECORDS SUMMARY | 2024-08-10 19:34 | XMS_ITS ---
Author Organization [facility] Address [address] [place] [address] Care Team Providers Care Anthropology Professor Name Role Phone Brittney Tiffanie HAWKINS Primary Care Provider Unavail George Thrasher Unavailable [phone] REASON FOR VISIT Painful nail(s) aggrevated by shoes and causing difficulty standing/walking., Open sore, Ulcer(s) Medications Medication SIG (Take, Route, Frequency, Duration) Notes Start Date End Date Status Night Splint AFO - L1930 as directed Active Extra Depth Diabetic Shoes with 3 Pair Custom heat-molded multi-density innersoles for 1 year Dx: Active Encounters Encounter Location Date Provider Diagnosis [facility] [address] [place] [address] 03/03/2024 George Chopra Type 1 diabetes mellitus [...] as necessary. Patient chooses, no pharmaceutical tx (79901) Debride skin< 25 sq cm Open wound [...] symptoms of infection or any untoward reactions (65757) Keratoma Treatment Parring or Cutting o f Benign Hyperkeratotic Lesion(s) 08852 (2-4 Lesions) - The Benign hyperkeratotic lesions, as described above were pared, and/or cut utilizing a sterile #15 blade, tissue nippers, and/or dremel Progress Notes * Aries ROSARIO EDOB:[birth year] (73 yo M)Acc No.[id number]:03/03/2024 Progress Note Patient:?SENAITAries HECK E Provider:?George Chopra DPM :1950???Age:73 Y???Sex:Male Suresh e:03/03/2024 Address:[address] [place], [place] [id number] Pcp:SHRUTHI Vicente Subjective: * Chief Complaints: * ???1. Painful nail(s) aggrev ated by shoes and causing difficulty standing/walking.. 2. Open sore. 3. Ulcer(s). * HPI: ???Skin problems:?Nature:?Ulcer.?Location:?Bottom, Forefoot, Left , 1st.?Duration:?several weeks--six.?Course:?improved.?Aggravated by:?standing, walking.?Treatments:?pt tx at [facility] wd ctr every other week and dressing changes qod with ; pt going to [facility].?Heel pain:?Location:?Proximal plantar aspect of Heel, [...] as necessary. Patient chooses, no pharmaceutical tx (10402).?Debride skin< 25 sq cm:?Open wound?Open wound selective [...] symptoms of infection or any untoward reactions (04008).?Keratoma Treatment:?Parring or Cutting of Benign Hyperkeratotic Lesion(s)?39717 (2-4 Lesions) - The Benign hyperkeratotic lesions, as described above were pared, and/or cut utilizing a sterile #15 blade, tissue nippers, and/or dremel.? * Procedure Codes:?32453 DEBRI DE NAIL, 6 OR MORE, Modifiers: XS , 87295 ACTIVE WOUND CARE/20 CM OR <, 69262 TRIM SKIN LESIONS, 2 TO 4, Modifiers: XS * Follow Up:?6 Months * Images: * The named appointment provid er may or may not be the originator of this progress note, and it is not deemed complete until electronically signed by the appointment provider. Sign off status: Pending * Provider:?George Chopra DPM Date:? 024 Generated for Jennifer calderón/Dia/Marquise on:?08/10/2024 07:33 PM EDT History and Physical Notes * HPI [...] by: standing, walking Treatments: pt tx at [facility] wd ctr every other week and dressing changes qod with ; pt going to [facility] At Risk footcare Pt States [...]
--- OUTSIDE RECORDS SUMMARY | 2024-08-10 19:34 | XMS_ITS | Data Portability ---
Author Organization [facility], Main Office Address [address] [place] [address] Care Team Providers Care Boiler Shop Mechanic Name Role Phone MELISSA ROWLAND 2ND FLOOR OTHER PRABHAKAR DAMICO Primary Care Provider [phone] Assessment No assessment recorded. Plan of Treatment [...] and Address Organization Details Recorded Time Osteomyelitis 81395302 Active 2022 IRENE SKINNER NP [address] , [address], [place], [address], [facility] [employer] [facility] 3 12:54:43 Type 2 diabetes mellitus 80204930 Active 2022 IRENE SKINNER NP [address], [address], [place], [address], [facility] [employer] 3 13:02:35 Essential hypertension 15552094 Active 2022 IRENE SKINNER NP [address], [address], [place], [address], [facility] [employer] 3 13:03:00 Hyperlipidemia 54828844 Active 2022 IRENE SKINNER NP [address], [address], [place], [address], [facility] [employer] 3 13:03:12 History of renal transplant 437297595 Active 2022 IRENE SKINNER NP [address], [address], [place], [address], [facility] 3 13:03:24 Asthenia 57973153 Active 2022 IRENE SKINNER NP [address], [address], [place], [address], [facility] 3 13:03:41 Insomnia 360347859 Active 2022 IRENE SKINNER NP [address], [address], [place], [address], [facility] 3 13:21:26 Spinal stenosis of lumbar region 78557213 Active 2022 Yanique Verdin MD [address], [address], [place], [address], [facility] 3 15:00:42 Chronic constipation 340904465 Active 2022 Yanique Verdin MD [address] [facility], [address], [place], [address], [facility] 3 15:14:15 Coronary arterioscleros is 37610058 Active 2022 Yanique Verdin MD [address] [facility], [address], [place], [address], [facility] 3 15:14:18 Deep venous thrombosis 471681687 Active 2022 IRENE SKINNER NP [address] [facility], [address], [place], [address], [facility] 3 14:34:30 Acute urticaria 862923799 Active 2022 IRENE SKINNER NP [address] [facility], [address], [place], [address], [facility] 3 14:05:35 Problem Notes None recorded. Medical [...] mm[Hg] 72 mm[Hg] IRENE SKINNER NP [address] [facility], [address], [place], [address], [facility] 3 14:03:34 Date Recorded Body height Heart rate Respiratory rate Body temperature Oxygen saturation Oxygen saturation in Arterial blood by Pulse oximetry Systolic blood pressure Diastolic blood pressure Provider Name and Address Organization Details Last Updated DateTime 3 180.34 cm 75 /min 16 /min 97.3 [degF] 96 % 96 % 132 mm[Hg] 76 mm[Hg] IRENE SKINNER NP [address] [facility], [address], [place], [address], [facility] 3 12:50:47 Date Recorded Body height Heart rate Respiratory rate Body temperature Oxygen saturation Oxygen saturation in Arterial blood by Pulse oximetry Systolic blood pressure Diastolic blood pressure Provider Name and Address Organization Details Last Updated DateTime 3 180.34 cm 77 /min 16 /min 97.8 [degF] 96 % 96 % 130 mm[Hg] 74 mm[Hg] IRENE SKINNER NP [address] , [address], [place], [address], [facility] 3 12:16:34 Date Recorded Body height Heart rate Respiratory rate Body temperature Oxygen saturation Oxygen saturation in Arterial blood by Pulse oximetry Systolic blood pressure Diastolic blood pressure Provider Name and Address Organization Details Last Updated DateTime 3 180.34 cm 67 /min 16 /min 97.6 [degF] 98 % 98 % 135 mm[Hg] 74 mm[Hg] IRENE SKINNER NP [address] , [address], [place], [address], [facility] 3 11:38:28 Date Recorded Body height Heart rate Respiratory rate Body temperature Oxygen saturation Oxygen saturation in Arterial blood by Pulse oximetry Systolic blood pressure Diastolic blood pressure Provider Name and Address Organization Details Last Updated DateTime 3 180.34 cm 72 /min 16 /min 98 [degF] 97 % 97 % 132 mm[Hg] 68 mm[Hg] IRENE SKINNER NP [address] [facility], [address], [place], [address], [facility] [employer] [facility] 3 11:00:29 Social History Question Answer Notes LastModified by Organizat ion Details LastModified Time Tobacco Smoking Status Former Smoker IRENE SKINNER NP [address] [facility], [address], [place], [address], [facility] [employer] 01/08/2023 12:57:22 Do You Have An Advance [...] 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 Not Invoked Information not available 01/09/2023 [...] Details Recorded Time Pneumococcal conjugate PCV20, polysaccharide FVW887 conjugate, adjuvant, PF 3 completed Tisha Lopez [facility] 01/14/2023 12:34:16 SARS-COV-2 (COVID-19) vaccine, UNSPECIFIED 2 completed Tishaisidra Lopez [facility] 01/14/2023 12:34:40 SARS-COV-2 (COVID-19) vaccine, UNSPECIFIED 1 completed Tisha [facility] 01/14/2023 12:34:55 SARS-COV-2 (COVID-19) vaccine, UNSPECIFIED 1 completed Tisha [facility] 01/14/2023 12:35:06 SARS-COV-2 (COVID-19) vaccine, UNSPECIFIED 1 completed Tisha [facility] 01/14/2023 12:35:15 influenza, unspecified formulation 2 completed Tisha [facility] 01/14/2023 12:35:39 pneumococcal polysaccharide PPV23 4 completed Tisha Lopez [facility] 01/14/2023 12:36:12 Influenza, adjuvanted, quadrivalent, PF 3 completed Conchita Arias [facility] 10/17/2023 10:37:00 Td (adult), 5 Lf tetanus toxoid, preservative free, adsorbed 3 completed Conchita Arias [facility] 10/17/2023 10:37:17 Past Encounters Encounter ID Performer Location Encounter Start Date Encounter Closed Date Diagnosis/Indication Diagnosis SNOMED-CT Code Diagnosis ICD10 Code Diagnosis Note [id number] FRANCINE HOPKINS [address] [facility] [place] [address] 01/08/2023 11:23:17 01/14/2023 15:37:27 Osteomyelitis 46259975 M86.9 oxycodone 10 mg q4hr prnvanco 1000 mg increased to 1250 mg iv daily to 02/12roceph in 2 gm iv daily to 02/12gabape ntin 300 mg tidf/u with ID 02/07 Type 2 sam betes mellitus 68109939 E11.22 glargine 28 units hslispro sliding scale tidmonitor glucose Hyperlipidemia 62680710 E78.5 atorvastat in 80 mg daily Essential hypertension 36693825 I10 coreg 6.25 mg bidmonitor bp History of renal transplant 966731429 Z48.22 tacrolimus 1gm bidmonitor labs Asthenia 77302725 R53.1 PT OT eval and treatfall precaution sfrequent safety checks Insomnia 395536488 G47.0 0 amitriptyl ine 25 mg [id number] MD MELISSA Mondragon [address] [place] [address] 01/09/2023 13:16:08 01/14/2023 15:47:55 Osteomyelitis 53188566 M46.26 M46.46 Continue ceftriaxon e 2 gms IV qd and vanco titrated to troughs of 10-15, until ontin ue gabapentin 300 mg TID, lidoderm patch qd, oxycodone 10 mg q 4 hrs prn.Monito r CBC, CMP, ESR and CRP weekly with labs to ID (Dr. Rasmussen, fax # )F/U with ID on 02/07 as planned. Type 2 sam betes mellitus 76624436 E11.22 Fair control since here. Last HgA1C 7.0 in 07/2022.Con tinue Lantus 28 units qhs and SSIMonitor fingerstic ks TID and HgA1C as outpt. Hyperlipidemia 12762272 E78.49 Good in ont inue atorvastat in 80 mg qd and ASA 81 mg qd.Monitor labs as outpt. Essential hypertension 10548667 I10 SBP high or borderline since here, likely due to pain, won't make any changes for now.Contin ue carvedilol 6.25 mg BID.Monito r BP and labs. History of renal transplant 777186018 Z48.22 With good renal function.C ontinue tacrolimus 1 gm BIDMonitor labsF/U with renal as planned. Asthenia 99313494 R53.1 Very deconditio tasneem.Needs PT/OT for strengthen ing, balance, gait training, safety and function.C ontinue fall precaution s.Monitor for safety. Insomnia 150761025 G47.0 0 Continue amitriptyl ine 25 mg qhsMonitor sleep patterns Anemia 601983591 D64.89 Multifacto rial, stable.Mon itor labs Spinal iraida nosis of lumbar region 82778047 M48.061 Long standing issue, not surgical candidate per neurosurg. Continue PT/OT as above.Pain management as above for now.Transi tion back to tramadol as acute pain from discitis improves. Coronary arteriosclerosis 88815501 I25.10 No recent sxs.Contin ue meds as above.Caroline tor sxs and f/u with cardio as planned. Chronic constipation 236 907358 K59.09 Continue miralax 17 gmd TID.Monito r bowel function. Pain of left thigh 01205 27021 89623 M79.652 No clear etiology, could be c/w dermatomal distributi on of L2-3, but should r/o DVT as pt has been immobile.W ill get doppler U/S [id number] FRANCINE HOPKINS [address] [place] [address] [place] [address] 01/10/2023 13:37:56 01/14/2023 15:59:12 Osteomyelitis 02144823 M46.26 M46.46 Continue ceftriaxon e 2 gms IV qdvanco titrated to troughs of 10-15, until 02/12gabape ntin 300 mg TID,lidode rm patch qd,oxycodo ne 10 mg q 4 hrs prn.Monito r CBC, CMP, ESR and CRP weekly with labs to ID (Dr. Rasmussen, fax # ) F/U with ID on 02/07 as planned. Spinal iraida nosis of lumbar region 25451065 M48.061 Long standing issue, not surgical candidate per neurosurg. Continue PT/OT as above. Pain management as above for now. Transition back to tramadol as acute pain from discitis improves. [id number] IRENE GRIPPIN, SENIOR MECHANICAL PROJECT ENGINEER [address] [address] 01/13/2023 14:27:28 01/16/2023 11:46:26 Deep venous thrombosis 663455732 I82.409 eliquis 10 mg bid to 01/20 then 5 mg bidmonitor cms to left leg Osteomyelitis 29863409 M 46.26 M46.46 Continue ceftriaxon e 2 gms IV qdvanco titrated to troughs of 10-15, until 02/12gabape ntin 300 mg TID,lidode rm patch qd,oxycodo ne 10 mg q 4 hrs prn.Monito r CBC, CMP, ESR and CRP weekly with labs to ID (Dr. Rasmussen, fax # ) F/U with ID on 02/07 as planned. [id number] IRENE SKINNER NP [address] [address] 01/15/2023 13:41:20 01/22/2023 08:29:11 Deep venous thrombosis 837332303 I82.409 eliquis 10 mg bid to 01/20 then 5 mg bidmonitor cms to left leg Osteomyelitis 27915516 M 46.26 M46.46 Continue ceftriaxon e 2 gms IV qdvanco titrated to troughs of 10-15, until 02/12gabape ntin 300 mg TID,lidode rm patch qd,oxycodo ne 10 mg q 4 hrs scheduledM onitor CBC, CMP, ESR and CRP weekly with labs to ID (Dr. Rasmussen, fax # ) F/U with ID on 02/07 as planned. Spinal iraida nosis of lumbar region 31953262 M48.061 Long standing issue, not surgical candidate per neurosurg. Continue PT/OT as above. Pain management as above for now. Transition back to tramadol as acute pain from discitis improves. [id number] IRENE SKINNER NP [address] [place] [address] 01/17/2023 13:29:33 01/22/2023 13:29:10 Osteomyelitis 86314215 M46.26 M46.46 Continue ceftriaxon e 2 gms IV qdvanco titrated to troughs of 10-15, until 02/12vanco decreased to 500 mggabapent in 300 mg TID,lidode rm patch qd,oxycodo ne 10 mg q 4 hrs scheduledM onitor CBC, CMP, ESR and CRP weekly with labs to ID (Dr. Rasmussen, fax # [phone]) F/U with ID on 02/07 as planned. Acute urticaria 00305135 9 L50.9 benedryl 25 mg q6hr prnprednis one burst with taper [id number] IRENE SKINNER NP [address] [address] 01/27/2023 12:42:15 01/29/2023 14:03:06 Osteomyelitis 77217272 M46.26 M46.46 Continue ceftriaxon e 2 gms IV qdvanco titrated to troughs of 10-15, until 02/12vanco decreased to 500 mggabapent in 300 mg TID,lidode rm patch qd,oxycodo ne 10 mg q 4 hrs scheduledM onitor CBC, CMP, ESR and CRP weekly with labs to ID (Dr. Rasmussen, fax # [phone]) F/U with ID on 02/07 as planned. Spinal iraida nosis of lumbar region 22256107 M48.061 Long standing issue, not surgical candidate per neurosurg. Continue PT/OT as above. Pain management as above for now. Transition back to tramadol as acute pain from discitis improves. Acute urticaria 08932330 9 L50.9 resolvedbe nedryl 25 mg q6hr prnprednis one burst with taper [id number] IRENE SKINNER NP [address] [address] 01/29/2023 10:04:40 01/31/2023 16:01:18 Osteomyelitis 88191516 M46.26 M46.46 Continue ceftriaxon e 2 gms IV qdvanco titrated to troughs of 10-15, until 02/12vanco decreased to 500 mgtrough 01/30gabape ntin 300 mg TID,lidode rm patch qd,oxycodo ne 10 mg q 4 hrs scheduledM onitor CBC, CMP, ESR and CRP weekly with labs to ID (Dr. Rasmussen, fax # ) F/U with ID on 02/07 as planned. [id number] IRENE SKINNER NP [address] [address] 02/05/2023 11:24:24 02/07/2023 16:01:50 Spinal stenosis of lumbar region 22341863 M48.061 Long standing issue, not surgical candidate per neurosurg. Continue PT/OT as above.Pain management as above for now.Transi tion back to tramadol as acute pain from discitis improves. Osteomyelitis 65900733 M 46.26 M46.46 Continue ceftriaxon e 2 gms IV qdvanco titrated to troughs of 10-15, until 02/12vanco decreased to 500 mgtrough 01/30gabape ntin 300 mg TID,lidode rm patch qd,oxycodo ne 10 mg q 4 hrs scheduledM onitor CBC, CMP, ESR and CRP weekly with labs to ID (Dr. Rasmussen, fax # [phone]) F/U with ID on 02/07 as planned. [id number] IRENE SKINNER NP [address] [address] 02/12/2023 10:06:53 02/14/2023 11:50:02 Osteomyelitis 18276214 M46.26 M46.46 Continue ceftriaxon e 2 gms [...] SCHWARTZ REMOVED Type 2 sam betes mellitus 48891363 E11.22 glargine 28 units hslispro sliding scale tidmonitor glucose Hyperlipidemia 14203400 E78.5 atorvastat in 80 mg daily Essential hypertension 13049760 I10 coreg 6.25 mg bidmonitor bp History of renal transplant 276230141 Z48.22 tacrolimus 1gm bidmonitor labs Asthenia 72368916 R53.1 PT OT eval and treatfall precaution sfrequent safety checks Insomnia 680761558 G47.0 0 amitriptyl ine 25 mg hs Health Concerns Section Related Observation LastModified by Organization Detai ls LastModified Time None Recorded Concern Status LastModified by Organization Details LastModified Time None Recorded Advance Directives Directive Y: Payers Encounter Date Sequence Insurance Name Policy Number Policy Garcia Covered Member ID Garcia Member ID Guarantor Name 01/17/2023 1 [place] [employer] Aries E Savard [id number] Aries Savard 01/17/2023 2 [place] [id number] Aries Savard [id number] Aries Savard 01/27/2023 1 [place] Aries E Savard [id number] Aries Savard 01/27/2023 2 [place] [id number] Aries Savard [id number] Aries Savard 01/29/2023 1 [place] Aries E Savard [id number] 7 Aries Savard 01/29/2023 2 [place] [id number] Aries Savard [id number] Aries Savard 02/05/2023 1 [place] Aries E Savard [id number] 7 Aries Savard 02/05/2023 2 [place] [id number] Aries Savard [id number] Aries Savard 02/12/2023 1 [place] Aries E Savard [id number] 7 Aries Savard 02/12/2023 2 [place] [id number] Aries Rosario [id number] Aries Rosario Notes Date Note Type [...] burst and benedryl IRENE SKINNER, FRANCINE [address] [facility], [address], [place], [address], [facility] 01/17/2023 14:08:35 01/27/2023 text/html seen today for acute rounding visit- CAOx3 oob independent in room, lungs clear, rash resolved, tolerating his abx tx IRENE SKINNER NP [address] [facility], [address], [place], [address], [facility] 01/27/2023 12:53:30 01/29/2023 text/html seen today for [...] todays dose, asymptomatic IRENE SKINNER NP [address] [facility], [address], [place], [address], [facility] 01/29/2023 12:20:39 02/05/2023 text/html seen today for acute rounding visit, CAOx3 sitting up in wheelchair, ambulates with walker, tolerating abx therapy, schwartz right chest ok IRENE SKINNER NP [address] [facility], [address], [place], [address], [facility] 02/05/2023 11:41:11 02/12/2023 text/html seen today [...] of the schwartz IRENE SKINNER, FRANCINE [address] [facility], [address], [place], [address], [facility] 02/12/2023 11:05:55
--- OUTSIDE RECORDS SUMMARY | 2024-08-10 19:34 | XMS_ITS | Clinical Summary ---
Author Organization [facility] Address [address] [place] [address] Phone Care Team Providers Care Plumber'S Assistant Name Role Phone Tiffanie Lugo FRANCINE Primary Care Provider [phone] Allergies No known active allergies Medications Acetaminophen [...] Height,... 1 Active Insulin Pen Needle (Pen [place] 1/2 ) 29G X 12MM misc See [...] Telephone [facility] [address] [address] Yuan Sung MD from Last [...] Visit [facility] [address] [phone] Hraman Medina MD [address] [address] Health Maintenance Due Date Last [...] AM EST) Hemoglobin A1C 7.0(H) (4.0-5.6) % [facility] Comment: MONITORING: In known diabetic patients, hemoglobin A1c targets should be discussed with health care provider. DIAGNOSTIC USE: ??The [place] Diabetes Association (ADA) and the World Health [...] Supplement 1 Testing performed or reported by [facility], a Service of [facility], [address] [place] [address] Dona Bliss MD, Multi Purpose Machine Operator [facility]# [id number] Blood (Blood, Venous) 07/31/2022 8:10 AM EST 07/31/2022 8:20 AM EST Amanda Holly MD LAB BLOOD ORDERABLES Final Resu lt [facility] from Last 3 Months or Most Recently Relevant to Health Maintenance Insurance MEDICARE [facility] MEDICARE [facility] Care Teams Plumber'S Assistant Relationship Specialty Start Date End Date Tiffanie Lugo NP [address] [place] [address] PCP - General Nurse Practitioner 03/19/23
--- OUTSIDE RECORDS SUMMARY | 2024-08-10 19:34 | XMS_ITS | Clinical Summary ---
Author Organization [facility] Address [address] [place] [address] Phone Care Team Providers Care Counter Waitress/Waiter Name Role Phone Unavailable Primary Care Provider [...]
--- OUTSIDE RECORDS SUMMARY | 2024-08-10 19:34 | XMS_ITS | Encounter Summary ---
Author Organization [facility] Address [address] [place] [address] Phone Care Team Providers Care Coffee Roaster Name Role Phone Tiffanie Lugo FRANCINE Primary Care Provider Encounter Details Date Type Department Care Team (Late st Contact Info) Description 11/24/2023 Documentation Only [facility] [place], [address] [place] [address] [place], [place] [address] [place] [address] Social History Tobacco Use Types [...] Visit [facility] [address] [address] Harman Medina MD [address] [address] documented as of this encounter Visit Diagnoses Not on filedocumented in this encounter Care Teams Coffee Roaster Relationship Specialty Start Date End Date Tiffanie Lugo NP [address] [place] [address] PCP - General Nurse Practitioner 03/19/23 documented as of this encounter
--- OUTSIDE RECORDS SUMMARY | 2024-08-10 19:34 | XMS_ITS | Encounter Summary ---
Author Organization [facility] Address [address] [facility] [address] [place] [address] Phone Care Team Providers Care Senior Net Architect Name Role Phone Tiffanie Lugo RN SURGERY Primary Care Provider [phone] Encounter Details Date Type Department Care Team (Late st Contact Info) Description 04/22/2023 Office Communication [facility] [address] [place] [place] [address] Harman Medina MD [address] [facility] [address] [place] [address] Social History Tobacco Use Types [...] Office Visit [facility] [address] [address] Harman Medina MD [address] [address] documented as of this encounter Visit Diagnoses Not on filedocumented in this encounter Care Teams Senior Net Architect Relationship Specialty Start Date End Date Tiffanie Lugo NP [address] [place] [id number] PCP - General Nurse Practitioner 03/19/23 documented as of this encounter
--- OUTSIDE RECORDS SUMMARY | 2024-08-10 19:34 | XMS_ITS | Encounter Summary ---
Author Organization [facility] Address [address] [place] [address] Phone Care Team Providers Care Spanish Instructor Name Role Phone Unavailable Primary Care Provider Unavailabl e Encounter Details Date Type Department Care Team (Late st Contact Info) Description 11/07/2016 Office Visit [facility] [address] [place] [address] ProviderHerber MD [address] [place] [address] Social History Tobacco Use Types Packs/Day [...]
--- OUTSIDE RECORDS SUMMARY | 2024-08-10 19:35 | XMS_ITS ---
Author Organization [facility] Address [address] [place] [address] Care Team Providers Care Patternmaker Metal Name Role Phone Brittney Tiffanie HAWKINS Primary Care Provider Unavail George Thrasher Unavailable [phone] REASON FOR VISIT cx appt 03/03 Encounters Encounter Location Date Provider Diagnosis [facility] [address] [place] [address] 02/27/2024 George Chopra Plan Of Treatment No Information Progress Notes * Aries ROSARIO EDOB:[birth year] (73 yo M)Acc No.[id number]:02/27/2024 Patient:?Aries Rosario :1950???Age:73 Y???Sex:Male [address] [place], [address] * true * Date:? Generated for Printi ng/Faxing/eTransmitting on:?08/10/2024 07:34 PM EDT
--- OUTSIDE RECORDS SUMMARY | 2024-08-10 19:35 | XMS_ITS | Patient Health Record ---
Author Organization [facility] Address [address] [facility] [place] [address] Care Team Providers Care Navigation Officer Name Role Phone Brittney Tiffanie HAWKINS Primary Care Provider Unavail able Nav George Unavailable [phone] Allergies No Known Allergies Results Component Value [...] Risk Notes Problem Chronic ulcer of foot (509814257) Non-pressure chronic ulcer of other part of left foot with fat layer exposed (L97.522) Active confirmed Problem Localized, primary osteoarthritis of the ankle and/or foot (402568574) Primary osteoarthritis, left ankle and foot (M19.072) Active confirmed Problem Acquired hallux rigidus (9884044) Hallux rigidus, left foot (M20.22) Active confirmed Problem Non-pressure chronic ulcer of other part of left foot limited to breakdown of skin (L97.521) Active confirmed Problem Acquired hallux valgus (52245038) Hallux valgus (acquired), left foot (M20.12) Active confirmed Problem Acquired hammer toe of right foot (0478582141090499 ) Other hammer toe(s) (acquired), right foot (M20.41) Active confirmed Problem Acquired hammer toe of left foot (7824325564791632 ) Other hammer toe(s) (acquired), left foot (M20.42) Active confirmed Problem Polyneuropathy due to type 2 diabetes mellitus (034154973) Type 2 diabetes mellitus with diabetic polyneuropathy (E11.42) Active confirmed Problem Polyneuropathy due to diabetes mellitus type I (679536175) Type 1 diabetes mellitus with diabetic polyneuropathy (E10.42) Active confirmed Problem Acquired hallux rigidus (6008276) Hallux rigidus, right foot (M20.21) Active confirmed Vital Signs Blood pressure diastolic 80 mm Hg 09/01/2023 Height 5ft 11in in 09/01/2023 Blood pressure systolic 120 mm Hg 09/01/2023 Weight 244 lbs 09/01/2023 BMI 34.03 kg/m2 09/01/2023 Encounters Encounter Location Date Provider Diagnosis [address] [address] 09/01/2023 George Chopra Type 1 diabetes mellitus [...] limited to breakdown of skin L97.[address] [address] 02/27/2024 George Chopra Assessments Encounter Date Diagnosis [...] X ray : Foot, left 3V 09/20/2021 05733-IYHRVHJ SKIN/TISSUE 09/20/2021 50476-YWBQNQM SKIN/TISSUE 03/29/2021 97571-WPPWULM SKIN/TISSUE 10/01/2021 05479-OZWZWEL SKIN/TISSUE 12/10/2021 02176-NRDUUOY SKIN/TISSUE 09/09/2022 91888-EQBEDKL SKIN/TISSUE 01/25/2021 55169-AOGS SKIN LESIONS, OVER 4 03/29/20 21 33844-GTYX SKIN LESIONS, OVER 4 09/21/19 22 43578-CRML SKIN LESIONS, 2 TO 4 09/10/19 23 Insurance Providers Payer Name Payer Address Payer Phone Subscriber Number Group Number Insured Name Patient Relationship to Insured Coverage Start Date Coverage End Date Medicare National Govt Svcs Inc [address] [place] [address] [id number] Aries Rosario Self - patient is the insured [employer] [address] [place] [address] [id number] Aries Rosario Self - patient is the [...]
--- OUTSIDE RECORDS SUMMARY | 2024-08-10 19:35 | XMS_ITS | Clinical Summary ---
Author Organization [facility] Address [address] [place] [address] Care Team Providers Care Yeast Pusher Name Role Phone Pcp, No Primary Care [...] age to complete this topic Care Teams Yeast Pusher Relationship Specialty Start Date End Date Pcp, No [address] [place] [address] PCP - General 02/13/22
--- OUTSIDE RECORDS SUMMARY | 2024-08-10 19:35 | XMS_ITS ---
Author Organization [facility] Address [address] [place] [address] Care Team Providers Care Oil Analyst Name Role Phone Brittney Tiffanie HAWKINS Primary Care Provider Unavail able George Chopra Unavailable [phone] Allergies No Known Allergies REASON FOR VISIT [...] 024 Encounters Encounter Location Date Provider Diagnosis [facility] [address] [address] 09/01/2023 George Chopra Type 1 diabetes mellitus [...] as necessary. Patient chooses, no pharmaceutical tx (49356) Debride skin< 25 sq cm Open wound [...] symptoms of infection or any untoward reactions (27624) Keratoma Treatment Parring or Cutting o f Benign Hyperkeratotic Lesion(s) 08000 (2-4 Lesions) - The Benign hyperkeratotic lesions, as described above were pared, and/or cut utilizing a sterile #15 blade, tissue nippers, and/or dremel Progress Notes * JOHANNA Aries EDOB:[birth year] (72 yo M)Acc No.[id number]:09/01/2023 Progress Note Patient:?Aries Rosario Provider:?George Chopra DPM :1950???Age:72 Y???Sex:Male Suresh e:09/01/2023 Address:[address] [place], [place] [address] Pcp:SHRUTHI Vicente Subjective: * Chief Complaints: * ???Painful nail(s) aggrevate d by shoes and causing difficulty standing/walking.Open soreUlcer(s) * HPI: ???Skin problems:?Nature:?Ulcer.?Location:?Bottom, Forefoot, Left , 1st.?Duration:?several weeks--six.?Course:?improved.?Aggravated by:?standing, walking.?Treatments:?pt tx [place] [facility] [place] every other week and dressing changes qod with ; [facility]Heel pain:?Location:?Proximal plantar aspect of Heel, RIGHT.?Onset/Cause:?unknown, [...] as necessary. Patient chooses, no pharmaceutical tx (07542).?Debride skin< 25 sq cm:?Open wound?Open wound selective [...] symptoms of infection or any untoward reactions (71992).?Keratoma Treatment:?Parring or Cutting of Benign Hyperkeratotic Lesion(s)?17762 (2-4 Lesions) - The Benign hyperkeratotic lesions, as described above were pared, and/or cut utilizing a sterile #15 blade, tissue nippers, and/or dremel.? * Procedure Codes:?12260 DEBRI DE NAIL, 6 OR MORE, Modifiers: XS 03493 ACTIVE WOUND CARE/20 CM OR <34444 TRIM SKIN LESIONS, 2 TO 4, Modifiers: [...] Chopra DPM Date:? 024 Generated for Jennifer calderón/Dia/eTransmitting on:?08/10/2024 07:34 PM EDT History and Physical Notes * [...] by: standing, walking Treatments: pt tx at [facility] [place] every other week and dressing changes qod with ; [facility] Pt States Last [...]
[2024-08-11 13:21] LABS: Adenovirus PCR Not Detected (Not Detect.); Bordetella parapertussis PCR Not Detected (Not Detect.); Bordetella pertussis PCR Not Detected (Not Detect.); Chlamydia pneumoniae PCR Not Detected (Not Detect.); Coronavirus 229E PCR Not Detected (Not Detect.); Coronavirus HKU1 PCR Not Detected (Not Detect.); Coronavirus NL63 PCR Not Detected (Not Detect.); Coronavirus OC43 PCR Not Detected (Not Detect.); Human metapneumovirus PCR Not Detected (Not Detect.); Influenza B PCR Not Detected (Not Detect.); Mycoplasma pneumoniae PCR Not Detected (Not Detect.); Parainfluenza 1 PCR Not Detected (Not Detect.); Parainfluenza 2 PCR Not Detected (Not Detect.); Parainfluenza 3 PCR Not Detected (Not Detect.); Parainfluenza 4 PCR Not Detected (Not Detect.); RSV PCR Not Detected (Not Detect.); Rhino/Enterovirus PCR Not Detected (Not Detect.)
[2024-08-11 14:16] LABS: SARS-CoV-2 PCR Not Detected (Not Detect.)
[2024-08-11 14:17] LABS: Influenza A PCR Detected (Not Detect.)
== END 2024-08-10 17:25 | disposition home or self-care (01) ==
LOC: HO.MMNH2L 17:24
PROVIDERS: Visit Provider Nurse Practitioner
DX: Z13.89 Encounter for screening for other disorder (principal)
CPT/HCPCS: 0241U; 87633

== ENCOUNTER 2024-08-16 05:36 | Outpatient (REF) | payer MEDICARE, SELFPAY ==
[2024-08-16 05:37] LABS: MANUAL DIFF FLAG NO
[2024-08-16 06:30] LABS: Anion Gap 14 (12-20); Blood Urea Nitrogen 23 mg/dL (9-16); Calcium 8.1 mg/dL (8.4-10.2); Carbon Dioxide 25 mmol/L (22-29); Chloride 106 mmol/L (96-108); Estimated Glomerular Filt Rate > 60; Glucose Random 112 mg/dL (60-115); Potassium 3.6 mmol/L (3.3-5.1); Sodium 141 mmol/L (135-145)
[2024-08-16 06:37] LABS: Basophils Percent Auto 0.4 % (0-2); Eosinophils Absolute Auto 0.1 X10*3/uL (0.0-0.4); Hematocrit 36.1 % (42.0-52.0); Hemoglobin 11.7 g/dl (14.0-18.0); Imm Gran Abs Auto 0.03 X10*3/uL (0.00-0.03); Imm Gran Pct Auto 0.6 % (0.0-0.4); Lymphocytes Absolute Auto 1.1 X10*3/uL (1.2-4.9); Lymphocytes Percent Auto 22.9 % (20-40); Mean Corpuscular HGB Conc 32.4 g/dl (31.0-36.0); Mean Corpuscular Hemoglobin 28.7 pg (27.0-33.0); Mean Corpuscular Volume 88.7 fL (80.0-98.0); Mean Platelet Volume 10.1 fL (9.4-12.4); Monocytes Absolute Auto 0.5 X10*3/uL (0.1-1.2); Monocytes Percent Auto 10.7 % (2-11); Neutrophils Absolute Auto 3.2 x10*3/uL (2.0-8.3); Neutrophils Percent Auto 63.4 % (45-73); Platelet Count 139 X10*3/uL (160-400); Red Blood Count 4.07 X10*6/uL (4.60-5.80); Red Cell Distribution Width 15.7 % (11.0-16.0)
[2024-08-17 12:34] LABS: Tacrolimus Prograf 4.5 mcg/L
== END 2024-08-16 05:37 | disposition home or self-care (01) ==
LOC: HO.MMNH2L 05:36
PROVIDERS: Visit Provider Nurse Practitioner
DX: E11.40 Type 2 diabetes mellitus with diabetic neuropathy, unspecified (principal); Z94.0 Kidney transplant status; I10 Essential (primary) hypertension
CPT/HCPCS: 36415; 80048; 80197; 85025

== ENCOUNTER 2024-08-23 05:44 | Outpatient (REF) | payer MEDICARE, SELFPAY ==
[2024-08-23 05:40] LABS: MANUAL DIFF FLAG NO
[2024-08-23 06:29] LABS: Basophils Percent Auto 0.3 % (0-2); Eosinophils Absolute Auto 0.2 X10*3/uL (0.0-0.4); Eosinophils Percent Auto 2.9 % (0-4); Hemoglobin 12.1 g/dl (14.0-18.0); Imm Gran Abs Auto 0.02 X10*3/uL (0.00-0.03); Imm Gran Pct Auto 0.3 % (0.0-0.4); Lymphocytes Absolute Auto 1.7 X10*3/uL (1.2-4.9); Lymphocytes Percent Auto 25.7 % (20-40); Mean Corpuscular HGB Conc 32.7 g/dl (31.0-36.0); Mean Corpuscular Volume 88.7 fL (80.0-98.0); Mean Platelet Volume 10.1 fL (9.4-12.4); Monocytes Absolute Auto 0.6 X10*3/uL (0.1-1.2); Monocytes Percent Auto 9.4 % (2-11); Neutrophils Percent Auto 61.4 % (45-73); Platelet Count 172 X10*3/uL (160-400); Red Blood Count 4.17 X10*6/uL (4.60-5.80); Red Cell Distribution Width 15.5 % (11.0-16.0); White Blood Count 6.5 X10*3/uL (4.8-10.8)
[2024-08-23 06:34] LABS: Anion Gap 12 (12-20); Blood Urea Nitrogen 28 mg/dL (9-16); Calcium 8.5 mg/dL (8.4-10.2); Carbon Dioxide 25 mmol/L (22-29); Chloride 107 mmol/L (96-108); Estimated Glomerular Filt Rate > 60; Glucose Random 127 mg/dL (60-115); Potassium 4.2 mmol/L (3.3-5.1); Sodium 140 mmol/L (135-145)
[2024-08-24 10:18] LABS: Tacrolimus Prograf 4.8 mcg/L
== END 2024-08-23 05:45 | disposition home or self-care (01) ==
LOC: HO.MMNH2L 05:44
PROVIDERS: Visit Provider Nurse Practitioner
DX: E11.40 Type 2 diabetes mellitus with diabetic neuropathy, unspecified (principal); Z94.0 Kidney transplant status; I10 Essential (primary) hypertension
CPT/HCPCS: 36415; 80048; 80197; 85025

== ENCOUNTER 2024-08-30 05:41 | Outpatient (REF) | payer MEDICARE, SELFPAY ==
[2024-08-30 05:39] LABS: MANUAL DIFF FLAG NO
[2024-08-30 06:26] LABS: Basophils Percent Auto 0.2 % (0-2); Eosinophils Absolute Auto 0.2 X10*3/uL (0.0-0.4); Eosinophils Percent Auto 2.8 % (0-4); Hemoglobin 12.1 g/dl (14.0-18.0); Imm Gran Abs Auto 0.02 X10*3/uL (0.00-0.03); Imm Gran Pct Auto 0.3 % (0.0-0.4); Lymphocytes Absolute Auto 1.8 X10*3/uL (1.2-4.9); Lymphocytes Percent Auto 30.2 % (20-40); Mean Corpuscular HGB Conc 32.7 g/dl (31.0-36.0); Mean Corpuscular Hemoglobin 29.2 pg (27.0-33.0); Mean Corpuscular Volume 89.4 fL (80.0-98.0); Mean Platelet Volume 10.1 fL (9.4-12.4); Monocytes Absolute Auto 0.6 X10*3/uL (0.1-1.2); Neutrophils Absolute Auto 3.2 x10*3/uL (2.0-8.3); Neutrophils Percent Auto 55.5 % (45-73); Platelet Count 154 X10*3/uL (160-400); Red Blood Count 4.14 X10*6/uL (4.60-5.80); Red Cell Distribution Width 15.9 % (11.0-16.0); White Blood Count 5.8 X10*3/uL (4.8-10.8)
[2024-08-30 06:34] LABS: Anion Gap 11 (12-20); Blood Urea Nitrogen 33 mg/dL (9-16); Calcium 8.5 mg/dL (8.4-10.2); Carbon Dioxide 23 mmol/L (22-29); Chloride 110 mmol/L (96-108); Estimated Glomerular Filt Rate > 60; Glucose Random 118 mg/dL (60-115); Potassium 3.9 mmol/L (3.3-5.1); Sodium 140 mmol/L (135-145)
[2024-08-31 11:49] LABS: Tacrolimus Prograf 4.4 mcg/L
== END 2024-08-30 05:42 | disposition home or self-care (01) ==
LOC: HO.MMNH2L 05:41
PROVIDERS: Visit Provider Nurse Practitioner
DX: I10 Essential (primary) hypertension (principal); E11.40 Type 2 diabetes mellitus with diabetic neuropathy, unspecified; Z94.0 Kidney transplant status
CPT/HCPCS: 36415; 80048; 80197; 85025

== ENCOUNTER 2024-08-31 05:21 | Outpatient (REF) | payer MEDICARE, SELFPAY ==
[2024-08-31 05:24] LABS: MANUAL DIFF FLAG NO
--- OUTSIDE RECORDS SUMMARY | 2024-08-31 05:25 | XMS_ITS ---
Author Organization [facility] Address [address] [place] [address] Care Team Providers Care Weaving Instructor Name Role Phone Brittney Tiffanie HAWKINS Primary Care Provider Unavail George Thrasher Unavailable [phone] REASON FOR VISIT Painful nail(s) aggrevated by shoes and causing difficulty standing/walking., Open sore, Ulcer(s) Medications Medication SIG (Take, Route, Frequency, Duration) Notes Start Date End Date Status Night Splint AFO - L1930 as directed Active Extra Depth Diabetic Shoes with 3 Pair Custom heat-molded multi-density innersoles for 1 year Dx: Active Encounters Encounter Location Date Provider Diagnosis [facility] [address] [place] [address] 03/03/2024 George Chopra Type 1 diabetes mellitus [...] as necessary. Patient chooses, no pharmaceutical tx (40932) Debride skin< 25 sq cm Open wound [...] symptoms of infection or any untoward reactions (90043) Keratoma Treatment Parring or Cutting o f Benign Hyperkeratotic Lesion(s) 51404 (2-4 Lesions) - The Benign hyperkeratotic lesions, as described above were pared, and/or cut utilizing a sterile #15 blade, tissue nippers, and/or dremel Progress Notes * Aries ROSARIO EDOB:[birth year] (73 yo M)Acc No.[id number]:03/03/2024 Progress Note Patient:?SENAITAries HECK E Provider:?George Chopra DPM :1950???Age:73 Y???Sex:Male Suresh e:03/03/2024 Address:[address] [place], [place] [address] Pcp:SHRUTHI Vicente Subjective: * Chief Complaints: * ???1. Painful nail(s) aggrev ated by shoes and causing difficulty standing/walking.. 2. Open sore. 3. Ulcer(s). * HPI: ???Skin problems:?Nature:?Ulcer.?Location:?Bottom, Forefoot, Left , 1st.?Duration:?several weeks--six.?Course:?improved.?Aggravated by:?standing, walking.?Treatments:?pt tx at [facility] [place] every other week and dressing changes qod with ; [facility]Heel pain:?Location:?Proximal plantar aspect of Heel, RIGHT.?Onset/Cause:?unknown, [...] as necessary. Patient chooses, no pharmaceutical tx (66063).?Debride skin< 25 sq cm:?Open wound?Open wound selective [...] symptoms of infection or any untoward reactions (94592).?Keratoma Treatment:?Parring or Cutting of Benign Hyperkeratotic Lesion(s)?81544 (2-4 Lesions) - The Benign hyperkeratotic lesions, as described above were pared, and/or cut utilizing a sterile #15 blade, tissue nippers, and/or dremel.? * Procedure Codes:?65440 DEBRI DE NAIL, 6 OR MORE, Modifiers: XS , 97460 ACTIVE WOUND CARE/20 CM OR <, 46417 TRIM SKIN LESIONS, 2 TO 4, Modifiers: XS * Follow Up:?6 Months * Images: * The named appointment provid er may or may not be the originator of this progress note, and it is not deemed complete until electronically signed by the appointment provider. Sign off status: Pending * Provider:?George Chopra DPM Date:? 024 Generated for Jennifer calderón/Dia/Marquise on:?08/31/2024 05:24 AM EDT History and Physical Notes * [...] standing, walking Treatments: pt tx at [facility] [facility] every other week and dressing changes qod with ; [facility] Pt States Last [...]
--- OUTSIDE RECORDS SUMMARY | 2024-08-31 05:25 | XMS_ITS | Encounter Summary ---
Author Organization [facility] Address [address] [place] [address] Phone Care Team Providers Care It Consulting Manager Name Role Phone Tiffanie Lugo FRANCINE Primary Care Provider [phone] Encounter Details Date Type Department Care Team (Late st Contact Info) Description 11/24/2023 Documentation Only [facility], [address] [place] [address] [place], [place] [address] [place] [address] Social History Tobacco Use Types [...] Visit [facility] [address] [address] Harman Medina MD [address] [address] documented as of this encounter Visit Diagnoses Not on filedocumented in this encounter Care Teams It Consulting Manager Relationship Specialty Start Date End Date Tiffanie Lugo NP [address] [place] [address] PCP - General Nurse Practitioner 03/19/23 documented as of this encounter
--- OUTSIDE RECORDS SUMMARY | 2024-08-31 05:25 | XMS_ITS | Clinical Summary ---
Author Organization [facility] Address [address] [place] [address] Phone Care Team Providers Care Dairy Feed Sales Consultant Name Role Phone Unavailable Primary Care Provider [...]
--- OUTSIDE RECORDS SUMMARY | 2024-08-31 05:25 | XMS_ITS | Patient Health Record ---
Author Organization [facility] Address [address] [place] [address] Care Team Providers Care Manager Product Support Name Role Phone Brittney Tiffanie HAWKINS Primary Care Provider Unavail able Nav George Unavailable [phone] Allergies No Known Allergies Results Component Value [...] Risk Notes Problem Chronic ulcer of foot (607722592) Non-pressure chronic ulcer of other part of left foot with fat layer exposed (L97.522) Active confirmed Problem Localized, primary osteoarthritis of the ankle and/or foot (177023607) Primary osteoarthritis, left ankle and foot (M19.072) Active confirmed Problem Acquired hallux rigidus (6611056) Hallux rigidus, left foot (M20.22) Active confirmed Problem Non-pressure chronic ulcer of other part of left foot limited to breakdown of skin (L97.521) Active confirmed Problem Acquired hallux valgus (88601482) Hallux valgus (acquired), left foot (M20.12) Active confirmed Problem Acquired hammer toe of right foot (5316818614601716 ) Other hammer toe(s) (acquired), right foot (M20.41) Active confirmed Problem Acquired hammer toe of left foot (1453065712645071 ) Other hammer toe(s) (acquired), left foot (M20.42) Active confirmed Problem Polyneuropathy due to type 2 diabetes mellitus (109065228) Type 2 diabetes mellitus with diabetic polyneuropathy (E11.42) Active confirmed Problem Polyneuropathy due to diabetes mellitus type I (112853416) Type 1 diabetes mellitus with diabetic polyneuropathy (E10.42) Active confirmed Problem Acquired hallux rigidus (7442755) Hallux rigidus, right foot (M20.21) Active confirmed Vital Signs Blood pressure diastolic 80 mm Hg 09/01/2023 Height 5ft 11in in 09/01/2023 Blood pressure systolic 120 mm Hg 09/01/2023 Weight 244 lbs 09/01/2023 BMI 34.03 kg/m2 09/01/2023 Encounters Encounter Location Date Provider Diagnosis [address] [address] 09/01/2023 George Chopra Type 1 diabetes mellitus [...] foot limited to breakdown of skin L97.[address] [address] 02/27/2024 George Chopra Assessments Encounter Date Diagnosis [...] X ray : Foot, left 3V 09/20/2021 46182-VZPHGQP SKIN/TISSUE 09/20/2021 19016-EYXKBMI SKIN/TISSUE 03/29/2021 57339-BDNBSZR SKIN/TISSUE 10/01/2021 69724-CUNFQCM SKIN/TISSUE 12/10/2021 17346-IWLTCPM SKIN/TISSUE 09/09/2022 91491-TYDMUPQ SKIN/TISSUE 01/25/2021 35579-SRJG SKIN LESIONS, OVER 4 03/29/20 21 56482-NPED SKIN LESIONS, OVER 4 09/21/19 22 84794-XYBC SKIN LESIONS, 2 TO 4 09/10/19 23 Insurance Providers Payer Name Payer Address Payer Phone Subscriber Number Group Number Insured Name Patient Relationship to Insured Coverage Start Date Coverage End Date Medicare National Govt Svcs Inc [address] [place] [address] [id number] Aries Rosario Self - patient is the insured [employer] [address] [place] [address] [phone] [id number] Aries Rosario Self - patient is the [...]
--- OUTSIDE RECORDS SUMMARY | 2024-08-31 05:25 | XMS_ITS ---
Author Organization [facility] Address [address] [place] [address] Care Team Providers Care Oil Transport Driver Name Role Phone Brittney Tiffanie HAWKINS Primary Care Provider Unavail George Thrasher Unavailable [phone] REASON FOR VISIT cx appt 03/03 Encounters Encounter Location Date Provider Diagnosis [facility] [address] [place] [address] 02/27/2024 George Chopra Plan Of Treatment No Information Progress Notes * Aries ROSARIO EDOB:[birth year] (73 yo M)Acc No.[id number]:02/27/2024 Patient:?Aries Rosario :1950???Age:73 Y???Sex:Male [address] [facility] [place], [address] * true * Date:? Generated for Printi ng/Faxing/eTransmitting on:?08/31/2024 05:25 AM EDT
--- OUTSIDE RECORDS SUMMARY | 2024-08-31 05:25 | XMS_ITS | Encounter Summary ---
Author Organization [facility] Address [address] [place] [address] Phone Care Team Providers Care Regional Sales Leader Name Role Phone Unavailable Primary Care Provider Unavailabl e Encounter Details Date Type Department Care Team (Late st Contact Info) Description 11/07/2016 Office Visit [facility] [place] [address] ProviderHerber MD [address] [place] [address] Social History Tobacco Use Types Packs/Day [...]
--- OUTSIDE RECORDS SUMMARY | 2024-08-31 05:25 | XMS_ITS ---
Author Organization [facility] Address [address] [place] [address] Care Team Providers Care Middle School French Teacher Name Role Phone Brittney Tiffanie HAWKINS Primary Care Provider Unavail able Nav George Unavailable [phone] Allergies No Known Allergies REASON FOR VISIT [...] 024 Encounters Encounter Location Date Provider Diagnosis [facility] [address] [address] 09/01/2023 George Chopra Type 1 diabetes mellitus [...] as necessary. Patient chooses, no pharmaceutical tx (88685) Debride skin< 25 sq cm Open wound [...] symptoms of infection or any untoward reactions (61295) Keratoma Treatment Parring or Cutting o f Benign Hyperkeratotic Lesion(s) 27669 (2-4 Lesions) - The Benign hyperkeratotic lesions, as described above were pared, and/or cut utilizing a sterile #15 blade, tissue nippers, and/or dremel Progress Notes * JOHANNA Aries EDOB:[birth year] (72 yo M)Acc No.[id number]:09/01/2023 Progress Note Patient:?Aries Rosario Provider:?George Chopra DPM :1950???Age:72 Y???Sex:Male Suresh e:09/01/2023 Address:[address] [place], [place] [address] Pcp:SHRUTHI Vicente Subjective: * Chief Complaints: * ???Painful nail(s) aggrevate d by shoes and causing difficulty standing/walking.Open soreUlcer(s) * HPI: ???Skin problems:?Nature:?Ulcer.?Location:?Bottom, Forefoot, Left , 1st.?Duration:?several weeks--six.?Course:?improved.?Aggravated by:?standing, walking.?Treatments:?pt tx at [facility] [place] every other week and dressing changes qod with ; pt going to [facility].?Heel pain:?Location:?Proximal plantar aspect of Heel, RIGHT.?Onset/Cause:?unknown, [...] as necessary. Patient chooses, no pharmaceutical tx (52606).?Debride skin< 25 sq cm:?Open wound?Open wound selective [...] symptoms of infection or any untoward reactions (84201).?Keratoma Treatment:?Parring or Cutting of Benign Hyperkeratotic Lesion(s)?30542 (2-4 Lesions) - The Benign hyperkeratotic lesions, as described above were pared, and/or cut utilizing a sterile #15 blade, tissue nippers, and/or dremel.? * Procedure Codes:?14715 DEBRI DE NAIL, 6 OR MORE, Modifiers: XS 46761 ACTIVE WOUND CARE/20 CM OR <79326 TRIM SKIN LESIONS, 2 TO 4, Modifiers: [...] DPM Date:? 024 Generated for Jennifer calderón/Dia/eTransmitting on:?08/31/2024 05:25 AM EDT History and Physical Notes * [...] by: standing, walking Treatments: pt tx at [facility] w[facility] every other week and dressing changes qod with ; pt going to [facility] Pt States Last [...]
--- OUTSIDE RECORDS SUMMARY | 2024-08-31 05:25 | XMS_ITS | Clinical Summary ---
Author Organization [facility] Address [address] [place] [address] Care Team Providers Care Manager Heart Name Role Phone Pcp, No Primary Care [...] age to complete this topic Care Teams Manager Heart Relationship Specialty Start Date End Date Pcp, No [address] [place] [address] PCP - General 02/13/22
[2024-08-31 06:13] LABS: Basophils Percent Auto 0.5 % (0-2); Eosinophils Absolute Auto 0.2 X10*3/uL (0.0-0.4); Hematocrit 36.2 % (42.0-52.0); Hemoglobin 11.9 g/dl (14.0-18.0); Imm Gran Abs Auto 0.03 X10*3/uL (0.00-0.03); Imm Gran Pct Auto 0.5 % (0.0-0.4); Lymphocytes Absolute Auto 1.7 X10*3/uL (1.2-4.9); Lymphocytes Percent Auto 30.5 % (20-40); Mean Corpuscular HGB Conc 32.9 g/dl (31.0-36.0); Mean Corpuscular Volume 88.3 fL (80.0-98.0); Mean Platelet Volume 9.9 fL (9.4-12.4); Monocytes Absolute Auto 0.5 X10*3/uL (0.1-1.2); Monocytes Percent Auto 9.5 % (2-11); Neutrophils Absolute Auto 3.2 x10*3/uL (2.0-8.3); Platelet Count 139 X10*3/uL (160-400); Red Cell Distribution Width 15.9 % (11.0-16.0); White Blood Count 5.7 X10*3/uL (4.8-10.8)
[2024-08-31 06:35] LABS: Anion Gap 12 (12-20); Blood Urea Nitrogen 31 mg/dL (9-16); Calcium 8.5 mg/dL (8.4-10.2); Carbon Dioxide 22 mmol/L (22-29); Chloride 110 mmol/L (96-108); Estimated Glomerular Filt Rate > 60; Glucose Random 108 mg/dL (60-115); Potassium 3.8 mmol/L (3.3-5.1); Sodium 140 mmol/L (135-145)
[2024-09-01 09:04] LABS: Tacrolimus Prograf 4.8 mcg/L
== END 2024-08-31 05:22 | disposition home or self-care (01) ==
LOC: HO.MMNH2L 05:21
PROVIDERS: Visit Provider Student in an Organized Health Care Education/Training Program
DX: L89.153 Pressure ulcer of sacral region, stage 3 (principal); E11.40 Type 2 diabetes mellitus with diabetic neuropathy, unspecified; Z94.0 Kidney transplant status
CPT/HCPCS: 36415; 80048; 80197; 85025

== ENCOUNTER 2024-10-14 08:06 | Outpatient (REF) | payer MEDICARE, SELFPAY ==
--- OUTSIDE RECORDS SUMMARY | 2024-10-15 08:09 | XMS_ITS | Clinical Summary ---
Author Organization [facility] Address [address] [place] [address] Phone Care Team Providers Care Vocational Rehabilitation Teacher Name Role Phone BrittneyTiffanie anthony FRANCINE Primary Care Provider [phone] Allergies No known active allergies Medications Acetaminophen [...] Weight 1 Active glucose blood test strip 1 Active Insulin Pen Needle (Pen [place] 1/2 ) 29G X 12MM [facility] See Instructions, # 200 each, Refills 11, [...] of 1.5 mg 90 capsule 3 4 Active tacrolimus (PROGRAF) 1 MG capsuleIndicati ons:Kidney replaced by transplant Take 1 capsule (1 mg total) by mouth in the morning and 1 capsule (1 mg total) in the evening. 180 capsule 3 4 Active ascorbic acid (VITAMIN C) 500 MG tablet Take 500 mg by mouth 1 (one) time each day Active docusate sodium (COLACE) 100 MG capsule Take 100 mg by mouth in the morning and 100 mg in the evening. Active guaiFENesin (MUCINEX) 600 MG 12 hr tablet Take 1,200 mg by mouth in the morning and 1,200 mg in the evening. Do not crush, chew, or split.. Active guaiFENesin-dex tromethorphan (ROBITUSSIN DM) 100-10 MG/5ML syrup Take 5 mL by mouth 3 (three) times a day if needed for cough Active Melatonin 3 MG capsule Take by mouth Active midodrine (PROAMATINE) 2.5 MG tablet Take 2.5 mg by mouth in the morning and 2.5 mg in the evening and 2.5 mg before bedtime. 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 [address] [facility] [address] [place] [address] Harman Medina MD Kidney transplant status (Primary Dx) from Last 3 Months Immunizations Immunization Administration Dates Next Due Influenza TIV (IM) 03/16/2018,04/08/2016 Influenza Vaccine, Quadrivalent, Adjuvanted 03/03 Influenza, Unspecified 05/01/2022,01/14/2014 PPD Test 09/01/2017,08/25/2017 Pfizer SARS-COV-2 03/14/2021,09/06/2020,08/17/19 21 Pneumococcal Conjugate 13-Valent 01/30/2022 Pneumococcal Polysaccharide 12/10/2022, 8,01/14/2014 SARS-CoV-2, Unspecified 05/01/2022 TD Preservative Free 02/14/2023 Td, Unspecified 02/14/2023 Family History Medical History [...] Sign Reading Time Taken Comments Blood Pressure 129/74 08/31/2024 3:37 PM EDT Pulse 57 08/31/2024 3:37 PM EDT Temperature - - Respiratory Rate 16 05/20/2017 12:00 PM EST Oxygen Saturation 97% 08/31/2024 3:37 PM EDT Inhaled Oxygen Concentration - - Weight 111 kg (245 lb) 08/31/2024 3:37 PM EDT Height 180.3 cm (5' 11 ) 03/19/2023 3:36 PM EDT Body Mass Index 34.17 03/19/2023 3:36 PM EDT Plan of Treatment Upcoming Encounters Date Type Department Care Team (Late st Contact Info) Description 10/26/2024 3:15 PM EDT Office Visit [facility] [address] [facility] [address] [place] [address] Harman Medina MD [address] [facility] [address] [place] [address] Health Maintenance Due Date Last Done Comments Diabetes: Ophthalmology Exam 07/03/2020 Diabetes: Pedal Pulse Checked 07/03/2020 Diabetes: Sensory Foot Exam 07/03/2020 Diabetes: Visual Foot Exam 07/03/2020 Colonoscopy (Post-Transplant Patient) 07/13/2020 Diabetes: Hemoglobin A1C 10/31/2022 023, 04/16/2022, 04/12/2020 Influenza Vaccine (Season Ended) 2025 03/24/2023, 05/01/2022, 03/16/2018, Additional history exists Pneumococcal Vaccine: 50+ Years Completed 12/10/2022, 01/30/2022, 03/16/2018, Additional history exists Pneumococcal Vaccine: Peds (0 to 5 Years) and At-Risk Patients (6 to 49 Years) Discontinued 12/10/2022, 01/30/2022, 03/16/2018, Additional history exists Hepatitis B Vaccine Aged Out No longe r eligible based on patient's age to complete this topic Procedures Procedure Name Priority Date/Time Associated Diagnosis Comments HEMOGLOBIN A1C Routine 07/31/2022 8:10 AM EST Kidney replaced by transplant Hypertensive disorder Mixed hyperlipidemia Anemia of chronic disease from Last 3 Months or Most Recently Relevant to Health Maintenance Results * (ABNORMAL) Hemoglobin A1c (07/31/2022 8:10 AM EST) Hemoglobin A1C 7.0(H) (4.0-5.6) % [facility] Comment: MONITORING: In known diabetic patients, hemoglobin A1c targets should be discussed with health care provider. DIAGNOSTIC USE: ??The [place] Diabetes Association (ADA) and the World Health [...] Supplement 1 Testing performed or reported by [facility] [employer], a Service of [facility], [address] [place] [address] Dona Bliss MD, Sample Weaver [facility]# [id number] Blood (Blood, Venous) 07/31/2022 8:10 AM EST 07/31/2022 8:20 AM EST Amanda Holly MD LAB BLOOD ORDERABLES Final Resu lt [facility] from Last 3 Months or Most Recently Relevant to Health Maintenance Insurance Medicare [facility] Medicare [facility] Medicaid [place] Care Teams Vocational Rehabilitation Teacher Relationship Specialty Start Date End Date Tiffanie Lugo NP [address] [place] [phone] PCP - General Nurse Practitioner 03/19/23
--- OUTSIDE RECORDS SUMMARY | 2024-10-15 08:09 | XMS_ITS | Clinical Summary ---
Author Organization [facility] Address [address] [place] [address] Phone Care Team Providers Care President And Cmo Name Role Phone Unavailable Primary Care Provider [...]
--- OUTSIDE RECORDS SUMMARY | 2024-10-15 08:09 | XMS_ITS | Clinical Summary ---
Author Organization [facility] Address [address] [place] [address] Care Team Providers Care Ecd Name Role Phone Pcp, No Primary Care [...] topic Insurance MEDICARE PART A & [place] [id number] Care Teams Ecd Relationship Specialty Start Date End Date Pcp, No [address] [place] [address] PCP - General 02/13/22
--- OUTSIDE RECORDS SUMMARY | 2024-10-15 08:09 | XMS_ITS | Encounter Summary ---
Author Organization [facility] Address [address] [place] [address] Phone Care Team Providers Care Life Enrichment Specialist Name Role Phone Tiffanie Lugo FRANCINE Primary Care Provider [phone] Encounter Details Date Type Department Care Team (Late st Contact Info) Description 11/24/2023 Documentation Only [facility], [address] [place] [address] Kimmie GarzaRIO [place], [place] [address] [place] [address] Social History Tobacco Use Types [...] [facility] [address] [address] Harman Medina MD [address] [address] documented as of this encounter Visit Diagnoses Not on filedocumented in this encounter Care Teams Life Enrichment Specialist Relationship Specialty Start Date End Date Tiffanie Lugo NP [address] [place] [phone] PCP - General Nurse Practitioner 03/19/23 documented as of this encounter
--- OUTSIDE RECORDS SUMMARY | 2024-10-15 08:09 | XMS_ITS | Encounter Summary ---
Author Organization [facility] Address [address] [place] [address] Phone Care Team Providers Care Dry Starch Operator Name Role Phone Unavailable Primary Care Provider Unavailabl e Encounter Details Date Type Department Care Team (Late st Contact Info) Description 11/07/2016 Office Visit [facility] [address] [place] [address] ProviderHerber MD [place] [address] Social History Tobacco Use Types [...]
[2024-10-15 08:16] LABS: Appearance Urine Clear; Color Urine Yellow; Glucose Urine UA Negative (Negative); Leukocyte Esterase Urine Large (3+) (Negative); Nitrite Urine Negative (Negative); PH 6.5 (5.0-9.0); UMIC TRIGGER UA YES; Urine Blood Moderate (2+) (Negative); Urine Ketones Negative (Negative); Urine Protein Trace mg/dL (Neg-Trace)
[2024-10-15 08:27] LABS: Bacteria Urine 4+ (None Seen); Hyaline Casts Urine 0-2 /LPF (0-2); Squamous Epithelial Cell Urine 0-2 /HPF (0-2)
[2024-10-15 09:18] LABS: Creatinine Urine 16.81 mg/dL; Microalbum/Creatinine Ratio Ur 481.8 ug/mg cr (<30); Protein/Creatinine Ratio, Ur 1.25 (<0.2); Total Protein Urine Random 21 mg/dL (<12)
== END 2024-10-14 08:07 | disposition home or self-care (01) ==
LOC: HO.MMNH2L 08:06
PROVIDERS: Visit Provider Student in an Organized Health Care Education/Training Program
DX: M48.00 Spinal stenosis, site unspecified (principal)
CPT/HCPCS: 81001; 82043; 82570; 84156

== ENCOUNTER 2024-10-15 05:16 | Outpatient (REF) | payer MEDICARE, SELFPAY ==
[2024-10-15 05:21] LABS: MANUAL DIFF FLAG NO
--- OUTSIDE RECORDS SUMMARY | 2024-10-15 05:22 | XMS_ITS | Data Portability ---
Author Organization [facility], Main Office Address [address] [address] [place] [address] Care Team Providers Care Auto Apprentice Mechanic Name Role Phone MELISSA ROWLAND 2ND [...] and Address Organization Details Recorded Time Osteomyelitis 62644096 Active 2022 IRENE SKINNER NP [address] , [address], [place], [address], [facility] [facility] 3 12:54:43 Type 2 diabetes mellitus 75452408 Active 2022 IRENE SKINNER NP [address], [address], [place], [address], [facility] 3 13:02:35 Essential hypertension 50795133 Active 2022 IRNEE SKINNER NP [address], [address], [place], [address], [facility] 3 13:03:00 Hyperlipidemia 82971256 Active 2022 IRENE SKINNER NP [address], [address], [place], [address], [facility] 3 13:03:12 History of renal transplant 424233987 Active 2022 IRENE SKINNER NP [address], [address], [place], [address], [facility] 3 13:03:24 Asthenia 39021308 Active 2022 IRENE SKINNER NP [address], [address], [place], [address], [facility] 3 13:03:41 Insomnia 619926113 Active 2022 IRENE SKINNER NP [address], [address], [place], [address], [facility] 3 13:21:26 Spinal stenosis of lumbar region 63250114 Active 2022 Yanique Verdin MD [address], [address], [place], [address], [facility] 3 15:00:42 Chronic constipation 635637134 Active 2022 Yanique Verdin MD [address] [facility], [address], [place], [address], [facility] 3 15:14:15 Coronary arterioscleros is 52351427 Active 2022 Yanique Verdin MD [address] [facility], [address], [place], [address], [facility] 3 15:14:18 Deep venous thrombosis 338203107 Active 2022 IRENE SKINNER NP [address] [facility], [address], [place], [address], [facility] 3 14:34:30 Acute urticaria 042304890 Active 2022 IRENE SKINNER NP [address] [facility], [address], [place], [address], [facility] 3 14:05:35 Problem Notes None recorded. Medical [...] [address] [facility], [address], [place], [address], [facility] 3 14:03:34 Date Recorded Body height [...] [address] [facility], [address], [place], [address], [facility] 3 12:50:47 Date Recorded Body height Heart rate Respiratory rate Body temperature Oxygen saturation Oxygen saturation in Arterial blood by Pulse oximetry Systolic blood pressure Diastolic blood pressure Provider Name and Address Organization Details Last Updated DateTime 3 180.34 cm 77 /min 16 /min 97.8 [degF] 96 % 96 % 130 mm[Hg] 74 mm[Hg] IRENE SKINNER NP [address] , [address], [place], [address], [facility] 3 12:16:34 Date Recorded Body height Heart rate Respiratory rate Body temperature Oxygen saturation Oxygen saturation in Arterial blood by Pulse oximetry Systolic blood pressure Diastolic blood pressure Provider Name and Address Organization Details Last Updated DateTime 3 180.34 cm 67 /min 16 /min 97.6 [degF] 98 % 98 % 135 mm[Hg] 74 mm[Hg] IRENE SKINNER NP [address] , [address], [place], [address], [facility] 3 11:38:28 Date Recorded Body height [...] [facility], [address], [place], [address], [facility] 3 11:00:29 Social History Question Answer Notes LastModified by [employer] Details LastModified Time Tobacco Smoking Status Former Smoker IRENE SKINNER NP [address] [facility], [address], [place], [address], [facility] 01/08/2023 12:57:22 Do You Have An Advance Directive? Yes Information not available 01/08/2023 What Is Your Code Status? DNR Information not available 01/08/2023 Where Do You Live? SingleLevelHouse Lives At Home With With 5 Entry Steps Information not available 01/09/2023 Legal Guardian? No Informati on not available 01/09/2023 Do You Have A Medical Power Of Loan Processor? Yes Not Invoked Information not available 01/09/2023 What Was The Date Of Your Most Recent Tobacco Screening? 01/09/2023 Information not available 01/09/2023 Do You Have An Out Of Hospital DNR? Yes Information not available 01/09/2023 What Is Your Relationship Status? Information not available 01/09/2023 Has Tobacco Cessation Counseling Been Provided? No N/a As Pt No Longer Smokes Information not available 01/09/2023 Sex: Unknown Functional Status Question Answer Note LastModified by [employer] Details LastModified Time Do you use any illicit or recreational drugs? No Information not available 01/08/2023 Do you or have you ever used any other forms of tobacco or nicotine? No Information not available 01/09/2023 What is your level of alcohol consumption? None Information not available 01/08/2023 Mental Status None recorded. Family History Nothing Reported Notes:Mother (): Sam chinchilla mellitus type 2; Skin cancer Father (): Stroke Sister: Hyperthyroidism Sister: Hyperthyroidism Daughter: Pseudotumor cerebri Medical History No medical history recorded. Immunizations Vaccine Type Date Status Note Provider Nam e and Address Organization Details Recorded Time Pneumococcal conjugate PCV20, polysaccharide VJB484 conjugate, adjuvant, PF 3 completed Tisha Lopez [facility] 01/14/2023 12:34:16 SARS-COV-2 (COVID-19) vaccine, UNSPECIFIED 2 completed Tisha Lopez [facility] 01/14/2023 12:34:40 SARS-COV-2 (COVID-19) vaccine, UNSPECIFIED 1 completed Tisha [facility] 01/14/2023 12:34:55 SARS-COV-2 (COVID-19) vaccine, UNSPECIFIED 1 completed Tisha [facility] 01/14/2023 12:35:06 SARS-COV-2 (COVID-19) vaccine, UNSPECIFIED 1 completed Tisha [facility] 01/14/2023 12:35:15 influenza, unspecified formulation 2 completed Tishaisidra Lopez [facility] 01/14/2023 12:35:39 pneumococcal polysaccharide PPV23 4 completed Tisha Lopez [facility] 01/14/2023 12:36:12 Influenza, adjuvanted, quadrivalent, PF 3 completed Conchita Arias [facility] 10/17/2023 10:37:00 Td (adult), 5 Lf tetanus toxoid, preservative free, adsorbed 3 completed Conchita Arias [facility] 10/17/2023 10:37:17 Past Encounters Encounter ID Performer Location Encounter Start Date Encounter Closed Date Diagnosis/Indication Diagnosis SNOMED-CT Code Diagnosis ICD10 Code Diagnosis Note [id number] FRANCINE HOPKINS [address] [place] [address] [place] [address] 01/08/2023 11:23:17 01/14/2023 15:37:27 Osteomyelitis 31508371 M86.9 oxycodone 10 mg q4hr prnvanco 1000 mg increased to 1250 mg iv daily to 02/12roceph in 2 gm iv daily to 02/12gabape ntin 300 mg tidf/u with ID 02/07 Type 2 sam betes mellitus 37949806 E11.22 glargine 28 units hslispro sliding scale tidmonitor glucose Hyperlipidemia 16707754 E78.5 atorvastat in 80 mg daily Essential hypertension 51745519 I10 coreg 6.25 mg bidmonitor bp History of renal transplant 233771117 Z48.22 tacrolimus 1gm bidmonitor labs Asthenia 48111935 R53.1 PT OT eval and treatfall precaution sfrequent safety checks Insomnia 113544544 G47.0 0 amitriptyl ine 25 mg hs [id number] Yanique Verdin MD [facility] [address] [address] 01/09/2023 13:16:08 01/14/2023 15:47:55 Osteomyelitis 51977797 M46.26 M46.46 Continue ceftriaxon e 2 gms IV qd and vanco titrated to troughs of 10-15, until ontin ue gabapentin 300 mg TID, lidoderm patch qd, oxycodone 10 mg q 4 hrs prn.Monito r CBC, CMP, ESR and CRP weekly with labs to ID (Dr. Rasmussen, fax # )F/U with ID on 02/07 as planned. Type 2 sam betes mellitus 78349082 E11.22 Fair control since here. Last HgA1C 7.0 in 07/2022.Con tinue Lantus 28 units qhs and SSIMonitor fingerstic ks TID and HgA1C as outpt. Hyperlipidemia 41249026 E78.49 Good in ont inue atorvastat in 80 mg qd and ASA 81 mg qd.Monitor labs as outpt. Essential hypertension 17408887 I10 SBP high or borderline since here, likely due to pain, won't make any changes for now.Contin ue carvedilol 6.25 mg BID.Monito r BP and labs. History of renal transplant 565918387 Z48.22 With good renal function.C ontinue tacrolimus 1 gm BIDMonitor labsF/U with renal as planned. Asthenia 86238867 R53.1 Very deconditio tasneem.Needs PT/OT for strengthen ing, balance, gait training, safety and function.C ontinue fall precaution s.Monitor for safety. Insomnia 538278717 G47.0 0 Continue amitriptyl ine 25 mg qhsMonitor sleep patterns Anemia 181439509 D64.89 Multifacto rial, stable.Mon itor labs Spinal iraida nosis of lumbar region 70043931 M48.061 Long standing issue, not surgical candidate per neurosurg. Continue PT/OT as above.Pain management as above for now.Transi tion back to tramadol as acute pain from discitis improves. Coronary arteriosclerosis 41417416 I25.10 No recent sxs.Contin ue meds as above.Caroline tor sxs and f/u with cardio as planned. Chronic constipation 236 917556 K59.09 Continue miralax 17 gmd TID.Monito r bowel function. Pain of left thigh 25044 47791 43363 M79.652 No clear etiology, could be c/w dermatomal distributi on of L2-3, but should r/o DVT as pt has been immobile.W ill get doppler U/S [id number] IRENE SKINNER, FRANCINE ROWLAND [address] [place] [address] 01/10/2023 13:37:56 01/14/2023 15:59:12 Osteomyelitis 73326803 M46.26 M46.46 Continue ceftriaxon e 2 gms IV qdvanco titrated to troughs of 10-15, until 02/12gabape ntin 300 mg TID,lidode rm patch qd,oxycodo ne 10 mg q 4 hrs prn.Monito r CBC, CMP, ESR and CRP weekly with labs to ID (Dr. Rasmussen, fax # ) F/U with ID on 02/07 as planned. Spinal iraida nosis of lumbar region 29913382 M48.061 Long standing issue, not surgical candidate per neurosurg. Continue PT/OT as above. Pain management as above for now. Transition back to tramadol as acute pain from discitis improves. [id number] IRENE SKINNER NP MELISSA ROWLAND [address] [place] [address] 01/13/2023 14:27:28 01/16/2023 11:46:26 Deep venous thrombosis 709268023 I82.409 eliquis 10 mg bid to 01/20 then 5 mg bidmonitor cms to left leg Osteomyelitis 87395494 M 46.26 M46.46 Continue ceftriaxon e 2 gms IV qdvanco titrated to troughs of 10-15, until 02/12gabape ntin 300 mg TID,lidode rm patch qd,oxycodo ne 10 mg q 4 hrs prn.Monito r CBC, CMP, ESR and CRP weekly with labs to ID (Dr. Rasmussen, fax # [phone]) F/U with ID on 02/07 as planned. [id number] IRENE SKINNER NP MELISSA ROWLAND [address] [place] [address] 01/15/2023 13:41:20 01/22/2023 08:29:11 Deep venous thrombosis 057684361 I82.409 eliquis 10 mg bid to 01/20 then 5 mg bidmonitor cms to left leg Osteomyelitis 74453311 M 46.26 M46.46 Continue ceftriaxon e 2 gms IV qdvanco titrated to troughs of 10-15, until 02/12gabape ntin 300 mg TID,lidode rm patch qd,oxycodo ne 10 mg q 4 hrs scheduledM onitor CBC, CMP, ESR and CRP weekly with labs to ID (Dr. Rasmussen, fax # ) F/U with ID on 02/07 as planned. Spinal iraida nosis of lumbar region 32817453 M48.061 Long standing issue, not surgical candidate per neurosurg. Continue PT/OT as above. Pain management as above for now. Transition back to tramadol as acute pain from discitis improves. [id number] IRENE SKINNER NP MELISSA ROWLAND [address] [place] [address] 01/17/2023 13:29:33 01/22/2023 13:29:10 Osteomyelitis 15395360 M46.26 M46.46 Continue ceftriaxon e 2 gms IV qdvanco titrated to troughs of 10-15, until 02/12vanco decreased to 500 mggabapent in 300 mg TID,lidode rm patch qd,oxycodo ne 10 mg q 4 hrs scheduledM onitor CBC, CMP, ESR and CRP weekly with labs to ID (Dr. Rasmussen, fax # ) F/U with ID on 02/07 as planned. Acute urticaria 41406737 9 L50.9 benedryl 25 mg q6hr prnprednis one burst with taper [id number] IRENE SKINNER NP [address] [address] 01/27/2023 12:42:15 01/29/2023 14:03:06 Osteomyelitis 39642510 M46.26 M46.46 Continue ceftriaxon e 2 gms IV qdvanco titrated to troughs of 10-15, until 02/12vanco decreased to 500 mggabapent in 300 mg TID,lidode rm patch qd,oxycodo ne 10 mg q 4 hrs scheduledM onitor CBC, CMP, ESR and CRP weekly with labs to ID (Dr. Rasmussen, fax # [phone]) F/U with ID on 02/07 as planned. Spinal iraida nosis of lumbar region 44147774 M48.061 Long standing issue, not surgical candidate per neurosurg. Continue PT/OT as above. Pain management as above for now. Transition back to tramadol as acute pain from discitis improves. Acute urticaria 38556229 9 L50.9 resolvedbe nedryl 25 mg q6hr prnprednis one burst with taper [id number] IRENE SKINNER NP [address] [address] 01/29/2023 10:04:40 01/31/2023 16:01:18 Osteomyelitis 36315289 M46.26 M46.46 Continue ceftriaxon e 2 gms IV qdvanco titrated to troughs of 10-15, until 02/12vanco decreased to 500 mgtrough 01/30gabape ntin 300 mg TID,lidode rm patch qd,oxycodo ne 10 mg q 4 hrs scheduledM onitor CBC, CMP, ESR and CRP weekly with labs to ID (Dr. Rasmussen, fax # ) F/U with ID on 02/07 as planned. [id number] IRENE SKINNER NP [address] [address] 02/05/2023 11:24:24 02/07/2023 16:01:50 Spinal stenosis of lumbar region 87416835 M48.061 Long standing issue, not surgical candidate per neurosurg. Continue PT/OT as above.Pain management as above for now.Transi tion back to tramadol as acute pain from discitis improves. Osteomyelitis 54059006 M 46.26 M46.46 Continue ceftriaxon e 2 gms IV qdvanco titrated to troughs of 10-15, until 02/12vanco decreased to 500 mgtrough 01/30gabape ntin 300 mg TID,lidode rm patch qd,oxycodo ne 10 mg q 4 hrs scheduledM onitor CBC, CMP, ESR and CRP weekly with labs to ID (Dr. Rasmussen, fax # ) F/U with ID on 02/07 as planned. [id number] IRENE SKINNER NP [address] [address] 02/12/2023 10:06:53 02/14/2023 11:50:02 Osteomyelitis 54916756 M46.26 M46.46 Continue ceftriaxon e 2 gms IV qd to 02/13vanco titrated to troughs of 10-15, until 02/12vanco decreased to 500 mgtrough 01/30gabape ntin 300 mg TID,lidode rm patch qd,oxycodo ne 10 mg q 4 hrs scheduled- decreased to q12 hrtramadol 100 mg tidMonitor CBC, CMP, ESR and CRP weekly with labs to ID (Dr. Rasmussen, fax # [phone])F/U with ID on 02/07 as planned.AR RANGE TO HAVE SCHWARTZ REMOVED Type 2 sam betes mellitus 50486093 E11.22 glargine 28 units hslispro sliding scale tidmonitor glucose Hyperlipidemia 67335314 E78.5 atorvastat in 80 mg daily Essential hypertension 45363061 I10 coreg 6.25 mg bidmonitor bp History of renal transplant 766623636 Z48.22 tacrolimus 1gm bidmonitor labs Asthenia 96254361 R53.1 PT OT eval and treatfall precaution sfrequent safety checks Insomnia 054683890 G47.0 0 amitriptyl ine 25 mg hs Health Concerns Section Related Observation LastModified by Organization Detai ls LastModified Time None Recorded Concern Status LastModified by Organization Details LastModified Time None Recorded Advance Directives Directive Y: Payers Encounter Date Sequence Insurance Name Policy Number Policy Garcia Covered Member ID Garcia Member ID Guarantor Name 01/17/2023 1 [place] [employer] Aries E Savard [id number] Aries Savard 01/17/2023 2 [place] [id number] Aries Reidard [id number] Aries Savard 01/27/2023 1 [place] Aries E Savard [id number] Aries Savard 01/27/2023 2 [place] [id number] Aries Savard [id number] Aries Savard 01/29/2023 1 [place] Aries E Savard [id number] 7 Aries Savard 01/29/2023 2 [place] [id number] Aries Savard [id number] Aries Savard 02/05/2023 1 [place] Aries E Savard [id number] 7 Aries Savard 02/05/2023 2 [place] [id number] Aries Savard [id number] 31 Aries Savard 02/12/2023 1 [place] Aries E Savard [id number] 7 Aries Savard 02/12/2023 2 [place] [id number] Aries Savard [id number] Aries Rosario Notes Date Note Type [...] [address] [facility], [address], [place], [address], [facility] 01/17/2023 14:08:35 01/27/2023 text/html seen today for acute rounding visit- CAOx3 oob independent in room, lungs clear, rash resolved, tolerating his abx tx IRENE SKINNER NP [address] [facility], [address], [place], [address], [facility] 01/27/2023 12:53:30 01/29/2023 text/html seen today for [...] todays dose, asymptomatic IRENE SKINNER NP [address] [facility], [address], [place], [address], [facility] 01/29/2023 12:20:39 02/05/2023 text/html seen today for acute rounding visit, CAOx3 sitting up in wheelchair, ambulates with walker, tolerating abx therapy, schwartz right chest ok IRENE SKINNER NP [address] [facility], [address], [place], [address], [facility] 02/05/2023 11:41:11 02/12/2023 text/html seen today [...] of the schwartz IRENE SKINNER, FRANCINE [address] [facility], [address], [place], [address], [facility] 02/12/2023 11:05:55
--- OUTSIDE RECORDS SUMMARY | 2024-10-15 05:22 | XMS_ITS ---
Author Organization [facility] Address [address] [place] [address] Care Team Providers Care Registration Rep Name Role Phone Brittney Tiffanie HAWKINS Primary Care Provider Unavail George Thrasher Unavailable [phone] REASON FOR VISIT Painful nail(s) aggrevated by shoes and causing difficulty standing/walking., Open sore, Ulcer(s) Medications Medication SIG (Take, Route, Frequency, Duration) Notes Start Date End Date Status Night Splint AFO - L1930 as directed Active Extra Depth Diabetic Shoes with 3 Pair Custom heat-molded multi-density innersoles for 1 year Dx: Active Encounters Encounter Location Date Provider Diagnosis [facility] [address] [place] [address] 03/03/2024 George Chopra Type 1 diabetes mellitus [...] as necessary. Patient chooses, no pharmaceutical tx (74230) Debride skin< 25 sq cm Open wound [...] symptoms of infection or any untoward reactions (80434) Keratoma Treatment Parring or Cutting o f Benign Hyperkeratotic Lesion(s) 17206 (2-4 Lesions) - The Benign hyperkeratotic lesions, as described above were pared, and/or cut utilizing a sterile #15 blade, tissue nippers, and/or dremel Progress Notes * Aries ROSARIO EDOB:[birth year] (73 yo M)Acc No.[id number]:03/03/2024 Progress Note Patient:?SENAITAries HECK E Provider:?George Chopra DPM :1950???Age:73 Y???Sex:Male Suresh e:03/03/2024 Address:[address] [place], [place] [id number] Pcp:SHRUTHI Vicente Subjective: * Chief Complaints: * ???1. Painful nail(s) aggrev ated by shoes and causing difficulty standing/walking.. 2. Open sore. 3. Ulcer(s). * HPI: ???Skin problems:?Nature:?Ulcer.?Location:?Bottom, Forefoot, Left , 1st.?Duration:?several weeks--six.?Course:?improved.?Aggravated by:?standing, walking.?Treatments:?pt tx at [facility] every other week and dressing changes qod with ; pt going to [facility].?Heel pain:?Location:?Proximal plantar aspect of Heel, RIGHT.?Onset/Cause:?unknown, [...] as necessary. Patient chooses, no pharmaceutical tx (40810).?Debride skin< 25 sq cm:?Open wound?Open wound selective [...] symptoms of infection or any untoward reactions (84875).?Keratoma Treatment:?Parring or Cutting of Benign Hyperkeratotic Lesion(s)?49756 (2-4 Lesions) - The Benign hyperkeratotic lesions, as described above were pared, and/or cut utilizing a sterile #15 blade, tissue nippers, and/or dremel.? * Procedure Codes:?23122 DEBRI DE NAIL, 6 OR MORE, Modifiers: XS , 95247 ACTIVE WOUND CARE/20 CM OR <, 10694 TRIM SKIN LESIONS, 2 TO 4, Modifiers: XS * Follow Up:?6 Months * Images: * The named appointment provid er may or may not be the originator of this progress note, and it is not deemed complete until electronically signed by the appointment provider. Sign off status: Pending * Provider:?George Chopra DPM Date:? 024 Generated for Jennifer calderón/Dia/Marquise on:?10/15/2024 05:21 AM EDT History and Physical Notes * [...] changes qod with ; pt going to [facility] At Risk footcare Pt States Last [...]
--- OUTSIDE RECORDS SUMMARY | 2024-10-15 05:22 | XMS_ITS | Clinical Summary ---
Author Organization [facility] Address [address] [place] [address] Phone Care Team Providers Care Union Organiser Name Role Phone Unavailable Primary Care Provider Unavailabl e Medications allopurinol (ZYLOPRIM) 100 MG tablet 1 tab(s) [...] Date End stage renal disease 11/07/2016 Immunizations Immunization Administration Dates Next Due Influenza TIV (IM) 04/08/2016 Social History Tobacco Use Types Packs/Day Years Used Date Smoking Tobacco: Never Assessed Sex and Gender Information Value Date Recorded Sex Assigned at Not on file Legal Sex Male 7:30 PM MDT Gender Identity Not on file Sexual Orientation [...]
--- OUTSIDE RECORDS SUMMARY | 2024-10-15 05:22 | XMS_ITS | Encounter Summary ---
Author Organization [facility] Address [address] [place] [address] Phone Care Team Providers Care Oleomargarine Maker Name Role Phone Unavailable Primary Care Provider Unavailabl e Encounter Details Date Type Department Care Team (Late st Contact Info) Description 11/07/2016 Office Visit [facility] [address] [place] [address] ProviderHerber MD [facility] [place] [address] Social History Tobacco Use Types Packs/Day [...]
--- OUTSIDE RECORDS SUMMARY | 2024-10-15 05:22 | XMS_ITS | Encounter Summary ---
Author Organization [facility] Address [address] [place] [address] Phone Care Team Providers Care Joint Sealer Name Role Phone Tiffanie Lugo FRANCINE Primary Care Provider [phone] Encounter Details Date Type Department Care Team (Late st Contact Info) Description 11/24/2023 Documentation Only [facility], [address] [place] [address] [place] [address] [place] [address] Social History Tobacco Use Types [...] Care Team (Late st Contact Info) Description 10/26/2024 3:15 PM EDT Office Visit [facility] [address] [address] Harman Medina MD [address] [address] documented as of this encounter Visit Diagnoses Not on filedocumented in this encounter Care Teams Joint Sealer Relationship Specialty Start Date End Date Tiffanie Lugo NP [address] [place] [address] PCP - General Nurse Practitioner 03/19/23 documented as of this encounter
--- OUTSIDE RECORDS SUMMARY | 2024-10-15 05:23 | XMS_ITS | Patient Health Record ---
Author Organization [facility] Address [address] [facility] [address] Care Team Providers Care Business Development Specialist Name Role Phone Tiffanie Jones Primary Care Provider Unavail able Nav George Unavailable [phone] Allergies No Known Allergies Reason For Referral No Information Medications Medication [...] Not-Taking Immunizations Vaccine Route Administration Date Status Commnivia nts COVID-19 Pfizer BioNTech Vaccine Unknown 03/15/2021 [...] Risk Notes Problem Chronic ulcer of foot (593122101) Non-pressure chronic ulcer of other part of left foot with fat layer exposed (L97.522) Active confirmed Problem Localized, primary osteoarthritis of the ankle and/or foot (440608588) Primary osteoarthritis, left ankle and foot (M19.072) Active confirmed Problem Acquired hallux rigidus (2274971) Hallux rigidus, left foot (M20.22) Active confirmed Problem Non-pressure chronic ulcer of other part of left foot limited to breakdown of skin (L97.521) Active confirmed Problem Acquired hallux valgus (77637731) Hallux valgus (acquired), left foot (M20.12) Active confirmed Problem Acquired hammer toe of right foot (2863491074690741 ) Other hammer toe(s) (acquired), right foot (M20.41) Active confirmed Problem Acquired hammer toe of left foot (6406008323230083 ) Other hammer toe(s) (acquired), left foot (M20.42) Active confirmed Problem Polyneuropathy due to type 2 diabetes mellitus (655620789) Type 2 diabetes mellitus with diabetic polyneuropathy (E11.42) Active confirmed Problem Polyneuropathy due to diabetes mellitus type I (687311777) Type 1 diabetes mellitus with diabetic polyneuropathy (E10.42) Active confirmed Problem Acquired hallux rigidus (3208215) Hallux rigidus, right foot (M20.21) Active confirmed Encounters Encounter Location Date Provider Diagnosis [facility] [place] [address] [place] [address] 02/27/2024 George Chopra Plan Of Treatment Pending Test Test Name Order Date X ray : Foot, left 3V 01/25/2021 X ray : Foot, left 3V 09/20/2021 [id number] SKIN/TISSUE 09/20/2021 [id number] SKIN/TISSUE 03/29/2021 09720-[id number] SKIN/TISSUE 10/01/2021 [id number] SKIN/TISSUE 12/10/2021 81632-WHMNOUC SKIN/TISSUE 09/09/2022 [id number] SKIN/TISSUE 01/25/2021 09156-JURE SKIN LESIONS, OVER 4 03/29/20 65620-KZZP SKIN LESIONS, OVER 4 09/21/19 22 18888-PVDR SKIN LESIONS, 2 TO 4 09/10/19 23 Insurance Providers Payer Name Payer Address Payer Phone Subscriber Number Group Number Insured Name Patient Relationship to Insured Coverage Start Date Coverage End Date Medicare National [employer] [address] [facility] [address] [id number] Aries Rosario Self - patient is the insured [employer] [address] [place] [address] [id number] Aries Rosario Self - patient is the [...]
--- OUTSIDE RECORDS SUMMARY | 2024-10-15 05:23 | XMS_ITS ---
Author Organization [facility] Address [address] [place] [address] Care Team Providers Care Signals Intelligence Analyst Name Role Phone Brittney Tiffanie HAWKINS Primary Care Provider Unavail George Thrasher Unavailable [phone] REASON FOR VISIT cx appt 03/03 Encounters Encounter Location Date Provider Diagnosis [facility] [address] [place] [address] 02/27/2024 George Chopra Plan Of Treatment No Information Progress Notes * Aries ROSARIO EDOB:[birth year] (73 yo M)Acc No.[id number]:02/27/2024 Patient:?Aries Rosario :1950???Age:73 Y???Sex:Male Address:[address] [facility] [place], [address] * true * Date:? Generated for Printi ng/Faxing/eTransmitting on:?10/15/2024 05:23 AM EDT
--- OUTSIDE RECORDS SUMMARY | 2024-10-15 05:23 | XMS_ITS ---
[facility] Organization [facility] Address [address] [place] [address] Care Team Providers Care Psychometrist Name Role Phone Brittney Tiffanie HAWKINS Primary Care Provider Unavail able George Chopra Unavailable [phone] Allergies No Known Allergies REASON FOR VISIT [...] 024 Encounters Encounter Location Date Provider Diagnosis [facility] [address] [address] 09/01/2023 George Chopra Type 1 diabetes mellitus [...] as necessary. Patient chooses, no pharmaceutical tx (48679) Debride skin< 25 sq cm Open wound [...] symptoms of infection or any untoward reactions (33079) Keratoma Treatment Parring or Cutting o f Benign Hyperkeratotic Lesion(s) 15102 (2-4 Lesions) - The Benign hyperkeratotic lesions, as described above were pared, and/or cut utilizing a sterile #15 blade, tissue nippers, and/or dremel Progress Notes * JOHANNA Aries EDOB:[birth year] (72 yo M)Acc No.[id number]:09/01/2023 Progress Note Patient:?Aries Rosario Provider:?George Chopra DPM :1950???Age:72 Y???Sex:Male Suresh e:09/01/2023 Address:[address] [place], [place] [id number] Pcp:SHRUTHI Vicente Subjective: * Chief Complaints: * ???Painful nail(s) aggrevate d by shoes and causing difficulty standing/walking.Open soreUlcer(s) * HPI: ???Skin problems:?Nature:?Ulcer.?Location:?Bottom, Forefoot, Left , 1st.?Duration:?several weeks--six.?Course:?improved.?Aggravated by:?standing, walking.?Treatments:?pt tx [facility] every other week and dressing changes qod with ; pt going to [facility].?Heel pain:?Location:?Proximal plantar aspect of Heel, RIGHT.?Onset/Cause:?unknown, [...] as necessary. Patient chooses, no pharmaceutical tx (10808).?Debride skin< 25 sq cm:?Open wound?Open wound selective [...] symptoms of infection or any untoward reactions (44941).?Keratoma Treatment:?Parring or Cutting of Benign Hyperkeratotic Lesion(s)?06085 (2-4 Lesions) - The Benign hyperkeratotic lesions, as described above were pared, and/or cut utilizing a sterile #15 blade, tissue nippers, and/or dremel.? * Procedure Codes:?15610 DEBRI DE NAIL, 6 OR MORE, Modifiers: XS 95136 ACTIVE WOUND CARE/20 CM OR <33269 TRIM SKIN LESIONS, 2 TO 4, Modifiers: [...] DPM Date:? 024 Generated for Jennifer calderón/Dia/eTransmitting on:?10/15/2024 05:22 AM EDT History and Physical Notes * [...] with ; pt going to [facility] At Risk footcare Pt States Last [...]
--- OUTSIDE RECORDS SUMMARY | 2024-10-15 05:23 | XMS_ITS | Clinical Summary ---
Author Organization [facility] Address [address] [place] [address] Care Team Providers Care Flight Kitchen Manager Name Role Phone Pcp, No Primary Care Provider Unavailabl e Social History Tobacco Use Types Packs/Day Years Used Date Smoking Tobacco: Never Assessed Sex and Gender Information Value Date Recorded Sex Assigned at Not on file Legal Sex Male 6:50 PM EST Gender Identity Not on file [...] - Risk 60-74 years 1-dose series) 2009 COVID-19 Vaccine (2023- season) 2024 03/14/2021, 09/06/2020, 08/16/2020 Influenza Vaccine 12/31/2024 05/18/2021, , 03/16/2018, Additional history exists Hepatitis B Vaccines Aged Out No long er eligible based on patient's age to complete this topic Insurance MEDICARE PART A & B [place] [id number] Care Teams Flight Kitchen Manager Relationship Specialty Start Date End Date Pcp, No [address] [place] [address] PCP - General 02/13/22
[2024-10-15 05:44] LABS: Basophils Percent Auto 0.2 % (0-2); Eosinophils Absolute Auto 0.2 X10*3/uL (0.0-0.4); Hematocrit 36.6 % (42.0-52.0); Hemoglobin 12.3 g/dl (14.0-18.0); Imm Gran Abs Auto 0.01 X10*3/uL (0.00-0.03); Imm Gran Pct Auto 0.2 % (0.0-0.4); Lymphocytes Absolute Auto 1.4 X10*3/uL (1.2-4.9); Lymphocytes Percent Auto 23.1 % (20-40); Mean Corpuscular HGB Conc 33.6 g/dl (31.0-36.0); Mean Corpuscular Hemoglobin 29.4 pg (27.0-33.0); Mean Corpuscular Volume 87.6 fL (80.0-98.0); Monocytes Absolute Auto 0.7 X10*3/uL (0.1-1.2); Monocytes Percent Auto 10.7 % (2-11); Neutrophils Absolute Auto 3.8 x10*3/uL (2.0-8.3); Neutrophils Percent Auto 61.8 % (45-73); Platelet Count 141 X10*3/uL (160-400); Red Blood Count 4.18 X10*6/uL (4.60-5.80); Red Cell Distribution Width 15.7 % (11.0-16.0); White Blood Count 6.1 X10*3/uL (4.8-10.8)
[2024-10-15 06:11] LABS: Anion Gap 12 (12-20); Blood Urea Nitrogen 36 mg/dL (9-16); Calcium 8.9 mg/dL (8.4-10.2); Carbon Dioxide 26 mmol/L (22-29); Chloride 107 mmol/L (96-108); Estimated Glomerular Filt Rate > 60; Potassium 4.1 mmol/L (3.3-5.1); Sodium 141 mmol/L (135-145)
[2024-10-16 10:19] LABS: Tacrolimus Prograf 4.5 mcg/L
== END 2024-10-15 05:17 | disposition home or self-care (01) ==
LOC: HO.MMNH2L 05:16
PROVIDERS: Visit Provider Student in an Organized Health Care Education/Training Program
DX: M48.00 Spinal stenosis, site unspecified (principal)
CPT/HCPCS: 36415; 80051; 80197; 82310; 82565; 84520; 85025

== ENCOUNTER 2024-10-26 06:11 | Outpatient (REF) | payer MEDICARE, SELFPAY ==
[2024-10-26 07:03] LABS: Creatinine Urine 36.94 mg/dL; Protein/Creatinine Ratio, Ur 0.87 (<0.2); Total Protein Urine Random 32 mg/dL (<12)
[2024-10-26 07:06] LABS: Appearance Urine Clear; Color Urine Yellow; Glucose Urine UA Negative (Negative); Leukocyte Esterase Urine Large (3+) (Negative); Nitrite Urine Negative (Negative); UMIC TRIGGER UACC YES; Urine Blood Large (3+) (Negative); Urine Ketones Negative (Negative); Urine Protein 30 (1+) mg/dL (Neg-Trace)
[2024-10-26 07:11] LABS: Bacteria Urine 4+ (None Seen); Hyaline Casts Urine 0-2 /LPF (0-2); RBC Urine >20 /HPF (0-2); Squamous Epithelial Cell Urine 0-2 /HPF (0-2); UACC Culture Trigger YES; WBC Urine >50 /HPF (0-5)
== END 2024-10-26 06:12 | disposition home or self-care (01) ==
LOC: HO.MMNH2L 06:11
PROVIDERS: Visit Provider Student in an Organized Health Care Education/Training Program
DX: N39.0 Urinary tract infection, site not specified (principal)
CPT/HCPCS: 81001; 81003; 82043; 82570; 84156; 87086

== ENCOUNTER 2024-11-01 06:02 | Outpatient (REF) | payer MEDICARE, SELFPAY ==
[2024-11-01 06:05] LABS: MANUAL DIFF FLAG NO
[2024-11-01 06:43] LABS: Anion Gap 13 (12-20); Blood Urea Nitrogen 36 mg/dL (9-16); Calcium 8.3 mg/dL (8.4-10.2); Carbon Dioxide 24 mmol/L (22-29); Chloride 107 mmol/L (96-108); Estimated Glomerular Filt Rate > 60; Glucose Random 148 mg/dL (60-115); Potassium 4.2 mmol/L (3.3-5.1); Sodium 140 mmol/L (135-145)
[2024-11-01 06:59] LABS: Basophils Percent Auto 0.3 % (0-2); Eosinophils Absolute Auto 0.2 X10*3/uL (0.0-0.4); Eosinophils Percent Auto 3.8 % (0-4); Hematocrit 35.6 % (42.0-52.0); Hemoglobin 11.4 g/dl (14.0-18.0); Imm Gran Abs Auto 0.02 X10*3/uL (0.00-0.03); Imm Gran Pct Auto 0.3 % (0.0-0.4); Lymphocytes Absolute Auto 1.6 X10*3/uL (1.2-4.9); Lymphocytes Percent Auto 24.5 % (20-40); Mean Corpuscular Hemoglobin 28.9 pg (27.0-33.0); Mean Corpuscular Volume 90.1 fL (80.0-98.0); Mean Platelet Volume 10.5 fL (9.4-12.4); Monocytes Absolute Auto 0.6 X10*3/uL (0.1-1.2); Monocytes Percent Auto 9.1 % (2-11); Platelet Count 150 X10*3/uL (160-400); Red Blood Count 3.95 X10*6/uL (4.60-5.80); White Blood Count 6.4 X10*3/uL (4.8-10.8)
[2024-11-02 08:08] LABS: Tacrolimus Prograf 5.6 mcg/L
== END 2024-11-01 06:03 | disposition home or self-care (01) ==
LOC: HO.MMNH2L 06:02
PROVIDERS: Visit Provider Nurse Practitioner Family
DX: Z94.0 Kidney transplant status (principal)
CPT/HCPCS: 36415; 80048; 80197; 85025

== ENCOUNTER 2024-11-22 05:47 | Outpatient (REF) | payer MEDICARE, SELFPAY ==
[2024-11-22 05:50] LABS: MANUAL DIFF FLAG NO
--- OUTSIDE RECORDS SUMMARY | 2024-11-22 05:51 | XMS_ITS | Clinical Summary ---
Author Organization [facility] Address [address] [place] [phone] Phone Care Team Providers Care Institution Director Name Role Phone BrittneyTiffanie anthony FRANCINE Primary Care Provider [phone] Allergies No known active allergies Medications Acetaminophen [...] strip 1 Active Insulin Pen Needle (Pen [place] 1/2 ) 29G X 12MM [facility] See Instructions, # 200 each, Refills 11, [...] Encounters Date Type Department Care Team Description 10/27/2024 Orders Only [facility] [address] [place] [phone] Ame Meek 10/26/2024 3:15 PM EDT Office [facility] [address] [place] [phone] Harman Medina MD Kidney transplant status (Primary Dx) 08/31/2024 3:30 PM EDT Office Visit [facility] [place] [address] [address] Harman Medina MD Kidney transplant status (Primary [...] Sign Reading Time Taken Comments Blood Pressure 119/62 10/26/2024 3:21 PM EDT Pulse 69 10/26/2024 3:21 PM EDT Temperature - - Respiratory Rate 16 05/20/2017 12:00 PM EST Oxygen Saturation 95% 10/26/2024 3:21 PM EDT Inhaled Oxygen Concentration - - Weight 113 kg (250 lb) 10/26/2024 3:21 PM EDT Height 180.3 cm (5' 11 ) 03/19/2023 3:36 PM EDT Body Mass Index 34.87 03/19/2023 3:36 PM EDT Plan of Treatment Upcoming Encounters Date Type Department Care Team (Late st Contact Info) Description 01/26/2025 4:15 PM EDT Telemedicine [facility] [address] [address] Harman Medina MD [address] [address] Health Maintenance Due Date Last [...] Procedure Name Priority Date/Time Associated Diagnosis Comments EXT RESULT ENTRY Routine 10/15/2024 TACROLIMUS LEVEL (EXTERNAL RESULT ENTRY) Routine 10/15/2024 TACROLIMUS LEVEL (EXTERNAL RESULT ENTRY) Routine 08/23/2024 HEMOGLOBIN A1C Routine 07/31/2022 8:10 AM EST Kidney replaced by transplant Hypertensive disorder Mixed hyperlipidemia Anemia of chronic disease from Last 3 Months or Most Recently Relevant to Health Maintenance Results * Tacrolimus Level (10/15/2024) Only the most recent of2 resultswithin the time period is included. Tacrolimus Lvl 4.5 Blood Venous blood / Unknown 10/15/2024 [facility] Provider MD LAB BLOOD ORDERABLES Belle [place] Result * (ABNORMAL) EXT RESULT ENTRY (10/15/2024) WBC 6.1 3.3 - 10.0 10*3/ML Red Blood Cell Count 4.18 Hemoglobin 12.3(A) 13.5 - 17.5 Hematocrit 36.6(A) 41.0 - 53.0 MCV 37.6(A) 82.0 - 108.0 Sodium 141 137 - 147 Potassium 4.1 3.4 - 5.5 Chloride 107.0 99.0 - 108.0 Carbon Dioxide 26 mmol/L Anion Gap 12 <=30 MMOL/L Calcium 8.9 8.7 - 10.7 mg/dL eGFR Non-Afr [place] >60 10/15/2024 Historical Provider MD LAB BLOOD ORDERABLES Belle l Result * (ABNORMAL) Hemoglobin A1c (07/31/2022 8:10 AM EST) Hemoglobin A1C 7.0(H) (4.0-5.6) % [facility] Comment: MONITORING: In known diabetic patients, hemoglobin A1c targets should be discussed with health care provider. DIAGNOSTIC USE: The [place] Diabetes Association (ADA) and the World Health [...] [facility], a Service of [facility], [address] [place] [address] Dona Bliss MD, Control Tower Radio Operator [facility]# [id number] Blood specimen (specimen) Venous blood / Unknown 07/31/2022 8:10 AM EST 07/31/2022 8:20 AM EST us Amanda Holly MD LAB BLOOD ORDERABLES Final Resu lt [facility] from Last 3 Months or Most Recently Relevant to Health Maintenance Insurance Medicare [facility] Medicare [facility] Medicaid [place] Care Teams Institution Director Relationship Specialty Start Date End Date Tiffanie Lugo NP [address] [place] [phone] PCP - General Nurse Practitioner 03/19/23
[2024-11-22 07:04] LABS: Alanine Aminotransferase < 6 U/L (0-40); Albumin Level 3.1 g/dL (3.5-5.0); Alkaline Phosphatase 73 U/L (39-117); Anion Gap 12 (12-20); Aspartate Amino Transferase 18 U/L (5-37); Bilirubin Total 0.4 mg/dL (0.0-1.0); Blood Urea Nitrogen 52 mg/dL (9-16); Calcium 8.3 mg/dL (8.4-10.2); Carbon Dioxide 24 mmol/L (22-29); Chloride 111 mmol/L (96-108); Estimated Glomerular Filt Rate > 60; Glucose Random 122 mg/dL (60-115); Sodium 143 mmol/L (135-145); Total Protein 6.4 g/dL (6.5-8.0)
[2024-11-22 07:21] LABS: Basophils Percent Auto 0.2 % (0-2); Eosinophils Absolute Auto 0.2 X10*3/uL (0.0-0.4); Eosinophils Percent Auto 2.7 % (0-4); Hemoglobin 11.6 g/dl (14.0-18.0); Imm Gran Abs Auto 0.02 X10*3/uL (0.00-0.03); Imm Gran Pct Auto 0.3 % (0.0-0.4); Lymphocytes Absolute Auto 1.4 X10*3/uL (1.2-4.9); Lymphocytes Percent Auto 23.9 % (20-40); Mean Corpuscular HGB Conc 32.2 g/dl (31.0-36.0); Mean Corpuscular Hemoglobin 28.9 pg (27.0-33.0); Mean Corpuscular Volume 89.8 fL (80.0-98.0); Monocytes Absolute Auto 0.5 X10*3/uL (0.1-1.2); Monocytes Percent Auto 9.1 % (2-11); Neutrophils Absolute Auto 3.8 x10*3/uL (2.0-8.3); Neutrophils Percent Auto 63.8 % (45-73); Platelet Count 135 X10*3/uL (160-400); Red Blood Count 4.01 X10*6/uL (4.60-5.80); Red Cell Distribution Width 15.8 % (11.0-16.0); White Blood Count 5.9 X10*3/uL (4.8-10.8)
== END 2024-11-22 05:48 | disposition home or self-care (01) ==
LOC: HO.MMNH2L 05:47
PROVIDERS: Visit Provider Student in an Organized Health Care Education/Training Program
DX: L89.153 Pressure ulcer of sacral region, stage 3 (principal); E11.40 Type 2 diabetes mellitus with diabetic neuropathy, unspecified
CPT/HCPCS: 36415; 80053; 83735; 85025

== ENCOUNTER 2024-11-24 14:21 | Outpatient (REF) | payer MEDICARE, SELFPAY ==
[2024-11-24 14:44] LABS: Appearance Urine Cloudy; Color Urine Yellow; Glucose Urine UA Negative (Negative); Leukocyte Esterase Urine Large (3+) (Negative); Nitrite Urine Negative (Negative); UMIC TRIGGER UA YES; Urine Blood Large (3+) (Negative); Urine Ketones Negative (Negative); Urine Protein 100 (2+) mg/dL (Neg-Trace)
[2024-11-24 15:09] LABS: Bacteria Urine 4+ (None Seen); Hyaline Casts Urine 0-2 /LPF (0-2); Other Crystals Urine Present; RBC Urine >20 /HPF (0-2); Squamous Epithelial Cell Urine 0-2 /HPF (0-2); WBC Clumps Urine Present; WBC Urine >50 /HPF (0-5)
--- OUTSIDE RECORDS SUMMARY | 2024-11-24 17:08 | XMS_ITS | Clinical Summary ---
Author Organization [facility] Address [address] [place] [phone] Phone Care Team Providers Care Paper Box Cutter Name Role Phone BrittneyTiffanie anthony FRANCINE Primary Care Provider Allergies No known [...] strip 1 Active Insulin Pen Needle (Pen [place] 1/2 ) 29G X 12MM [facility] See Instructions, # 200 each, Refills 11, [...] [facility] [address] [place] [phone] Ame Meek 10/26/2024 3:15 PM EDT Office Visit [facility] [address] [place] [phone] Harman Medina MD Kidney transplant status (Primary Dx) 08/31/2024 3:30 PM EDT Office Visit [facility] [place] [address] [address] Harman Medina MD Kidney transplant status (Primary [...] EDT Telemedicine [facility] [address] [address] Harman Medina MD [address] [address] Health Maintenance Due Date Last [...] TACROLIMUS LEVEL (EXTERNAL RESULT ENTRY) Routine 10/15/2024 HEMOGLOBIN A1C Routine 07/31/2022 8:10 AM EST Kidney replaced by transplant Hypertensive disorder Mixed hyperlipidemia Anemia of chronic disease from Last 3 Months or Most Recently Relevant to Health Maintenance Results * Tacrolimus Level (10/15/2024) Pathologist [facility] Tacrolimus Lvl 4.5 Blood Venous blood / Unknown 10/15/2024 Historical Provider MD LAB BLOOD ORDERABLES Belle l Result * (ABNORMAL) EXT RESULT ENTRY (10/15/2024) Pathologist [facility] WBC 6.1 3.3 - 10.0 10*3/ML Red Blood Cell Count 4.18 Hemoglobin 12.3(A) 13.5 - 17.5 Hematocrit 36.6(A) 41.0 - 53.0 MCV 37.6(A) 82.0 - 108.0 Sodium 141 137 - 147 Potassium 4.1 3.4 - 5.5 Chloride 107.0 99.0 - 108.0 Carbon Dioxide 26 mmol/L Anion Gap 12 <=30 MMOL/L Calcium 8.9 8.7 - 10.7 mg/dL eGFR Non-Afr [place] >60 10/15/2024 [facility] Provider MD LAB BLOOD ORDERABLES Belle l Result * (ABNORMAL) Hemoglobin A1c (07/31/2022 8:10 AM EST) Pathologist [facility] Hemoglobin A1C 7.0(H) (4.0-5.6) % [facility] Comment: MONITORING: In known diabetic patients, hemoglobin A1c targets should be discussed with health care provider. DIAGNOSTIC USE: The [place] Diabetes Association (ADA) and the World [...] Supplement 1 Testing performed or reported by [facility], a Service of [facility], [address] [place] [address] Dona Bliss MD, After School Program Director [facility]# [id number] Blood specimen (specimen) Venous blood / Unknown 07/31/2022 8:10 AM EST 07/31/2022 8:20 AM EST Amanda Holly MD LAB BLOOD ORDERABLES Final Resu lt Performing Organization Address City/State/[facility] Co de Phone Number [facility] from Last 3 Months or Most Recently Relevant to Health Maintenance Insurance Medicare [facility] Medicare [facility] Medicaid [place] Care Teams Paper Box Cutter Relationship Specialty Start Date End Date Tiffanie Lugo NP [address] [place] [phone] PCP - General Nurse Practitioner 03/19/23
== END 2024-11-24 14:22 | disposition home or self-care (01) ==
LOC: HO.MMNH2L 14:21
PROVIDERS: Visit Provider Student in an Organized Health Care Education/Training Program
DX: N17.9 Acute kidney failure, unspecified (principal); L89.153 Pressure ulcer of sacral region, stage 3
CPT/HCPCS: 81001; 87086; 87088; 87186